=== PATIENT | female | born 1965 | race Caucasian/White ===

== ENCOUNTER 2016-07-21 22:26 | Emergency (ER) | payer OTHER ==
[2016-07-21 22:32] VITALS: BP 115/75
--- NOTE | 2016-07-21 22:44 | EDM.PDOC ---
ED HPI GENERAL MEDICAL PROBLEM - General Chief Complaint: Chest Pain Stated Complaint: CHEST PAINS/SHORT OF BREATH Time Seen by Provider: 07/21/16 22:35 Source of Information: Reports: Patient History Limitations: Reports: No Limitations - History of Present Illness INITIAL COMMENTS - FREE TEXT/NARRATIVE: c/o chest pain started after carrying groceries in. Notes similar pain in past with anxiety, Pain sharp and burning, tried tums and didn't help. Notes yepez of "life stress". No seating, No nausea or vomiting Onset: Other (yesterday) Duration: Day(s):, Constant Location: Reports: Chest Quality: Reports: Other (sharp) Severity: Mild Context: Reports: Other (stress) Associated Symptoms: Reports: Shortness of Breath, Other (anxious) Mid-Sternal Chest Pain Score (Numeric/FACES): 8 - Related Data Allergies Allergy/AdvReac Type Severity Reaction Status Date / Time cephalexin [Cephalexin] AdvReac Nausea and Verified 07/21/16 22:32 Vomiting prednisone AdvReac Vomiting Verified 07/21/16 22:32 Home Meds: Home Meds Carvedilol [Carvedilol] 6.25 mg PO BID 05/07/13 [History] Estradiol [Estradiol] 2 mg PO DAILY 05/07/13 [History] Furosemide [Lasix] 20 mg PO WEEKLY PRN 05/07/13 [History] Potassium Chloride [Klor-Con 10] 10 meq PO BID 05/07/13 [History] QUEtiapine Fumarate [Seroquel] 200 mg PO BID 05/07/13 [History] QUEtiapine [SEROquel] 300 mg PO BEDTIME 05/07/13 [History] Sertraline [Zoloft] 100 mg PO TID 05/07/13 [History] Simvastatin [Simvastatin] 40 mg PO DAILY 05/07/13 [History] busPIRone [Buspar] 15 mg PO TID 05/07/13 [History] ALPRAZolam [Alprazolam ODT] 0.5 mg PO TID 09/10/14 [History] Levothyroxine 1 tab PO DAILY 10/17/14 [History] Cyanocobalamin (Vitamin B12) [Vitamin B12] 1,000 mcg IM .MONTHLY 12/27/14 [ History] Ferrous Sulfate 324 mg PO BIDMEALS 12/27/14 [History] Fluticasone/Salmeterol [Advair 500-50] 1 puff INH ASDIRECTED PRN 12/27/14 [ History] Folic Acid 1 mg PO DAILY 12/27/14 [History] Ibuprofen 2 tab PO Q6HR PRN 12/27/14 [History] Cyclobenzaprine [Flexeril] 10 mg PO TID PRN 07/21/16 [History] Past Medical History Cardiovascular 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: Heart Failure 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 Denies: Lightheadedness GI/Abdominal: Reports: No Symptoms Musculoskeletal: Reports: No Symptoms Neurological: Reports: No Symptoms Psychiatric: Reports: Anxiety ED EXAM, GENERAL - Physical Exam Exam: See Below Exam Limited By: No Limitations General Appearance: Alert, Anxious Eye Exam: Bilateral Eye: PERRL Ears: Normal External Exam Nose: Normal Inspection Throat/Mouth: Normal Inspection Head: Atraumatic, Normocephalic Neck: Normal Inspection. No: Lymphadenopathy (L), Lymphadenopathy (R) Respiratory/Chest: No Respiratory Distress, Lungs Clear, Normal Breath Sounds, Other (bilateral upper chest tenderness with palpation) Cardiovascular: Normal Peripheral Pulses, Regular Rate, Rhythm GI/Abdominal: Normal Bowel Sounds, Soft, Non-Tender Back Exam: Normal Inspection. No: CVA Tenderness (L), CVA Tenderness (R) Extremities: Normal Inspection Neurological: Alert, Oriented, Normal Cognition Psychiatric: Anxious Skin Exam: Warm, Dry, Intact, Normal Color Course - Vital Signs Last Recorded V/S: Last Vital Signs Temp 97.9 F 07/21/16 22:28 Pulse 86 07/21/16 22:28 Resp 18 07/21/16 22:28 BP 115/75 07/21/16 22:28 Pulse Ox 99 07/21/16 22:28 - Orders/Labs/Meds Labs: Laboratory Tests 07/21/16 07/21/16 07/21/16 Range/Units 22:50 22:50 22:50 WBC 9.2 (5.0-10.0) 10^3/uL RBC 3.72 L (4.2-5.4) 10^6/uL Hgb 11.6 L (12.0-16.0) g/dL Hct 35.5 L (37.0-47.0) % MCV 95.4 (80-100) fL MCH 31.2 (27.0-34.0) pg MCHC 32.7 L (33.0-35.0) g/dL Plt Count 268 (150-450) 10^3/uL Neut % (Auto) 54.3 (42.2-75.2) % Lymph % (Auto) 36.2 (20.5-50.1) % [place] % (Auto) 5.7 (2-8) % Eos % (Auto) 3.5 H (1.0-3.0) % Baso % (Auto) 0.3 (0.0-1.0) % D-Dimer, Quantitative (0-400) ng/mL Sodium 136 (135-145) mmol/L Potassium 3.0 L (3.6-5.0) mmol/L Chloride 104 (101-111) mmol/L Carbon Dioxide 23.0 (21.0-31.0) mmol/L Anion Gap 12.0 BUN 15 (7-18) mg/dL Creatinine 1.2 (0.6-1.3) mg/dL Est Cr Clr Drug Dosing 54.54 mL/min Estimated GFR (MDRD) 48 BUN/Creatinine Ratio 12.50 Glucose 113 H (74-105) mg/dL Calcium 8.5 (8.4-10.2) mg/dl Total Bilirubin 0.3 (0.2-1.0) mg/dL AST 12 (10-42) IU/L ALT 11 (10-60) IU/L Alkaline Phosphatase 55 (42-121) IU/L CK-MB (CK-2) 2.90 (0.4-4.7) ng/mL Troponin I < 0.02 (0.00-0.02) ng/ml B-Natriuretic Peptide < 5 (0-100) pg/ml Total Protein 7.1 (6.7-8.2) g/dl Albumin 4.0 (3.2-5.5) g/dl Globulin 3.1 Albumin/Globulin Ratio 1.29 Amylase 38 (28-100) U/L Lipase 34 (22-51) U/L Urine Color (YELLOW) Urine Appearance (CLEAR) Urine pH (5.0-9.0) Ur Specific [place] (1.005-1.030) Urine Protein (NEGATIVE) Urine Glucose (UA) (NEGATIVE) Urine Ketones (NEGATIVE) Urine Occult Blood (NEGATIVE) Urine Nitrite (NEGATIVE) Urine Bilirubin (NEGATIVE) Urine Urobilinogen (0.2-1.0) mg/dL Ur Leukocyte Esterase (NEGATIVE) Urine RBC /HPF Urine WBC (0-5/HPF) /HPF Ur Epithelial Cells /HPF Urine Bacteria (0-FEW/HPF) /HPF 07/21/16 07/21/16 Range/Units 22:50 23:21 WBC (5.0-10.0) 10^3/uL RBC (4.2-5.4) 10^6/uL Hgb (12.0-16.0) g/dL Hct (37.0-47.0) % MCV (80-100) fL MCH (27.0-34.0) pg MCHC (33.0-35.0) g/dL Plt Count (150-450) 10^3/uL Neut % (Auto) (42.2-75.2) % Lymph % (Auto) (20.5-50.1) % [place] % (Auto) (2-8) % Eos % (Auto) (1.0-3.0) % Baso % (Auto) (0.0-1.0) % D-Dimer, Quantitative 187 (0-400) ng/mL Sodium (135-145) mmol/L Potassium (3.6-5.0) mmol/L Chloride (101-111) mmol/L Carbon Dioxide (21.0-31.0) mmol/L Anion Gap BUN (7-18) mg/dL Creatinine (0.6-1.3) mg/dL Est Cr Clr Drug Dosing mL/min Estimated GFR (MDRD) BUN/Creatinine Ratio Glucose (74-105) mg/dL Calcium (8.4-10.2) mg/dl Total Bilirubin (0.2-1.0) mg/dL AST (10-42) IU/L ALT (10-60) IU/L Alkaline Phosphatase (42-121) IU/L CK-MB (CK-2) (0.4-4.7) ng/mL Troponin I (0.00-0.02) ng/ml B-Natriuretic Peptide (0-100) pg/ml Total Protein (6.7-8.2) g/dl Albumin (3.2-5.5) g/dl Globulin Albumin/Globulin Ratio Amylase (28-100) U/L Lipase (22-51) U/L Urine Color Yellow (YELLOW) Urine Appearance Clear (CLEAR) Urine pH 6.5 (5.0-9.0) Ur Specific [place] <= 1.005 (1.005-1.030) Urine Protein Negative (NEGATIVE) Urine Glucose (UA) Negative (NEGATIVE) Urine Ketones Negative (NEGATIVE) Urine Occult Blood Negative (NEGATIVE) Urine Nitrite Negative (NEGATIVE) Urine Bilirubin Negative (NEGATIVE) Urine Urobilinogen 0.2 (0.2-1.0) mg/dL Ur Leukocyte Esterase Negative (NEGATIVE) Urine RBC Not seen /HPF Urine WBC Not seen (0-5/HPF) /HPF Ur Epithelial Cells Rare /HPF Urine Bacteria Rare (0-FEW/HPF) /HPF Meds: Medications Discontinued Medications Generic Name Dose Route Start Last Admin Trade Name Traci PRN Reason Stop Dose Admin Aspirin 162 mg 07/21/16 23:00 07/21/16 23:03 Aspirin PO 07/21/16 23:01 162 mg ONETIME ONE Administration Lorazepam 1 mg 07/21/16 23:39 07/21/16 23:43 Ativan PO 07/21/16 23:40 1 mg ONETIME ONE Administration Potassium Chloride 20 meq 07/21/16 23:39 07/21/16 23:43 Klor-Con 10 PO 07/21/16 23:40 20 meq ONETIME ONE Administration Departure - Departure Time of Disposition: 23:57 Disposition: Home, Self-Care 01 Condition: good Clinical Impression: Anxiety, Non-cardiac chest pain - Discharge Information Instructions: Nonspecific Chest Pain, [id number] Forms: ED Department Discharge Additional Instructions: home medications rest low acid foods, bland diet follow up if worsening symptoms follow with primary care if continued anxiety to determine if any changes need to be made with medication
[2016-07-21] MEDS ORDERED: Aspirin 81 MG Tab.Chew PO ONE (23:00)
[2016-07-21 23:19] LABS: CHLORIDE,CL 104 mmol/L (101-111); SODIUM,NA 136 mmol/L (135-145)
[2016-07-21] MEDS ORDERED: Potassium Chloride 10 MEQ Tab.ER PO ONE (23:39)
[2016-07-21] MEDS ORDERED: LORazepam 1 MG Tab PO ONE (23:39)
--- NOTE | 2016-07-22 13:14 | EKG ---
07/21/2016- ALTAGRACIA GARCIA 12-lead EKG shows normal sinus rhythm with heart rate of 81. No significant ST elevation or ST depression noted on this 12-lead EKG. Nonspecific ST-T wave changes noted on lead V2 and V3 with T-wave inversions. [facility] /[id number]
== END 2016-07-22 00:06 | disposition home or self-care (01) ==
LOC: DL.ED 22:26
DX: R07.89 Other chest pain (principal); F41.9 Anxiety disorder, unspecified; Z88.8 Allergy status to other drugs, medicaments and biological substances; Z79.899 Other long term (current) drug therapy; Z90.710 Acquired absence of both cervix and uterus; Z90.49 Acquired absence of other specified parts of digestive tract
CPT/HCPCS: 36415; 71010; 80053; 81001; 82150; 82553; 83690; 83880; 84484; 85025; 85379; 93005; 99285; A9270

== ENCOUNTER 2016-08-09 12:17 | Emergency (ER) | payer OTHER ==
--- NOTE | 2016-08-09 12:19 | EDM.PDOC ---
ED HPI GENERAL MEDICAL PROBLEM - General Chief Complaint: Lower Extremity Injury/Pain Stated Complaint: [id number] BRENT HORSE IN BOTH LEGS Time Seen by Provider: 08/09/16 12:40 Source of Information: Reports: Patient, RN, RN Notes Reviewed History Limitations: Reports: No Limitations - History of Present Illness INITIAL COMMENTS - FREE TEXT/NARRATIVE: Onset of severe brent horse's at approximately 3a.m.. Began in left calf, then right and left upper and lower legs, and right chest wall. Patient takes Lasix. Reports history of similar symptoms with electrolyte imbalance. Quality: Reports: Ache Severity: Severe Improves with: Reports: None Worsens with: Reports: None Associated Symptoms: Reports: No Other Symptoms Bilateral Lower Leg Pain Score (Numeric/FACES): 8 - Related Data Allergies Allergy/AdvReac Type Severity Reaction Status Date / Time cephalexin [Cephalexin] AdvReac Nausea and Verified 08/09/16 12:26 Vomiting prednisone AdvReac Vomiting Verified 08/09/16 12:26 Home Meds: Home Meds Carvedilol [Carvedilol] 6.25 mg PO BID 05/07/13 [History] Estradiol [Estradiol] 2 mg PO DAILY 05/07/13 [History] Furosemide [Lasix] 20 mg PO WEEKLY PRN 05/07/13 [History] Potassium Chloride [Klor-Con 10] 10 meq PO BID 05/07/13 [History] QUEtiapine Fumarate [Seroquel] 200 mg PO BID 05/07/13 [History] QUEtiapine [SEROquel] 300 mg PO BEDTIME 05/07/13 [History] Sertraline [Zoloft] 100 mg PO TID 05/07/13 [History] Simvastatin [Simvastatin] 40 mg PO DAILY 05/07/13 [History] busPIRone [Buspar] 15 mg PO TID 05/07/13 [History] ALPRAZolam [Alprazolam ODT] 0.5 mg PO TID 09/10/14 [History] Levothyroxine 1 tab PO DAILY 10/17/14 [History] Cyanocobalamin (Vitamin B12) [Vitamin B12] 1,000 mcg IM .MONTHLY 12/27/14 [ History] Ferrous Sulfate 324 mg PO BIDMEALS 12/27/14 [History] Fluticasone/Salmeterol [Advair 500-50] 1 puff INH ASDIRECTED PRN 12/27/14 [ History] Folic Acid 1 mg PO DAILY 12/27/14 [History] Ibuprofen 2 tab PO Q6HR PRN 12/27/14 [History] Cyclobenzaprine [Flexeril] 10 mg PO TID PRN 07/21/16 [History] Past Medical History Cardiovascular 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: Heart Failure 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: 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, 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: Other (See Below) Other OB/BYN History: hysterectomy Musculoskeletal 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: Back Pain, Chronic Psychiatric 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: Anxiety, Depression Endocrine/Metabolic 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: Hypothyroidism Hematologic 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: B12 Deficiency - Infectious Disease History Infectious Disease 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: Chicken Pox - Past Surgical History GI Surgical 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: Appendectomy, Cholecystectomy Social & Family History - Family History Family Medical History: Noncontributory - Tobacco Use Smoking Status *Q: Never Smoker Second Hand Smoke Exposure: Yes - Recreational Drug Use Recreational Drug Use: No Review of Systems - Review of Systems Review Of Systems: ROS reveals no pertinent complaints other than HPI. ED EXAM, GENERAL - Physical Exam Exam: See Below Exam Limited By: No Limitations General Appearance: Alert, WD/WN, No Apparent Distress Eye Exam: Bilateral Eye: Normal Inspection Ears: Normal External Exam, Normal Canal, Hearing Grossly Normal, Normal TMs Nose: Normal Inspection, Normal Mucosa, No Blood Throat/Mouth: Normal Inspection, Normal Lips, Normal Teeth, Normal Gums, Normal Oropharynx, Normal Voice, No Airway Compromise Head: Atraumatic, Normocephalic Neck: Normal Inspection, Supple, Non-Tender, Full Range of Motion Respiratory/Chest: Other (right lower lateral chest wall tenderness, otherwise normal.) GI/Abdominal: Normal Bowel Sounds, Soft, Non-Tender, No Organomegaly, No Distention, No Abnormal Bruit, No Mass Back Exam: Normal Inspection, Full Range of Motion, NT Extremities: Other (mild tenderness to bilateral calves and thighs.) Neurological: Alert, Oriented, CN II-XII Intact, Normal Cognition, Normal Gait, Normal Reflexes, No Motor/Sensory Deficits Psychiatric: Normal Affect, Normal Mood Skin Exam: Warm, Dry, Intact, Normal Color, No Rash Lymphatic: No Adenopathy Course - Vital Signs Last Recorded V/S: Last Vital Signs Temp 37.1 C 08/09/16 14:41 Pulse 74 06/11/17 14:41 Resp 20 08/09/16 14:41 BP 111/73 08/09/16 14:41 Pulse Ox 99 08/09/16 14:41 - Orders/Labs/Meds Orders: Active Orders 24 hr Category Date Time Status Peripheral IV Care [RC] . DIRECTED Care 08/09/16 14:02 Active Regular Diet [DIET] Diet 08/09/16 Dinner Active Sodium Chloride 0.9% [Saline Flush] Med 08/09/16 14:02 Active 10 ml FLUSH ASDIRECTED PRN Peripheral IV Insertion Adult [OM.PC] Stat Oth 08/09/16 14:01 Ordered Medication Orders Sodium Chloride (Saline Flush) 10 ml FLUSH ASDIRECTED PRN PRN Reason: Keep Vein Open Last Admin: 08/09/16 14:08 Dose: 10 ml Labs: Laboratory Tests 08/09/16 08/09/16 08/09/16 Range/Units 12:57 12:57 13:03 WBC 11.5 H (5.0-10.0) 10^3/uL RBC 4.01 L (4.2-5.4) 10^6/uL Hgb 12.4 (12.0-16.0) g/dL Hct 37.2 (37.0-47.0) % MCV 92.8 (80-100) fL MCH 30.9 (27.0-34.0) pg MCHC 33.3 (33.0-35.0) g/dL Plt Count 326 (150-450) 10^3/uL Neut % (Auto) 72.1 (42.2-75.2) % Lymph % (Auto) 19.1 L (20.5-50.1) % [place] % (Auto) 5.7 (2-8) % Eos % (Auto) 2.9 (1.0-3.0) % Baso % (Auto) 0.2 (0.0-1.0) % Sodium 136 (135-145) mmol/L Potassium 3.3 L (3.6-5.0) mmol/L Chloride 101 (101-111) mmol/L Carbon Dioxide 20.0 L (21.0-31.0) mmol/L Anion Gap 18.3 BUN 26 H (7-18) mg/dL Creatinine 1.7 H (0.6-1.3) mg/dL Est Cr Clr Drug Dosing 38.50 mL/min Estimated GFR (MDRD) 32 BUN/Creatinine Ratio 15.29 Glucose 141 H (74-105) mg/dL Calcium 9.2 (8.4-10.2) mg/dl Magnesium 1.4 L (1.8-2.5) mg/dL Total Bilirubin 0.2 (0.2-1.0) mg/dL AST 11 (10-42) IU/L ALT 14 (10-60) IU/L Alkaline Phosphatase 66 (42-121) IU/L Total Protein 8.3 H (6.7-8.2) g/dl Albumin 4.8 (3.2-5.5) g/dl Globulin 3.5 Albumin/Globulin Ratio 1.37 Urine Color Yellow (YELLOW) Urine Appearance Clear (CLEAR) Urine pH 5.0 (5.0-9.0) Ur Specific [place] 1.015 (1.005-1.030) Urine Protein Negative (NEGATIVE) Urine Glucose (UA) Negative (NEGATIVE) Urine Ketones Negative (NEGATIVE) Urine Occult Blood Negative (NEGATIVE) Urine Nitrite Negative (NEGATIVE) Urine Bilirubin Negative (NEGATIVE) Urine Urobilinogen 0.2 (0.2-1.0) mg/dL Ur Leukocyte Esterase Negative (NEGATIVE) Urine RBC Not seen /HPF Urine WBC 0-5 (0-5/HPF) /HPF Ur Epithelial Cells Few /HPF Urine Bacteria Few (0-FEW/HPF) /HPF Urine Mucus Few H /LPF Meds: Medications Generic Name Dose Route Start Last Admin Trade Name Freq PRN Reason Stop Dose Admin Sodium Chloride 10 ml 08/09/16 14:02 08/09/16 14:08 Saline Flush FLUSH 10 ml ASDIRECTED PRN Administration Keep Vein Open Discontinued Medications Generic Name Dose Route Start Last Admin Trade Name Freq PRN Reason Stop Dose Admin Hydrocodone Bitart/Acetaminophen 1 tab 08/09/16 14:07 08/09/16 14:11 [place] 325-10 Mg PO 08/09/16 14:08 1 tab ONETIME ONE Administration Potassium Chloride 10 meq/ 100 mls @ 100 mls/hr 08/09/16 14:02 08/09/16 14:09 Premix IV 08/09/16 15:01 100 mls/hr ONETIME ONE Administration Sodium Chloride 1,000 mls @ 999 mls/hr 08/09/16 14:03 08/09/16 14:07 Normal Saline IV 08/09/16 15:03 400 mls/hr .BOLUS ONE Administration Magnesium Sulfate 2 gm/ Premix 50 mls @ 25 mls/hr 08/09/16 14:50 08/09/16 15: 19 IV 08/09/16 16:49 25 mls/hr ONETIME ONE Administration Ketorolac Tromethamine 30 mg 08/09/16 16:53 08/09/16 17:06 Toradol IVPUSH 08/09/16 16:54 30 mg ONETIME ONE Administration Ondansetron HCl 4 mg 08/09/16 14:02 08/09/16 14:09 Zofran IV 08/09/16 14:03 4 mg ONETIME ONE Administration Departure - Departure Time of Disposition: 17:14 Disposition: Home, Self-Care 01 Condition: fair Clinical Impression: Hypomagnesemia, Hypokalemia, Dehydration - Discharge Information Instructions: Muscle Cramps and Spasms, [id number], Hypomagnesemia, Hypokalemia, Dehydration, Adult, [id number] Forms: ED Department Discharge Additional Instructions: RX: [place] 5mg/325mg. Follow up in clinic with your primary doctor if not improving. - My Orders Last 24 Hours: My Active Orders 08/09/16 14:01 Peripheral IV Insertion Adult [OM.PC] Stat 08/09/16 14:02 Peripheral IV Care [RC] . DIRECTED Sodium Chloride 0.9% [Saline Flush] 10 ml FLUSH ASDIRECTED PRN 08/09/16 Dinner Regular Diet [DIET] - Assessment/Plan Last 24 Hours: My Active Orders 08/09/16 14:01 Peripheral IV Insertion Adult [OM.PC] Stat 08/09/16 14:02 Peripheral IV Care [RC] . DIRECTED Sodium Chloride 0.9% [Saline Flush] 10 ml FLUSH ASDIRECTED PRN 08/09/16 Dinner Regular Diet [DIET]
[2016-08-09] MEDS ORDERED: Potassium Chloride 10 MEQ in Premix Bag 1 BAG IV ONE (14:02)
[2016-08-09] MEDS ORDERED: Ondansetron 4 MG/2 ML SDV IV ONE (14:02)
[2016-08-09] MEDS ORDERED: Sodium Chloride 0.9% 10 ML Syringe FLUSH PRN (14:02)
[2016-08-09] MEDS ORDERED: Sodium Chloride 0.9% 1,000 ML IV ONE (14:03)
[2016-08-09] MEDS ORDERED: Acetaminophen/HYDROcodone 325-10 MG Tab PO ONE ×2 (14:07→17:22)
[2016-08-09 14:45] VITALS: BP 111/73
[2016-08-09] MEDS ORDERED: Magnesium Sulfate/Water 2 GM in Premix Bag 1 BAG IV ONE (14:50)
[2016-08-09] MEDS ORDERED: Ketorolac 30 MG/ML SDV IVPUSH ONE (16:53)
[2016-08-09] MEDS ORDERED: Acetaminophen/HYDROcodone 325-10 MG Tab ONE (17:22)
== END 2016-08-09 18:34 | disposition home or self-care (01) ==
LOC: DL.ED 12:17
DX: E83.42 Hypomagnesemia (principal); E87.6 Hypokalemia; E86.0 Dehydration; F32.9 Major depressive disorder, single episode, unspecified; F41.9 Anxiety disorder, unspecified; J45.909 Unspecified asthma, uncomplicated; I50.9 Heart failure, unspecified; E03.9 Hypothyroidism, unspecified; Z88.5 Allergy status to narcotic agent; Z88.1 Allergy status to other antibiotic agents; Z79.899 Other long term (current) drug therapy; Z90.49 Acquired absence of other specified parts of digestive tract
CPT/HCPCS: 36415; 80053; 81001; 83735; 85025; 96365; 96366; 96367; 96368; 96375; 99283; A9270; J1885; J2405; J3480; J7030; J7050; J3475

== ENCOUNTER 2016-08-23 07:43 | Inpatient (IN) | payer OTHER ==
[2016-08-23] MEDS ORDERED: diphenhydrAMINE 50 MG/ML SDV IVPUSH ONE ×2 (08:06→12:24)
--- NOTE | 2016-08-23 08:06 | EDM.PDOC ---
ED HPI GENERAL MEDICAL PROBLEM - General Stated Complaint: [id number] PAIN IN STOMACH TO BACK NAUSEA Time Seen by Provider: 08/23/16 07:59 Source of Information: Reports: Patient History Limitations: Reports: No Limitations - History of Present Illness INITIAL COMMENTS - FREE TEXT/NARRATIVE: Patient comes emergency department today with multiple complaints. She states approximately at 2:00 this morning she suddenly developed left lower quadrant abdominal pain and lower abdominal bloating and distention that goes across her lower abdomen up to her right flank. She is quite nauseated with this. She has not had any vomiting. No diarrhea. No fever or chills. No chest pain or shortness of breath. No epigastric pain. She's noted that she has had quite a bit of decreased urinary output. Her last bowel movement was 3-4 days ago. She does have a history of constipation. She was in the emergency department about 1 week ago for dehydration and leg cramps. She was given some IV fluids at that time. Her leg cramps have resolved but now she thinks that she is more constipated than she was previously. Last time she urinated was last evening and it was not painful foul-smelling hematuria or cloudy. Denies any vaginal discharge or complaints. The patient does not drink any water what so ever on a daily basis. She drinks 12-14 cans of Pepsi regular a day and never has drank any water. Upper Abdominal Pain Score (Numeric/FACES): 8 - Related Data Allergies Allergy/AdvReac Type Severity Reaction Status Date / Time cephalexin [Cephalexin] AdvReac Nausea and Verified 08/23/16 15:01 Vomiting prednisone AdvReac Vomiting Verified 08/23/16 08:00 Home Meds: Home Meds Carvedilol [Carvedilol] 6.25 mg PO BID 05/07/13 [History] Estradiol [Estradiol] 2 mg PO DAILY 05/07/13 [History] Furosemide [Lasix] 20 mg PO WEEKLY PRN 05/07/13 [History] Potassium Chloride [Klor-Con 10] 10 meq PO BID 05/07/13 [History] QUEtiapine Fumarate [Seroquel] 50 mg PO BID 05/07/13 [History] QUEtiapine [SEROquel] 300 mg PO BEDTIME 05/07/13 [History] Sertraline [Zoloft] 100 mg PO TID 05/07/13 [History] Simvastatin [Simvastatin] 40 mg PO DAILY 05/07/13 [History] busPIRone [Buspar] 15 mg PO TID 05/07/13 [History] ALPRAZolam [Alprazolam ODT] 0.5 mg PO TID 09/10/14 [History] Levothyroxine 1 tab PO DAILY 10/17/14 [History] Cyanocobalamin (Vitamin B12) [Vitamin B12] 1,000 mcg IM .MONTHLY 12/27/14 [ History] Ferrous Sulfate 324 mg PO BIDMEALS 12/27/14 [History] Fluticasone/Salmeterol [Advair 500-50] 1 puff INH ASDIRECTED PRN 12/27/14 [ History] Folic Acid 1 mg PO DAILY 12/27/14 [History] Ibuprofen 2 tab PO Q6HR PRN 12/27/14 [History] Cyclobenzaprine [Flexeril] 10 mg PO TID PRN 07/21/16 [History] Past Medical History HEENT 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: Impaired Vision Other HEENT History: wears glasses Cardiovascular 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: Heart Failure 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: Asthma, SOB 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 (See Below) Other OB/BYN History: hysterectomy Musculoskeletal 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: Back Pain, Chronic Neurological 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: None Psychiatric 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: Anxiety, Depression Endocrine/Metabolic 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: Hypothyroidism Hematologic 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: B12 Deficiency Immunologic 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: None Oncologic (Cancer) 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: None Dermatologic 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: None - Infectious Disease History Infectious Disease 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: Chicken Pox - Past Surgical History GI Surgical 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: Appendectomy, Cholecystectomy Social & Family History - Family History Family Medical History: Noncontributory - Tobacco Use Smoking Status *Q: Never Smoker Second Hand Smoke Exposure: Yes - Caffeine Use Caffeine Use: Reports: Soda - Recreational Drug Use Recreational Drug Use: No ED ROS GENERAL - Review of Systems Review Of Systems: ROS reveals no pertinent complaints other than HPI. ED EXAM, GI/ABD - Physical Exam Exam: See Below Text/Narrative:: A smiling interactive person that appears in no acute distress. Exam Limited By: No Limitations General Appearance: Alert, WD/WN, No Apparent Distress Ears: Normal External Exam, Normal Canal, Normal TMs Nose: Normal Inspection, Normal Mucosa, No Blood Throat/Mouth: Normal Lips, Normal Teeth, Normal Gums, Normal Oropharynx, No Airway Compromise, Other (Dry oral mucosa) Head: Atraumatic, Normocephalic Neck: Normal Inspection, Supple, Non-Tender Respiratory/Chest: No Respiratory Distress, Lungs Clear, Normal Breath Sounds, No Accessory Muscle Use Cardiovascular: Normal Peripheral Pulses, Regular Rate, Rhythm, No Edema GI/Abdominal: No Organomegaly, No Distention, No Abnormal Bruit, No Mass, Pelvis Stable, Hypoactive Bowel Sounds, Tenderness (Left lower quadrant lower abdominal. Dullness throughout the abdomen on percussion.), Distention. No: Guarding, Rebound, Rigidity, McBurney's Sign, Rovsing's Sign, Corbett's Sign (Female) Exam: Deferred Rectal (Female) Exam: Deferred Back Exam: No: CVA Tenderness (L), CVA Tenderness (R) Extremities: Normal Inspection, Normal Range of Motion, Non-Tender, Normal Capillary Refill Neurological: Alert, Oriented, CN II-XII Intact, Normal Reflexes, No Motor/ Sensory Deficits Psychiatric: Normal Affect Skin Exam: Warm, Dry, Intact, Normal Color Lymphatic: No Adenopathy Course - Vital Signs Last Recorded V/S: Last Vital Signs Temp 36.7 C 08/23/16 09:34 Pulse 73 08/23/16 09:34 Resp 18 08/23/16 09:34 BP 129/80 08/23/16 09:34 Pulse Ox 100 08/23/16 09:34 - Orders/Labs/Meds Orders: Active Orders 24 hr Category Date Time Status Peripheral IV Care [RC] . DIRECTED Care 08/23/16 08:07 Hold NPO [Nothing Per Oral Diet] [DIET] Diet 08/23/16 Dinner Active Sodium Chloride 0.9% [Normal Saline] 1,000 ml Med 08/23/16 08:15 Active IV ASDIRECTED Sodium Chloride 0.9% [Normal Saline] 1,000 ml Med 08/23/16 13:30 Active IV ASDIRECTED Sodium Chloride 0.9% [Saline Flush] Med 08/23/16 08:06 Active 10 ml FLUSH ASDIRECTED PRN Peripheral IV Insertion Adult [OM.PC] Stat Oth 08/23/16 08:06 Ordered Medication Orders Acetaminophen (Tylenol) 650 mg PO Q4H PRN PRN Reason: Pain (Mild 1-3)/fever Buspirone HCl (Buspar) 15 mg PO TID [facility] Carvedilol (Coreg) 6.25 mg PO BID [facility] Enoxaparin Sodium (Lovenox) 40 mg SUBCUT DAILY [facility] Folic Acid (Folic Acid) 1 mg PO DAILY KP Sodium Chloride (Normal Saline) 1,000 mls @ 500 mls/hr IV ASDIRECTED [facility] Last Infusion: 08/23/16 11:04 Dose: 500 mls/hr Admin: 08/23/16 08:31 Dose: 500 mls/hr Sodium Chloride (Normal Saline) 1,000 mls @ 150 mls/hr IV ASDIRECTED KP Last Admin: 08/23/16 13:36 Dose: 150 mls/hr Sodium Chloride (Normal Saline) 1,000 mls @ 125 mls/hr IV ASDIRECTED KP Levofloxacin/Dextrose 500 mg/ (Premix) 100 mls @ 100 mls/hr IV Q24H KP Pantoprazole Sodium 40 mg/ (Sodium Chloride) 100 mls @ 20 mls/hr IV .CONTINUOS KP Morphine Sulfate (Morphine) 2 mg IVPUSH Q2H PRN PRN Reason: Pain (severe 7-10) Non-Formulary Medication (Alprazolam [Alprazolam Odt]) 0.5 mg PO TID [facility] Non-Formulary Medication (Fluticasone/Salmeterol [Advair 500-50]) 1 puff INH ASDIRECTED PRN PRN Reason: Shortness of Breath Non-Formulary Medication (Levothyroxine [Levothyroxine]) 1 tab PO DAILY [facility] Non-Formulary Medication (Quetiapine [Seroquel]) 300 mg PO BEDTIME [facility] Ondansetron HCl (Zofran Odt) 4 mg PO Q4H PRN PRN Reason: nausea, able to take PO Oxycodone HCl (Oxycodone) 5 mg PO Q4H PRN PRN Reason: Pain (moderate 4-6) Quetiapine Fumarate (Seroquel) 200 mg PO BID [facility] Sertraline HCl (Zoloft) 100 mg PO TID [facility] Sodium Chloride (Saline Flush) 10 ml FLUSH ASDIRECTED PRN PRN Reason: Keep Vein Open Last Admin: 08/23/16 08:31 Dose: 10 ml Labs: Laboratory Tests 08/23/16 08/23/16 08/23/16 Range/Units 08:15 08:15 08:15 WBC 15.8 H (5.0-10.0) 10^3/uL RBC 3.68 L (4.2-5.4) 10^6/uL Hgb 11.3 L (12.0-16.0) g/dL Hct 35.2 L (37.0-47.0) % MCV 95.7 (80-100) fL MCH 30.7 (27.0-34.0) pg MCHC 32.1 L (33.0-35.0) g/dL Plt Count 264 (150-450) 10^3/uL Neut % (Auto) 88.4 H (42.2-75.2) % Lymph % (Auto) 7.3 L (20.5-50.1) % Faulkner % (Auto) 3.3 (2-8) % Eos % (Auto) 0.9 L (1.0-3.0) % Baso % (Auto) 0.1 (0.0-1.0) % Sodium 133 L (135-145) mmol/L Potassium 3.8 (3.6-5.0) mmol/L Chloride 102 (101-111) mmol/L Carbon Dioxide 20.0 L (21.0-31.0) mmol/L Anion Gap 14.8 BUN 18 (7-18) mg/dL Creatinine 1.1 (0.6-1.3) mg/dL Est Cr Clr Drug Dosing 59.50 mL/min Estimated GFR (MDRD) 53 BUN/Creatinine Ratio 16.36 Glucose 139 H (74-105) mg/dL Lactic Acid (0.5-2.2) mmol/L Calcium 8.9 (8.4-10.2) mg/dl Total Bilirubin 0.4 (0.2-1.0) mg/dL AST 8 L (10-42) IU/L ALT 13 (10-60) IU/L Alkaline Phosphatase 56 (42-121) IU/L C-Reactive Protein (0.0-1.3) mg/dL Total Protein 7.1 (6.7-8.2) g/dl Albumin 4.2 (3.2-5.5) g/dl Globulin 2.9 Albumin/Globulin Ratio 1.45 Amylase (28-100) U/L Lipase > 400 H (22-51) U/L Urine Color (YELLOW) Urine Appearance (CLEAR) Urine pH (5.0-9.0) Ur Specific Jesse (1.005-1.030) Urine Protein (NEGATIVE) Urine Glucose (UA) (NEGATIVE) Urine Ketones (NEGATIVE) Urine Occult Blood (NEGATIVE) Urine Nitrite (NEGATIVE) Urine Bilirubin (NEGATIVE) Urine Urobilinogen (0.2-1.0) mg/dL Ur Leukocyte Esterase (NEGATIVE) Urine RBC /HPF Urine WBC (0-5/HPF) /HPF Ur Epithelial Cells /HPF Urine Bacteria (0-FEW/HPF) /HPF Urine Mucus /LPF Urine Opiates Screen (NEGATIVE) Ur Oxycodone Screen (NEGATIVE) Urine Methadone Screen (NEGATIVE) Ur Barbiturates Screen (NEGATIVE) U Tricyclic Antidepress (NEGATIVE) Ur Phencyclidine Scrn (NEGATIVE) Ur Amphetamine Screen (NEGATIVE) U Methamphetamines Scrn (NEGATIVE) Urine MDMA Screen (NEGATIVE) U Benzodiazepines Scrn (NEGATIVE) Urine Cocaine Screen (NEGATIVE) U Marijuana (THC) Screen (NEGATIVE) 08/23/16 08/23/16 08/23/16 Range/Units 08:22 08:22 13:28 WBC (5.0-10.0) 10^3/uL RBC (4.2-5.4) 10^6/uL Hgb (12.0-16.0) g/dL Hct (37.0-47.0) % MCV (80-100) fL MCH (27.0-34.0) pg MCHC (33.0-35.0) g/dL Plt Count (150-450) 10^3/uL Neut % (Auto) (42.2-75.2) % Lymph % (Auto) (20.5-50.1) % Faulkner % (Auto) (2-8) % Eos % (Auto) (1.0-3.0) % Baso % (Auto) (0.0-1.0) % Sodium (135-145) mmol/L Potassium (3.6-5.0) mmol/L Chloride (101-111) mmol/L Carbon Dioxide (21.0-31.0) mmol/L Anion Gap BUN (7-18) mg/dL Creatinine (0.6-1.3) mg/dL Est Cr Clr Drug Dosing mL/min Estimated GFR (MDRD) BUN/Creatinine Ratio Glucose (74-105) mg/dL Lactic Acid (0.5-2.2) mmol/L Calcium (8.4-10.2) mg/dl Total Bilirubin (0.2-1.0) mg/dL AST (10-42) IU/L ALT (10-60) IU/L Alkaline Phosphatase (42-121) IU/L C-Reactive Protein 3.5 H (0.0-1.3) mg/dL Total Protein (6.7-8.2) g/dl Albumin (3.2-5.5) g/dl Globulin Albumin/Globulin Ratio Amylase (28-100) U/L Lipase (22-51) U/L Urine Color Yellow (YELLOW) Urine Appearance Clear (CLEAR) Urine pH 5.0 (5.0-9.0) Ur Specific Jesse 1.020 (1.005-1.030) Urine Protein Negative (NEGATIVE) Urine Glucose (UA) Negative (NEGATIVE) Urine Ketones Negative (NEGATIVE) Urine Occult Blood Negative (NEGATIVE) Urine Nitrite Negative (NEGATIVE) Urine Bilirubin Negative (NEGATIVE) Urine Urobilinogen 0.2 (0.2-1.0) mg/dL Ur Leukocyte Esterase Negative (NEGATIVE) Urine RBC Not seen /HPF Urine WBC 0-5 (0-5/HPF) /HPF Ur Epithelial Cells Moderate H /HPF Urine Bacteria Not seen (0-FEW/HPF) /HPF Urine Mucus Few H /LPF Urine Opiates Screen Negative (NEGATIVE) Ur Oxycodone Screen Negative (NEGATIVE) Urine Methadone Screen Negative (NEGATIVE) Ur Barbiturates Screen Negative (NEGATIVE) U Tricyclic Antidepress Positive H (NEGATIVE) Ur Phencyclidine Scrn Negative (NEGATIVE) Ur Amphetamine Screen Negative (NEGATIVE) U Methamphetamines Scrn Negative (NEGATIVE) Urine MDMA Screen Negative (NEGATIVE) U Benzodiazepines Scrn Positive H (NEGATIVE) Urine Cocaine Screen Negative (NEGATIVE) U Marijuana (THC) Screen Negative (NEGATIVE) 08/23/16 08/23/16 Range/Units 13:28 13:28 WBC (5.0-10.0) 10^3/uL RBC (4.2-5.4) 10^6/uL Hgb (12.0-16.0) g/dL Hct (37.0-47.0) % MCV (80-100) fL MCH (27.0-34.0) pg MCHC (33.0-35.0) g/dL Plt Count (150-450) 10^3/uL Neut % (Auto) (42.2-75.2) % Lymph % (Auto) (20.5-50.1) % Faulkner % (Auto) (2-8) % Eos % (Auto) (1.0-3.0) % Baso % (Auto) (0.0-1.0) % Sodium (135-145) mmol/L Potassium (3.6-5.0) mmol/L Chloride (101-111) mmol/L Carbon Dioxide (21.0-31.0) mmol/L Anion Gap BUN (7-18) mg/dL Creatinine (0.6-1.3) mg/dL Est Cr Clr Drug Dosing mL/min Estimated GFR (MDRD) BUN/Creatinine Ratio Glucose (74-105) mg/dL Lactic Acid 0.9 (0.5-2.2) mmol/L Calcium (8.4-10.2) mg/dl Total Bilirubin (0.2-1.0) mg/dL AST (10-42) IU/L ALT (10-60) IU/L Alkaline Phosphatase (42-121) IU/L C-Reactive Protein (0.0-1.3) mg/dL Total Protein (6.7-8.2) g/dl Albumin (3.2-5.5) g/dl Globulin Albumin/Globulin Ratio Amylase 918 H (28-100) U/L Lipase (22-51) U/L Urine Color (YELLOW) Urine Appearance (CLEAR) Urine pH (5.0-9.0) Ur Specific Jesse (1.005-1.030) Urine Protein (NEGATIVE) Urine Glucose (UA) (NEGATIVE) Urine Ketones (NEGATIVE) Urine Occult Blood (NEGATIVE) Urine Nitrite (NEGATIVE) Urine Bilirubin (NEGATIVE) Urine Urobilinogen (0.2-1.0) mg/dL Ur Leukocyte Esterase (NEGATIVE) Urine RBC /HPF Urine WBC (0-5/HPF) /HPF Ur Epithelial Cells /HPF Urine Bacteria (0-FEW/HPF) /HPF Urine Mucus /LPF Urine Opiates Screen (NEGATIVE) Ur Oxycodone Screen (NEGATIVE) Urine Methadone Screen (NEGATIVE) Ur Barbiturates Screen (NEGATIVE) U Tricyclic Antidepress (NEGATIVE) Ur Phencyclidine Scrn (NEGATIVE) Ur Amphetamine Screen (NEGATIVE) U Methamphetamines Scrn (NEGATIVE) Urine MDMA Screen (NEGATIVE) U Benzodiazepines Scrn (NEGATIVE) Urine Cocaine Screen (NEGATIVE) U Marijuana (THC) Screen (NEGATIVE) Meds: Medications Generic Name Dose Route Start Last Admin Trade Name Freq PRN Reason Stop Dose Admin Acetaminophen 650 mg 08/23/16 14:23 Tylenol PO Q4H PRN Pain (Mild 1-3)/fever Buspirone HCl 15 mg 08/23/16 21:00 Buspar PO TID KP Carvedilol 6.25 mg 08/23/16 21:00 Coreg PO BID KP Enoxaparin Sodium 40 mg 08/24/16 09:00 Lovenox SUBCUT DAILY KP Folic Acid 1 mg 08/24/16 09:00 Folic Acid PO DAILY KP Sodium Chloride 1,000 mls @ 500 mls/hr 08/23/16 08:15 08/23/16 11:04 Normal Saline IV Infused ASDIRECTED KP Infusion Sodium Chloride 1,000 mls @ 150 mls/hr 08/23/16 13:30 08/23/16 13:36 Normal Saline IV 150 mls/hr ASDIRECTED KP Administration Sodium Chloride 1,000 mls @ 125 mls/hr 08/23/16 14:30 Normal Saline IV ASDIRECTED KP Levofloxacin/Dextrose 500 mg/ 100 mls @ 100 mls/hr 08/23/16 15:00 Premix IV Q24H KP Pantoprazole Sodium 40 mg/ 100 mls @ 20 mls/hr 08/23/16 14:31 Sodium Chloride IV .CONTINUOS KP Morphine Sulfate 2 mg 08/23/16 14:23 Morphine IVPUSH Q2H PRN Pain (severe 7-10) Non-Formulary Medication 0.5 mg 08/23/16 21:00 Alprazolam [Alprazolam Odt] PO TID KP Non-Formulary Medication 1 puff 08/23/16 14:28 Fluticasone/Salmeterol [Advair 500-50] INH ASDIRECTED PRN Shortness of Breath Non-Formulary Medication 1 tab 08/24/16 09:00 Levothyroxine [Levothyroxine] PO DAILY KP Non-Formulary Medication 300 mg 08/23/16 21:00 Quetiapine [Seroquel] PO BEDTIME KP Ondansetron HCl 4 mg 08/23/16 14:23 Zofran Odt PO Q4H PRN nausea, able to take PO Oxycodone HCl 5 mg 08/23/16 14:23 Oxycodone PO Q4H PRN Pain (moderate 4-6) Quetiapine Fumarate 200 mg 08/23/16 21:00 Seroquel PO BID KP Sertraline HCl 100 mg 08/23/16 21:00 Zoloft PO TID KP Sodium Chloride 10 ml 08/23/16 08:06 08/23/16 08:31 Saline Flush FLUSH 10 ml ASDIRECTED PRN Administration Keep Vein Open Discontinued Medications Generic Name Dose Route Start Last Admin Trade Name Freq PRN Reason Stop Dose Admin Diphenhydramine HCl 25 mg 08/23/16 08:06 08/23/16 08:30 Benadryl IVPUSH 08/23/16 08:07 25 mg ONETIME ONE Administration Diphenhydramine HCl 25 mg 08/23/16 12:24 08/23/16 12:29 Benadryl IVPUSH 08/23/16 12:25 25 mg ONETIME ONE Administration Hydromorphone HCl 1 mg 08/23/16 13:34 08/23/16 13:37 Dilaudid IVPUSH 08/23/16 13:35 1 mg ONETIME ONE Administration Iopamidol 100 ml 08/23/16 12:43 Isovue-300 (61%) IVPUSH 08/23/16 12:44 ONETIME ONE Ketorolac Tromethamine 30 mg 08/23/16 09:08 08/23/16 09:15 Toradol IVPUSH 08/23/16 09:09 30 mg ONETIME ONE Administration Morphine Sulfate 4 mg 08/23/16 12:29 08/23/16 12:36 Morphine IVPUSH 08/23/16 12:30 4 mg ONETIME ONE Administration Ondansetron HCl 4 mg 08/23/16 09:08 08/23/16 09:15 Zofran IV 08/23/16 09:09 4 mg ONETIME ONE Administration Ondansetron HCl 4 mg 08/23/16 12:24 08/23/16 12:32 Zofran IV 08/23/16 12:25 4 mg ONETIME ONE Administration Polyethylene Glycol 34 gm 08/23/16 10:27 08/23/16 10:37 Miralax PO 08/23/16 10:28 34 gm ONETIME ONE Administration - Radiology Interpretation Free Text/Narrative:: X-ray per radiology prior cholecystectomy. No acute abdominal or pelvic abnormality identified. When reviewed extemporaneously by myself I wonder if she is not mildly constipated with stool in the ascending transverse and descending colon when reviewed extemporaneously by myself.. She with her history of 3 days since her last bowel movement and her chronic history of constipation. - Re-Assessments/Exams Free Text/Narrative Re-Assessment/Exam: 08/23/16 08:17 IV normal saline 1 L wide open for IV hydration. Zofran 4 mg IV push. Benadryl 25 mg IV push. Ketorolac 30 mg IV push. 08/23/16 0945 Pt to the floor for enemas for constipation and abd distention and bloating. 08/23/16 12:25 Pt back from the floor. Minimal to now stool was able to be passed. Now vomiting up the miralax and her pain is worse unable to keep the MiraLAX down. Will do a CT scan and more nausea medications. Pt okay with this plan. 08/23/16 1323 Explained to the patient that she has pancreatitis. She denies recent alcohol use for many years. I am unsure what is causing her pancreatitis. I did call and speak with Dr. Geiger the hospitalist toy trains and accessories salesperson and he accepted the patient into his care here at [facility]. PT was comfortable with the plan pain and nausea better. 08/23/16 15:06 Departure - Departure Time of Disposition: 13:55 Disposition: Admitted As Inpatient 67 Clinical Impression: Pancreatitis, acute Qualifiers: Pancreatitis type: unspecified pancreatitis type Acute pancreatitis complication: unspecified Qualified Code(s): K85.90 - Acute pancreatitis without necrosis or infection, unspecified - Discharge Information ED Communication - Discussed Case With (1) Discussed Case With (1): Admitting Provider (DR. Geiger contacted for admission and he accepted the patient into his care here at [facility].) - My Orders Last 24 Hours: My Active Orders 08/23/16 08:06 Sodium Chloride 0.9% [Saline Flush] 10 ml FLUSH ASDIRECTED PRN Peripheral IV Insertion Adult [OM.PC] Stat 08/23/16 08:07 Peripheral IV Care [RC] . DIRECTED 08/23/16 08:15 Sodium Chloride 0.9% [Normal Saline] 1,000 ml IV ASDIRECTED 08/23/16 13:30 Sodium Chloride 0.9% [Normal Saline] 1,000 ml IV ASDIRECTED 08/23/16 Dinner NPO [Nothing Per Oral Diet] [DIET] - Assessment/Plan Last 24 Hours: My Active Orders 08/23/16 08:06 Sodium Chloride 0.9% [Saline Flush] 10 ml FLUSH ASDIRECTED PRN Peripheral IV Insertion Adult [OM.PC] Stat 08/23/16 08:07 Peripheral IV Care [RC] . DIRECTED 08/23/16 08:15 Sodium Chloride 0.9% [Normal Saline] 1,000 ml IV ASDIRECTED 08/23/16 13:30 Sodium Chloride 0.9% [Normal Saline] 1,000 ml IV ASDIRECTED 08/23/16 Dinner NPO [Nothing Per Oral Diet] [DIET] Assessment:: Pancreatitis unknown cause. Plan: Admit [place] here at [facility].
[2016-08-23] MEDS ORDERED: Sodium Chloride 0.9% 1,000 ML IV SCH ×2 (08:15→13:30)
[2016-08-23] MEDS: Sodium Chloride 0.9% 10 ML Syringe FLUSH PRN ×2 (08:31→15:59)
[2016-08-23] MEDS ORDERED: Ketorolac 30 MG/ML SDV IVPUSH ONE (09:08)
[2016-08-23] MEDS ORDERED: Ondansetron 4 MG/2 ML SDV IV ONE ×2 (09:08→12:24)
[2016-08-23] MEDS ORDERED: Polyethylene Glycol 3350 Powder 17 GM Packet PO ONE (10:27)
[2016-08-23] MEDS ORDERED: Morphine 4 MG/ML Syringe IVPUSH ONE (12:29)
[2016-08-23] MEDS ORDERED: Iopamidol 612 MG/ML 100 ML Bottle IVPUSH ONE (12:43)
[2016-08-23] MEDS ORDERED: HYDROmorphone 1 MG/ML Syringe IVPUSH ONE (13:34)
[2016-08-23] MEDS ORDERED: Non-Formulary Medication 1 Each (Fluticasone/Salmeterol [Advair 500-50] 1 PUFF) INH PRN (14:28)
--- NOTE | 2016-08-23 15:04 | HP ---
CHIEF COMPLAINT: Abdominal pain. HISTORY OF PRESENT ILLNESS: The patient is a 51-year-old female who was admitted through the emergency room because of abdominal pain that started last night and she presented to the emergency room because of abdominal pain and just feeling constipated. She was given enema but the patient continues to have abdominal pain and also had some emesis and because of this, a CAT scan of the abdomen and pelvis was done which showed acute pancreatitis. The patient was then admitted for further evaluation and management. PAST MEDICAL HISTORY: Remarkable for anxiety and depression, hypothyroidism, B12 deficiency. FAMILY HISTORY: Noncontributory. HOME MEDICATION: 1. BuSpar. 2. Simvastatin. 3. Zoloft. 4. Seroquel. 5. KCl. 6. Levothyroxine. 7. Ibuprofen. 8. Lasix. 9. Folic acid. 10.Advair. 11.Ferrous sulfate. 12.Estradiol. 13.Cyclobenzaprine. 14.B12 injections. 15.Coreg. 16.Alprazolam. ALLERGIES: Cephalexin and prednisone. REVIEW OF SYSTEMS: The patient denies any fever or chills, chest pain, orthopnea, PND. SOCIAL HISTORY: The patient is , nonsmoker, nonalcohol drinker. No illicit drug use. PAST SURGICAL HISTORY: Remarkable for appendectomy and cholecystectomy. PHYSICAL EXAMINATION: General: The patient is alert and oriented. She is ambulatory not in any acute distress. Vital Signs: Blood pressure is 129/80, pulse 73, respiration of 18, temperature of 98. SHEENT: Normocephalic. There are pink palpebral conjunctivae. Sclerae anicteric. No JVD. No lymphadenopathy. Heart: Regular rate and rhythm. Normal S1 and S2. No gallops. No rubs. Lungs: Equal bilaterally. No crackles. No wheezing. Abdomen: Protuberant and moderately obese. Soft. There is mild direct tenderness on the epigastric area as well as the left lower quadrant area. No rebound. Extremities: Negative for any significant pedal edema. No calf tenderness. LABORATORY DATA: CBC; WBC 15.8, hemoglobin is 11.3, hematocrit is 35.2, and platelet is 264. Comp panel sodium is 133, carbon dioxide is 20, glucose is 139, AST of 8. The rest of the panel unremarkable. Urinalysis unremarkable. Urine drug screen is positive for tricyclic antidepressants and benzodiazepines, which is consistent with her medication. ADMITTING DIAGNOSES: 1. Acute pancreatitis. 2. Abdominal pain secondary to #1. 3. History of appendicectomy. 4. History of cholecystectomy. 5. History of congestive heart failure. 6. B12 deficiency. 7. Hypothyroidism. TREATMENT PLAN: The patient is going to be admitted to General Medicine floor. She will be empirically started on IV antibiotics. She will be on IV fluids. She will be given pain medication and DVT prophylaxis and the rest of her management as necessary. The patient is a full code. [facility] /[id number]
[2016-08-23] MEDS ORDERED: Enoxaparin 40 MG/0.4 ML Syringe SUBCUT ONE (15:15)
[2016-08-23] MEDS: Levofloxacin/Dextrose 5%-Water 500 MG in Premix Bag 1 BAG IV SCH (15:21)
[2016-08-23] MEDS: Morphine 2 MG/ML Syringe IVPUSH PRN ×3 (15:58→22:56)
[2016-08-23] MEDS: ALPRAZOLAM 0.5 MG PO SCH ×2 (16:05→20:24)
[2016-08-23] MEDS: Pantoprazole 40 MG in Sodium Chloride 0.9% 100 ML IV SCH ×2 (16:32→22:56)
[2016-08-23] MEDS ORDERED: Levothyroxine 50 MCG Tab PO SCH (18:00)
[2016-08-23] MEDS: Enoxaparin 40 MG/0.4 ML Syringe SUBCUT SCH (20:20)
[2016-08-23] MEDS: oxyCODONE 5 MG Tab PO PRN (20:21)
[2016-08-23] MEDS: QUEtiapine 100 MG Tab PO SCH (20:21)
[2016-08-23] MEDS: Sertraline 50 MG Tab PO SCH (20:21)
[2016-08-23] MEDS: busPIRone 15 MG Tab PO SCH (20:23)
[2016-08-23] MEDS: Carvedilol 6.25 MG Tab PO SCH (20:23)
[2016-08-23] MEDS: Ondansetron 4 MG Tab.DIS PO PRN (20:29)
[2016-08-23] MEDS ORDERED: QUEtiapine 100 MG Tab PO SCH (21:00)
[2016-08-23] MEDS ORDERED: QUETIAPINE 300 MG PO SCH (21:00)
[2016-08-23] MEDS: Sodium Chloride 0.9% 1,000 ML IV SCH (22:52)
[2016-08-24] MEDS: oxyCODONE 5 MG Tab PO PRN ×2 (01:34→05:35)
[2016-08-24] MEDS: Ondansetron 4 MG Tab.DIS PO PRN ×2 (03:20→08:10)
[2016-08-24] MEDS: Morphine 2 MG/ML Syringe IVPUSH PRN ×4 (03:21→09:59)
[2016-08-24] MEDS: Pantoprazole 40 MG in Sodium Chloride 0.9% 100 ML IV SCH ×2 (04:33→10:28)
[2016-08-24] MEDS: Levothyroxine 50 MCG Tab PO SCH (05:36)
[2016-08-24] MEDS: Sodium Chloride 0.9% 1,000 ML IV SCH (06:43)
[2016-08-24 07:12] LABS: CHLORIDE,CL 105 mmol/L (101-111); SODIUM,NA 136 mmol/L (135-145)
[2016-08-24] MEDS: QUEtiapine 25 MG Tab PO SCH (08:02)
[2016-08-24] MEDS: Carvedilol 6.25 MG Tab PO SCH ×2 (08:10→20:46)
[2016-08-24] MEDS: ALPRAZOLAM 0.5 MG PO SCH ×3 (08:11→20:50)
[2016-08-24] MEDS: Folic Acid 1 MG Tab PO SCH (08:11)
[2016-08-24] MEDS: busPIRone 15 MG Tab PO SCH ×3 (08:11→20:45)
[2016-08-24] MEDS ORDERED: Enoxaparin 40 MG/0.4 ML Syringe SUBCUT SCH (09:00)
[2016-08-24] MEDS: Sertraline 50 MG Tab PO SCH ×3 (09:09→20:49)
[2016-08-24] MEDS ORDERED: fentaNYL 100 MCG/2 ML SDV IVPUSH ONE ×2 (10:26→12:48)
[2016-08-24] MEDS: D5 1/2 NS w/ 20 mEq/L KCl 1,000 ML IV SCH (14:47)
[2016-08-24] MEDS: fentaNYL 100 MCG/2 ML SDV IVPUSH PRN ×3 (15:44→21:06)
[2016-08-24] MEDS: Levofloxacin/Dextrose 5%-Water 500 MG in Premix Bag 1 BAG IV SCH (16:15)
[2016-08-24] MEDS: Acetaminophen 325 MG Tab PO PRN (19:47)
[2016-08-24] MEDS: Enoxaparin 40 MG/0.4 ML Syringe SUBCUT SCH (20:43)
[2016-08-24] MEDS: QUEtiapine 100 MG Tab PO SCH (20:47)
[2016-08-25] MEDS: fentaNYL 100 MCG/2 ML SDV IVPUSH PRN ×9 (00:03→23:38)
[2016-08-25] MEDS: D5 1/2 NS w/ 20 mEq/L KCl 1,000 ML IV SCH ×3 (05:14→21:02)
[2016-08-25] MEDS: Levothyroxine 50 MCG Tab PO SCH (06:18)
--- NOTE | 2016-08-25 07:10 | PN ---
DATE: 08/24/2016 Stephanie is a 51-year-old lady who was admitted over the weekend with complaints and findings consistent with acute pancreatitis. A CT scan of the abdomen was obtained with intravenous contrast on August 23 prior to admission and showed the pancreas to be mildly enlarged with peripancreatic edema present throughout the gland, mostly in the head and uncinate process. There was no pancreatic ductal dilatation. There was increased abdominal and rectosigmoid colonic fluid also seen. She had a prior cholecystectomy. Review of her clinical data since admission shows stable vital signs. She remained afebrile. On exam, however, she was complaining of significant upper abdominal pain radiating around to the back which was not relieved by the small doses of IV morphine she was being given. She also had oral oxycodone. After evaluating and examining her, changes were made in her regimen. Her morphine and oxycodone were discontinued and she was started on IV fentanyl. IV fentanyl may have a better pain relief in acute pancreatitis than morphine. She was started on 50 mcg every 2 hours and this did give her some relief, but dose needed to be increased to 100 mcg every 2 hours and this has been more helpful. OBJECTIVE: On exam, she is lying in bed. She is in no acute distress. She describes her current symptoms. She has not moved her bowels. When her abdomen was examined, it appeared to be somewhat distended. There were absent bowel sounds. When questioned, she stated she has not been passing gas in addition to not having bowel movement. This raises suspicion for possible ileus versus bowel obstruction. Additional lab work was obtained today. White count has come down to 13,000 with a slight left shift. Hemoglobin and hematocrit were 10.9 and 33.7, platelets were normal. Chemistry showed sodium 136 and potassium 3.5. Renal function was intact. Blood sugar was 118. LFTs were unremarkable. At the time of admission, her amylase was 918, on repeat today, it was 615, lipase was over 400 at admission. After seeing and examining her, we did obtain flat and upright films of the abdomen. These showed a nonspecific bowel gas pattern with scattered air-fluid levels throughout the small and large bowel and was felt to be an ileus. Some loops of small bowel were mildly distended. We were then able to obtain an MRCP, without contrast. This study confirmed the diagnosis of acute pancreatitis. There was no organized peripancreatic fluid collection identified. There was no evidence for any pancreatic ductal dilatation. There was no free air. No other new findings. No other acute findings of concern. We did review possible causes for pancreatitis. Her gallbladder has been removed. Both the CT scan and the MRI did not show any stones in the ducts. She does not drink alcohol, although she did drink in the past. We did obtain her last lipid profile and triglycerides were only 150. We also found an abdominal ultrasound from June 2012; at that time she was status post cholecystectomy and was shown to have a fatty liver, but no intrahepatic masses or ductal dilatation. PLAN: 1. We will keep her n.p.o. except for ice chips and necessary oral meds, particularly her neuropsych meds. 2. She remains on IV fluids with normal saline. 3. We will use IV fentanyl 100 mcg as needed. We were able to push this out every 3 hours and this seems to be working better. 4. We have ordered labs for tomorrow including CBC with diff, amylase, and potassium. We will carefully follow her ileus and restart diet at the appropriate time. At this time, she has no nausea or vomiting, and we have not placed an NG tube. The case was discussed with our practice management consultant who agreed with the current management. We did discuss the possibility of transfer, but Stephanie and her , Raul, feel that she is doing well here and she would like to be able to remain in [place] and not be transferred. At this time, she seems to be hemodynamically stable. The only complication is the ileus which appears to be reactive to the acute pancreatitis and we will carefully monitor this. No other changes are made. [facility] /[id number] MTDD
[2016-08-25] MEDS: ALPRAZOLAM 0.5 MG PO SCH ×3 (09:10→13:42)
[2016-08-25] MEDS: Sertraline 50 MG Tab PO SCH ×3 (09:11→21:09)
[2016-08-25] MEDS: busPIRone 15 MG Tab PO SCH ×3 (09:11→21:10)
[2016-08-25] MEDS: Folic Acid 1 MG Tab PO SCH (09:12)
[2016-08-25] MEDS: QUEtiapine 25 MG Tab PO SCH ×2 (09:12→21:10)
[2016-08-25] MEDS: Carvedilol 6.25 MG Tab PO SCH ×2 (09:13→21:11)
[2016-08-25] MEDS: Sodium Chloride 0.9% 10 ML Syringe FLUSH PRN ×5 (12:21→23:38)
[2016-08-25] MEDS ORDERED: Bisacodyl 10 MG Supp RECTAL ONE (13:17)
[2016-08-25] MEDS: QUEtiapine 100 MG Tab PO SCH (21:10)
[2016-08-25] MEDS: Enoxaparin 40 MG/0.4 ML Syringe SUBCUT SCH (21:15)
[2016-08-26] MEDS: fentaNYL 100 MCG/2 ML SDV IVPUSH PRN ×10 (02:16→23:17)
[2016-08-26] MEDS: ALPRAZolam 0.5 MG Tab PO PRN (04:33)
[2016-08-26] MEDS: Levothyroxine 50 MCG Tab PO SCH (05:06)
--- NOTE | 2016-08-26 08:08 | PN ---
DATE: 08/25/2016 INTERVAL HISTORY: Ms. Morales is a 51-year-old female who was admitted on the with the diagnosis of acute pancreatitis. Yesterday, we obtained an MRCP to evaluate an increase in abdominal pain. The MRCP confirmed the diagnosis of acute pancreatitis and showed scattered upper abdominal free fluid with no organized collections. There was no evidence of biliary ductal dilatation or stones within the duct. No pseudocyst formation. On exan it had been noted also that her abdomen was somewhat distended with silent bowel sounds. Flat and upright films were obtained and showed a nonspecific bowel gas pattern with scattered air fluid levels consistent with a probable ileus. She was kept n.p.o. except for ice chips. We discussed the possibility of placing an NG tube. She had some slight nausea, but no vomiting and preferred to hold off on NG tube. She has done well overnight. She continues to have intermittent epigastric pain radiating to the back, and she has been receiving IV fentanyl for this. She states that she is not getting as much relief from the fentanyl as she wished and said it does not last long enough. We had been giving her 100 mcg every 3 hours. We discussed this at length with nursing and pharmacy. We are somewhat reluctant to increase the dose. We finally decided to reduce the dose and the interval, and she is receiving 50 mcg IV every 2 hours, and hopefully, this will help. We also discussed the possibility of using IV Toradol; however, she is on enoxaparin for VTE prophylaxis, and we did not want to increase her risk for bleeding and also for interactions with her multiple psychiatric medications. I did speak to her mental health provider yesterday, who confirmed some of her medications as well as some of the incorrect dosing we had. The medication dosing and scheduling were corrected in the medical record. It also turns out that there is one more medication she has at home, Geodon, and we asked her to bring that in. It should be noted that the Geodon and the Seroquel are not being used for any psychosis. She has no diagnosis of psychosis. 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 As for diet, she has remained on ice chips. We did allow her sips of 7-Up. Over the course of the day, she did begin to pass gas by rectum and finally at about 5 p.m. had a significant bowel movement. If she does well overnight, our plan is to advance her diet in the morning to clear liquids. Lab work was repeated today including a CBC, potassium, and amylase. CBC showed a white count of 15.7, hemoglobin and hematocrit were stable at 10.9 and 33.6, platelets were normal. Potassium is 3.4. She does have potassium supplement in her IV. Amylase continues to decrease and is now 286. Amylase was 918 at the time of admission and 615 yesterday. Review of her clinical data shows that she continues to take in liquids. She is voiding well and is in a net negative fluid balance for the most part. She has adequate urine output. She continues on IV fluids with D5 half-normal saline with 20 mEq of potassium, and we have reduced the rate to 50 mL an hour. Vital signs have remained stable, and she has remained afebrile since the evening of the . PHYSICAL EXAMINATION: General: She certainly is looking much better. She is talkative. She has makeup on. She gets in and out of the bed easily. She does continue to complain of some epigastric pain, which radiates around to the back, but she clearly seems to be less uncomfortable. HEENT: Clear. Chest: Showed clear, but diminished bilateral breath sounds. Heart: Showed regular rate and rhythm. Abdomen: Clearly less distended and not as intense as yesterday. It is softer. There is a slight increase in bowel sounds. There is no guarding, no rebound. Neurological: She is intact. IMPRESSION: A 51-year-old lady with first episode of acute pancreatitis with an associated ileus. PLAN: 1. We will continue present management. 2. She remains n.p.o. except for ice chips, and we allowed her small sips of 7- Up. If she begins to pass gas and has bowel movement, we will advance her diet. 3. We spoke with her mental health care provider today and got an updated and correct medication list, and this has been corrected in her chart and MAR. We are missing her Geodon, and we have asked her to bring this from home. Her also informed us that she no longer takes her Advair inhaler, and this has been removed from her home medication list. 4. She has been found to have an ileus. She has begun to pass small amounts of gas, and the abdomen is less distended and firm than yesterday with slight increase in bowel sounds. We are going to try Dulcolax rectal suppository today, and we have also asked Physical Therapy to participate in her care and help her get up and ambulatory as we feel this can only benefit the ileus, but also prevent her from complications of being too inactive and bedbound. She did get up and walk with therapy and actually did well and was able to walk upright and did not appear to be in acute pain. 5. Labs continued to improve as above. 6. Lab work is ordered for the morning including white count with diff, serum potassium, and amylase. Overall, she continues to improve clinically, and we reassured her that this was the case. No other changes are made in her care today. [facility] /[id number] SEPIDEH
[2016-08-26] MEDS: Carvedilol 6.25 MG Tab PO SCH ×2 (08:31→20:45)
[2016-08-26] MEDS: busPIRone 15 MG Tab PO SCH ×3 (08:31→20:46)
[2016-08-26] MEDS: Sertraline 50 MG Tab PO SCH ×3 (08:32→20:46)
[2016-08-26] MEDS: Folic Acid 1 MG Tab PO SCH (08:32)
--- NOTE | 2016-08-26 12:35 | PN ---
DATE: 08/26/2016 SUBJECTIVE: Ms. Morales, a 51-year-old female was admitted with acute pancreatitis. Abdomen has been distended also and x-ray was nonspecific. No evidence of bowel obstruction. Today, the patient indicates that she still has a lot of abdominal pain. Points to periumbilical area. Pain intensity is about 9-10 on a scale of 0-10, dull in nature. Has been able to pass some gas and had a small bowel movement. No vomiting this morning. OBJECTIVE: Vital Signs: Blood pressure is 109/54, pulse 89 per minute, respiratory rate 20 per minute. General: The patient is alert, oriented to place, time, and person. Head, Ears, Nose, and Throat: Unremarkable. Chest: Few expiratory rhonchi on the lung bases. Abdomen: Full. No vague tenderness at the periumbilical area. No rebound tenderness. Extremities: No pedal edema. LABORATORY DATA: White count is 13.1, hemoglobin was 10.9, potassium is 3.5, amylase is 112. ASSESSMENT: 1. Acute pancreatitis. This appears to be idiopathic pancreatitis. No evidence of gallstones. She is non-alcoholic. It could also be due to medications. Do not know obvious culprit at this point. 2. Abdominal distention. Probably due to intestinal ileus associated with acute pancreatitis. 3. Anxiety disorder. 4. Chronic benzodiazepine use. PLAN: 1. The patient on intravenous fluid but increase it to . She is still having a lot of pain. 2. Repeat serum lipase level. 3. Intravenous potassium chloride. 4. Increase intravenous . 5. Obtain complete blood count. 6. Obtain basic metabolic panel. [facility] /[id number]
[2016-08-26] MEDS: D5 1/2 NS w/ 20 mEq/L KCl 1,000 ML IV SCH (15:05)
[2016-08-26] MEDS: ZIPRASIDONE 80 MG PO SCH (15:48)
[2016-08-26] MEDS: QUEtiapine 25 MG Tab PO SCH (20:44)
[2016-08-26] MEDS: QUEtiapine 100 MG Tab PO SCH (20:47)
[2016-08-26] MEDS: Enoxaparin 40 MG/0.4 ML Syringe SUBCUT SCH (20:48)
[2016-08-27] MEDS: fentaNYL 100 MCG/2 ML SDV IVPUSH PRN ×5 (01:30→14:48)
[2016-08-27] MEDS: D5 1/2 NS w/ 20 mEq/L KCl 1,000 ML IV SCH (05:02)
[2016-08-27] MEDS: Levothyroxine 50 MCG Tab PO SCH (05:38)
[2016-08-27 07:09] LABS: CHLORIDE,CL 100 mmol/L (101-111); SODIUM,NA 130 mmol/L (135-145)
[2016-08-27] MEDS: ZIPRASIDONE 80 MG PO SCH (10:35)
[2016-08-27] MEDS: Sertraline 50 MG Tab PO SCH ×3 (10:36→21:38)
[2016-08-27] MEDS: Carvedilol 6.25 MG Tab PO SCH ×2 (10:36→21:39)
[2016-08-27] MEDS: Folic Acid 1 MG Tab PO SCH (10:37)
[2016-08-27] MEDS: busPIRone 15 MG Tab PO SCH ×3 (10:37→21:40)
[2016-08-27] MEDS ORDERED: Furosemide 20 MG/2 ML VIAL IVPUSH ONE (12:17)
[2016-08-27] MEDS: oxyCODONE 5 MG Tab PO PRN ×2 (16:44→22:32)
[2016-08-27] MEDS: ALPRAZolam 0.5 MG Tab PO PRN (21:36)
[2016-08-27] MEDS: QUEtiapine 100 MG Tab PO SCH (21:38)
[2016-08-27] MEDS: QUEtiapine 25 MG Tab PO SCH (21:38)
[2016-08-27] MEDS: Enoxaparin 40 MG/0.4 ML Syringe SUBCUT SCH (21:38)
[2016-08-28] MEDS: fentaNYL 100 MCG/2 ML SDV IVPUSH PRN ×4 (00:37→19:19)
--- NOTE | 2016-08-28 01:19 | PN ---
DATE: 08/27/2016 SUBJECTIVE: Ms. Morales is a 51-year-old lady, who was admitted with severe abdominal pain and found to have acute pancreatitis. During the admission, she also developed an ileus. She has been steadily progressing. Today, we are moving forward with management changes with the plan for discharge to home tomorrow. We have reduced her IV Fentanyl dosing. She now is on 25 mcg IV every 4 hours p.r.n. We have added oxycodone 5 mg every 6 hours p.r.n. to help with the transition. Otherwise, she is on her usual medications, which include a number of psychotropic medications for her major depressive disorder and obsessive-compulsive personality disorder. Review of her clinical data shows that she is taking in adequate fluids, she is voiding, moving her bowels, she is tolerating her diet. Vital signs have been stable and she has remained afebrile. Her ileus seems to be much improved. On the evening of , she finally began to pass gas and stool and has continued to pass small amounts of stool as well as gas since that time. Because of this, her diet has been advanced and she has tolerated it and this evening she will have a full regular diet. LABORATORY DATA: Lab work today showed white count of 12.5, hemoglobin and hematocrit of 9 and 27.5. Sodium 130, potassium 3.5, BUN and creatinine of 9 and 0.8, with a GFR of more than 60. Her amylase yesterday was down to 112, from an admission amylase of 918; and lipase is now in the normal range at 23. We have also had her work with Physical Therapy, and we have encouraged her today to be up and out of bed for the entire day. She can be up in her recliner. We would like to see her walking and she and her have been doing that and she is looking much better. She does continue to complain that she has pain. We explained again that pancreatitis is a painful event, but that her pain has continued to decrease on a daily basis and we tried to encourage her that all of her parameters are improving. It will take some time for the pain to completely resolve, but clinically she is clearly stable and much improved from the beginning of the week. PHYSICAL EXAMINATION: General: She is sitting comfortably in her recliner. Vital Signs: Stable. She is afebrile. Chest: Clear. Heart: Regular. Abdomen: Visibly less distended, it was soft with soft bowel sounds, minimal tenderness continues in the mid-epigastric area without guarding or rebound. Neurological: Neurologically, she is intact. Her IV fluids were hep-locked today. She was advanced to a full diet. Her Fentanyl dosing has been decreased. She is up and ambulatory and is doing quite well. If she continues to do well overnight with no new issues, she will be discharged to home tomorrow. [facility] /[id number] MTDD
[2016-08-28] MEDS: oxyCODONE 5 MG Tab PO PRN ×3 (04:16→18:47)
[2016-08-28] MEDS: Acetaminophen 325 MG Tab PO PRN ×2 (04:17→21:27)
[2016-08-28] MEDS: Levothyroxine 50 MCG Tab PO SCH (06:17)
--- NOTE | 2016-08-28 08:22 | CR ---
Clinical history: 51-year-old female recently reported "intestinal gaseous distention (probable ileu s)". Follow-up please. Interpretation: Acute abdominal series (4 films) confirm small air-fluid levels in the terminal ileu m and proximal colon but no new abnormal distention of small or large intestine. (Surgical clips gallbladder fossa). Chronic blunting of the left costophrenic sulcus. Large abdomina l soft tissue pannus. No new signs of abdominal soft tissue mass, mechanical bowel obstruction or free intraperitoneal air . AP lumbar spine and pelvis unremarkable. Normal hips.
[2016-08-28] MEDS: Sertraline 50 MG Tab PO SCH ×3 (09:46→21:11)
[2016-08-28] MEDS: busPIRone 15 MG Tab PO SCH ×3 (09:47→21:11)
[2016-08-28] MEDS: Folic Acid 1 MG Tab PO SCH (09:47)
[2016-08-28] MEDS: ZIPRASIDONE 80 MG PO SCH (09:48)
[2016-08-28] MEDS: Carvedilol 6.25 MG Tab PO SCH ×2 (10:41→21:14)
[2016-08-28] MEDS: Sodium Chloride 0.9% 10 ML Syringe FLUSH PRN ×3 (11:28→19:19)
[2016-08-28] MEDS ORDERED: Furosemide 20 MG/2 ML VIAL IVPUSH ONE (12:42)
[2016-08-28] MEDS ORDERED: Potassium Chloride 10 MEQ Tab.ER PO ONE (12:43)
--- NOTE | 2016-08-28 14:51 | PN ---
DATE: 08/28/2016 SUBJECTIVE: Ms. Morales remains hemodynamically stable. When I went into her room today, however, she had a list of issues and problems that she felt need to be addressed. She claims that she is not voiding much. When she had the ileus several days ago we did give her Lasix at that time to help mobilize all the fluids that she had and following the administration of Lasix, she had been in a negative fluid balance. Review of her intake and output shows that her most recent output has not been recorded. I asked her if the hat was in the toilet and if she was leaving the urine there for the nursing staff to see, but is unclear if that has happened, so we do not have any objective information regarding her urine output. She continues to complain of "just not feeling well" that she still continues to have residual pain and she feels very tired and worn out. I explained to her that pancreatitis is a serious disease and that it is understandable that she has some pain and that it will take time to resolve and also that the number of days that she has spent in bed certainly are large contributing factor to loss of energy after such a serious illness. It should be noted, however, that she has been up and ambulatory. Her walks with her in the hallway. PT and OT have signed off on her because she was ambulating so well. Review of her clinical data shows that she is taking in adequate fluids. We do not have an estimation of her output, her IV fluids have been hep-locked. She is tolerating her diet. She has moved her bowels. Vital signs have remained stable and she has remained afebrile. Her last mild temperature increase was last night where temperature was 100.3. Otherwise she has been afebrile. Repeat lab work this morning shows that her white count continues to decline and is now 11,400. Hemoglobin and hematocrit have slipped somewhat to 8.6 and 26.3, BUN and creatinine are 9 and 0.8 with a GFR of more than 60. Potassium is 3.5, and we did supplement this. Lipase yesterday was 23 and amylase today is 55; both of these values have returned to normal limits. We did do a followup flat and upright film of the abdomen today and this showed small air-fluid levels in the terminal ileum and proximal colon, but no new abnormal distention of the small or large intestine. There was chronic blunting of the left costophrenic sulcus. There were no new acute findings. Her medications and MAR have been reviewed. Her use of fentanyl shows that in the 24 hours between Wednesday and , she took only 1 dose of IV fentanyl 25 mcg. Today she has taken 1-3 IV doses since midnight. She also has utilized 2 doses of oral oxycodone 5 mg yesterday and 2 doses today. We have explained to her clearly that our goal is to continue to reduce her narcotic drug use in preparation for discharge to home. She still feels that she is having pain. She otherwise has no new constitutional signs or symptoms. No nausea, vomiting, diarrhea. She is moving her bowels, but still feels that she should not be discharged today. PHYSICAL EXAMINATION: General: She is seated comfortably in her recliner in her room. I was speaking with her and her came in a few minutes later. Vital Signs: Blood pressure was 100/55, pulse 88, respiratory rate 20, oxygen saturation 97% on room air. She is afebrile. HEENT: Unremarkable. Chest: Clear. Heart: Regular. Abdomen: Soft. There is less distention. She still continues to have mild epigastric tenderness, which is consistent with acute pancreatitis. Extremities: Showed some mild anterior tibial edema. Neurological: She was intact. IMPRESSION: Acute pancreatitis. Patient continues to slowly improve. Subjectively she feels she still has issues. I will discuss this with our QA coordinator before we make a final decision regarding discharge today or tomorrow. In the meantime, we have ordered a dose of IV Lasix. We have placed a bedside commode in the bathroom and all voids will be into the bedside commode to get a better sense of output. We also gave her 20 mEq of potassium today, as well as ongoing 20 mEq potassium daily. No other changes are made in her care today. She is tolerating regular diet at this time. [facility] /[id number] MTDD
[2016-08-28] MEDS: QUEtiapine 100 MG Tab PO SCH (21:12)
[2016-08-28] MEDS: Enoxaparin 40 MG/0.4 ML Syringe SUBCUT SCH (21:13)
[2016-08-28] MEDS: QUEtiapine 25 MG Tab PO SCH (21:15)
[2016-08-28] MEDS: ALPRAZolam 0.5 MG Tab PO PRN (21:29)
[2016-08-29] MEDS: oxyCODONE 5 MG Tab PO PRN ×4 (00:45→20:41)
[2016-08-29] MEDS: fentaNYL 100 MCG/2 ML SDV IVPUSH PRN ×2 (02:13→09:29)
[2016-08-29] MEDS: Acetaminophen 325 MG Tab PO PRN ×2 (04:55→15:43)
[2016-08-29] MEDS: Levothyroxine 50 MCG Tab PO SCH (06:41)
[2016-08-29] MEDS: busPIRone 15 MG Tab PO SCH ×3 (09:03→20:44)
[2016-08-29] MEDS: Folic Acid 1 MG Tab PO SCH (09:03)
[2016-08-29] MEDS: Sertraline 50 MG Tab PO SCH ×3 (09:03→20:40)
[2016-08-29] MEDS: Potassium Chloride 10 MEQ Tab.ER PO SCH (09:04)
[2016-08-29] MEDS: Carvedilol 6.25 MG Tab PO SCH ×2 (09:07→20:40)
[2016-08-29] MEDS: ZIPRASIDONE 80 MG PO SCH (09:11)
[2016-08-29] MEDS: Sodium Chloride 0.9% 10 ML Syringe FLUSH PRN (09:28)
[2016-08-29] MEDS ORDERED: Polyethylene Glycol 3350 Powder 17 GM Packet PO ONE ×2 (09:54→11:00)
[2016-08-29] MEDS ORDERED: Magnesium Hydroxide 400 MG/5 ML Susp 30 ML Cup PO ONE ×2 (09:55→11:00)
[2016-08-29] MEDS ORDERED: fentaNYL 100 MCG/2 ML SDV IVPUSH PRN (09:57)
--- NOTE | 2016-08-29 14:44 | PCM.PN ---
- General Info Date of Service: 08/29/16 Admission Dx/Problem (Free Text): The pt was admitted with abdominal pain and work up showed acute Pancreatitis ( idiopathic) Subjective Update: Today the pt still complain of abdominal pain and main site is in a band fashion below the umbilicus. she rates pain at 8-10 at times, it si dull in nature. she also had no BM for the last 3-4 days, she has stated to pass gas and she does not want to go home today. She is eating and drinking well, no nausea or vomiting. last night she had one episode of elevated temp 101 F Functional Status: Reports: pain controlled, tolerating diet, ambulating, urinating - Review of Systems General: Reports: Appetite (acceptable). Denies: Fever, Malaise, Chills HEENT: Denies: ear pain, eye pain, headaches, sinus congestion, sore throat, visual changes Pulmonary: Denies: shortness of breath, pleuritic chest pain, cough, sputum, wheezing Cardiovascular: Denies: Chest Pain, Dyspnea on Exertion, Edema, Lightheadedness Gastrointestinal: Reports: Abdominal pain, Constipation. Denies: Nausea, Vomiting Genitourinary: Denies: dysuria, burning, urgency, flank pain Musculoskeletal: Denies: neck pain, shoulder pain, arm pain, foot pain, joint swelling Skin: Denies: cyanosis, jaundice, mottled, dryness, bruising, pruritis Neurological: Denies: Confusion, Headache, Tingling, Tremors Psychiatric: Denies: confusion, agitation, hallucinations - Patient Data Vitals - most recent: Last Vital Signs Temp 37.0 C 08/29/16 07:00 Pulse 92 08/29/16 09:07 Resp 20 08/29/16 07:00 BP 106/57 L 08/29/16 09:07 Pulse Ox 96 08/29/16 07:00 Weight - most recent: 104.383 kg I&O - last 24 hours: Intake & Output 08/28/16 08/29/16 08/29/16 22:59 06:59 14:59 Intake Total 765 275 300 Output Total 925 400 Balance -160 -125 300 Lab Results last 24 hrs: Laboratory Results - last 24 hr 08/29/16 08/29/16 Range/Units 05:40 05:50 WBC 13.7 H (5.0-10.0) 10^3/uL RBC 2.81 L (4.2-5.4) 10^6/uL Hgb 8.5 L (12.0-16.0) g/dL Hct 26.0 L (37.0-47.0) % MCV 92.5 (80-100) fL MCH 30.2 (27.0-34.0) pg MCHC 32.7 L (33.0-35.0) g/dL Plt Count 266 (150-450) 10^3/uL Neut % (Auto) 79.5 H (42.2-75.2) % Lymph % (Auto) 7.7 L (20.5-50.1) % [place] % (Auto) 10.2 H (2-8) % Eos % (Auto) 2.5 (1.0-3.0) % Baso % (Auto) 0.1 (0.0-1.0) % Add Manual Diff Yes Neutrophils % (Manual) 80 % Band Neutrophils % 7 % Lymphocytes % (Manual) 9 % Monocytes % (Manual) 3 % Eosinophils % (Manual) 1 % Urine Color Yellow (YELLOW) Urine Appearance Slightly cloudy (CLEAR) Urine pH 5.5 (5.0-9.0) Ur Specific [place] 1.015 (1.005-1.030) Urine Protein 100 H (NEGATIVE) Urine Glucose (UA) Negative (NEGATIVE) Urine Ketones Negative (NEGATIVE) Urine Occult Blood Trace-lysed H (NEGATIVE) Urine Nitrite Negative (NEGATIVE) Urine Bilirubin Negative (NEGATIVE) Urine Urobilinogen 2.0 H (0.2-1.0) mg/dL Ur Leukocyte Esterase Negative (NEGATIVE) Urine RBC 0-5 /HPF Urine WBC 0-5 (0-5/HPF) /HPF Ur Epithelial Cells Rare /HPF Amorphous Sediment Few (0/HPF) /HPF Urine Bacteria Moderate H (0-FEW/HPF) /HPF [place] Results last 24 hrs: Microbiology 08/29/16 05:45 Anaerobic Blood Culture - Final Blood - Venous - Lab Draw Med Orders - Current: Current Medications Acetaminophen (Tylenol) 650 mg PO Q4H PRN PRN Reason: Pain (Mild 1-3)/fever Last Admin: 08/29/16 04:55 Dose: 650 mg Alprazolam (Xanax) 0.5 mg PO TID PRN PRN Reason: Anxiety Last Admin: 08/28/16 21:29 Dose: 0.5 mg Buspirone HCl (Buspar) 15 mg PO TID [facility] Last Admin: 08/29/16 13:53 Dose: 15 mg Carvedilol (Coreg) 6.25 mg PO BID [facility] Last Admin: 08/29/16 09:07 Dose: 6.25 mg Enoxaparin Sodium (Lovenox) 40 mg SUBCUT BEDTIME [facility] Last Admin: 08/28/16 21:13 Dose: 40 mg Fentanyl (Sublimaze) 25 mcg IVPUSH Q12H PRN PRN Reason: Pain (moderate 4-6) Folic Acid (Folic Acid) 1 mg PO DAILY [facility] Last Admin: 08/29/16 09:03 Dose: 1 mg Levothyroxine Sodium (Synthroid) 175 mcg PO ACBRK [facility] Last Admin: 08/29/16 06:41 Dose: 175 mcg Ondansetron HCl (Zofran Odt) 4 mg PO Q4H PRN PRN Reason: nausea, able to take PO Last Admin: 08/24/16 08:10 Dose: 4 mg Oxycodone HCl (Oxycodone) 5 mg PO Q6H PRN PRN Reason: Pain (mild 1-3) Last Admin: 08/29/16 13:53 Dose: 5 mg Ziprasidone (Geodon) 80mg TabsPt's Own Med 1 each PO QAM [facility] Last Admin: 08/29/16 09:11 Dose: 1 each Potassium Chloride (Klor-Con 10) 20 meq PO WITHBREAKFAST [facility] Last Admin: 08/29/16 09:04 Dose: 20 meq Quetiapine Fumarate (Seroquel) 300 mg PO BEDTIME [facility] Last Admin: 08/28/16 21:12 Dose: 300 mg Quetiapine Fumarate (Seroquel) 50 mg PO BEDTIME [facility] Last Admin: 08/28/16 21:15 Dose: 50 mg Sertraline HCl (Zoloft) 100 mg PO TID [facility] Last Admin: 08/29/16 13:53 Dose: 100 mg Sodium Chloride (Saline Flush) 10 ml FLUSH ASDIRECTED PRN PRN Reason: Keep Vein Open Last Admin: 08/29/16 09:28 Dose: 10 ml Discontinued Medications Alprazolam (Xanax) 0.5 mg PO TID KP Last Admin: 08/25/16 13:42 Dose: 0.5 mg Bisacodyl (Dulcolax) 10 mg RECTAL ONETIME ONE Stop: 08/25/16 13:18 Last Admin: 08/25/16 13:43 Dose: 10 mg Diphenhydramine HCl (Benadryl) 25 mg IVPUSH ONETIME ONE Stop: 08/23/16 08:07 Last Admin: 08/23/16 08:30 Dose: 25 mg Diphenhydramine HCl (Benadryl) 25 mg IVPUSH ONETIME ONE Stop: 08/23/16 12:25 Last Admin: 08/23/16 12:29 Dose: 25 mg Enoxaparin Sodium (Lovenox) 40 mg SUBCUT DAILY [facility] Enoxaparin Sodium (Lovenox) 40 mg SUBCUT ONETIME ONE Stop: 08/23/16 15:16 Last Admin: 08/23/16 16:04 Dose: Not Given Fentanyl (Sublimaze) 50 mcg IVPUSH ONETIME ONE Stop: 08/24/16 10:27 Last Admin: 08/24/16 10:36 Dose: 50 mcg Fentanyl (Sublimaze) 100 mcg IVPUSH ONETIME ONE Stop: 08/24/16 12:49 Last Admin: 08/24/16 13:00 Dose: 100 mcg Fentanyl (Sublimaze) 100 mcg IVPUSH Q2H PRN PRN Reason: Pain Last Admin: 08/24/16 18:10 Dose: 100 mcg Fentanyl (Sublimaze) 100 mcg IVPUSH Q3H PRN PRN Reason: Pain Last Admin: 08/25/16 12:20 Dose: 100 mcg Fentanyl (Sublimaze) 50 mcg IVPUSH Q2H PRN PRN Reason: Abdominal Pain Last Admin: 08/27/16 09:41 Dose: 50 mcg Fentanyl (Sublimaze) 25 mcg IVPUSH Q4H PRN PRN Reason: Pain (moderate 4-6) Last Admin: 08/29/16 09:29 Dose: 25 mcg Furosemide (Lasix) 20 mg IVPUSH ONETIME ONE Stop: 08/27/16 12:18 Last Admin: 08/27/16 12:43 Dose: 20 mg Furosemide (Lasix) 20 mg IVPUSH NOW ONE Stop: 08/28/16 12:43 Last Admin: 08/28/16 14:23 Dose: 20 mg Hydromorphone HCl (Dilaudid) 1 mg IVPUSH ONETIME ONE Stop: 08/23/16 13:35 Last Admin: 08/23/16 13:37 Dose: 1 mg Sodium Chloride (Normal Saline) 1,000 mls @ 500 mls/hr IV ASDIRECTED KP Last Infusion: 08/23/16 11:04 Dose: Infused Sodium Chloride (Normal Saline) 1,000 mls @ 150 mls/hr IV ASDIRECTED KP Last Admin: 08/23/16 13:36 Dose: 150 mls/hr Sodium Chloride (Normal Saline) 1,000 mls @ 125 mls/hr IV ASDIRECTED KP Last Admin: 08/24/16 06:43 Dose: 125 mls/hr Levofloxacin/Dextrose 500 mg/ (Premix) 100 mls @ 100 mls/hr IV Q24H KP Last Admin: 08/24/16 16:15 Dose: 100 mls/hr Pantoprazole Sodium 40 mg/ (Sodium Chloride) 100 mls @ 20 mls/hr IV .CONTINUOS KP Last Admin: 08/24/16 10:28 Dose: 20 mls/hr Potassium Chloride/Dextrose/Sod Cl (D5 1/2 Ns W/ 20 Meq/L Kcl) 1,000 mls @ 50 mls/hr IV ASDIRECTED KP Last Infusion: 08/26/16 10:22 Dose: 75 mls/hr Potassium Chloride/Dextrose/Sod Cl (D5 1/2 Ns W/ 20 Meq/L Kcl) 1,000 mls @ 75 mls/hr IV ASDIRECTED KP Last Admin: 08/27/16 05:02 Dose: 75 mls/hr Iopamidol (Isovue-300 (61%)) 100 ml IVPUSH ONETIME ONE Stop: 08/23/16 12:44 Last Admin: 08/24/16 11:22 Dose: 100 ml Ketorolac Tromethamine (Toradol) 30 mg IVPUSH ONETIME ONE Stop: 08/23/16 09:09 Last Admin: 08/23/16 09:15 Dose: 30 mg Magnesium Hydroxide (Milk Of Magnesia) 30 ml PO ONETIME ONE Stop: 08/29/16 09:56 Last Admin: 08/29/16 11:06 Dose: Not Given Magnesium Hydroxide (Milk Of Magnesia) 30 ml PO ONETIME ONE Stop: 08/29/16 11:01 Last Admin: 08/29/16 11:06 Dose: 30 ml Morphine Sulfate (Morphine) 4 mg IVPUSH ONETIME ONE Stop: 08/23/16 12:30 Last Admin: 08/23/16 12:36 Dose: 4 mg Morphine Sulfate (Morphine) 2 mg IVPUSH Q2H PRN PRN Reason: Pain (severe 7-10) Last Admin: 08/24/16 09:59 Dose: 2 mg Non-Formulary Medication (Fluticasone/Salmeterol [Advair 500-50]) 1 puff INH ASDIRECTED PRN PRN Reason: Shortness of Breath Non-Formulary Medication (Quetiapine [Seroquel]) 300 mg PO BEDTIME [facility] Ondansetron HCl (Zofran) 4 mg IV ONETIME ONE Stop: 08/23/16 09:09 Last Admin: 08/23/16 09:15 Dose: 4 mg Ondansetron HCl (Zofran) 4 mg IV ONETIME ONE Stop: 08/23/16 12:25 Last Admin: 08/23/16 12:32 Dose: 4 mg Oxycodone HCl (Oxycodone) 5 mg PO Q4H PRN PRN Reason: Pain (moderate 4-6) Last Admin: 08/24/16 05:35 Dose: 5 mg Polyethylene Glycol (Miralax) 34 gm PO ONETIME ONE Stop: 08/23/16 10:28 Last Admin: 08/23/16 10:37 Dose: 34 gm Polyethylene Glycol (Miralax) 17 gm PO ONETIME ONE Stop: 08/29/16 09:55 Last Admin: 08/29/16 11:06 Dose: Not Given Polyethylene Glycol (Miralax) 17 gm PO ONETIME ONE Stop: 08/29/16 11:01 Last Admin: 08/29/16 11:06 Dose: 17 gm Potassium Chloride (Klor-Con 10) 20 meq PO ONETIME ONE Stop: 08/28/16 12:44 Last Admin: 08/28/16 14:04 Dose: 20 meq Quetiapine Fumarate (Seroquel) 200 mg PO BID [facility] Quetiapine Fumarate (Seroquel) 50 mg PO DAILY [facility] Last Admin: 08/25/16 09:12 Dose: 50 mg - Exam Quality Assessment: DVT prophylaxis. No: supplemental oxygen, central line/PICC , urine catheter General: alert, oriented, cooperative, no acute distress HEENT: Pupils equal, Mucous membr. moist/pink Neck: supple. No: no JVD, no thyromegaly, lymphadenopathy Lungs: Clear to auscultation, Normal respiratory effort Cardiovascular: Regular Rate, Regular Rhythm, No Murmurs Abdomen: bowel sounds present, soft, tenderness, distension. No: rebound, guarding (Female) Exam: Deferred Back Exam: Normal Inspection, Full Range of Motion Extremities: no edema, normal pulses, no clubbing, no calf tenderness Skin: warm, dry, intact Neurological: no new focal deficit, normal gait, normal speech Psy/Mental Status: alert, normal affect, normal mood - Problem List & Annotations (1) Abdominal pain SNOMED Code(s): 27679682 Code(s): R10.9 - UNSPECIFIED ABDOMINAL PAIN Status: Acute Current Visit: Yes Onset Date: ~08/23/16 Qualifiers: Abdominal location: generalized Qualified Code(s): R10.84 - Generalized abdominal pain (2) Pancreatitis, acute SNOMED Code(s): 839282566 Code(s): K85.90 - ACUTE PANCREATITIS WITHOUT NECROSIS OR INFECTION, UNSP Status: Acute Current Visit: Yes Onset Date: ~08/23/16 Qualifiers: Pancreatitis type: unspecified pancreatitis type Acute pancreatitis complication: unspecified Qualified Code(s): K85.90 - Acute pancreatitis without necrosis or infection, unspecified (3) Anxiety SNOMED Code(s): 00595524 Code(s): F41.9 - ANXIETY DISORDER, UNSPECIFIED Status: Acute Current Visit: No (4) Constipation SNOMED Code(s): 94778646 Code(s): K59.00 - CONSTIPATION, UNSPECIFIED Status: Acute Current Visit: No - Problem List Review Problem List Initiated/Reviewed/Updated: Yes - My Orders Last 24 Hours: My Active Orders 08/29/16 05:39 Blood Culture x2 Reflex Set [OM.PC] Stat 08/29/16 05:40 CULTURE BLOOD [BC] Stat 08/29/16 05:45 CULTURE BLOOD [BC] Stat 08/29/16 05:50 CULTURE URINE [RM] Routine 08/29/16 09:57 fentaNYL [Sublimaze] 25 mcg IVPUSH Q12H PRN - Plan Plan:: This is a 51 Y/O moderately obese [place] with past history of Anxiety with dipression, Hypothyroidism, Chronic Constipation , B12 deficiency, presented to ED with complain of abdominal pain, CT scan with contrast showed acute Pancreatitis Impression and Plan: 1. Acute Pancreatitis: The etiology is likely idiopathic ( pt is not alcoholic and CT scan showed no stone) -She is now eating and drining and tolerating oral intake -Will decrease Fentanyl to 25 mcg IV q12 hrs PRN -Continue Oxycodone 5 mg q6h prn 2. Addominal distention: Propably from ilus from pancreatitis -She is now eating and drinking -pt has history of chronic constipation 3. Constipation: she has chronic constipation and with pain medication it getting worse -Will give miralax and [place] juice and she if she gets BM, if not then will try mag citrate/enema -Will need to continue daily scheduled oral stool softner 4. Anxiety Disorder: will continue Zoloft, Bupropion and xanax 5. Hypothyroidism: Continue Levothyroxine at 175 mcg daily 6. DVT Prophylaxis: on enoxapain 7. Code status: Full code
[2016-08-29] MEDS: QUEtiapine 100 MG Tab PO SCH (20:38)
[2016-08-29] MEDS: QUEtiapine 25 MG Tab PO SCH (20:38)
[2016-08-29] MEDS: Enoxaparin 40 MG/0.4 ML Syringe SUBCUT SCH (20:39)
[2016-08-29] MEDS: ALPRAZolam 0.5 MG Tab PO PRN (23:41)
[2016-08-30 07:09] VITALS: BP 112/57
[2016-08-30] MEDS: oxyCODONE 5 MG Tab PO PRN (07:30)
[2016-08-30] MEDS: Levothyroxine 50 MCG Tab PO SCH (07:32)
[2016-08-30] MEDS: Potassium Chloride 10 MEQ Tab.ER PO SCH (08:55)
[2016-08-30] MEDS: Sertraline 50 MG Tab PO SCH (08:55)
[2016-08-30] MEDS: ZIPRASIDONE 80 MG PO SCH (08:55)
[2016-08-30] MEDS: Carvedilol 6.25 MG Tab PO SCH (08:56)
[2016-08-30] MEDS: Folic Acid 1 MG Tab PO SCH (08:56)
[2016-08-30] MEDS: busPIRone 15 MG Tab PO SCH (10:26)
--- NOTE | 2016-08-30 10:26 | PCM.DCSUM1 ---
Discharge Summary - Hospital Course Free Text/Narrative:: The pt was admitted with abdominal pain and work up showed acute Pancreatitis ( idiopathic) and was treated with IV fluids and pain control with Fentanyl and Oxycodone. She was also constipated and given Miralax and other tessy softned. She was also placed NPO and gradully advanced diet to liquid to semi-solid to solid, She is now tolerating regular diet and had BM last night. She will be going home today and will follow with PMD in 3-4 days. Urine culture came back today ( 08/30/16) and it showed Gram positive Cocci with 10,000-50,000 CFU, ID and sensitivity no available at this time, I will send her home on Doxycycline 100 mg BID X 10 days course and advise to follow with PMD for final culture report and sensitivity report. HPI Initial Comments: The pt was admitted with abdominal pain and has past history of Anxiety with depression and Hypothyroidism as will as chronic Constipation. CT scan of abdomen confirm the diagnosis of Pancreatitis and was treated conservatively. Brief History: The pt was admitted with abdominal pain and work up showed acute Pancreatitis ( idiopathic) and was treated with IV fluids and pain control with Fentanyl and Oxycodone. She was also constipated and given Miralax and other tessy softned. She was also placed NPO and gradully advanced diet to liquid to semi-solid to solid, She is now tolerating regular diet and had BM last night. She will be going home today and will follow with PMD in 3-4 day - Discharge Data Discharge Date: 08/30/16 Discharge Disposition: Home, Self-Care 01 Condition: Good - Discharge Diagnosis/Problem(s) (1) Abdominal pain SNOMED Code(s): 29637065 ICD Code: R10.9 - UNSPECIFIED ABDOMINAL PAIN Status: Acute Current Visit : Yes Onset Date: ~08/23/16 Qualifiers: Abdominal location: generalized Qualified Code(s): R10.84 - Generalized abdominal pain (2) Pancreatitis, acute SNOMED Code(s): 279052721 ICD Code: K85.90 - ACUTE PANCREATITIS WITHOUT NECROSIS OR INFECTION, UNSP Status: Acute Current Visit: Yes Onset Date: ~08/23/16 Qualifiers: Pancreatitis type: unspecified pancreatitis type Acute pancreatitis complication: unspecified Qualified Code(s): K85.90 - Acute pancreatitis without necrosis or infection, unspecified (3) Anxiety SNOMED Code(s): 79085907 ICD Code: F41.9 - ANXIETY DISORDER, UNSPECIFIED Status: Acute Current Visit: No (4) Constipation SNOMED Code(s): 68474839 ICD Code: K59.00 - CONSTIPATION, UNSPECIFIED Status: Acute Current Visit : No - Patient Summary/Data Consults: Consultations 08/25/16 13:42 Consult to Physical Therapy [PT Evaluation and Treatment] [CONS] Routine Hospital Course: The pt was admitted with abdominal pain and work up showed acute Pancreatitis ( idiopathic) and was treated with IV fluids and pain control with Fentanyl and Oxycodone. She was also constipated and given Miralax and other tessy softned. She was also placed NPO and gradully advanced diet to liquid to semi-solid to solid, She is now tolerating regular diet and had BM last night. She will be going home today and will follow with PMD in 3-4 day - Patient Instructions Diet: Usual Diet as Tolerated, Regular Diet as Tolerated Activity: As Tolerated Driving: May Drive Today Showering/Bathing: May Shower Other/Special Instructions: The pt was admitted with abdominal pain and work up showed acute Pancreatitis ( idiopathic) and was treated with IV fluids and pain control with Fentanyl and Oxycodone. She was also constipated and given Miralax and other tessy softned. She was also placed NPO and gradully advanced diet to liquid to semi-solid to solid, She is now tolerating regular diet and had BM last night. She will be going home today and will follow with PMD in 3-4 days. She will go home on oxycodone and advise to take stool softner regularly.Urine culture came back today and it showed Gram positive Cocci with 10,000-50,000 CFU , ID and sensitivity no available at this time, I will send her on Doxycycline 100 mg BID X 10 days course and advise to follow PMD for final culture report and sensitivity report - Discharge Plan Prescriptions/Med Rec: Doxycycline [Vibramycin] 100 mg PO Q12HR #20 cap oxyCODONE 5 mg PO Q6H PRN #15 tablet PRN Reason: Pain Home Medications: Home Meds Carvedilol 6.25 mg PO BID 05/07/13 [History] Estradiol 2 mg PO DAILY 05/07/13 [History] Furosemide [Lasix] 20 mg PO WEEKLY PRN 05/07/13 [History] Potassium Chloride [Klor-Con 10] 10 meq PO BID 05/07/13 [History] QUEtiapine Fumarate [Seroquel] 50 mg PO BEDTIME 05/07/13 [History] QUEtiapine [SEROquel] 350 mg PO BEDTIME 05/07/13 [History] Sertraline [Zoloft] 100 mg PO TID 05/07/13 [History] Simvastatin 40 mg PO DAILY 05/07/13 [History] busPIRone [Buspar] 15 mg PO TID 05/07/13 [History] ALPRAZolam [Alprazolam ODT] 0.5 mg PO TID PRN 09/10/14 [History] Levothyroxine 1 tab PO DAILY 10/17/14 [History] Cyanocobalamin (Vitamin B12) [Vitamin B12] 1,000 mcg IM .MONTHLY 12/27/14 [ History] Ferrous Sulfate 324 mg PO BIDMEALS 12/27/14 [History] Fluticasone/Salmeterol [Advair 500-50] 1 puff INH ASDIRECTED PRN 12/27/14 [ History] Folic Acid 1 mg PO DAILY 12/27/14 [History] Ibuprofen 2 tab PO Q6HR PRN 12/27/14 [History] Cyclobenzaprine [Flexeril] 10 mg PO TID PRN 07/21/16 [History] Ziprasidone HCl [Geodon] 80 mg PO QAM 08/25/16 [History] Docusate Sodium/Sennosides [Senna Plus] 1 tab PO BID tablet 08/30/16 [Rx] Doxycycline [Vibramycin] 100 mg PO Q12HR #20 cap 08/30/16 [Rx] Patient's Own Medication [Ptom] 1 each PO QAM each 08/30/16 [Rx] oxyCODONE 5 mg PO Q6H PRN #15 tablet 08/30/16 [Rx] Patient Handouts: Constipation, Adult, [id number], Abdominal Pain, Adult, [id number] Forms: ED Department Discharge Referrals: PCP,Unobtain [Primary Care Provider] - - Discharge Summary/Plan Comment DC Time >30 min.: Yes Discharge Summary/Plan Comment: The pt was admitted with abdominal pain and work up showed acute Pancreatitis ( idiopathic) and was treated with IV fluids and pain control with Fentanyl and Oxycodone. She was also constipated and given Miralax and other tessy softned. She was also placed NPO and gradully advanced diet to liquid to semi-solid to solid, She is now tolerating regular diet and had BM last night. She will be going home today and will follow with PMD in 3-4 day. she will be going home on oxycodone. Urine culture came back today ( 08/30/16) and it showed Gram positive Cocci with 10,000-50,000 CFU, ID and sensitivity no available at this time, I will send her home on Doxycycline 100 mg BID X 10 days course and advise to follow with PMD for final culture report and sensitivity report. - General Info Date of Service: 08/30/16 Admission Dx/Problem (Free Text: The pt was admitted with abdominal pain and work up showed acute Pancreatitis ( idiopathic) Subjective Update: Today the pt still complain of abdominal pain and main site is in a band fashion below the umbilicus. she rates pain at 8-10 at times, it si dull in nature. she also had no BM for the last 3-4 days, she has stated to pass gas and she does not want to go home today. She is eating and drinking well, no nausea or vomiting. l Functional Status: Reports: pain controlled, tolerating diet, ambulating, urinating - Review of Systems General: Reports: Appetite (good). Denies: Fever, Malaise, Chills HEENT: Denies: ear pain, headaches, sinus congestion, visual changes Pulmonary: Denies: shortness of breath, pleuritic chest pain, cough, sputum, wheezing Cardiovascular: Denies: Chest Pain, Dyspnea on Exertion, Lightheadedness Gastrointestinal: Reports: Abdominal pain, Constipation. Denies: Diarrhea, Nausea, Vomiting Genitourinary: Denies: dysuria, frequency, burning, urgency, flank pain Musculoskeletal: Denies: shoulder pain Skin: Denies: cyanosis, jaundice, bruising, pruritis Neurological: Denies: Confusion, Headache, Numbness, Difficulty Walking Psychiatric: Reports: depression, anxiety - Patient Data Vitals - Most Recent: Last Vital Signs Temp 37.8 C 08/30/16 07:00 Pulse 87 08/30/16 08:56 Resp 20 08/30/16 07:00 BP 112/57 L 08/30/16 08:56 Pulse Ox 96 08/30/16 07:00 Weight - Most Recent: 104.043 kg I&O - Last 24 hours: Intake & Output 08/29/16 08/30/16 08/30/16 22:59 06:59 14:59 Intake Total 475 225 Output Total 700 200 300 Balance -225 25 -300 KIANA Results - Last 24 hrs: Microbiology 08/29/16 05:50 Urine Culture - Preliminary Urine, Clean Catch 08/29/16 05:45 Aerobic Blood Culture - Preliminary Blood - Venous - Lab Draw NO GROWTH AFTER 1 DAY Anaerobic Blood Culture - Final 08/29/16 05:40 Aerobic Blood Culture - Preliminary Blood - Venous NO GROWTH AFTER 1 DAY Anaerobic Blood Culture - Preliminary NO GROWTH AFTER 1 DAY Med Orders - Current: Current Medications Acetaminophen (Tylenol) 650 mg PO Q4H PRN PRN Reason: Pain (Mild 1-3)/fever Last Admin: 08/29/16 15:43 Dose: 650 mg Alprazolam (Xanax) 0.5 mg PO TID PRN PRN Reason: Anxiety Last Admin: 08/29/16 23:41 Dose: 0.5 mg Buspirone HCl (Buspar) 15 mg PO TID [facility] Last Admin: 08/29/16 20:44 Dose: Not Given Carvedilol (Coreg) 6.25 mg PO BID [facility] Last Admin: 08/30/16 08:56 Dose: 6.25 mg Enoxaparin Sodium (Lovenox) 40 mg SUBCUT BEDTIME [facility] Last Admin: 08/29/16 20:39 Dose: 40 mg Fentanyl (Sublimaze) 25 mcg IVPUSH Q12H PRN PRN Reason: Pain (moderate 4-6) Last Admin: 08/29/16 23:42 Dose: 25 mcg Folic Acid (Folic Acid) 1 mg PO DAILY [facility] Last Admin: 08/30/16 08:56 Dose: 1 mg Levothyroxine Sodium (Synthroid) 175 mcg PO ACBRK [facility] Last Admin: 08/30/16 07:32 Dose: 175 mcg Ondansetron HCl (Zofran Odt) 4 mg PO Q4H PRN PRN Reason: nausea, able to take PO Last Admin: 08/24/16 08:10 Dose: 4 mg Oxycodone HCl (Oxycodone) 5 mg PO Q6H PRN PRN Reason: Pain (mild 1-3) Last Admin: 08/30/16 07:30 Dose: 5 mg Ziprasidone (Geodon) 80mg TabsPt's Own Med 1 each PO QAM [facility] Last Admin: 08/30/16 08:55 Dose: 1 each Potassium Chloride (Klor-Con 10) 20 meq PO WITHBREAKFAST [facility] Last Admin: 08/30/16 08:55 Dose: 20 meq Quetiapine Fumarate (Seroquel) 300 mg PO BEDTIME [facility] Last Admin: 08/29/16 20:38 Dose: 300 mg Quetiapine Fumarate (Seroquel) 50 mg PO BEDTIME [facility] Last Admin: 08/29/16 20:38 Dose: 50 mg Senna/Docusate Sodium (Senna Plus) 1 tab PO BID [facility] Last Admin: 08/30/16 08:56 Dose: 1 tab Sertraline HCl (Zoloft) 100 mg PO TID [facility] Last Admin: 08/30/16 08:55 Dose: 100 mg Sodium Chloride (Saline Flush) 10 ml FLUSH ASDIRECTED PRN PRN Reason: Keep Vein Open Last Admin: 08/29/16 09:28 Dose: 10 ml Discontinued Medications Alprazolam (Xanax) 0.5 mg PO TID [facility] Last Admin: 08/25/16 13:42 Dose: 0.5 mg Bisacodyl (Dulcolax) 10 mg RECTAL ONETIME ONE Stop: 08/25/16 13:18 Last Admin: 08/25/16 13:43 Dose: 10 mg Diphenhydramine HCl (Benadryl) 25 mg IVPUSH ONETIME ONE Stop: 08/23/16 08:07 Last Admin: 08/23/16 08:30 Dose: 25 mg Diphenhydramine HCl (Benadryl) 25 mg IVPUSH ONETIME ONE Stop: 08/23/16 12:25 Last Admin: 08/23/16 12:29 Dose: 25 mg Enoxaparin Sodium (Lovenox) 40 mg SUBCUT DAILY [facility] Enoxaparin Sodium (Lovenox) 40 mg SUBCUT ONETIME ONE Stop: 08/23/16 15:16 Last Admin: 08/23/16 16:04 Dose: Not Given Fentanyl (Sublimaze) 50 mcg IVPUSH ONETIME ONE Stop: 08/24/16 10:27 Last Admin: 08/24/16 10:36 Dose: 50 mcg Fentanyl (Sublimaze) 100 mcg IVPUSH ONETIME ONE Stop: 08/24/16 12:49 Last Admin: 08/24/16 13:00 Dose: 100 mcg Fentanyl (Sublimaze) 100 mcg IVPUSH Q2H PRN PRN Reason: Pain Last Admin: 08/24/16 18:10 Dose: 100 mcg Fentanyl (Sublimaze) 100 mcg IVPUSH Q3H PRN PRN Reason: Pain Last Admin: 08/25/16 12:20 Dose: 100 mcg Fentanyl (Sublimaze) 50 mcg IVPUSH Q2H PRN PRN Reason: Abdominal Pain Last Admin: 08/27/16 09:41 Dose: 50 mcg Fentanyl (Sublimaze) 25 mcg IVPUSH Q4H PRN PRN Reason: Pain (moderate 4-6) Last Admin: 08/29/16 09:29 Dose: 25 mcg Furosemide (Lasix) 20 mg IVPUSH ONETIME ONE Stop: 08/27/16 12:18 Last Admin: 08/27/16 12:43 Dose: 20 mg Furosemide (Lasix) 20 mg IVPUSH NOW ONE Stop: 08/28/16 12:43 Last Admin: 08/28/16 14:23 Dose: 20 mg Hydromorphone HCl (Dilaudid) 1 mg IVPUSH ONETIME ONE Stop: 08/23/16 13:35 Last Admin: 08/23/16 13:37 Dose: 1 mg Sodium Chloride (Normal Saline) 1,000 mls @ 500 mls/hr IV ASDIRECTED [facility] Last Infusion: 08/23/16 11:04 Dose: Infused Sodium Chloride (Normal Saline) 1,000 mls @ 150 mls/hr IV ASDIRECTED [facility] Last Admin: 08/23/16 13:36 Dose: 150 mls/hr Sodium Chloride (Normal Saline) 1,000 mls @ 125 mls/hr IV ASDIRECTED [facility] Last Admin: 08/24/16 06:43 Dose: 125 mls/hr Levofloxacin/Dextrose 500 mg/ (Premix) 100 mls @ 100 mls/hr IV Q24H [facility] Last Admin: 08/24/16 16:15 Dose: 100 mls/hr Pantoprazole Sodium 40 mg/ (Sodium Chloride) 100 mls @ 20 mls/hr IV .CONTINUOS KP Last Admin: 08/24/16 10:28 Dose: 20 mls/hr Potassium Chloride/Dextrose/Sod Cl (D5 1/2 Ns W/ 20 Meq/L Kcl) 1,000 mls @ 50 mls/hr IV ASDIRECTED [facility] Last Infusion: 08/26/16 10:22 Dose: 75 mls/hr Potassium Chloride/Dextrose/Sod Cl (D5 1/2 Ns W/ 20 Meq/L Kcl) 1,000 mls @ 75 mls/hr IV ASDIRECTED KP Last Admin: 08/27/16 05:02 Dose: 75 mls/hr Iopamidol (Isovue-300 (61%)) 100 ml IVPUSH ONETIME ONE Stop: 08/23/16 12:44 Last Admin: 08/24/16 11:22 Dose: 100 ml Ketorolac Tromethamine (Toradol) 30 mg IVPUSH ONETIME ONE Stop: 08/23/16 09:09 Last Admin: 08/23/16 09:15 Dose: 30 mg Magnesium Hydroxide (Milk Of Magnesia) 30 ml PO ONETIME ONE Stop: 08/29/16 09:56 Last Admin: 08/29/16 11:06 Dose: Not Given Magnesium Hydroxide (Milk Of Magnesia) 30 ml PO ONETIME ONE Stop: 08/29/16 11:01 Last Admin: 08/29/16 11:06 Dose: 30 ml Morphine Sulfate (Morphine) 4 mg IVPUSH ONETIME ONE Stop: 08/23/16 12:30 Last Admin: 08/23/16 12:36 Dose: 4 mg Morphine Sulfate (Morphine) 2 mg IVPUSH Q2H PRN PRN Reason: Pain (severe 7-10) Last Admin: 08/24/16 09:59 Dose: 2 mg Non-Formulary Medication (Fluticasone/Salmeterol [Advair 500-50]) 1 puff INH ASDIRECTED PRN PRN Reason: Shortness of Breath Non-Formulary Medication (Quetiapine [Seroquel]) 300 mg PO BEDTIME [facility] Ondansetron HCl (Zofran) 4 mg IV ONETIME ONE Stop: 08/23/16 09:09 Last Admin: 08/23/16 09:15 Dose: 4 mg Ondansetron HCl (Zofran) 4 mg IV ONETIME ONE Stop: 08/23/16 12:25 Last Admin: 08/23/16 12:32 Dose: 4 mg Oxycodone HCl (Oxycodone) 5 mg PO Q4H PRN PRN Reason: Pain (moderate 4-6) Last Admin: 08/24/16 05:35 Dose: 5 mg Polyethylene Glycol (Miralax) 34 gm PO ONETIME ONE Stop: 08/23/16 10:28 Last Admin: 08/23/16 10:37 Dose: 34 gm Polyethylene Glycol (Miralax) 17 gm PO ONETIME ONE Stop: 08/29/16 09:55 Last Admin: 08/29/16 11:06 Dose: Not Given Polyethylene Glycol (Miralax) 17 gm PO ONETIME ONE Stop: 08/29/16 11:01 Last Admin: 08/29/16 11:06 Dose: 17 gm Potassium Chloride (Klor-Con 10) 20 meq PO ONETIME ONE Stop: 08/28/16 12:44 Last Admin: 08/28/16 14:04 Dose: 20 meq Quetiapine Fumarate (Seroquel) 200 mg PO BID [facility] Quetiapine Fumarate (Seroquel) 50 mg PO DAILY [facility] Last Admin: 08/25/16 09:12 Dose: 50 mg - Exam Quality Assessment: Reports: DVT prophylaxis. Denies: supplemental oxygen, urine catheter General: Reports: alert, oriented, cooperative, no acute distress HEENT: Reports: Pupils equal, Mucous membr. moist/pink Neck: Reports: supple, no JVD, no thyromegaly Lungs: Reports: Clear to auscultation, Normal respiratory effort. Denies: Crackles, Wheezing Cardiovascular: Reports: Regular Rate, Regular Rhythm, No Murmurs Abdomen: Reports: bowel sounds present, soft, no tenderness, no distension, tenderness. Denies: rebound, guarding (Female) Exam: Deferred Rectal (Female) Exam: Deferred Back Exam: Reports: Normal Inspection, Full Range of Motion Extremities: Reports: no edema, no clubbing, no calf tenderness Skin: Reports: warm, dry, intact Neurological: Reports: no new focal deficit, normal gait, normal speech Psy/Mental Status: Reports: alert, normal affect, normal mood *Q Meaningful Use (DIS) - VTE *Q VTE Criteria *Q: - Stroke *Q Stroke Criteria *Q: - AMI *Q AMI Criteria *Q:
== END 2016-08-30 11:50 | disposition home or self-care (01) | DRG 440 ==
LOC: DL.ED 07:43 → UNDOADMIN 13:50 → DL.MS 13:50
PROVIDERS: ADMIT Internal Medicine; ATTEND Internal Medicine
DX: K85.90 Acute pancreatitis without necrosis or infection, unspecified (principal); K59.00 Constipation, unspecified; F41.8 Other specified anxiety disorders; E03.9 Hypothyroidism, unspecified; K59.09 Other constipation; I50.9 Heart failure, unspecified; E53.8 Deficiency of other specified B group vitamins; E66.9 Obesity, unspecified; Z79.899 Other long term (current) drug therapy
CPT/HCPCS: 36415; 74020; 74177; 74181; 80048; 80053; 80305; 81001; 82150; 83605; 83690; 83880; 84132; 85004; 85025; 85027; 86140; 87040; 87086; 96361; 96374; 96375; 96376; 97116-GP; 97161-GP; 99285; A9270-GY; C9113; J1170; J1200; J1650; J1885; J1940; J1956; J2270; J2405; J3010; J3480; J7030; J7050; Q9967

== ENCOUNTER 2017-03-28 10:46 | Inpatient (IN) | payer OTHER ==
[2017-03-28] MEDS ORDERED: Morphine 2 MG/ML Syringe IVPUSH ONE ×2 (11:36→13:38)
[2017-03-28] MEDS ORDERED: Ondansetron 4 MG/2 ML SDV IV ONE (11:36)
[2017-03-28] MEDS: Sodium Chloride 0.9% 10 ML Syringe FLUSH PRN ×3 (12:04→18:48)
[2017-03-28 12:09] LABS: CHLORIDE,CL 107 mmol/L (101-111); SODIUM,NA 134 mmol/L (135-145)
[2017-03-28] MEDS ORDERED: Iopamidol 612 MG/ML 100 ML Bottle IVPUSH ONE (13:11)
--- NOTE | 2017-03-28 13:58 | EDM.PDOC ---
ED HPI GENERAL MEDICAL PROBLEM - General Chief Complaint: Abdominal Pain Stated Complaint: STOMACH PAIN Time Seen by Provider: 03/28/17 11:28 Source of Information: Reports: Patient, RN, RN Notes Reviewed History Limitations: Reports: No Limitations - History of Present Illness INITIAL COMMENTS - FREE TEXT/NARRATIVE: Patient presents to ER with complaint of Wednesday night that pain began. She thought she needed to have a bowel movement. Last bowel movement was3 days ago. At 0450 the pain was10/10. The pain is steady sharp/dull and constant. She had a fever last night. She is distended and tender. 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 Abdomen Pain Score (Numeric/FACES): 10 - Related Data Allergies Allergy/AdvReac Type Severity Reaction Status Date / Time cephalexin [Cephalexin] AdvReac Nausea and Verified 03/28/17 14:55 Vomiting prednisone AdvReac Vomiting Verified 03/28/17 14:55 cats Allergy Sneezing Uncoded 03/28/17 14:55 evergreen tree Allergy Rash Uncoded 03/28/17 14:55 Home Meds: Home Meds Carvedilol 6.25 mg PO BID 05/07/13 [History] Estradiol 2 mg PO DAILY 05/07/13 [History] Furosemide [Lasix] 20 mg PO DAILY PRN 05/07/13 [History] Potassium Chloride [Klor-Con 10] 10 meq PO BID 05/07/13 [History] QUEtiapine Fumarate [Seroquel] 100 mg PO DAILY 05/07/13 [History] QUEtiapine [SEROquel] 300 mg PO BEDTIME 05/07/13 [History] Sertraline [Zoloft] 100 mg PO QAM 05/07/13 [History] Simvastatin 40 mg PO DAILY 05/07/13 [History] busPIRone [Buspar] 15 mg PO TID 05/07/13 [History] ALPRAZolam [Alprazolam ODT] 0.5 mg PO TID PRN 09/10/14 [History] Levothyroxine 175 mcg PO DAILY 10/17/14 [History] Cyanocobalamin (Vitamin B12) [Vitamin B12] 1,000 mcg IM .MONTHLY 12/27/14 [ History] Ferrous Sulfate 324 mg PO DAILY 12/27/14 [History] Fluticasone/Salmeterol [Advair 500-50] 1 puff INH ASDIRECTED PRN 12/27/14 [ History] Folic Acid 1 mg PO DAILY 12/27/14 [History] Cyclobenzaprine [Flexeril] 10 mg PO TID PRN 07/21/16 [History] Ziprasidone HCl [Geodon] 80 mg PO QAM 08/25/16 [History] oxyCODONE 5 mg PO Q6H PRN #15 tablet 08/30/16 [Rx] Docusate Sodium/Sennosides [Senna Plus] 1 tab PO DAILY 03/28/17 [History] Patient's Own Medication [Ptom] 1 each PO QAM PRN 03/28/17 [History] Sertraline [Zoloft] 100 mg PO QPM 03/28/17 [History] Past Medical History HEENT 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: Impaired Vision Other HEENT History: wears glasses Cardiovascular 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: Heart Failure 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: Asthma, SOB Gastrointestinal 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: Chronic Constipation, Pancreatitis Genitourinary 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: None 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 (See Below) Other OB/BYN History: hysterectomy Musculoskeletal 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: Back Pain, Chronic Neurological 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: None Psychiatric 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: Anxiety, Depression Endocrine/Metabolic 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: Hypothyroidism Hematologic 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: Anemia, B12 Deficiency Immunologic 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: None Oncologic (Cancer) 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: None Dermatologic 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: None - Infectious Disease History Infectious Disease 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: Chicken Pox - Past Surgical History Head Surgeries/Procedures: Reports: None GI Surgical 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: Appendectomy, Cholecystectomy Female Surgical 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: Hysterectomy, Tubal Ligation Social & Family History - Family History Family Medical History: Noncontributory - Tobacco Use Smoking Status *Q: Never Smoker Second Hand Smoke Exposure: No - Caffeine Use Caffeine Use: Reports: Soda - Recreational Drug Use Recreational Drug Use: No ED ROS GENERAL - Review of Systems Review Of Systems: ROS reveals no pertinent complaints other than HPI. ED EXAM, GI/ABD - Physical Exam Exam: See Below Exam Limited By: No Limitations General Appearance: Alert, WD/WN, No Apparent Distress Eyes: Bilateral: Normal Appearance Ears: Normal External Exam, Normal Canal, Hearing Grossly Normal, Normal TMs Nose: Normal Inspection, Normal Mucosa, No Blood Throat/Mouth: Normal Inspection, Normal Lips, Normal Teeth, Normal Gums, Normal Oropharynx, Normal Voice, No Airway Compromise Head: Atraumatic, Normocephalic Neck: Normal Inspection, Supple, Non-Tender, Full Range of Motion Respiratory/Chest: No Respiratory Distress, Lungs Clear, Normal Breath Sounds, No Accessory Muscle Use, Chest Non-Tender Cardiovascular: Normal Peripheral Pulses, Regular Rate, Rhythm, No Edema, No Gallop, No JVD, No Murmur, No Rub GI/Abdominal Exam: Other (distended) (Female) Exam: Deferred Rectal (Female) Exam: Deferred Back Exam: Normal Inspection, Full Range of Motion, NT Extremities: Normal Inspection, Normal Range of Motion, Non-Tender, Normal Capillary Refill, No Pedal Edema Neurological: Alert, Oriented, CN II-XII Intact, Normal Cognition, Normal Gait, Normal Reflexes, No Motor/Sensory Deficits Psychiatric: Normal Affect, Normal Mood Skin Exam: Warm, Dry, Intact, Normal Color, No Rash Lymphatic: No Adenopathy Course - Vital Signs Last Recorded V/S: Last Vital Signs Temp 98.7 F 03/31/17 07:56 Pulse 87 03/31/17 07:56 Resp 17 03/31/17 07:56 BP 108/72 03/31/17 07:56 Pulse Ox 98 03/31/17 07:56 - Orders/Labs/Meds Orders: Medication Orders Acetaminophen (Tylenol) 650 mg PO Q6H PRN PRN Reason: Fever Last Admin: 03/31/17 03:16 Dose: 650 mg Admin: 03/30/17 06:01 Dose: 650 mg Admin: 03/29/17 18:03 Dose: 650 mg Admin: 03/29/17 03:41 Dose: 650 mg Admin: 03/28/17 21:34 Dose: 650 mg Al Hydroxide/Mg Hydroxide (Mag-Al Plus) 30 ml PO Q4H PRN PRN Reason: Dyspepsia Bisacodyl (Dulcolax) 10 mg RECTAL DAILY PRN PRN Reason: Constipation Buspirone HCl (Buspar) 15 mg PO TID [facility] Last Admin: 03/30/17 22:08 Dose: 15 mg Admin: 03/30/17 13:14 Dose: 15 mg Admin: 03/30/17 09:09 Dose: 15 mg Admin: 03/29/17 21:14 Dose: 15 mg Admin: 03/29/17 14:07 Dose: 15 mg Admin: 03/29/17 09:45 Dose: 15 mg Admin: 03/28/17 20:57 Dose: 15 mg Carvedilol (Coreg) 6.25 mg PO BID [facility] Last Admin: 03/30/17 22:06 Dose: 6.25 mg Admin: 03/30/17 09:09 Dose: 6.25 mg Admin: 03/29/17 21:14 Dose: 6.25 mg Admin: 03/29/17 09:45 Dose: 6.25 mg Admin: 03/28/17 20:57 Dose: 6.25 mg Cefepime HCl (Maxipime) 2 gm IV Q12H [facility] Last Admin: 03/30/17 22:04 Dose: 2 gm Admin: 03/30/17 09:08 Dose: 2 gm Admin: 03/29/17 22:31 Dose: 2 gm Admin: 03/29/17 10:24 Dose: 2 gm Cyclobenzaprine HCl (Flexeril) 10 mg PO TID PRN PRN Reason: Spasms Last Admin: 03/29/17 03:37 Dose: 10 mg Docusate Sodium (Colace) 100 mg PO DAILY PRN PRN Reason: Constipation Enoxaparin Sodium (Lovenox) 40 mg SUBCUT DAILY [facility] Last Admin: 03/30/17 09:09 Dose: 40 mg Admin: 03/29/17 09:45 Dose: 40 mg Furosemide (Lasix) 20 mg PO DAILY PRN PRN Reason: Shortness of Breath Metronidazole 500 mg/ Premix 100 mls @ 100 mls/hr IV Q8H [facility] Last Admin: 03/31/17 02:18 Dose: 100 mls/hr Infusion: 03/30/17 18:49 Dose: 100 mls/hr Admin: 03/30/17 17:49 Dose: 100 mls/hr Infusion: 03/30/17 11:58 Dose: 100 mls/hr Admin: 03/30/17 10:58 Dose: 100 mls/hr Infusion: 03/30/17 03:15 Dose: 100 mls/hr Admin: 03/30/17 02:05 Dose: 100 mls/hr Infusion: 03/29/17 19:30 Dose: 125 mls/hr Admin: 03/29/17 18:05 Dose: 100 mls/hr Infusion: 03/29/17 11:24 Dose: 100 mls/hr Admin: 03/29/17 10:24 Dose: 100 mls/hr Infusion: 03/29/17 05:04 Dose: 100 mls/hr Admin: 03/29/17 01:35 Dose: 100 mls/hr Infusion: 03/28/17 19:07 Dose: 100 mls/hr Admin: 03/28/17 17:40 Dose: 100 mls/hr Levothyroxine Sodium (Synthroid) 100 mcg PO [facility] Last Admin: 03/31/17 06:20 Dose: 100 mcg Admin: 03/30/17 06:00 Dose: 100 mcg Admin: 03/29/17 05:18 Dose: 100 mcg Levothyroxine Sodium (Levothyroxine) 75 mcg PO [facility] Last Admin: 03/31/17 06:20 Dose: 75 mcg Admin: 03/30/17 06:00 Dose: 75 mcg Admin: 03/29/17 05:18 Dose: 75 mcg Magnesium Hydroxide (Milk Of Magnesia) 30 ml PO BID PRN PRN Reason: Constipation Last Admin: 03/29/17 18:04 Dose: 30 ml Morphine Sulfate (Morphine) 2 mg IVPUSH Q6H PRN PRN Reason: Pain Last Admin: 03/30/17 22:18 Dose: 2 mg Ondansetron HCl (Zofran) 4 mg IV Q6H PRN PRN Reason: Nausea/Vomiting Last Admin: 03/29/17 03:53 Dose: 4 mg Admin: 03/28/17 21:34 Dose: 4 mg Oxycodone HCl (Oxycodone) 5 mg PO Q6H PRN PRN Reason: Pain Last Admin: 03/31/17 03:19 Dose: 5 mg Admin: 03/30/17 17:48 Dose: 5 mg Admin: 03/30/17 11:03 Dose: 5 mg Admin: 03/29/17 21:21 Dose: 5 mg Admin: 03/29/17 14:07 Dose: 5 mg Admin: 03/29/17 07:23 Dose: 5 mg Admin: 03/29/17 01:34 Dose: 5 mg Admin: 03/28/17 19:24 Dose: 5 mg Quetiapine Fumarate (Seroquel) 100 mg PO DAILY [facility] Last Admin: 03/30/17 09:09 Dose: 100 mg Quetiapine Fumarate (Seroquel) 300 mg PO BEDTIME [facility] Last Admin: 03/30/17 22:06 Dose: 300 mg Admin: 03/29/17 21:15 Dose: 300 mg Sodium Chloride (Saline Flush) 10 ml FLUSH ASDIRECTED PRN PRN Reason: Keep Vein Open Last Admin: 03/28/17 18:48 Dose: 10 ml Admin: 03/28/17 17:38 Dose: 10 ml Admin: 03/28/17 12:04 Dose: 10 ml Labs: Laboratory Tests 03/28/17 03/28/17 03/28/17 Range/Units 11:44 11:44 11:45 WBC 11.4 H (5.0-10.0) 10^3/uL RBC 3.29 L (4.2-5.4) 10^6/uL Hgb 10.3 L D (12.0-16.0) g/dL Hct 31.7 L (37.0-47.0) % MCV 96.4 D (80-100) fL MCH 31.3 (27.0-34.0) pg MCHC 32.5 L (33.0-35.0) g/dL Plt Count 227 (150-450) 10^3/uL Neut % (Auto) 88.9 H (42.2-75.2) % Lymph % (Auto) 5.8 L (20.5-50.1) % [place] % (Auto) 4.2 (2-8) % Eos % (Auto) 0.9 L (1.0-3.0) % Baso % (Auto) 0.2 (0.0-1.0) % Sodium 134 L (135-145) mmol/L Potassium 3.6 (3.6-5.0) mmol/L Chloride 107 (101-111) mmol/L Carbon Dioxide 20.0 L (21.0-31.0) mmol/L Anion Gap 10.6 BUN 12 (7-18) mg/dL Creatinine 0.9 (0.6-1.3) mg/dL Est Cr Clr Drug Dosing 72.72 mL/min Estimated GFR (MDRD) > 60 BUN/Creatinine Ratio 13.33 Glucose 154 H (74-105) mg/dL Calcium 8.5 D (8.4-10.2) mg/dl Total Bilirubin 0.5 (0.2-1.0) mg/dL AST 13 (10-42) IU/L ALT 10 (10-60) IU/L Alkaline Phosphatase 49 (42-121) IU/L Total Protein 6.3 L (6.7-8.2) g/dl Albumin 3.6 (3.2-5.5) g/dl Globulin 2.7 Albumin/Globulin Ratio 1.33 Amylase 179 H (28-100) U/L Lipase 259 H (22-51) U/L Urine Color Light yellow (YELLOW) Urine Appearance Clear (CLEAR) Urine pH 5.5 (5.0-9.0) Ur Specific [place] 1.020 (1.005-1.030) Urine Protein Negative (NEGATIVE) Urine Glucose (UA) Negative (NEGATIVE) Urine Ketones Negative (NEGATIVE) Urine Occult Blood Negative (NEGATIVE) Urine Nitrite Negative (NEGATIVE) Urine Bilirubin Negative (NEGATIVE) Urine Urobilinogen 0.2 (0.2-1.0) mg/dL Ur Leukocyte Esterase Negative (NEGATIVE) Urine RBC 0-5 /HPF Urine WBC 0-5 (0-5/HPF) /HPF Ur Epithelial Cells Rare /HPF Urine Bacteria Rare (0-FEW/HPF) /HPF Urine Opiates Screen (NEGATIVE) Ur Oxycodone Screen (NEGATIVE) Urine Methadone Screen (NEGATIVE) Ur Barbiturates Screen (NEGATIVE) U Tricyclic Antidepress (NEGATIVE) Ur Phencyclidine Scrn (NEGATIVE) Ur Amphetamine Screen (NEGATIVE) U Methamphetamines Scrn (NEGATIVE) Urine MDMA Screen (NEGATIVE) U Benzodiazepines Scrn (NEGATIVE) Urine Cocaine Screen (NEGATIVE) U Marijuana (THC) Screen (NEGATIVE) 03/28/17 Range/Units 11:45 WBC (5.0-10.0) 10^3/uL RBC (4.2-5.4) 10^6/uL Hgb (12.0-16.0) g/dL Hct (37.0-47.0) % MCV (80-100) fL MCH (27.0-34.0) pg MCHC (33.0-35.0) g/dL Plt Count (150-450) 10^3/uL Neut % (Auto) (42.2-75.2) % Lymph % (Auto) (20.5-50.1) % [place] % (Auto) (2-8) % Eos % (Auto) (1.0-3.0) % Baso % (Auto) (0.0-1.0) % Sodium (135-145) mmol/L Potassium (3.6-5.0) mmol/L Chloride (101-111) mmol/L Carbon Dioxide (21.0-31.0) mmol/L Anion Gap BUN (7-18) mg/dL Creatinine (0.6-1.3) mg/dL Est Cr Clr Drug Dosing mL/min Estimated GFR (MDRD) BUN/Creatinine Ratio Glucose (74-105) mg/dL Calcium (8.4-10.2) mg/dl Total Bilirubin (0.2-1.0) mg/dL AST (10-42) IU/L ALT (10-60) IU/L Alkaline Phosphatase (42-121) IU/L Total Protein (6.7-8.2) g/dl Albumin (3.2-5.5) g/dl Globulin Albumin/Globulin Ratio Amylase (28-100) U/L Lipase (22-51) U/L Urine Color (YELLOW) Urine Appearance (CLEAR) Urine pH (5.0-9.0) Ur Specific [place] (1.005-1.030) Urine Protein (NEGATIVE) Urine Glucose (UA) (NEGATIVE) Urine Ketones (NEGATIVE) Urine Occult Blood (NEGATIVE) Urine Nitrite (NEGATIVE) Urine Bilirubin (NEGATIVE) Urine Urobilinogen (0.2-1.0) mg/dL Ur Leukocyte Esterase (NEGATIVE) Urine RBC /HPF Urine WBC (0-5/HPF) /HPF Ur Epithelial Cells /HPF Urine Bacteria (0-FEW/HPF) /HPF Urine Opiates Screen Negative (NEGATIVE) Ur Oxycodone Screen Positive H (NEGATIVE) Urine Methadone Screen Negative (NEGATIVE) Ur Barbiturates Screen Negative (NEGATIVE) U Tricyclic Antidepress Positive H (NEGATIVE) Ur Phencyclidine Scrn Negative (NEGATIVE) Ur Amphetamine Screen Negative (NEGATIVE) U Methamphetamines Scrn Negative (NEGATIVE) Urine MDMA Screen Negative (NEGATIVE) U Benzodiazepines Scrn Positive H (NEGATIVE) Urine Cocaine Screen Negative (NEGATIVE) U Marijuana (THC) Screen Negative (NEGATIVE) Meds: Medications Generic Name Dose Route Start Last Admin Trade Name Freq PRN Reason Stop Dose Admin Acetaminophen 650 mg 03/28/17 21:11 03/31/17 03:16 Tylenol PO 650 mg Q6H PRN Administration Fever Al Hydroxide/Mg Hydroxide 30 ml 03/28/17 16:38 Mag-Al Plus PO Q4H PRN Dyspepsia Bisacodyl 10 mg 03/28/17 16:38 Dulcolax RECTAL DAILY PRN Constipation Buspirone HCl 15 mg 03/28/17 21:00 03/30/17 22:08 Buspar PO 15 mg TID [facility] Administration Carvedilol 6.25 mg 03/28/17 21:00 03/30/17 22:06 Coreg PO 6.25 mg BID [facility] Administration Cefepime HCl 2 gm 03/29/17 09:00 03/30/17 22:04 Maxipime IV 2 gm Q12H [facility] Administration Cyclobenzaprine HCl 10 mg 03/28/17 16:45 03/29/17 03:37 Flexeril PO 10 mg TID PRN Administration Spasms Docusate Sodium 100 mg 03/28/17 16:38 Colace PO DAILY PRN Constipation Enoxaparin Sodium 40 mg 03/29/17 09:00 03/30/17 09:09 Lovenox SUBCUT 40 mg DAILY [facility] Administration Furosemide 20 mg 03/28/17 16:45 Lasix PO DAILY PRN Shortness of Breath Metronidazole 500 mg/ Premix 100 mls @ 100 mls/hr 03/28/17 18:00 03/31/17 02: 18 IV 100 mls/hr Q8H [facility] Administration Levothyroxine Sodium 100 mcg 03/29/17 06:00 03/31/17 06:20 [facility] Administration Levothyroxine Sodium 75 mcg 03/29/17 06:00 03/31/17 06:20 Levothyroxine PO 75 mcg ACBRK [facility] Administration Magnesium Hydroxide 30 ml 03/29/17 17:47 03/29/17 18:04 Milk Of Magnesia PO 30 ml BID PRN Administration Constipation Morphine Sulfate 2 mg 03/30/17 11:06 03/30/17 22:18 Morphine IVPUSH 2 mg Q6H PRN Administration Pain Ondansetron HCl 4 mg 03/28/17 21:12 03/29/17 03:53 Zofran IV 4 mg Q6H PRN Administration Nausea/Vomiting Oxycodone HCl 5 mg 03/28/17 16:45 03/31/17 03:19 Oxycodone PO 5 mg Q6H PRN Administration Pain Quetiapine Fumarate 100 mg 03/30/17 09:00 03/30/17 09:09 Seroquel PO 100 mg DAILY [facility] Administration Quetiapine Fumarate 300 mg 03/29/17 21:00 03/30/17 22:06 Seroquel PO 300 mg BEDTIME [facility] Administration Sodium Chloride 10 ml 03/28/17 11:36 03/28/17 18:48 Saline Flush FLUSH 10 ml ASDIRECTED PRN Administration Keep Vein Open Discontinued Medications Generic Name Dose Route Start Last Admin Trade Name Freq PRN Reason Stop Dose Admin Fentanyl 25 mcg 03/28/17 17:00 03/29/17 11:25 Sublimaze IVPUSH Not Given Q6H [facility] Sodium Chloride 250 mls @ 100 mls/hr 03/28/17 17:00 Normal Saline IV ASDIRECTED [facility] Cefepime HCl 2 gm/ Sodium 50 mls @ 100 mls/hr 03/28/17 21:00 03/29/17 10:23 Chloride IV Not Given Q12HR [facility] Sodium Chloride 1,000 mls @ 125 mls/hr 03/28/17 18:00 03/30/17 05:50 Normal Saline IV 125 mls/hr ASDIRECTED [facility] Administration Potassium Chloride 20 meq/ 100 mls @ 50 mls/hr 03/29/17 10:58 03/29/17 11:37 Premix IV 03/29/17 12:57 50 mls/hr ONETIME ONE Administration Magnesium Sulfate/Dextrose 1 100 mls @ 100 mls/hr 03/29/17 19:56 03/29/17 22: 29 gm/ Premix IV 03/29/17 20:55 Infused ONETIME ONE Infusion Potassium Chloride 100 mls @ 100 mls/hr 03/30/17 04:45 03/30/17 07:31 Kcl 10 Meq In Water 100 Ml IV 03/30/17 06:44 Infused Q1H [facility] Infusion Iopamidol 100 ml 03/28/17 13:11 03/28/17 13:12 Isovue-300 (61%) IVPUSH 03/28/17 13:12 100 ml ONETIME ONE Administration Morphine Sulfate 2 mg 03/28/17 11:36 03/28/17 12:06 Morphine IVPUSH 03/28/17 11:37 2 mg ONETIME ONE Administration Morphine Sulfate 2 mg 03/28/17 13:38 03/28/17 13:42 Morphine IVPUSH 03/28/17 13:39 2 mg ONETIME ONE Administration Morphine Sulfate 4 mg 03/29/17 11:23 03/30/17 06:03 Morphine IVPUSH 4 mg Q6H PRN Administration Pain Ondansetron HCl 4 mg 03/28/17 11:36 03/28/17 12:04 Zofran IV 03/28/17 11:37 4 mg ONETIME ONE Administration Pantoprazole Sodium 40 mg 03/29/17 11:01 03/29/17 11:37 Protonix Iv IVPUSH 03/29/17 11:02 40 mg ONETIME ONE Administration Potassium Chloride 20 meq 03/31/17 06:48 Klor-Con 10 PO 03/31/17 06:49 ONETIME ONE - Radiology Interpretation Free Text/Narrative:: CT Abdomen/Pelvis with contrast: Changes consistent with severe acute pancreatitis, secondary inflammation of the duodenum, small amount of free fluid in the pelvis, See Rad report Departure - Departure Time of Disposition: 13:58 Disposition: Admitted As Inpatient 67 Condition: Fair Clinical Impression: Pancreatitis Qualifiers: Chronicity: acute Pancreatitis type: other Acute pancreatitis complication: unspecified Qualified Code(s): K85.80 - Other acute pancreatitis without necrosis or infection - Discharge Information
--- NOTE | 2017-03-28 15:57 | PCM.HP ---
H&P History of Present Illness - General Date of Service: 03/28/17 Admit Problem/Dx: Pt is admitted with: abdominal Pain and CT and labs showed Acute on Chronic Pancreatitis Source of Information: Patient, Old Records History Limitations: Reports: No Limitations - History of Present Illness Initial Comments - Free Text/Narative: This is a 51 Y/O Moderately Obese F with past Medical history of Anxiety with depression, h?o Substance abuse, Hypothyroidism, Chronic Constipation, B12 dificiency, Chronic Pancreatitis ( Gets [facility]hill[facility] , had Endoscopic ultrsound without Fine Needle aspiration on 01/18/17 for the same abdominal pain with Chronic Pancreatitis and recommended to avoid smoking , alcohol and NSAID. Today she presented with abdominal pain and had CT scan and it showed: changes consistent with Severe acute Pancreatitis, and Secondary Inflamation of the Duodenum. The pain started on 03/26/17 and progressively getting worse, today it is at 10/10 with radition to the back. Onset of Symptoms: Reports: Gradual Duration of Symptoms: Reports: Day(s): (3), Getting Worse Quality: Reports: Sharp Severity: Moderate Improves with: Reports: None Abdomen Pain Score (Numeric/FACES): 10 - Related Data Allergies/Adverse Reactions: Allergies Allergy/AdvReac Type Severity Reaction Status Date / Time cephalexin [Cephalexin] AdvReac Nausea and Verified 03/28/17 14:55 Vomiting prednisone AdvReac Vomiting Verified 03/28/17 14:55 cats Allergy Sneezing Uncoded 03/28/17 14:55 evergreen tree Allergy Rash Uncoded 03/28/17 14:55 Home Medications: Home Meds Carvedilol 6.25 mg PO BID 05/07/13 [History] Estradiol 2 mg PO DAILY 05/07/13 [History] Furosemide [Lasix] 20 mg PO DAILY PRN 05/07/13 [History] Potassium Chloride [Klor-Con 10] 10 meq PO BID 05/07/13 [History] QUEtiapine Fumarate [Seroquel] 100 mg PO DAILY 05/07/13 [History] QUEtiapine [SEROquel] 300 mg PO BEDTIME 05/07/13 [History] Sertraline [Zoloft] 100 mg PO QAM 05/07/13 [History] Simvastatin 40 mg PO DAILY 05/07/13 [History] busPIRone [Buspar] 15 mg PO TID 05/07/13 [History] ALPRAZolam [Alprazolam ODT] 0.5 mg PO TID PRN 09/10/14 [History] Levothyroxine 175 mcg PO DAILY 10/17/14 [History] Cyanocobalamin (Vitamin B12) [Vitamin B12] 1,000 mcg IM .MONTHLY 12/27/14 [ History] Ferrous Sulfate 324 mg PO DAILY 12/27/14 [History] Fluticasone/Salmeterol [Advair 500-50] 1 puff INH ASDIRECTED PRN 12/27/14 [ History] Folic Acid 1 mg PO DAILY 12/27/14 [History] Cyclobenzaprine [Flexeril] 10 mg PO TID PRN 07/21/16 [History] Ziprasidone HCl [Geodon] 80 mg PO QAM 08/25/16 [History] oxyCODONE 5 mg PO Q6H PRN #15 tablet 08/30/16 [Rx] Docusate Sodium/Sennosides [Senna Plus] 1 tab PO DAILY 03/28/17 [History] Patient's Own Medication [Ptom] 1 each PO QAM PRN 03/28/17 [History] Sertraline [Zoloft] 100 mg PO QPM 03/28/17 [History] Past Medical History HEENT 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: Impaired Vision Other HEENT History: wears glasses Cardiovascular 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: Heart Failure, Hypertension 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: Asthma, SOB Gastrointestinal 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: Pancreatitis Genitourinary 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: None [employer]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: Other (See Below) Other OB/BYN History: hysterectomy Musculoskeletal 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: Back Pain, Chronic Neurological 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: None Psychiatric 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: Anxiety, Depression Endocrine/Metabolic 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: Hypothyroidism Hematologic 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: B12 Deficiency Immunologic 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: None Oncologic (Cancer) 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: None Dermatologic 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: None - Infectious Disease History Infectious Disease 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: Chicken Pox, Measles - Past Surgical History Head Surgeries/Procedures: Reports: None GI Surgical 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: Appendectomy, Cholecystectomy Female Surgical 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: Hysterectomy, Tubal Ligation Social & Family History - Family History Family Medical History: Noncontributory - Tobacco Use Smoking Status *Q: Never Smoker Second Hand Smoke Exposure: No - Caffeine Use Caffeine Use: Reports: None - Recreational Drug Use Recreational Drug Use: No H&P Review of Systems - Review of Systems: Review Of Systems: See Below General: Denies: Fever, Chills, Weakness, Fatigue, Night Sweats, Weight Loss, Weight Gain HEENT: Denies: Dysphasia, Sinus Congestion, Sore Throat, Visual Changes Pulmonary: Denies: Shortness of Breath, Wheezing, Cough, Sputum Cardiovascular: Denies: Chest Pain, Dyspnea on Exertion, Lightheadedness Gastrointestinal: Reports: Abdominal Pain. Denies: Diarrhea, Difficulty Swallowing, Nausea, Vomiting Genitourinary: Denies: Dysuria, Frequency, Burning, Urgency Musculoskeletal: Reports: Leg Pain. Denies: Neck Pain, Shoulder Pain Skin: Denies: Cyanosis, Jaundice, Bruising, Rash Psychiatric: Denies: Confusion, Depression, Anxiety Neurological: Denies: Confusion, Tingling, Tremors, Difficulty Walking Hematologic/Lymphatic: Denies: Easy Bleeding, Easy Bruising Exam - Exam Exam: See Below - Vital Signs Vital Signs: Last Vital Signs Temp 36.4 C 03/28/17 14:51 Pulse 96 03/28/17 14:51 Resp 20 03/28/17 14:51 BP 134/59 L 03/28/17 14:51 Pulse Ox 94 L 03/28/17 14:51 Weight: 96.343 kg - Exam Quality Assessment: DVT Prophylaxis General: Alert, Oriented, Cooperative, Other (not in acute distress) HEENT: EOMI, Hearing Intact, Mucosa Moist & [place], Pupils Equal, Pupils Reactive Neck: Supple. No: Lymphadenopathy, JVD, Thyromegaly Lungs: Clear to Auscultation, Normal Respiratory Effort. No: Crackles, Wheezing Cardiovascular: Regular Rate, Regular Rhythm GI/Abdominal Exam: Normal Bowel Sounds, Soft, Tender, Abnormal Bowel Sounds (Female) Exam: Deferred Rectal (Female) Exam: Deferred Back Exam: Normal Inspection, Full Range of Motion, CVA Tenderness (L) Extremities: Normal Inspection, No Pedal Edema Skin: Warm, Dry, Intact Neurological: Cranial Nerves Intact, Reflexes Equal Bilateral Neuro Extensive - Mental Status: Alert, Oriented x3, Normal Mood/Affect, Normal Cognition, Memory Intact Neuro Extensive - Motor, Sensory, Reflexes: CN II-XII Intact, Normal Gait, Normal Reflexes Psychiatric: Alert, Normal Affect, Normal Mood - Patient Data Result Diagrams: 03/28/17 11:44 03/28/17 11:44 *Q Meaningful Use (ADM) - VTE *Q VTE Criteria *Q: - Stroke *Q Stroke Criteria *Q: - AMI *Q AMI Criteria *Q: - Problem List (1) Pancreatitis SNOMED Code(s): 92787645 ICD Code: K85.90 - ACUTE PANCREATITIS WITHOUT NECROSIS OR INFECTION, UNSP Status: Acute Current Visit: Yes Qualifiers: Chronicity: acute Pancreatitis type: other Acute pancreatitis complication: unspecified Qualified Code(s): K85.80 - Other acute pancreatitis without necrosis or infection (2) Abdominal pain SNOMED Code(s): 57211965 ICD Code: R10.9 - UNSPECIFIED ABDOMINAL PAIN Status: Acute Current Visit : No Onset Date: ~08/23/16 Qualifiers: Abdominal location: generalized Qualified Code(s): R10.84 - Generalized abdominal pain Problem List Initiated/Reviewed/Updated: Yes Orders Last 24hrs: Medication Orders Sodium Chloride (Saline Flush) 10 ml FLUSH ASDIRECTED PRN PRN Reason: Keep Vein Open Last Admin: 03/28/17 12:04 Dose: 10 ml Assessment/Plan Comment:: This is a 51 Y/O Moderately Obese Female admitted with acute on Chronic Pancreatitis Impression and Plan: 1.Acute Pancreatitis: The Etiology is likely Idiopathic ( Pt is not alcoholic and CT scan showed cholecystectomy in the past) - Will start IVF LR at 100 ml/hr -Will continue IV Fentanyl 25 mcg q4 hrs PRN pain _ Continue Oxycodone 5 mg q6hrs Prn -NPO except Ice chips -Will advance diet gradually once the pain is better -Since there is extensive peripancreatic Inflamatory changes and also there is suspicion for development of 2 pancreatic pseudocyst ( all these noted in CT abdomen), will start her oh emperic abx with IV Cefepime 2 gm IV q12 hrs and Metronidazole 500 mg IV q8 hrs 2. Chronic Constipation: It may get worse and will place her on Senakot-s and Miralx 3. Anxiety Disorder: Continue Zolft, Bupropian and Xanax 4. Hypothyroidism: Continue Levothyroxine 5. DVT Prophylaxis: start on Enxapain 40 mg daily 6. GI Prophylaxis: IV Protonix Code status: Full Code
[2017-03-28] MEDS ORDERED: Aluminum Hydroxide/Magnesium Hydroxide/Simethicone Susp 30 ML Cup PO PRN (16:38)
[2017-03-28] MEDS ORDERED: Bisacodyl 10 MG Supp RECTAL PRN (16:38)
[2017-03-28] MEDS ORDERED: Docusate Sodium 100 MG Cap PO PRN (16:38)
[2017-03-28] MEDS ORDERED: Furosemide 40 MG Tab PO PRN (16:45)
[2017-03-28] MEDS ORDERED: Sodium Chloride 0.9% 250 ML IV SCH (17:00)
[2017-03-28] MEDS: fentaNYL 100 MCG/2 ML SDV IVPUSH SCH ×2 (17:36→22:33)
[2017-03-28] MEDS: metroNIDAZOLE/Normal Saline 500 MG in Premix Bag 100 BAG IV SCH (17:40)
[2017-03-28] MEDS: Sodium Chloride 0.9% 1,000 ML IV SCH (19:05)
[2017-03-28] MEDS: oxyCODONE 5 MG Tab PO PRN (19:24)
[2017-03-28] MEDS: busPIRone 15 MG Tab PO SCH (20:57)
[2017-03-28] MEDS: Carvedilol 6.25 MG Tab PO SCH (20:57)
[2017-03-28] MEDS: Cefepime 2 GM in Sodium Chloride 0.9% 50 ML IV SCH (20:58)
[2017-03-28] MEDS: Acetaminophen 325 MG Tab PO PRN (21:34)
[2017-03-28] MEDS: Ondansetron 4 MG/2 ML SDV IV PRN (21:34)
[2017-03-29] MEDS: oxyCODONE 5 MG Tab PO PRN ×4 (01:34→21:21)
[2017-03-29] MEDS: metroNIDAZOLE/Normal Saline 500 MG in Premix Bag 100 BAG IV SCH ×3 (01:35→18:05)
[2017-03-29] MEDS: Cyclobenzaprine 10 MG Tab PO PRN (03:37)
[2017-03-29] MEDS: Acetaminophen 325 MG Tab PO PRN ×2 (03:41→18:03)
[2017-03-29] MEDS: Ondansetron 4 MG/2 ML SDV IV PRN (03:53)
[2017-03-29] MEDS: fentaNYL 100 MCG/2 ML SDV IVPUSH SCH ×2 (05:16→11:25)
[2017-03-29] MEDS: Levothyroxine 75 MCG Tab PO SCH (05:18)
[2017-03-29] MEDS: Levothyroxine 100 MCG Tab PO SCH (05:18)
[2017-03-29 06:49] LABS: CHLORIDE,CL 104 mmol/L (101-111); SODIUM,NA 134 mmol/L (135-145)
[2017-03-29] MEDS: Sodium Chloride 0.9% 1,000 ML IV SCH ×2 (07:10→19:33)
[2017-03-29] MEDS: Carvedilol 6.25 MG Tab PO SCH ×2 (09:45→21:14)
[2017-03-29] MEDS: busPIRone 15 MG Tab PO SCH ×3 (09:45→21:14)
[2017-03-29] MEDS: Enoxaparin 40 MG/0.4 ML Syringe SUBCUT SCH (09:45)
[2017-03-29] MEDS: Cefepime 2 GM in Sodium Chloride 0.9% 50 ML IV SCH (10:23)
[2017-03-29] MEDS: Cefepime 2 GM Vial IV SCH ×2 (10:24→22:31)
[2017-03-29] MEDS ORDERED: Potassium Chloride 20 MEQ in Premix Bag 1 BAG IV ONE (10:58)
[2017-03-29] MEDS ORDERED: Pantoprazole 40 MG Vial IVPUSH ONE (11:01)
[2017-03-29] MEDS: Morphine 4 MG/ML Syringe IVPUSH PRN ×2 (11:38→17:57)
[2017-03-29] MEDS ORDERED: Magnesium Hydroxide 400 MG/5 ML Susp 30 ML Cup PO PRN (17:47)
[2017-03-29] MEDS: QUEtiapine 100 MG Tab PO SCH (21:15)
[2017-03-30] MEDS: metroNIDAZOLE/Normal Saline 500 MG in Premix Bag 100 BAG IV SCH ×3 (02:05→17:49)
[2017-03-30] MEDS ORDERED: Potassium Chloride 20 MEQ in Premix Bag 1 BAG IV ONE (04:28)
[2017-03-30] MEDS: Potassium Chloride 100 ML IV SCH ×2 (04:48→05:53)
[2017-03-30] MEDS: Sodium Chloride 0.9% 1,000 ML IV SCH (05:50)
[2017-03-30] MEDS: Levothyroxine 75 MCG Tab PO SCH (06:00)
[2017-03-30] MEDS: Levothyroxine 100 MCG Tab PO SCH (06:00)
[2017-03-30] MEDS: Acetaminophen 325 MG Tab PO PRN (06:01)
[2017-03-30] MEDS: Morphine 4 MG/ML Syringe IVPUSH PRN ×2 (06:03)
[2017-03-30 07:30] LABS: CHLORIDE,CL 102 mmol/L (101-111); SODIUM,NA 133 mmol/L (135-145)
--- NOTE | 2017-03-30 09:04 | PN ---
DATE: 03/29/2017 SUBJECTIVE: Ms. Morales is a 51-year-old female is admitted because of flare-up of her pancreatitis. She was diagnosed with chronic pancreatitis actually and was evaluated by Gastroenterology in the past. Symptoms started 2 days prior to this visit. On admission, it was noted to have elevated lipase and amylase. Reports that the fentanyl is not helping with the pain. She is getting 25 mcg IV. She was also continued on her oxycodone. She denies any nausea or vomiting. She has not had any bowel movement today and yesterday. No fever or chills. PHYSICAL EXAMINATION: Vital Signs: Blood pressure 110/63, heart rate of 81 beats per minute, respirations 20 breaths per minute, oxygen saturation 99%, temperature 99 Fahrenheit. General Appearance: Awake, not in distress. Does not appear in pain. HEENT: Head is normocephalic. Eyes are anicteric. Cardiovascular System: Regular rate and rhythm. Chest: Symmetric chest expansion. Lungs with bilateral air entry. Gastrointestinal: Soft. Hypoactive bowel sounds. Tenderness noted on the periumbilical area. Neurologic: Awake. Gait normal. LABORATORY DATA: WBC 13.3, hemoglobin 9.5. Sodium 134, potassium 3.1. GFR more than 60. Amylase 115 from 179, lipase 110 from 259. ASSESSMENT AND PLAN: Discontinue fentanyl. We will do IV morphine 4 mg IV every 6 hours. We will start Protonix 40 mg IV. We will continue for now the antibiotics started cefepime and metronidazole. For the constipation, we will start her on milk of magnesia. Continue with IV fluids. Given her history of congestive heart failure, we will do strict I and O monitoring and daily weights. Her WBC is slowly increasing. We will repeat CBC. For the hypokalemia, we will check magnesium; we replace this with 20 mEq. Continue the rest of her medications. She is on Lovenox for deep venous thrombosis prophylaxis. Continue n.p.o. [facility] /[id number]
[2017-03-30] MEDS: Cefepime 2 GM Vial IV SCH ×2 (09:08→22:04)
[2017-03-30] MEDS: Enoxaparin 40 MG/0.4 ML Syringe SUBCUT SCH (09:09)
[2017-03-30] MEDS: QUEtiapine 100 MG Tab PO SCH ×2 (09:09→22:06)
[2017-03-30] MEDS: Carvedilol 6.25 MG Tab PO SCH ×2 (09:09→22:06)
[2017-03-30] MEDS: busPIRone 15 MG Tab PO SCH ×3 (09:09→22:08)
[2017-03-30] MEDS: oxyCODONE 5 MG Tab PO PRN ×2 (11:03→17:48)
[2017-03-30] MEDS ORDERED: Morphine 2 MG/ML Syringe IVPUSH PRN (11:06)
--- NOTE | 2017-03-30 21:03 | PCM.PN ---
- General Info Date of Service: 03/30/17 Subjective Update: Patient continues to have abdominal pain but reports that its better than what it was. SHe feels hungry and is requesting to advance diet. no new issues reported. Functional Status: Reports: Tolerating Diet - Patient Data Vitals - Most Recent: Last Vital Signs Temp 97.7 F 03/30/17 14:56 Pulse 89 03/30/17 14:56 Resp 20 03/30/17 14:56 BP 101/62 03/30/17 14:56 Pulse Ox 95 03/30/17 14:56 Weight - Most Recent: 213 lb 3.2 oz I&O - Last 24 Hours: Intake & Output 03/30/17 03/30/17 03/30/17 06:59 14:59 22:59 Intake Total 1238 865 50 Output Total 900 Balance 338 865 50 Lab Results Last 24 Hours: Laboratory Results - last 24 hr 03/29/17 03/30/17 03/30/17 Range/Units 23:50 06:30 06:30 WBC 10.9 H (5.0-10.0) 10^3/uL RBC 2.80 L (4.2-5.4) 10^6/uL Hgb 8.7 L (12.0-16.0) g/dL Hct 27.3 L (37.0-47.0) % MCV 97.5 (80-100) fL MCH 31.1 (27.0-34.0) pg MCHC 31.9 L (33.0-35.0) g/dL Plt Count 209 (150-450) 10^3/uL Neut % (Auto) 73.5 (42.2-75.2) % Lymph % (Auto) 12.0 L (20.5-50.1) % Spink % (Auto) 10.1 H (2-8) % Eos % (Auto) 4.2 H (1.0-3.0) % Baso % (Auto) 0.2 (0.0-1.0) % Sodium 133 L (135-145) mmol/L Potassium 3.0 L 3.5 L (3.6-5.0) mmol/L Chloride 102 (101-111) mmol/L Carbon Dioxide 24.0 (21.0-31.0) mmol/L Anion Gap 10.5 BUN 6 L (7-18) mg/dL Creatinine 0.6 (0.6-1.3) mg/dL Est Cr Clr Drug Dosing 109.08 mL/min Estimated GFR (MDRD) > 60 Glucose 134 H (74-105) mg/dL Calcium 7.9 L (8.4-10.2) mg/dl Magnesium 2.1 (1.8-2.5) mg/dL Med Orders - Current: Current Medications Acetaminophen (Tylenol) 650 mg PO Q6H PRN PRN Reason: Fever Last Admin: 03/30/17 06:01 Dose: 650 mg Al Hydroxide/Mg Hydroxide (Mag-Al Plus) 30 ml PO Q4H PRN PRN Reason: Dyspepsia Bisacodyl (Dulcolax) 10 mg RECTAL DAILY PRN PRN Reason: Constipation Buspirone HCl (Buspar) 15 mg PO TID [facility] Last Admin: 03/30/17 13:14 Dose: 15 mg Carvedilol (Coreg) 6.25 mg PO BID [facility] Last Admin: 03/30/17 09:09 Dose: 6.25 mg Cefepime HCl (Maxipime) 2 gm IV Q12H [facility] Last Admin: 03/30/17 09:08 Dose: 2 gm Cyclobenzaprine HCl (Flexeril) 10 mg PO TID PRN PRN Reason: Spasms Last Admin: 03/29/17 03:37 Dose: 10 mg Docusate Sodium (Colace) 100 mg PO DAILY PRN PRN Reason: Constipation Enoxaparin Sodium (Lovenox) 40 mg SUBCUT DAILY [facility] Last Admin: 03/30/17 09:09 Dose: 40 mg Furosemide (Lasix) 20 mg PO DAILY PRN PRN Reason: Shortness of Breath Metronidazole 500 mg/ Premix 100 mls @ 100 mls/hr IV Q8H [facility] Last Admin: 03/30/17 17:49 Dose: 100 mls/hr Levothyroxine Sodium (Synthroid) 100 mcg PO BRK [facility] Last Admin: 03/30/17 06:00 Dose: 100 mcg Levothyroxine Sodium (Levothyroxine) 75 mcg PO BRK [facility] Last Admin: 03/30/17 06:00 Dose: 75 mcg Magnesium Hydroxide (Milk Of Magnesia) 30 ml PO BID PRN PRN Reason: Constipation Last Admin: 03/29/17 18:04 Dose: 30 ml Morphine Sulfate (Morphine) 2 mg IVPUSH Q6H PRN PRN Reason: Pain Ondansetron HCl (Zofran) 4 mg IV Q6H PRN PRN Reason: Nausea/Vomiting Last Admin: 03/29/17 03:53 Dose: 4 mg Oxycodone HCl (Oxycodone) 5 mg PO Q6H PRN PRN Reason: Pain Last Admin: 03/30/17 17:48 Dose: 5 mg Quetiapine Fumarate (Seroquel) 100 mg PO DAILY [facility] Last Admin: 03/30/17 09:09 Dose: 100 mg Quetiapine Fumarate (Seroquel) 300 mg PO BEDTIME [facility] Last Admin: 03/29/17 21:15 Dose: 300 mg Sodium Chloride (Saline Flush) 10 ml FLUSH ASDIRECTED PRN PRN Reason: Keep Vein Open Last Admin: 03/28/17 18:48 Dose: 10 ml Discontinued Medications Fentanyl (Sublimaze) 25 mcg IVPUSH Q6H [facility] Last Admin: 03/29/17 11:25 Dose: Not Given Sodium Chloride (Normal Saline) 250 mls @ 100 mls/hr IV ASDIRECTED [facility] Cefepime HCl 2 gm/ Sodium (Chloride) 50 mls @ 100 mls/hr IV Q12HR [facility] Last Admin: 03/29/17 10:23 Dose: Not Given Sodium Chloride (Normal Saline) 1,000 mls @ 125 mls/hr IV ASDIRECTED [facility] Last Admin: 03/30/17 05:50 Dose: 125 mls/hr Potassium Chloride 20 meq/ (Premix) 100 mls @ 50 mls/hr IV ONETIME ONE Stop: 03/29/17 12:57 Last Admin: 03/29/17 11:37 Dose: 50 mls/hr Magnesium Sulfate/Dextrose 1 (gm/ Premix) 100 mls @ 100 mls/hr IV ONETIME ONE Stop: 03/29/17 20:55 Last Infusion: 03/29/17 22:29 Dose: Infused Potassium Chloride (Kcl 10 Meq In Water 100 Ml) 100 mls @ 100 mls/hr IV Q1H [facility] Stop: 03/30/17 06:44 Last Infusion: 03/30/17 07:31 Dose: Infused Iopamidol (Isovue-300 (61%)) 100 ml IVPUSH ONETIME ONE Stop: 03/28/17 13:12 Last Admin: 03/28/17 13:12 Dose: 100 ml Morphine Sulfate (Morphine) 2 mg IVPUSH ONETIME ONE Stop: 03/28/17 11:37 Last Admin: 03/28/17 12:06 Dose: 2 mg Morphine Sulfate (Morphine) 2 mg IVPUSH ONETIME ONE Stop: 03/28/17 13:39 Last Admin: 03/28/17 13:42 Dose: 2 mg Morphine Sulfate (Morphine) 4 mg IVPUSH Q6H PRN PRN Reason: Pain Last Admin: 03/30/17 06:03 Dose: 4 mg Ondansetron HCl (Zofran) 4 mg IV ONETIME ONE Stop: 03/28/17 11:37 Last Admin: 03/28/17 12:04 Dose: 4 mg Pantoprazole Sodium (Protonix Iv) 40 mg IVPUSH ONETIME ONE Stop: 03/29/17 11:02 Last Admin: 03/29/17 11:37 Dose: 40 mg - Exam General: Alert, Oriented Lungs: Clear to Auscultation, Normal Respiratory Effort Cardiovascular: Regular Rate, Regular Rhythm GI/Abdominal Exam: Normal Bowel Sounds, Soft - Problem List Review Problem List Initiated/Reviewed/Updated: Yes - My Orders Last 24 Hours: My Active Orders 03/29/17 21:00 QUEtiapine [SEROquel] 300 mg PO BEDTIME 03/30/17 09:00 QUEtiapine [SEROquel] 100 mg PO DAILY 03/30/17 11:06 Morphine 2 mg IVPUSH Q6H PRN 03/30/17 16:37 Convert IV to Saline Lock [OM.PC] Routine 03/30/17 Dinner Soft Diet [DIET] - Plan Plan:: This is a 51 Y/O Moderately Obese Female admitted with acute on Chronic Pancreatitis Acute on chronic pancreatitis - reports abdominal pain is starting to get better - slowly advance diet, has tolerated clear liquid, we will advance to soft diet - decrease dose of pain medication hypokalemia, improving - monitor potassium Anemia, there is a drop of hemolgobin. patient has chronic anemia - can still be dilutional, has been hydrated - patient is hemodynamically stable - discontinue IVF now that patient is starting tolerate liquids - repeat CBC Depression - continue psychotropics DVT Prophylaxis
[2017-03-31] MEDS: metroNIDAZOLE/Normal Saline 500 MG in Premix Bag 100 BAG IV SCH ×3 (02:18→18:12)
[2017-03-31] MEDS: Acetaminophen 325 MG Tab PO PRN ×3 (03:16→18:14)
[2017-03-31] MEDS: oxyCODONE 5 MG Tab PO PRN ×3 (03:19→18:13)
[2017-03-31] MEDS: Levothyroxine 75 MCG Tab PO SCH (06:20)
[2017-03-31] MEDS: Levothyroxine 100 MCG Tab PO SCH (06:20)
[2017-03-31 06:35] LABS: CHLORIDE,CL 105 mmol/L (101-111); SODIUM,NA 136 mmol/L (135-145)
[2017-03-31] MEDS ORDERED: Potassium Chloride 10 MEQ Tab.ER PO ONE (06:48)
[2017-03-31] MEDS: Enoxaparin 40 MG/0.4 ML Syringe SUBCUT SCH (10:03)
[2017-03-31] MEDS: busPIRone 15 MG Tab PO SCH ×3 (10:07→21:43)
[2017-03-31] MEDS: Carvedilol 6.25 MG Tab PO SCH ×2 (10:08→21:43)
[2017-03-31] MEDS: QUEtiapine 100 MG Tab PO SCH ×2 (10:09→20:16)
[2017-03-31] MEDS: Ferrous Sulfate 325 MG Tab PO SCH (11:15)
[2017-03-31] MEDS: Cefepime 2 GM Vial IV SCH ×2 (11:16→21:45)
[2017-03-31] MEDS: Folic Acid 1 MG Tab PO SCH (11:16)
[2017-03-31] MEDS: Morphine 2 MG/ML Syringe IVPUSH PRN ×2 (11:25→19:42)
--- NOTE | 2017-03-31 11:44 | PN ---
DATE: 03/31/2017 SUBJECTIVE: Ms. Morales is a 51-year-old female, who was admitted as a case of acute and chronic pancreatitis. Her diet was slowly advanced to soft diet. This morning when after eating she felt full. She noticed abdominal pain again, rated as 7/10 in intensity, but she denies any nausea, no vomiting. She is starting to pass gas but has not had bowel movement yet. She has not been eating since 2-3 days ago. She denies any chest pain, or shortness of breath. PHYSICAL EXAMINATION: Vital Signs: Blood pressure 108/72, heart rate of 87 beats per minute, respirations 70 breaths per minute, oxygen saturation 98%, temperature 98.7. General appearance: Awake, in distress. Chest: Symmetric chest expansion. Lungs: Bilateral air entry. Clear breath sounds. CVS: Regular rate and rhythm. Abdomen: Soft. Normoactive bowel sounds. Tenderness noted on deep palpation on the periumbilical area. No rebound tenderness. No muscle guarding. Back: No CVA tenderness. Neurologic: Gait is normal. LABORATORIES: Hemoglobin 8, yesterday it was 8.7. Potassium 3.5. ASSESSMENT AND PLAN: The patient has a history of chronic anemia; however, her hemoglobin during this visit has been trending down. We will repeat the H and H. her folic acid and ferrous sulfate will be initiated. Currently we do not have any signs of bleeding. For her hypokalemia, this will be replaced. Now that she is tolerating p.o., we will re-initiate her p.o. potassium. We will advance diet to regular but low-fat diet. We will cut down the dose of the morphine from every 6 hours to every 8 hours in the whole, but this can be discontinued and resume her outpatient pain medication. The patient was informed and reassured her lipase is normal now. If hemoglobin continues to drop, may need to have blood transfusion. [facility] /[id number]
[2017-03-31] MEDS: Potassium Chloride 10 MEQ Tab.ER PO SCH (18:13)
[2017-03-31] MEDS: Sodium Chloride 0.9% 10 ML Syringe FLUSH PRN ×2 (19:42→21:44)
[2017-04-01] MEDS: Acetaminophen 325 MG Tab PO PRN ×3 (00:11→19:19)
[2017-04-01] MEDS: oxyCODONE 5 MG Tab PO PRN ×4 (00:13→19:14)
[2017-04-01] MEDS: Sodium Chloride 0.9% 10 ML Syringe FLUSH PRN ×9 (01:56→23:23)
[2017-04-01] MEDS: metroNIDAZOLE/Normal Saline 500 MG in Premix Bag 100 BAG IV SCH ×3 (01:57→18:13)
[2017-04-01] MEDS: Morphine 2 MG/ML Syringe IVPUSH PRN ×3 (04:01→23:24)
[2017-04-01] MEDS: Levothyroxine 100 MCG Tab PO SCH (06:04)
[2017-04-01] MEDS: Levothyroxine 75 MCG Tab PO SCH (06:05)
[2017-04-01] MEDS: Carvedilol 6.25 MG Tab PO SCH (09:50)
[2017-04-01] MEDS: Ferrous Sulfate 325 MG Tab PO SCH (09:50)
[2017-04-01] MEDS: QUEtiapine 100 MG Tab PO SCH ×2 (09:51→20:32)
[2017-04-01] MEDS: Folic Acid 1 MG Tab PO SCH (09:51)
[2017-04-01] MEDS: Enoxaparin 40 MG/0.4 ML Syringe SUBCUT SCH (09:51)
[2017-04-01] MEDS: busPIRone 15 MG Tab PO SCH ×3 (09:51→20:32)
[2017-04-01] MEDS: Potassium Chloride 10 MEQ Tab.ER PO SCH ×2 (09:51→18:16)
[2017-04-01] MEDS: Cefepime 2 GM Vial IV SCH ×2 (09:53→20:34)
[2017-04-01 10:46] LABS: CHLORIDE,CL 103 mmol/L (101-111); SODIUM,NA 138 mmol/L (135-145)
--- NOTE | 2017-04-01 11:58 | PN ---
DATE: 04/01/2017 SUBJECTIVE: Ms. Stephanie Sepulveda is a 51-year-old female with a medical history significant for chronic pancreatitis and anemia, admitted to the hospital, complains of increasing abdominal pain, and was noted to have acute-on- chronic pancreatitis. For the last 24 hours, the patient continues to have this abdominal pain mostly in the epigastric region radiating towards the back; grades it as 7/10 in intensity, aggravated on eating and drinking, relieved with pain medication, not associated with vomiting but complains of having nausea, is able to pass some flatus, and denies any chest pain. No shortness of breath. REVIEW OF SYSTEMS: Cardiovascular, respiratory, gastrointestinal, neurology, constitutional were all evaluated. PHYSICAL EXAMINATION: Vital Signs: Temperature of 97.6, pulse of 78, blood pressure 105/58, saturating at 97%, and respiratory rate of 20. General Appearance: The patient is well oriented to time, place, and person. Follows commands spontaneously. Cardiovascular System: S1 and S2 heard with normal intensity. No gallops. Respiratory System: Clear to auscultation bilaterally. No wheeze. No crepitations. Abdomen: Soft. Bowel sounds positive. Mild tenderness in the epigastric region. No rigidity. No guarding. Extremities: No edema in bilateral lower extremities with mild edema around the ankles. MEDICATIONS: Reviewed. Continue with: 1. Tylenol 650 every 6 hours for pain and fever. 2. BuSpar 15 mg three times a day. 3. Coreg changed to 3.125 mg twice a day. 4. Cefepime 2 g IV q.12 hourly. 5. Docusate sodium 100 mg daily. 6. Lovenox 40 mg daily subcu. 7. Folic acid 1 mg daily. 8. Lasix 20 mg daily as needed. 9. Levothyroxine 75 mcg daily. 10.Metronidazole 500 mg IV q.8 hourly. 11.Morphine 2 mg IV every 8 hours as needed for pain. 12.Oxycodone 5 mg every 6 hours as needed for pain. 13.Seroquel 300 mg at bedtime and 100 mg daily. LABORATORY DATA: Labs reviewed. Hemoglobin from yesterday is 8.6. We will recheck a CBC and a BMP at this time. ASSESSMENT: 1. [id number]-slmpuug pancreatitis. 2. Hypokalemia. 3. Hyponatremia. 4. Anemia. 5. B12 deficiency. 6. Chronic pain syndrome. 7. Chronic constipation. 8. Hypothyroidism. PLAN: 1. Yzkjx-cd-vrthrgl pancreatitis. The patient continues to have pain. She is started on clear liquid diet and slowly advanced her diet to soft diet. Her lipase is normalized from yesterday to 31. We will closely follow the patient. Continue with pain medication. She is requesting for more opiate pain medications. The patient was explained about current doses of pain medication. We will continue with current doses and gradually try to wean her down the opiate pain medications. Continue with clear liquid diet and soft diet for now. 2. Anemia. The patient's hemoglobin is down to 8.6. We will recheck a hemoglobin today. If it is standing around 7, then the patient may need blood transfusion. She denied any hematemesis, hematochezia, or melenic stools. 3. Hypokalemia. We will replace with oral potassium chloride, and we will closely follow the laboratory. 4. DVT prophylaxis. Continue with Lovenox for DVT prophylaxis. 5. Mild edema. The patient noted a mild edema. This could be resulting from IV fluids. She is noted to be on Lasix as needed. [facility] /[id number]
[2017-04-02] MEDS: metroNIDAZOLE/Normal Saline 500 MG in Premix Bag 100 BAG IV SCH ×3 (01:39→18:48)
[2017-04-02] MEDS: Sodium Chloride 0.9% 10 ML Syringe FLUSH PRN ×4 (01:39→18:49)
[2017-04-02] MEDS: oxyCODONE 5 MG Tab PO PRN (01:40)
[2017-04-02] MEDS: Acetaminophen 325 MG Tab PO PRN ×2 (01:41→18:55)
[2017-04-02] MEDS: Levothyroxine 100 MCG Tab PO SCH (05:34)
[2017-04-02] MEDS: Levothyroxine 75 MCG Tab PO SCH (05:34)
[2017-04-02] MEDS: Morphine 2 MG/ML Syringe IVPUSH PRN (07:58)
[2017-04-02] MEDS ORDERED: oxyCODONE 5 MG Tab PO PRN (10:23)
--- NOTE | 2017-04-02 10:29 | PCM.PN ---
- General Info Date of Service: 04/02/17 Admission Dx/Problem (Free Text): Pt is admitted with: abdominal Pain and CT and labs showed Acute on Chronic Pancreatitis Subjective Update: Continues to have mid abdominal pain radiating to the back. Worse after eating. Better after pain medication. Still using IV morphine when necessary. She was complaining that she is not getting enough food. But she also says that after eating the pain is worse. No associated fever or chills. - Patient Data Vitals - Most Recent: Last Vital Signs Temp 36.6 C 04/02/17 07:00 Pulse 73 04/02/17 07:00 Resp 20 04/02/17 07:00 BP 101/59 L 04/02/17 07:00 Pulse Ox 96 04/02/17 07:00 Weight - Most Recent: 100.607 kg I&O - Last 24 Hours: Intake & Output 04/01/17 04/02/17 04/02/17 22:59 06:59 14:59 Intake Total 350 200 Output Total 300 700 Balance 50 -500 Lab Results Last 24 Hours: Laboratory Results - last 24 hr 04/01/17 04/01/17 Range/Units 10:10 10:10 WBC 7.8 (5.0-10.0) 10^3/uL RBC 2.71 L (4.2-5.4) 10^6/uL Hgb 8.3 L (12.0-16.0) g/dL Hct 27.1 L (37.0-47.0) % MCV 100.0 (80-100) fL MCH 30.6 (27.0-34.0) pg MCHC 30.6 L (33.0-35.0) g/dL Plt Count 233 (150-450) 10^3/uL Sodium 138 (135-145) mmol/L Potassium 3.4 L (3.6-5.0) mmol/L Chloride 103 (101-111) mmol/L Carbon Dioxide 28.0 (21.0-31.0) mmol/L Anion Gap 10.4 BUN 11 (7-18) mg/dL Creatinine 0.6 (0.6-1.3) mg/dL Est Cr Clr Drug Dosing 109.08 mL/min Estimated GFR (MDRD) > 60 Glucose 97 (74-105) mg/dL Calcium 8.5 (8.4-10.2) mg/dl Med Orders - Current: Current Medications Acetaminophen (Tylenol) 650 mg PO Q6H PRN PRN Reason: Fever Last Admin: 04/02/17 01:41 Dose: 650 mg Al Hydroxide/Mg Hydroxide (Mag-Al Plus) 30 ml PO Q4H PRN PRN Reason: Dyspepsia Bisacodyl (Dulcolax) 10 mg RECTAL DAILY PRN PRN Reason: Constipation Buspirone HCl (Buspar) 15 mg PO TID [facility] Last Admin: 04/01/17 20:32 Dose: 15 mg [facility] Cefepime HCl (Maxipime) 2 gm IV Q12H [facility] Last Admin: 04/01/17 20:34 Dose: 2 gm Cyclobenzaprine HCl (Flexeril) 10 mg PO TID PRN PRN Reason: Spasms Last Admin: 03/29/17 03:37 Dose: 10 mg Docusate Sodium (Colace) 100 mg PO DAILY PRN PRN Reason: Constipation Enoxaparin Sodium (Lovenox) 40 mg SUBCUT DAILY [facility] Last Admin: 04/01/17 09:51 Dose: 40 mg Ferrous Sulfate (Ferrous Sulfate) 324 mg PO DAILY@0800 [facility] Last Admin: 04/01/17 09:50 Dose: 325 mg Folic Acid (Folic Acid) 1 mg PO DAILY [facility] Last Admin: 04/01/17 09:51 Dose: 1 mg Furosemide (Lasix) 20 mg PO DAILY PRN PRN Reason: Shortness of Breath Metronidazole 500 mg/ Premix 100 mls @ 100 mls/hr IV Q8H [facility] Last Infusion: 04/02/17 03:20 Dose: Infused Levothyroxine Sodium (Synthroid) 100 mcg PO BRK [facility] Last Admin: 04/02/17 05:34 Dose: 100 mcg Levothyroxine Sodium (Levothyroxine) 75 mcg PO ACBRK [facility] Last Admin: 04/02/17 05:34 Dose: 75 mcg Magnesium Hydroxide (Milk Of Magnesia) 30 ml PO BID PRN PRN Reason: Constipation Last Admin: 03/29/17 18:04 Dose: 30 ml Morphine Sulfate (Morphine) 2 mg IVPUSH Q8H PRN PRN Reason: Pain Last Admin: 04/02/17 07:58 Dose: 2 mg Morphine Sulfate (Ms Contin) 15 mg PO Q12HR [facility] Ondansetron HCl (Zofran) 4 mg IV Q6H PRN PRN Reason: Nausea/Vomiting Last Admin: 03/29/17 03:53 Dose: 4 mg Oxycodone HCl (Oxycodone) 5 mg PO Q4H PRN PRN Reason: Pain Potassium Chloride (Klor-Con 10) 20 meq PO BIDMEALS [facility] Last Admin: 04/01/17 18:16 Dose: 20 meq Quetiapine Fumarate (Seroquel) 100 mg PO DAILY [facility] Last Admin: 04/01/17 09:51 Dose: 100 mg Quetiapine Fumarate (Seroquel) 300 mg PO BEDTIME [facility] Last Admin: 04/01/17 20:32 Dose: 300 mg Sodium Chloride (Saline Flush) 10 ml FLUSH ASDIRECTED PRN PRN Reason: Keep Vein Open Last Admin: 04/02/17 07:58 Dose: 10 ml Discontinued Medications Carvedilol (Coreg) 6.25 mg PO BID [facility] Last Admin: 04/01/17 09:50 Dose: 6.25 mg Fentanyl (Sublimaze) 25 mcg IVPUSH Q6H [facility] Last Admin: 03/29/17 11:25 Dose: Not Given Sodium Chloride (Normal Saline) 250 mls @ 100 mls/hr IV ASDIRECTED [facility] Cefepime HCl 2 gm/ Sodium (Chloride) 50 mls @ 100 mls/hr IV Q12HR [facility] Last Admin: 03/29/17 10:23 Dose: Not Given Sodium Chloride (Normal Saline) 1,000 mls @ 125 mls/hr IV ASDIRECTED [facility] Last Admin: 03/30/17 05:50 Dose: 125 mls/hr Potassium Chloride 20 meq/ (Premix) 100 mls @ 50 mls/hr IV ONETIME ONE Stop: 03/29/17 12:57 Last Admin: 03/29/17 11:37 Dose: 50 mls/hr Magnesium Sulfate/Dextrose 1 (gm/ Premix) 100 mls @ 100 mls/hr IV ONETIME ONE Stop: 03/29/17 20:55 Last Infusion: 03/29/17 22:29 Dose: Infused Potassium Chloride (Kcl 10 Meq In Water 100 Ml) 100 mls @ 100 mls/hr IV Q1H [facility] Stop: 03/30/17 06:44 Last Infusion: 03/30/17 07:31 Dose: Infused Iopamidol (Isovue-300 (61%)) 100 ml IVPUSH ONETIME ONE Stop: 03/28/17 13:12 Last Admin: 03/28/17 13:12 Dose: 100 ml Morphine Sulfate (Morphine) 2 mg IVPUSH ONETIME ONE Stop: 03/28/17 11:37 Last Admin: 03/28/17 12:06 Dose: 2 mg Morphine Sulfate (Morphine) 2 mg IVPUSH ONETIME ONE Stop: 03/28/17 13:39 Last Admin: 03/28/17 13:42 Dose: 2 mg Morphine Sulfate (Morphine) 4 mg IVPUSH Q6H PRN PRN Reason: Pain Last Admin: 03/30/17 06:03 Dose: 4 mg Morphine Sulfate (Morphine) 2 mg IVPUSH Q6H PRN PRN Reason: Pain Last Admin: 03/30/17 22:18 Dose: 2 mg Ondansetron HCl (Zofran) 4 mg IV ONETIME ONE Stop: 03/28/17 11:37 Last Admin: 03/28/17 12:04 Dose: 4 mg Oxycodone HCl (Oxycodone) 5 mg PO Q6H PRN PRN Reason: Pain Last Admin: 04/02/17 01:40 Dose: 5 mg Pantoprazole Sodium (Protonix Iv) 40 mg IVPUSH ONETIME ONE Stop: 03/29/17 11:02 Last Admin: 03/29/17 11:37 Dose: 40 mg Potassium Chloride (Klor-Con 10) 20 meq PO ONETIME ONE Stop: 03/31/17 06:49 Last Admin: 03/31/17 11:16 Dose: 20 meq Potassium Chloride (Klor-Con 10) 10 meq PO BIDMEALS [facility] Last Admin: 04/01/17 09:51 Dose: 10 meq - Exam General: Alert, Oriented, No Acute Distress Neck: Supple Lungs: Clear to Auscultation, Normal Respiratory Effort Cardiovascular: Regular Rate, Regular Rhythm GI/Abdominal Exam: Normal Bowel Sounds, Soft, Tender (Nonspecific diffuse tenderness), Other (Obese) Extremities: No Pedal Edema Skin: Warm, Dry Psy/Mental Status: Alert, Normal Affect - Problem List & Annotations (1) Pancreatitis SNOMED Code(s): 97491888 Code(s): K85.90 - ACUTE PANCREATITIS WITHOUT NECROSIS OR INFECTION, UNSP Status: Acute Current Visit: Yes Qualifiers: Chronicity: acute Pancreatitis type: other Acute pancreatitis complication: unspecified Qualified Code(s): K85.80 - Other acute pancreatitis without necrosis or infection (2) Abdominal pain SNOMED Code(s): 00951420 Code(s): R10.9 - UNSPECIFIED ABDOMINAL PAIN Status: Acute Current Visit: No Onset Date: ~08/23/16 Qualifiers: Abdominal location: generalized Qualified Code(s): R10.84 - Generalized abdominal pain (3) Anxiety SNOMED Code(s): 63607318 Code(s): F41.9 - ANXIETY DISORDER, UNSPECIFIED Status: Acute Current Visit: No (4) Hypokalemia SNOMED Code(s): 64970966 Code(s): E87.6 - HYPOKALEMIA Status: Acute Current Visit: No - Problem List Review Problem List Initiated/Reviewed/Updated: Yes - My Orders Last 24 Hours: My Active Orders 04/02/17 10:23 oxyCODONE 5 mg PO Q4H PRN 04/02/17 21:00 Morphine [MS Contin] 15 mg PO Q12HR 04/02/17 Lunch Clear Liquid Diet [DIET] - Plan Plan:: This is a 51 Y/O Moderately Obese Female admitted with acute on Chronic Pancreatitis Acute on chronic pancreatitis - reports abdominal pain is still present and requiring IV morphine - will degrade diet to clear liquid - We'll try to avoid IV morphine, start long-acting MS Contin, continue oxycodone when necessary hypokalemia, improving - Was replaced Anemia, patient has chronic anemia - Hemoglobin is stable - No sign of bleeding, this is likely dilutional, has been hydrated - patient is hemodynamically stable - Follow-up as outpatient Depression - continue psychotropics DVT Prophylaxis
[2017-04-02] MEDS: busPIRone 15 MG Tab PO SCH ×3 (10:36→20:40)
[2017-04-02] MEDS: Folic Acid 1 MG Tab PO SCH (10:36)
[2017-04-02] MEDS: QUEtiapine 100 MG Tab PO SCH ×2 (10:36→20:50)
[2017-04-02] MEDS: Ferrous Sulfate 325 MG Tab PO SCH (10:43)
[2017-04-02] MEDS: Cefepime 2 GM Vial IV SCH ×2 (10:50→20:40)
[2017-04-02] MEDS: Morphine 15 MG Tab.ER PO SCH ×2 (10:53→20:41)
[2017-04-02] MEDS: Enoxaparin 40 MG/0.4 ML Syringe SUBCUT SCH (10:54)
[2017-04-02] MEDS: Carvedilol 6.25 MG Tab PO SCH ×2 (11:05→18:52)
[2017-04-02] MEDS: Potassium Chloride 10 MEQ Tab.ER PO SCH ×2 (11:07→18:51)
[2017-04-02] MEDS: Cyclobenzaprine 10 MG Tab PO PRN (20:52)
[2017-04-03] MEDS: metroNIDAZOLE/Normal Saline 500 MG in Premix Bag 100 BAG IV SCH ×3 (02:05→10:24)
[2017-04-03] MEDS: Acetaminophen 325 MG Tab PO PRN (04:38)
[2017-04-03] MEDS: Levothyroxine 100 MCG Tab PO SCH (05:31)
[2017-04-03] MEDS: Levothyroxine 75 MCG Tab PO SCH (05:31)
[2017-04-03 07:01] LABS: CHLORIDE,CL 103 mmol/L (101-111); SODIUM,NA 133 mmol/L (135-145)
[2017-04-03] MEDS ORDERED: Ferrous Sulfate 325 MG Tab PO SCH (08:00)
[2017-04-03] MEDS: busPIRone 15 MG Tab PO SCH (08:29)
[2017-04-03] MEDS: Morphine 15 MG Tab.ER PO SCH (08:29)
[2017-04-03] MEDS: Folic Acid 1 MG Tab PO SCH (08:29)
[2017-04-03] MEDS: QUEtiapine 100 MG Tab PO SCH (08:30)
[2017-04-03] MEDS: Carvedilol 6.25 MG Tab PO SCH (08:30)
[2017-04-03] MEDS: Potassium Chloride 10 MEQ Tab.ER PO SCH (08:31)
[2017-04-03] MEDS: Cefepime 2 GM Vial IV SCH (08:31)
[2017-04-03] MEDS: Enoxaparin 40 MG/0.4 ML Syringe SUBCUT SCH (08:31)
[2017-04-03] MEDS: Sodium Chloride 0.9% 10 ML Syringe FLUSH PRN (10:21)
--- NOTE | 2017-04-03 11:22 | PCM.DCSUM1 ---
Discharge Summary - Hospital Course Free Text/Narrative:: This is a 51 Y/O Moderately Obese Female admitted with acute on Chronic Pancreatitis Acute on chronic pancreatitis - tolerating diet - start long-acting MS Contin, continue oxycodone when necessary hypokalemia, - Was replaced Anemia, patient has chronic anemia - Hemoglobin is stable - No sign of bleeding, this is likely dilutional, has been hydrated - patient is hemodynamically stable - Follow-up as outpatient Depression - continue psychotropics - Discharge Data Discharge Date: 04/03/17 Discharge Disposition: Home, Self-Care 01 Condition: Fair - Discharge Diagnosis/Problem(s) (1) Pancreatitis SNOMED Code(s): 41224376 ICD Code: K85.90 - ACUTE PANCREATITIS WITHOUT NECROSIS OR INFECTION, UNSP Status: Acute Current Visit: Yes Qualifiers: Chronicity: acute Pancreatitis type: other Acute pancreatitis complication: unspecified Qualified Code(s): K85.80 - Other acute pancreatitis without necrosis or infection (2) Abdominal pain SNOMED Code(s): 67334968 ICD Code: R10.9 - UNSPECIFIED ABDOMINAL PAIN Status: Acute Current Visit : No Onset Date: ~08/23/16 Qualifiers: Abdominal location: generalized Qualified Code(s): R10.84 - Generalized abdominal pain (3) Anxiety SNOMED Code(s): 16406833 ICD Code: F41.9 - ANXIETY DISORDER, UNSPECIFIED Status: Acute Current Visit: No (4) Hypokalemia SNOMED Code(s): 46256748 ICD Code: E87.6 - HYPOKALEMIA Status: Acute Current Visit: No - Discharge Plan Prescriptions/Med Rec: Morphine [MS Contin] 15 mg PO Q12HR #22 tab.er Amoxicillin/Clavulanate K [Augmentin 500-125 MG] 1 tab PO Q8H #18 tab Home Medications: Home Meds Carvedilol 6.25 mg PO BID 05/07/13 [History] Estradiol 2 mg PO DAILY 05/07/13 [History] Furosemide [Lasix] 20 mg PO DAILY PRN 05/07/13 [History] Potassium Chloride [Klor-Con 10] 10 meq PO BID 05/07/13 [History] QUEtiapine Fumarate [Seroquel] 100 mg PO DAILY 05/07/13 [History] QUEtiapine [SEROquel] 300 mg PO BEDTIME 05/07/13 [History] Sertraline [Zoloft] 100 mg PO QAM 05/07/13 [History] Simvastatin 40 mg PO DAILY 05/07/13 [History] busPIRone [Buspar] 15 mg PO TID 05/07/13 [History] ALPRAZolam [Alprazolam ODT] 0.5 mg PO TID PRN 09/10/14 [History] Levothyroxine 175 mcg PO DAILY 10/17/14 [History] Cyanocobalamin (Vitamin B12) [Vitamin B12] 1,000 mcg IM .MONTHLY 12/27/14 [ History] Ferrous Sulfate 324 mg PO DAILY 12/27/14 [History] Fluticasone/Salmeterol [Advair 500-50] 1 puff INH ASDIRECTED PRN 12/27/14 [ History] Folic Acid 1 mg PO DAILY 12/27/14 [History] Cyclobenzaprine [Flexeril] 10 mg PO TID PRN 07/21/16 [History] Ziprasidone HCl [Geodon] 80 mg PO QAM 08/25/16 [History] oxyCODONE 5 mg PO Q6H PRN #15 tablet 08/30/16 [Rx] Docusate Sodium/Sennosides [Senna Plus] 1 tab PO DAILY 03/28/17 [History] Patient's Own Medication [Ptom] 1 each PO QAM PRN 03/28/17 [History] Sertraline [Zoloft] 100 mg PO QPM 03/28/17 [History] Amoxicillin/Clavulanate K [Augmentin 500-125 MG] 1 tab PO Q8H #18 tab 04/03/17 [ Rx] Morphine [MS Contin] 15 mg PO Q12HR #22 tab.er 04/03/17 [Rx] Patient Handouts: Acute Pancreatitis Referrals: PCP,Unobtain [Primary Care Provider] - - General Info Date of Service: 04/03/17 Functional Status: Reports: Pain Controlled - Review of Systems General: Denies: Fever Pulmonary: Denies: Shortness of Breath Cardiovascular: Denies: Chest Pain Gastrointestinal: Reports: Abdominal Pain Genitourinary: Denies: Dysuria Neurological: Denies: Confusion - Patient Data Vitals - Most Recent: Last Vital Signs Temp 36.9 C 04/03/17 08:37 Pulse 80 04/03/17 08:37 Resp 20 04/03/17 08:37 BP 107/62 04/03/17 08:37 Pulse Ox 97 04/03/17 08:37 Weight - Most Recent: 100.516 kg I&O - Last 24 hours: Intake & Output 04/02/17 04/03/17 04/03/17 22:59 06:59 14:59 Intake Total 740 100 360 Output Total 800 Balance -60 100 360 Lab Results - Last 24 hrs: Laboratory Results - last 24 hr 04/03/17 04/03/17 Range/Units 06:20 06:20 WBC 5.9 (5.0-10.0) 10^3/uL RBC 2.64 L (4.2-5.4) 10^6/uL Hgb 8.1 L (12.0-16.0) g/dL Hct 26.5 L (37.0-47.0) % MCV 100.4 H (80-100) fL MCH 30.7 (27.0-34.0) pg MCHC 30.6 L (33.0-35.0) g/dL Plt Count 242 (150-450) 10^3/uL Neut % (Auto) 57.2 (42.2-75.2) % Lymph % (Auto) 24.9 (20.5-50.1) % [place] % (Auto) 9.5 H (2-8) % Eos % (Auto) 8.1 H (1.0-3.0) % Baso % (Auto) 0.3 (0.0-1.0) % Sodium 133 L (135-145) mmol/L Potassium 3.5 L (3.6-5.0) mmol/L Chloride 103 (101-111) mmol/L Carbon Dioxide 27.0 (21.0-31.0) mmol/L Anion Gap 6.5 BUN 7 (7-18) mg/dL Creatinine 0.5 L (0.6-1.3) mg/dL Est Cr Clr Drug Dosing 130.90 mL/min Estimated GFR (MDRD) > 60 Glucose 107 H (74-105) mg/dL Calcium 8.3 L (8.4-10.2) mg/dl Lipase 45 (22-51) U/L Med Orders - Current: Current Medications Acetaminophen (Tylenol) 650 mg PO Q6H PRN PRN Reason: Fever Last Admin: 04/03/17 04:38 Dose: 650 mg Al Hydroxide/Mg Hydroxide (Mag-Al Plus) 30 ml PO Q4H PRN PRN Reason: Dyspepsia Bisacodyl (Dulcolax) 10 mg RECTAL DAILY PRN PRN Reason: Constipation Buspirone HCl (Buspar) 15 mg PO TID [facility] Last Admin: 04/03/17 08:29 Dose: 15 mg Carvedilol (Coreg) 3.125 mg PO BIDMEALS [facility] Last Admin: 04/03/17 08:30 Dose: 3.125 mg Cefepime HCl (Maxipime) 2 gm IV Q12H [facility] Last Admin: 04/03/17 08:31 Dose: 2 gm Cyclobenzaprine HCl (Flexeril) 10 mg PO TID PRN PRN Reason: Spasms Last Admin: 04/02/17 20:52 Dose: 10 mg Docusate Sodium (Colace) 100 mg PO DAILY PRN PRN Reason: Constipation Enoxaparin Sodium (Lovenox) 40 mg SUBCUT DAILY [facility] Last Admin: 04/03/17 08:31 Dose: 40 mg Ferrous Sulfate (Ferrous Sulfate) 325 mg PO DAILY@0800 [facility] Last Admin: 04/03/17 08:30 Dose: 325 mg Folic Acid (Folic Acid) 1 mg PO DAILY [facility] Last Admin: 04/03/17 08:29 Dose: 1 mg Furosemide (Lasix) 20 mg PO DAILY PRN PRN Reason: Shortness of Breath Metronidazole 500 mg/ Premix 100 mls @ 100 mls/hr IV Q8H [facility] Last Admin: 04/03/17 10:24 Dose: 100 mls/hr Levothyroxine Sodium (Synthroid) 100 mcg PO [facility] Last Admin: 04/03/17 05:31 Dose: 100 mcg Levothyroxine Sodium (Levothyroxine) 75 mcg PO BRK [facility] Last Admin: 04/03/17 05:31 Dose: 75 mcg Magnesium Hydroxide (Milk Of Magnesia) 30 ml PO BID PRN PRN Reason: Constipation Last Admin: 03/29/17 18:04 Dose: 30 ml Morphine Sulfate (Morphine) 2 mg IVPUSH Q8H PRN PRN Reason: Pain Last Admin: 04/02/17 07:58 Dose: 2 mg Morphine Sulfate (Ms Contin) 15 mg PO Q12HR [facility] Last Admin: 04/03/17 08:29 Dose: 15 mg Ondansetron HCl (Zofran) 4 mg IV Q6H PRN PRN Reason: Nausea/Vomiting Last Admin: 03/29/17 03:53 Dose: 4 mg Oxycodone HCl (Oxycodone) 5 mg PO Q4H PRN PRN Reason: Pain Last Admin: 04/02/17 14:40 Dose: 5 mg Potassium Chloride (Klor-Con 10) 20 meq PO BIDMEALS [facility] Last Admin: 04/03/17 08:31 Dose: 20 meq Quetiapine Fumarate (Seroquel) 100 mg PO DAILY [facility] Last Admin: 04/03/17 08:30 Dose: 100 mg Quetiapine Fumarate (Seroquel) 300 mg PO BEDTIME [facility] Last Admin: 04/02/17 20:50 Dose: 300 mg Sodium Chloride (Saline Flush) 10 ml FLUSH ASDIRECTED PRN PRN Reason: Keep Vein Open Last Admin: 04/03/17 10:21 Dose: 10 ml Discontinued Medications Carvedilol (Coreg) 6.25 mg PO BID [facility] Last Admin: 04/01/17 09:50 Dose: 6.25 mg Fentanyl (Sublimaze) 25 mcg IVPUSH Q6H [facility] Last Admin: 03/29/17 11:25 Dose: Not Given Ferrous Sulfate (Ferrous Sulfate) 324 mg PO DAILY@0800 [facility] Last Admin: 04/02/17 10:43 Dose: 325 mg Sodium Chloride (Normal Saline) 250 mls @ 100 mls/hr IV ASDIRECTED [facility] Cefepime HCl 2 gm/ Sodium (Chloride) 50 mls @ 100 mls/hr IV Q12HR [facility] Last Admin: 03/29/17 10:23 Dose: Not Given Sodium Chloride (Normal Saline) 1,000 mls @ 125 mls/hr IV ASDIRECTED [facility] Last Admin: 03/30/17 05:50 Dose: 125 mls/hr Potassium Chloride 20 meq/ (Premix) 100 mls @ 50 mls/hr IV ONETIME ONE Stop: 03/29/17 12:57 Last Admin: 03/29/17 11:37 Dose: 50 mls/hr Magnesium Sulfate/Dextrose 1 (gm/ Premix) 100 mls @ 100 mls/hr IV ONETIME ONE Stop: 03/29/17 20:55 Last Infusion: 03/29/17 22:29 Dose: Infused Potassium Chloride (Kcl 10 Meq In Water 100 Ml) 100 mls @ 100 mls/hr IV Q1H [facility] Stop: 03/30/17 06:44 Last Infusion: 03/30/17 07:31 Dose: Infused Iopamidol (Isovue-300 (61%)) 100 ml IVPUSH ONETIME ONE Stop: 03/28/17 13:12 Last Admin: 03/28/17 13:12 Dose: 100 ml Morphine Sulfate (Morphine) 2 mg IVPUSH ONETIME ONE Stop: 03/28/17 11:37 Last Admin: 03/28/17 12:06 Dose: 2 mg Morphine Sulfate (Morphine) 2 mg IVPUSH ONETIME ONE Stop: 03/28/17 13:39 Last Admin: 03/28/17 13:42 Dose: 2 mg Morphine Sulfate (Morphine) 4 mg IVPUSH Q6H PRN PRN Reason: Pain Last Admin: 03/30/17 06:03 Dose: 4 mg Morphine Sulfate (Morphine) 2 mg IVPUSH Q6H PRN PRN Reason: Pain Last Admin: 03/30/17 22:18 Dose: 2 mg Ondansetron HCl (Zofran) 4 mg IV ONETIME ONE Stop: 03/28/17 11:37 Last Admin: 03/28/17 12:04 Dose: 4 mg Oxycodone HCl (Oxycodone) 5 mg PO Q6H PRN PRN Reason: Pain Last Admin: 04/02/17 01:40 Dose: 5 mg Pantoprazole Sodium (Protonix Iv) 40 mg IVPUSH ONETIME ONE Stop: 03/29/17 11:02 Last Admin: 03/29/17 11:37 Dose: 40 mg Potassium Chloride (Klor-Con 10) 20 meq PO ONETIME ONE Stop: 03/31/17 06:49 Last Admin: 03/31/17 11:16 Dose: 20 meq Potassium Chloride (Klor-Con 10) 10 meq PO BIDMEALS [facility] Last Admin: 04/01/17 09:51 Dose: 10 meq - Exam General: Reports: Alert, Oriented Neck: Reports: Supple Lungs: Reports: Clear to Auscultation, Normal Respiratory Effort Cardiovascular: Reports: Regular Rate, Regular Rhythm GI/Abdominal Exam: Soft, Tender (diffuse, non specific tenderness), Other (obese ) Extremities: Normal Inspection *Q Meaningful Use (DIS) - VTE *Q VTE Criteria *Q: - Stroke *Q Stroke Criteria *Q: - AMI *Q AMI Criteria *Q:
[2017-04-03 11:48] VITALS: BP 110/64
== END 2017-04-03 12:20 | disposition home or self-care (01) | DRG 440 ==
LOC: DL.ED 10:46 → UNDOADMIN 14:45 → DL.MS 14:45
PROVIDERS: ADMIT Internal Medicine Nephrology; ATTEND Internal Medicine Nephrology
DX: K85.90 Acute pancreatitis without necrosis or infection, unspecified (principal); K59.09 Other constipation; F41.9 Anxiety disorder, unspecified; E03.9 Hypothyroidism, unspecified; D64.9 Anemia, unspecified; E87.6 Hypokalemia; F32.9 Major depressive disorder, single episode, unspecified; Z88.1 Allergy status to other antibiotic agents; Z88.8 Allergy status to other drugs, medicaments and biological substances; Z91.048 Other nonmedicinal substance allergy status; Z79.899 Other long term (current) drug therapy; I11.0 Hypertensive heart disease with heart failure; I50.9 Heart failure, unspecified; H54.7 Unspecified visual loss; G89.29 Other chronic pain; M54.9 Dorsalgia, unspecified; E53.8 Deficiency of other specified B group vitamins
CPT/HCPCS: 36415; 74177; 80048; 80053; 80305; 81001; 82150; 83690; 83735; 84132; 85014; 85018; 85025; 85027; 96374; 96375; 96376; 99285; A9270-GY; C9113; J0692; J1650; J2270; J2405; J3010; J3475; J3480; J7030; J7050; Q9967

== ENCOUNTER 2017-09-20 18:27 | Inpatient (IN) | payer OTHER ==
[2017-09-20] MEDS ORDERED: Sodium Chloride 0.9% 1,000 ML IV ONE (19:15)
[2017-09-20] MEDS ORDERED: Ondansetron 4 MG/2 ML SDV IV ONE (19:15)
--- NOTE | 2017-09-20 19:34 | EDM.PDOC ---
ED HPI GENERAL MEDICAL PROBLEM - General Chief Complaint: Abdominal Pain Stated Complaint: NAUSEA,VOMITING,STOMACH PAIN AROUND BACK [id number] Time Seen by Provider: 09/20/17 19:20 Source of Information: Reports: Patient History Limitations: Reports: No Limitations - History of Present Illness INITIAL COMMENTS - FREE TEXT/NARRATIVE: This 52 yo female patient reports to the ED with generalized weakness, nausea, vomiting and abdominal pain for the past 4 days. The patient has not been seen by her primary care facility for these symptoms, but believes her symptoms have been getting a little worse over the past 4 days. The patient reports she has been having difficulties taking her medications, due to the medications getting stuck in her throat. The patient reports she has a history of pancreatitis and swallowing difficulties and has been seen by Dr. Agarwal in the past for these symptoms. Onset Date: 09/16/17 Duration: Constant, Getting Worse Location: Reports: Abdomen, Generalized Quality: Reports: Ache, Dull Severity: Moderate Improves with: Reports: None Worsens with: Reports: None Context: Reports: Other Associated Symptoms: Reports: No Other Symptoms Treatments CREATIVE CONSULTANT: Reports: Acetaminophen Abdomen Pain Score (Numeric/FACES): 9 - Related Data Allergies Allergy/AdvReac Type Severity Reaction Status Date / Time cephalexin [Cephalexin] AdvReac Nausea and Verified 09/20/17 19:17 Vomiting prednisone AdvReac Vomiting Verified 09/20/17 19:17 cats Allergy Sneezing Uncoded 09/20/17 19:17 evergreen tree Allergy Rash Uncoded 09/20/17 19:17 Home Meds: Home Meds Carvedilol 6.25 mg PO BID 05/07/13 [History] Estradiol 2 mg PO DAILY 05/07/13 [History] Furosemide [Lasix] 20 mg PO DAILY PRN 05/07/13 [History] Potassium Chloride [Klor-Con 10] 10 meq PO BID 05/07/13 [History] QUEtiapine Fumarate [Seroquel] 100 mg PO DAILY 05/07/13 [History] QUEtiapine [SEROquel] 300 mg PO BEDTIME 05/07/13 [History] Sertraline [Zoloft] 100 mg PO QAM 05/07/13 [History] Simvastatin 40 mg PO DAILY 05/07/13 [History] busPIRone [Buspar] 15 mg PO TID 05/07/13 [History] ALPRAZolam [Alprazolam ODT] 0.5 mg PO TID PRN 09/10/14 [History] Levothyroxine 175 mcg PO DAILY 10/17/14 [History] Cyanocobalamin (Vitamin B12) [Vitamin B12] 1,000 mcg IM .MONTHLY 12/27/14 [ History] Ferrous Sulfate 324 mg PO DAILY 12/27/14 [History] Fluticasone/Salmeterol [Advair 500-50] 1 puff INH ASDIRECTED PRN 12/27/14 [ History] Folic Acid 1 mg PO DAILY 12/27/14 [History] Cyclobenzaprine [Flexeril] 10 mg PO TID PRN 07/21/16 [History] Ziprasidone HCl [Geodon] 80 mg PO QAM 08/25/16 [History] oxyCODONE 5 mg PO Q6H PRN #15 tablet 08/30/16 [Rx] Docusate Sodium/Sennosides [Senna Plus] 1 tab PO DAILY 03/28/17 [History] Patient's Own Medication [Ptom] 1 each PO QAM PRN 03/28/17 [History] Sertraline [Zoloft] 100 mg PO QPM 03/28/17 [History] Amoxicillin/Clavulanate K [Augmentin 500-125 MG] 1 tab PO Q8H #18 tab 04/03/17 [ Rx] Morphine [MS Contin] 15 mg PO Q12HR #22 tab.er 04/03/17 [Rx] Past Medical History HEENT 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: Impaired Vision Other HEENT History: wears glasses Cardiovascular 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: Heart Failure 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: Asthma, SOB Gastrointestinal 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: Chronic Constipation, Pancreatitis Genitourinary 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: None 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 TABLE ASSEMBLER 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: 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 (See Below) Other BILLIARD TABLE ASSEMBLER History: hysterectomy Musculoskeletal 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: Back Pain, Chronic Neurological 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: None Psychiatric 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: Anxiety, Depression Endocrine/Metabolic 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: Hypothyroidism Hematologic 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: Anemia, B12 Deficiency Immunologic 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: None Oncologic (Cancer) 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: None Dermatologic 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: None - Infectious Disease History Infectious Disease 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: Chicken Pox - Past Surgical History Head Surgeries/Procedures: Reports: None GI Surgical 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: Appendectomy, Cholecystectomy Female Surgical 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: Hysterectomy, Tubal Ligation Social & Family History - Family History Family Medical History: Noncontributory - Tobacco Use Smoking Status *Q: Never Smoker Second Hand Smoke Exposure: No - Caffeine Use Caffeine Use: Reports: Soda - Recreational Drug Use Recreational Drug Use: No ED ROS GENERAL - Review of Systems Review Of Systems: ROS reveals no pertinent complaints other than HPI. ED EXAM, GI/ABD - Physical Exam Exam: See Below Exam Limited By: No Limitations General Appearance: Alert, WD/WN, Moderate Distress Eyes: Bilateral: Normal Appearance, EOMI Ears: Normal External Exam, Normal Canal, Hearing Grossly Normal, Normal TMs Nose: Normal Inspection, Normal Mucosa, No Blood Throat/Mouth: Normal Inspection, Normal Lips, Normal Teeth, Normal Gums, Normal Oropharynx, Normal Voice, No Airway Compromise Head: Atraumatic, Normocephalic Neck: Normal Inspection, Supple, Non-Tender, Full Range of Motion Respiratory/Chest: No Respiratory Distress, Lungs Clear, Normal Breath Sounds, No Accessory Muscle Use, Chest Non-Tender Cardiovascular: Normal Peripheral Pulses, Regular Rate, Rhythm, No Edema, No Gallop, No JVD, No Murmur, No Rub GI/Abdominal Exam: Normal Bowel Sounds, No Distention, No Abnormal Bruit, No Mass, Pelvis Stable, Guarding, Tender (generalized tenderness to palpation) (Female) Exam: Deferred Rectal (Female) Exam: Deferred Back Exam: Normal Inspection, Full Range of Motion, NT Extremities: Normal Inspection, Normal Range of Motion, Non-Tender, Normal Capillary Refill, No Pedal Edema Neurological: Alert, Oriented, CN II-XII Intact, Normal Cognition, Normal Gait, Normal Reflexes, No Motor/Sensory Deficits Psychiatric: Normal Affect, Normal Mood Skin Exam: Warm, Dry, Intact, Normal Color, No Rash Lymphatic: No Adenopathy Course - Vital Signs Last Recorded V/S: Last Vital Signs Temp 37.3 C 09/20/17 20:48 Pulse 91 09/20/17 20:48 Resp 16 09/20/17 20:48 BP 99/62 09/20/17 20:48 Pulse Ox 96 09/20/17 20:48 Orthostatic Blood Pressure [ 94/73 Standing] Orthostatic Blood Pressure [ 121/71 Sitting] Orthostatic Blood Pressure [ 114/74 Supine] - Orders/Labs/Meds Orders: Active Orders 24 hr Category Date Time Status DRUG SCREEN URINE BIORAD [URCHEM] Stat Lab 09/20/17 18:29 Ordered UA W/MICROSCOPIC [URIN] Stat Lab 09/20/17 18:29 Ordered Potassium Chloride [KCl 10 MEQ in Water 100 ML] 10 meq Med 09/20/17 20:26 Ordered Premix Bag 1 bag IV ONETIME Medication Orders Potassium Chloride 10 meq/ (Premix) 100 mls @ 100 mls/hr IV ONETIME ONE Stop: 09/20/17 21:25 Last Admin: 09/20/17 20:32 Dose: 100 mls/hr Labs: Laboratory Tests 09/20/17 09/20/17 09/20/17 Range/Units 18:29 18:29 19:37 WBC (5.0-10.0) 10^3/uL RBC (4.2-5.4) 10^6/uL Hgb (12.0-16.0) g/dL Hct (37.0-47.0) % MCV (80-100) fL MCH (27.0-34.0) pg MCHC (33.0-35.0) g/dL Plt Count (150-450) 10^3/uL Neut % (Auto) (42.2-75.2) % Lymph % (Auto) (20.5-50.1) % [place] % (Auto) (2-8) % Eos % (Auto) (1.0-3.0) % Baso % (Auto) (0.0-1.0) % Sodium (135-145) mmol/L Potassium (3.6-5.0) mmol/L Chloride (101-111) mmol/L Carbon Dioxide (21.0-31.0) mmol/L Anion Gap BUN (7-18) mg/dL Creatinine (0.6-1.3) mg/dL Est Cr Clr Drug Dosing mL/min Estimated GFR (MDRD) BUN/Creatinine Ratio Glucose (74-105) mg/dL Calcium (8.4-10.2) mg/dl Magnesium 1.7 L (1.8-2.5) mg/dL Total Bilirubin (0.2-1.0) mg/dL AST (10-42) IU/L ALT (10-60) IU/L Alkaline Phosphatase (42-121) IU/L Total Protein (6.7-8.2) g/dl Albumin (3.2-5.5) g/dl Globulin Albumin/Globulin Ratio Amylase 93 (28-100) U/L Lipase 118 H (22-51) U/L Urine Color Light yellow (YELLOW) Urine Appearance Clear (CLEAR) Urine pH 5.5 (5.0-9.0) Ur Specific Muse 1.010 (1.005-1.030) Urine Protein Negative (NEGATIVE) Urine Glucose (UA) Negative (NEGATIVE) Urine Ketones Negative (NEGATIVE) Urine Occult Blood Negative (NEGATIVE) Urine Nitrite Negative (NEGATIVE) Urine Bilirubin Negative (NEGATIVE) Urine Urobilinogen 0.2 (0.2-1.0) mg/dL Ur Leukocyte Esterase Negative (NEGATIVE) Urine RBC 0-5 /HPF Urine WBC 0-5 (0-5/HPF) /HPF Ur Epithelial Cells Few /HPF Urine Bacteria Few (0-FEW/HPF) /HPF Urinalysis Comment Urine Opiates Screen Negative (NEGATIVE) Ur Oxycodone Screen Positive H (NEGATIVE) Urine Methadone Screen Negative (NEGATIVE) Ur Barbiturates Screen Negative (NEGATIVE) U Tricyclic Antidepress Positive H (NEGATIVE) Ur Phencyclidine Scrn Negative (NEGATIVE) Ur Amphetamine Screen Negative (NEGATIVE) U Methamphetamines Scrn Negative (NEGATIVE) Urine MDMA Screen Negative (NEGATIVE) U Benzodiazepines Scrn Positive H (NEGATIVE) Urine Cocaine Screen Negative (NEGATIVE) U Marijuana (THC) Screen Negative (NEGATIVE) 09/20/17 09/20/17 Range/Units 19:37 19:37 WBC 10.4 H (5.0-10.0) 10^3/uL RBC 3.89 L (4.2-5.4) 10^6/uL Hgb 12.4 D (12.0-16.0) g/dL Hct 38.0 (37.0-47.0) % MCV 97.7 (80-100) fL MCH 31.9 (27.0-34.0) pg MCHC 32.6 L (33.0-35.0) g/dL Plt Count 269 (150-450) 10^3/uL Neut % (Auto) 74.8 (42.2-75.2) % Lymph % (Auto) 16.7 L (20.5-50.1) % [place] % (Auto) 6.9 (2-8) % Eos % (Auto) 1.4 (1.0-3.0) % Baso % (Auto) 0.2 (0.0-1.0) % Sodium 135 (135-145) mmol/L Potassium 2.7 L (3.6-5.0) mmol/L Chloride 100 L (101-111) mmol/L Carbon Dioxide 24.0 (21.0-31.0) mmol/L Anion Gap 13.7 BUN 25 H (7-18) mg/dL Creatinine 1.8 H D (0.6-1.3) mg/dL Est Cr Clr Drug Dosing 35.96 mL/min Estimated GFR (MDRD) 30 BUN/Creatinine Ratio 13.88 Glucose 107 H (74-105) mg/dL Calcium 8.9 (8.4-10.2) mg/dl Magnesium (1.8-2.5) mg/dL Total Bilirubin 0.6 (0.2-1.0) mg/dL AST 16 (10-42) IU/L ALT 14 (10-60) IU/L Alkaline Phosphatase 71 (42-121) IU/L Total Protein 7.9 (6.7-8.2) g/dl Albumin 4.3 (3.2-5.5) g/dl Globulin 3.6 Albumin/Globulin Ratio 1.19 Amylase (28-100) U/L Lipase (22-51) U/L Urine Color (YELLOW) Urine Appearance (CLEAR) Urine pH (5.0-9.0) Ur Specific Muse (1.005-1.030) Urine Protein (NEGATIVE) Urine Glucose (UA) (NEGATIVE) Urine Ketones (NEGATIVE) Urine Occult Blood (NEGATIVE) Urine Nitrite (NEGATIVE) Urine Bilirubin (NEGATIVE) Urine Urobilinogen (0.2-1.0) mg/dL Ur Leukocyte Esterase (NEGATIVE) Urine RBC /HPF Urine WBC (0-5/HPF) /HPF Ur Epithelial Cells /HPF Urine Bacteria (0-FEW/HPF) /HPF Urinalysis Comment Urine Opiates Screen (NEGATIVE) Ur Oxycodone Screen (NEGATIVE) Urine Methadone Screen (NEGATIVE) Ur Barbiturates Screen (NEGATIVE) U Tricyclic Antidepress (NEGATIVE) Ur Phencyclidine Scrn (NEGATIVE) Ur Amphetamine Screen (NEGATIVE) U Methamphetamines Scrn (NEGATIVE) Urine MDMA Screen (NEGATIVE) U Benzodiazepines Scrn (NEGATIVE) Urine Cocaine Screen (NEGATIVE) U Marijuana (THC) Screen (NEGATIVE) Meds: Medications Generic Name Dose Route Start Last Admin Trade Name Traci PRN Reason Stop Dose Admin Potassium Chloride 10 meq/ 100 mls @ 100 mls/hr 09/20/17 20:26 09/20/17 20:32 Premix IV 09/20/17 21:25 100 mls/hr ONETIME ONE Administration Discontinued Medications Generic Name Dose Route Start Last Admin Trade Name Traci PRN Reason Stop Dose Admin Sodium Chloride 1,000 mls @ 999 mls/hr 09/20/17 19:15 09/20/17 19:41 Normal Saline IV 09/20/17 20:15 999 mls/hr .BOLUS ONE Administration Morphine Sulfate 2 mg 09/20/17 20:12 09/20/17 20:16 Morphine IVPUSH 09/20/17 20:13 2 mg ONETIME ONE Administration Ondansetron HCl 4 mg 09/20/17 19:15 09/20/17 19:41 Zofran IV 09/20/17 19:16 4 mg ONETIME ONE Administration Departure - Departure Time of Disposition: 20:57 Disposition: Admitted As Inpatient 67 Condition: Fair Clinical Impression: Hypokalemia Pancreatitis Qualifiers: Chronicity: acute Pancreatitis type: other Acute pancreatitis complication: unspecified Qualified Code(s): K85.80 - Other acute pancreatitis without necrosis or infection - Discharge Information *PRESCRIPTION DRUG MONITORING PROGRAM REVIEWED*: Not Applicable *COPY OF PRESCRIPTION DRUG MONITORING REPORT IN PATIENT ANNABEL: Not Applicable Forms: ED Department Discharge Care Plan Goals: Discussed the examination, history, lab and treatments with Dr. Pinon. Dr. Pinon accepted the patient for continued evaluation and further management as an inpatient at [facility]. - My Orders Last 24 Hours: My Active Orders 09/20/17 18:29 DRUG SCREEN URINE BIORAD [URCHEM] Stat UA W/MICROSCOPIC [URIN] Stat 09/20/17 20:26 Potassium Chloride [KCl 10 MEQ in Water 100 ML] 10 meq Premix Bag 1 bag IV ONETIME - Assessment/Plan Last 24 Hours: My Active Orders 09/20/17 18:29 DRUG SCREEN URINE BIORAD [URCHEM] Stat UA W/MICROSCOPIC [URIN] Stat 09/20/17 20:26 Potassium Chloride [KCl 10 MEQ in Water 100 ML] 10 meq Premix Bag 1 bag IV ONETIME
[2017-09-20 20:08] LABS: ANION GAP 13.7
[2017-09-20] MEDS ORDERED: Morphine 2 MG/ML Syringe IVPUSH ONE (20:12)
[2017-09-20] MEDS ORDERED: Potassium Chloride 10 MEQ in Premix Bag 1 BAG IV ONE (20:26)
[2017-09-20] MEDS ORDERED: QUEtiapine 100 MG Tab PO SCH (21:00)
[2017-09-20] MEDS ORDERED: Cyclobenzaprine 10 MG Tab PO PRN (21:52)
[2017-09-20] MEDS ORDERED: Sodium Chloride 0.9% 10 ML Syringe FLUSH PRN (22:00)
[2017-09-20] MEDS ORDERED: Loperamide 2 MG Cap PO PRN (22:03)
[2017-09-20] MEDS: NS + KCl 20mEq/L 1,000 ML IV SCH (22:08)
[2017-09-20] MEDS: Potassium Chloride 10 MEQ in Premix Bag 1 BAG IV SCH (22:15)
--- NOTE | 2017-09-20 22:18 | PCM.HP ---
H&P History of Present Illness - General Date of Service: 09/20/17 Admit Problem/Dx: Admission Diagnosis/Problem Admission Diagnosis/Problem Hypokalemia Source of Information: Patient - History of Present Illness Initial Comments - Free Text/Narative: Revised September 2013 The patient is a 52-year-old lady with a history of depression, hypothyroidism, chronic abdominal pain presumably due to chronic and recurrent pancreatitis. The patient recently had problems with her abdomen, admission for pancreatitis. The patient underwent GI consult and gastric erosions noted on EGD in December 2016. In July 2017 the patient also underwent barium esophagogram including pill study that was reported as negative. Dr. Adams was suggesting acid suppression. The patient presented with about 3-4 days of nausea, unable to eat, loose bowel movements. She was taking Zofran but then ran out of it. She feels that when taking pills they stuck in her mid chest area. The patient reports chronic abdominal pain which is normally around 6 out of 10 but in the past few days it was 9 out of 10. It is radiating to the back. This is a bandlike pain in mid abdomen. Abdomen Pain Score (Numeric/FACES): 9 - Related Data Allergies/Adverse Reactions: Allergies Allergy/AdvReac Type Severity Reaction Status Date / Time cephalexin [Cephalexin] AdvReac Nausea and Verified 09/20/17 21:13 Vomiting prednisone AdvReac Vomiting Verified 09/20/17 21:13 cats Allergy Sneezing Uncoded 09/20/17 19:17 evergreen tree Allergy Rash Uncoded 09/20/17 19:17 Home Medications: Home Meds Carvedilol 6.25 mg PO BID 05/07/13 [History] Estradiol 2 mg PO DAILY 05/07/13 [History] Furosemide [Lasix] 20 mg PO BID PRN 05/07/13 [History] Potassium Chloride [Klor-Con 10] 10 meq PO BID 05/07/13 [History] QUEtiapine Fumarate [Seroquel] 100 mg PO DAILY 05/07/13 [History] QUEtiapine [SEROquel] 300 mg PO BEDTIME 05/07/13 [History] Sertraline [Zoloft] 100 mg PO QAM 05/07/13 [History] Simvastatin 40 mg PO DAILY 05/07/13 [History] busPIRone [Buspar] 15 mg PO TID 05/07/13 [History] ALPRAZolam [Alprazolam ODT] 0.5 mg PO TID PRN 09/10/14 [History] Levothyroxine 175 mcg PO DAILY 10/17/14 [History] Cyanocobalamin (Vitamin B12) [Vitamin B12] 1,000 mcg IM .MONTHLY 12/27/14 [ History] Ferrous Sulfate 324 mg PO DAILY 12/27/14 [History] Fluticasone/Salmeterol [Advair 500-50] 1 puff INH ASDIRECTED PRN 12/27/14 [ History] Folic Acid 1 mg PO DAILY 12/27/14 [History] Cyclobenzaprine [Flexeril] 10 mg PO TID PRN 07/21/16 [History] Ziprasidone HCl [Geodon] 80 mg PO QAM 08/25/16 [History] oxyCODONE 5 mg PO Q6H PRN #15 tablet 08/30/16 [Rx] Docusate Sodium/Sennosides [Senna Plus] 1 tab PO DAILY 03/28/17 [History] Patient's Own Medication [Ptom] 2 tab PO QAM PRN 03/28/17 [History] Sertraline [Zoloft] 100 mg PO QPM 03/28/17 [History] Past Medical History HEENT 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: Impaired Vision Other HEENT History: wears glasses Cardiovascular 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: Heart Failure 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: Asthma, SOB Gastrointestinal 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: Chronic Constipation, Pancreatitis Genitourinary 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: None 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 (See Below) Other OB/BYN History: hysterectomy Musculoskeletal 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: Back Pain, Chronic Neurological 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: None Psychiatric 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: Anxiety, Depression Endocrine/Metabolic 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: Hypothyroidism Hematologic 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: Anemia, B12 Deficiency Immunologic 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: None Oncologic (Cancer) 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: None Dermatologic 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: None - Infectious Disease History Infectious Disease 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: Chicken Pox - Past Surgical History Head Surgeries/Procedures: Reports: None GI Surgical 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: Appendectomy, Cholecystectomy Female Surgical 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: Hysterectomy, Tubal Ligation Social & Family History - Family History Family Medical History: Noncontributory - Tobacco Use Smoking Status *Q: Never Smoker Second Hand Smoke Exposure: No - Caffeine Use Caffeine Use: Reports: None - Recreational Drug Use Recreational Drug Use: No H&P Review of Systems - Review of Systems: Review Of Systems: See Below General: Denies: Fever Pulmonary: Denies: Shortness of Breath, Wheezing Cardiovascular: Denies: Chest Pain, Edema Gastrointestinal: Reports: Abdominal Pain, Anorexia, Diarrhea. Denies: Distension Genitourinary: Denies: Dysuria Psychiatric: Reports: Anxiety. Denies: Confusion Exam - Exam Exam: See Below - Vital Signs Vital Signs: Last Vital Signs Temp 37.3 C 09/20/17 20:48 Pulse 91 09/20/17 20:48 Resp 16 09/20/17 20:48 BP 99/62 09/20/17 20:48 Pulse Ox 96 09/20/17 20:48 Orthostatic Blood Pressure [ 94/73 Standing] Orthostatic Blood Pressure [ 121/71 Sitting] Orthostatic Blood Pressure [ 114/74 Supine] Weight: 95.617 kg - Exam General: Alert, Oriented Neck: Supple Lungs: Clear to Auscultation, Normal Respiratory Effort Cardiovascular: Regular Rate, Regular Rhythm GI/Abdominal Exam: Normal Bowel Sounds, Soft, No Distention, Tender (diffusely) Extremities: No Pedal Edema Skin: Warm, Dry Neuro Extensive - Mental Status: Alert, Oriented x3, Normal Mood/Affect - Patient Data Lab Results Last 24 hrs: Laboratory Results - last 24 hr 09/20/17 09/20/17 09/20/17 Range/Units 18:29 18:29 19:37 WBC (5.0-10.0) 10^3/uL RBC (4.2-5.4) 10^6/uL Hgb (12.0-16.0) g/dL Hct (37.0-47.0) % MCV (80-100) fL MCH (27.0-34.0) pg MCHC (33.0-35.0) g/dL Plt Count (150-450) 10^3/uL Neut % (Auto) (42.2-75.2) % Lymph % (Auto) (20.5-50.1) % [place] % (Auto) (2-8) % Eos % (Auto) (1.0-3.0) % Baso % (Auto) (0.0-1.0) % Sodium (135-145) mmol/L Potassium (3.6-5.0) mmol/L Chloride (101-111) mmol/L Carbon Dioxide (21.0-31.0) mmol/L Anion Gap BUN (7-18) mg/dL Creatinine (0.6-1.3) mg/dL Est Cr Clr Drug Dosing mL/min Estimated GFR (MDRD) BUN/Creatinine Ratio Glucose (74-105) mg/dL Calcium (8.4-10.2) mg/dl Magnesium 1.7 L (1.8-2.5) mg/dL Total Bilirubin (0.2-1.0) mg/dL AST (10-42) IU/L ALT (10-60) IU/L Alkaline Phosphatase (42-121) IU/L Total Protein (6.7-8.2) g/dl Albumin (3.2-5.5) g/dl Globulin Albumin/Globulin Ratio Amylase 93 (28-100) U/L Lipase 118 H (22-51) U/L Urine Color Light yellow (YELLOW) Urine Appearance Clear (CLEAR) Urine pH 5.5 (5.0-9.0) Ur Specific [place] 1.010 (1.005-1.030) Urine Protein Negative (NEGATIVE) Urine Glucose (UA) Negative (NEGATIVE) Urine Ketones Negative (NEGATIVE) Urine Occult Blood Negative (NEGATIVE) Urine Nitrite Negative (NEGATIVE) Urine Bilirubin Negative (NEGATIVE) Urine Urobilinogen 0.2 (0.2-1.0) mg/dL Ur Leukocyte Esterase Negative (NEGATIVE) Urine RBC 0-5 /HPF Urine WBC 0-5 (0-5/HPF) /HPF Ur Epithelial Cells Few /HPF Urine Bacteria Few (0-FEW/HPF) /HPF Urinalysis Comment Urine Opiates Screen Negative (NEGATIVE) Ur Oxycodone Screen Positive H (NEGATIVE) Urine Methadone Screen Negative (NEGATIVE) Ur Barbiturates Screen Negative (NEGATIVE) U Tricyclic Antidepress Positive H (NEGATIVE) Ur Phencyclidine Scrn Negative (NEGATIVE) Ur Amphetamine Screen Negative (NEGATIVE) U Methamphetamines Scrn Negative (NEGATIVE) Urine MDMA Screen Negative (NEGATIVE) U Benzodiazepines Scrn Positive H (NEGATIVE) Urine Cocaine Screen Negative (NEGATIVE) U Marijuana (THC) Screen Negative (NEGATIVE) 09/20/17 09/20/17 Range/Units 19:37 19:37 WBC 10.4 H (5.0-10.0) 10^3/uL RBC 3.89 L (4.2-5.4) 10^6/uL Hgb 12.4 D (12.0-16.0) g/dL Hct 38.0 (37.0-47.0) % MCV 97.7 (80-100) fL MCH 31.9 (27.0-34.0) pg MCHC 32.6 L (33.0-35.0) g/dL Plt Count 269 (150-450) 10^3/uL Neut % (Auto) 74.8 (42.2-75.2) % Lymph % (Auto) 16.7 L (20.5-50.1) % [place] % (Auto) 6.9 (2-8) % Eos % (Auto) 1.4 (1.0-3.0) % Baso % (Auto) 0.2 (0.0-1.0) % Sodium 135 (135-145) mmol/L Potassium 2.7 L (3.6-5.0) mmol/L Chloride 100 L (101-111) mmol/L Carbon Dioxide 24.0 (21.0-31.0) mmol/L Anion Gap 13.7 BUN 25 H (7-18) mg/dL Creatinine 1.8 H D (0.6-1.3) mg/dL Est Cr Clr Drug Dosing 35.96 mL/min Estimated GFR (MDRD) 30 BUN/Creatinine Ratio 13.88 Glucose 107 H (74-105) mg/dL Calcium 8.9 (8.4-10.2) mg/dl Magnesium (1.8-2.5) mg/dL Total Bilirubin 0.6 (0.2-1.0) mg/dL AST 16 (10-42) IU/L ALT 14 (10-60) IU/L Alkaline Phosphatase 71 (42-121) IU/L Total Protein 7.9 (6.7-8.2) g/dl Albumin 4.3 (3.2-5.5) g/dl Globulin 3.6 Albumin/Globulin Ratio 1.19 Amylase (28-100) U/L Lipase (22-51) U/L Urine Color (YELLOW) Urine Appearance (CLEAR) Urine pH (5.0-9.0) Ur Specific [place] (1.005-1.030) Urine Protein (NEGATIVE) Urine Glucose (UA) (NEGATIVE) Urine Ketones (NEGATIVE) Urine Occult Blood (NEGATIVE) Urine Nitrite (NEGATIVE) Urine Bilirubin (NEGATIVE) Urine Urobilinogen (0.2-1.0) mg/dL Ur Leukocyte Esterase (NEGATIVE) Urine RBC /HPF Urine WBC (0-5/HPF) /HPF Ur Epithelial Cells /HPF Urine Bacteria (0-FEW/HPF) /HPF Urinalysis Comment Urine Opiates Screen (NEGATIVE) Ur Oxycodone Screen (NEGATIVE) Urine Methadone Screen (NEGATIVE) Ur Barbiturates Screen (NEGATIVE) U Tricyclic Antidepress (NEGATIVE) Ur Phencyclidine Scrn (NEGATIVE) Ur Amphetamine Screen (NEGATIVE) U Methamphetamines Scrn (NEGATIVE) Urine MDMA Screen (NEGATIVE) U Benzodiazepines Scrn (NEGATIVE) Urine Cocaine Screen (NEGATIVE) U Marijuana (THC) Screen (NEGATIVE) Result Diagrams: 09/20/17 19:37 09/20/17 19:37 Problem List Initiated/Reviewed/Updated: Yes Orders Last 24hrs: Active Orders 24 hr Category Date Time Status Patient Status [ADT] Routine ADT 09/20/17 22:00 Active Oxygen Therapy [RC] PRN Care 09/20/17 22:00 Active Peripheral IV Care [RC] . DIRECTED Care 09/20/17 22:02 Active Up With Assistance [RC] ASDIRECTED Care 09/20/17 22:00 Active VTE/DVT Education [RC] PER UNIT ROUTINE Care 09/20/17 22:00 Active Vital Signs [RC] Q4H Care 09/20/17 22:00 Active Clear Liquid Diet [DIET] Diet 09/20/17 Breakfast Active BASIC METABOLIC PANEL,BMP [CHEM] AM Lab 09/21/17 05:15 Ordered CBC WITH AUTO DIFF [HEME] AM Lab 09/21/17 05:15 Ordered DRUG SCREEN URINE BIORAD [URCHEM] Stat Lab 09/20/17 18:29 Ordered LIPASE [CHEM] AM Lab 09/21/17 05:11 Ordered MAGNESIUM [CHEM] AM Lab 09/21/17 05:11 Ordered PHOSPHORUS [CHEM] AM Lab 09/21/17 05:11 Ordered UA W/MICROSCOPIC [URIN] Stat Lab 09/20/17 18:29 Ordered ALPRAZolam [Alprazolam ODT] Med 09/20/17 21:52 Ordered 0.5 mg PO TID PRN Acetaminophen [Tylenol] Med 09/20/17 22:00 Ordered 650 mg PO Q4H PRN Carvedilol [Coreg] Med 09/20/17 22:00 Ordered 6.25 mg PO BID Cyclobenzaprine [Flexeril] Med 09/20/17 21:52 Ordered 10 mg PO TID PRN Estradiol [Estradiol] Med 09/21/17 09:00 Ordered 2 mg PO DAILY Ferrous Sulfate [Ferrous Sulfate] Med 09/21/17 09:00 Ordered 324 mg PO DAILY Folic Acid Med 09/21/17 09:00 Ordered 1 mg PO DAILY Furosemide [Lasix] Med 09/22/17 09:00 Ordered 40 mg PO DAILY Heparin Sodium Med 09/20/17 22:00 Ordered 5,000 units SUBCUT Q8HR Levothyroxine [Levothyroxine] Med 09/21/17 09:00 Ordered 175 mcg PO DAILY Loperamide [Imodium] Med 09/20/17 22:03 Ordered 2 mg PO Q6H PRN Mometasone/Formoterol [Dulera 200-5 MCG] Med 09/21/17 07:00 Ordered 2 puff IH BIDRT NS + KCl 20mEq/L [Normal Saline with 20 mEq KCl] 1,000 Med 09/20/17 22:00 Active ml IV ASDIRECTED Ondansetron [Zofran ODT] Med 09/20/17 22:00 Ordered 4 mg PO Q6H PRN Ondansetron [Zofran] Med 09/20/17 22:00 Ordered 4 mg IVPUSH Q6H PRN Potassium Chloride [KCl 10 MEQ in Water 100 ML] 10 meq Med 09/20/17 22:00 Active Premix Bag 1 bag IV Q2H Potassium Chloride [Klor-Con 10] Med 09/21/17 09:00 Ordered 10 meq PO BID QUEtiapine [SEROquel] Med 09/20/17 21:00 Ordered 300 mg PO BEDTIME Sertraline [Zoloft] Med 09/21/17 09:00 Ordered 100 mg PO QAM Sertraline [Zoloft] Med 09/20/17 22:00 Ordered 100 mg PO QPM Simvastatin [Zocor] Med 09/21/17 09:00 Ordered 40 mg PO DAILY Sodium Chloride 0.9% [Saline Flush] Med 09/20/17 22:00 Ordered 10 ml FLUSH ASDIRECTED PRN Ziprasidone HCl [Geodon] Med 09/21/17 09:00 Ordered 80 mg PO QAM busPIRone [Buspar] Med 09/21/17 09:00 Ordered 15 mg PO TID oxyCODONE Med 09/20/17 21:52 Ordered 5 mg PO Q6H PRN Antiembolic Hose [OM.PC] Per Unit Routine Oth 09/20/17 22:01 Ordered Peripheral IV Insertion Adult [OM.PC] Routine Oth 09/20/17 22:00 Ordered Resuscitation Status Routine Resus Stat 09/20/17 22:00 Ordered Medication Orders Acetaminophen (Tylenol) 650 mg PO Q4H PRN PRN Reason: Pain (Mild 1-3)/fever Buspirone HCl (Buspar) 15 mg PO TID KP Carvedilol (Coreg) 6.25 mg PO BID KP Cyclobenzaprine HCl (Flexeril) 10 mg PO TID PRN PRN Reason: Spasms Folic Acid (Folic Acid) 1 mg PO DAILY KP Furosemide (Lasix) 40 mg PO DAILY KP Heparin Sodium (Porcine) (Heparin Sodium) 5,000 units SUBCUT Q8HR KP Potassium Chloride 10 meq/ (Premix) 100 mls @ 50 mls/hr IV Q2H KP Stop: 09/21/17 07:59 Potassium Chloride/Sodium Chloride (Normal Saline With 20 Meq Kcl) 1,000 mls @ 125 mls/hr IV ASDIRECTED KP Loperamide HCl (Imodium) 2 mg PO Q6H PRN PRN Reason: Diarrhea Mometasone Furoate/Formoterol Fumar (Dulera 200-5 Mcg) 2 puff IH BIDRT KP Non-Formulary Medication (Alprazolam [Alprazolam Odt]) 0.5 mg PO TID PRN PRN Reason: Anxiety Non-Formulary Medication (Estradiol [Estradiol]) 2 mg PO DAILY KP Non-Formulary Medication (Ferrous Sulfate [Ferrous Sulfate]) 324 mg PO DAILY KP Non-Formulary Medication (Levothyroxine [Levothyroxine]) 175 mcg PO DAILY KP Non-Formulary Medication (Quetiapine [Seroquel]) 300 mg PO BEDTIME KP Non-Formulary Medication (Sertraline [Zoloft]) 100 mg PO QAM KP Non-Formulary Medication (Sertraline [Zoloft]) 100 mg PO QPM KP Non-Formulary Medication (Ziprasidone Hcl [Geodon]) 80 mg PO QAM KP Ondansetron HCl (Zofran Odt) 4 mg PO Q6H PRN PRN Reason: nausea, able to take PO Ondansetron HCl (Zofran) 4 mg IVPUSH Q6H PRN PRN Reason: Nausea/Vomiting Oxycodone HCl (Oxycodone) 5 mg PO Q6H PRN PRN Reason: Pain Potassium Chloride (Klor-Con 10) 10 meq PO BID PK Simvastatin (Zocor) 40 mg PO DAILY KP Sodium Chloride (Saline Flush) 10 ml FLUSH ASDIRECTED PRN PRN Reason: Keep Vein Open Assessment/Plan Comment:: Revised September 2013 The patient is a 52-year-old lady with a history of depression, hypothyroidism, chronic abdominal pain presumably due to chronic and recurrent pancreatitis. The patient recently had problems with her abdomen, admission for pancreatitis. The patient underwent GI consult and gastric erosions noted on EGD in December 2016. In July 2017 the patient also underwent barium esophagogram including pill study that was reported as negative. Dr. Adams was suggesting acid suppression. The patient presented with about 3-4 days of nausea, unable to eat, loose bowel movements. She was taking Zofran but then ran out of it. She feels that when taking pills they stuck in her mid chest area. The patient reports chronic abdominal pain which is normally around 6 out of 10 but in the past few days it was 9 out of 10. It is radiating to the back. This is a bandlike pain in mid abdomen. Acute renal failure This is likely due to low oral intake, diuretics combination Will give IV fluids, follow and replace electrolytes as needed Severe hypokalemia Well give IV supplement Check magnesium, phosphorus, basic metabolic panel in the morning Abdominal pain Minimally elevated lipase Doubt acute pancreatitis Well continue pain medications Complains of dysphagia This was recently worked up by GI with the pill study and barium esophagogram This was reported as negative DVT prophylaxis will be with subcutaneous heparin
[2017-09-20] MEDS: Carvedilol 6.25 MG Tab PO SCH (22:30)
[2017-09-20] MEDS: ALPRAZolam 0.5 MG Tab PO PRN (22:31)
[2017-09-20] MEDS: Heparin Sodium 5,000 Units/ML Vial SUBCUT SCH (22:41)
[2017-09-20] MEDS: Sertraline 50 MG Tab PO SCH (22:44)
[2017-09-20] MEDS: oxyCODONE 5 MG Tab PO PRN (22:45)
[2017-09-21] MEDS: Potassium Chloride 10 MEQ in Premix Bag 1 BAG IV SCH ×4 (00:19→05:56)
[2017-09-21] MEDS: Heparin Sodium 5,000 Units/ML Vial SUBCUT SCH ×3 (05:22→21:10)
[2017-09-21] MEDS: NS + KCl 20mEq/L 1,000 ML IV SCH ×3 (05:58→23:14)
[2017-09-21 06:57] LABS: ANION GAP 10.2
[2017-09-21] MEDS: Sertraline 50 MG Tab PO SCH ×2 (08:42→21:09)
[2017-09-21] MEDS: Carvedilol 6.25 MG Tab PO SCH ×2 (08:42→17:10)
[2017-09-21] MEDS: Ferrous Sulfate 325 MG Tab PO SCH (08:42)
[2017-09-21] MEDS: Potassium Chloride 10 MEQ Tab.ER PO SCH ×2 (08:42→21:09)
[2017-09-21] MEDS: Simvastatin 40 MG Tab PO SCH (08:43)
[2017-09-21] MEDS: Formoterol/Mometasone 200-5 MCG 8.8 GM Inhaler IH SCH ×2 (08:43→17:22)
[2017-09-21] MEDS: Levothyroxine 100 MCG Tab PO SCH (08:44)
[2017-09-21] MEDS: Levothyroxine 75 MCG Tab PO SCH (08:44)
[2017-09-21] MEDS: busPIRone 15 MG Tab PO SCH ×3 (08:44→21:09)
[2017-09-21] MEDS: Folic Acid 1 MG Tab PO SCH (08:44)
[2017-09-21] MEDS: oxyCODONE 5 MG Tab PO PRN ×3 (08:47→21:24)
[2017-09-21] MEDS ORDERED: ZIPRASIDONE HCL 80 MG PO SCH (09:00)
[2017-09-21] MEDS ORDERED: Non-Formulary Medication 1 Each (Estradiol [Estradiol] 2 MG) PO SCH (09:00)
[2017-09-21] MEDS: Ondansetron 4 MG/2 ML SDV IVPUSH PRN ×2 (09:03→17:10)
--- NOTE | 2017-09-21 10:53 | PCM.PN ---
- General Info Date of Service: 09/21/17 Admission Dx/Problem (Free Text): Admission Diagnosis/Problem Admission Diagnosis/Problem Hypokalemia Subjective Update: She continues to have abdominal pain. There is associated nausea but no vomiting. No diarrhea. No associated fever No chest pain, no shortness of breath. The abdominal pain is sharp across the abdomen, radiating to the back. Functional Status: Reports: Ambulating. Denies: Pain Controlled, Tolerating Diet - Review of Systems General: Denies: Fever Pulmonary: Denies: Shortness of Breath Cardiovascular: Denies: Chest Pain Gastrointestinal: Reports: Abdominal Pain, Nausea. Denies: Diarrhea, Vomiting Neurological: Denies: Confusion - Patient Data Vitals - Most Recent: Last Vital Signs Temp 36.6 C 09/21/17 10:45 Pulse 69 09/21/17 10:45 Resp 18 09/21/17 10:45 BP 95/58 L 09/21/17 10:45 Pulse Ox 97 09/21/17 10:45 Orthostatic Blood Pressure [ 94/73 Standing] Orthostatic Blood Pressure [ 121/71 Sitting] Orthostatic Blood Pressure [ 114/74 Supine] Weight - Most Recent: 95.617 kg I&O - Last 24 Hours: Intake & Output 09/20/17 09/21/17 09/21/17 22:59 06:59 14:59 Intake Total 2430 Output Total 1900 Balance 530 Lab Results Last 24 Hours: Laboratory Results - last 24 hr 09/20/17 09/20/17 09/20/17 Range/Units 18:29 18:29 19:37 WBC (5.0-10.0) 10^3/uL RBC (4.2-5.4) 10^6/uL Hgb (12.0-16.0) g/dL Hct (37.0-47.0) % MCV (80-100) fL MCH (27.0-34.0) pg MCHC (33.0-35.0) g/dL Plt Count (150-450) 10^3/uL Neut % (Auto) (42.2-75.2) % Lymph % (Auto) (20.5-50.1) % [place] % (Auto) (2-8) % Eos % (Auto) (1.0-3.0) % Baso % (Auto) (0.0-1.0) % Sodium (135-145) mmol/L Potassium (3.6-5.0) mmol/L Chloride (101-111) mmol/L Carbon Dioxide (21.0-31.0) mmol/L Anion Gap BUN (7-18) mg/dL Creatinine (0.6-1.3) mg/dL Est Cr Clr Drug Dosing mL/min Estimated GFR (MDRD) BUN/Creatinine Ratio Glucose (74-105) mg/dL Calcium (8.4-10.2) mg/dl Phosphorus (2.5-4.6) mg/dL Magnesium 1.7 L (1.8-2.5) mg/dL Total Bilirubin (0.2-1.0) mg/dL AST (10-42) IU/L ALT (10-60) IU/L Alkaline Phosphatase (42-121) IU/L Total Protein (6.7-8.2) g/dl Albumin (3.2-5.5) g/dl Globulin Albumin/Globulin Ratio Amylase 93 (28-100) U/L Lipase 118 H (22-51) U/L Urine Color Light yellow (YELLOW) Urine Appearance Clear (CLEAR) Urine pH 5.5 (5.0-9.0) Ur Specific [place] 1.010 (1.005-1.030) Urine Protein Negative (NEGATIVE) Urine Glucose (UA) Negative (NEGATIVE) Urine Ketones Negative (NEGATIVE) Urine Occult Blood Negative (NEGATIVE) Urine Nitrite Negative (NEGATIVE) Urine Bilirubin Negative (NEGATIVE) Urine Urobilinogen 0.2 (0.2-1.0) mg/dL Ur Leukocyte Esterase Negative (NEGATIVE) Urine RBC 0-5 /HPF Urine WBC 0-5 (0-5/HPF) /HPF Ur Epithelial Cells Few /HPF Urine Bacteria Few (0-FEW/HPF) /HPF Urinalysis Comment Urine Opiates Screen Negative (NEGATIVE) Ur Oxycodone Screen Positive H (NEGATIVE) Urine Methadone Screen Negative (NEGATIVE) Ur Barbiturates Screen Negative (NEGATIVE) U Tricyclic Antidepress Positive H (NEGATIVE) Ur Phencyclidine Scrn Negative (NEGATIVE) Ur Amphetamine Screen Negative (NEGATIVE) U Methamphetamines Scrn Negative (NEGATIVE) Urine MDMA Screen Negative (NEGATIVE) U Benzodiazepines Scrn Positive H (NEGATIVE) Urine Cocaine Screen Negative (NEGATIVE) U Marijuana (THC) Screen Negative (NEGATIVE) 09/20/17 09/20/17 09/21/17 Range/Units 19:37 19:37 06:01 WBC 10.4 H (5.0-10.0) 10^3/uL RBC 3.89 L (4.2-5.4) 10^6/uL Hgb 12.4 D (12.0-16.0) g/dL Hct 38.0 (37.0-47.0) % MCV 97.7 (80-100) fL MCH 31.9 (27.0-34.0) pg MCHC 32.6 L (33.0-35.0) g/dL Plt Count 269 (150-450) 10^3/uL Neut % (Auto) 74.8 (42.2-75.2) % Lymph % (Auto) 16.7 L (20.5-50.1) % [place] % (Auto) 6.9 (2-8) % Eos % (Auto) 1.4 (1.0-3.0) % Baso % (Auto) 0.2 (0.0-1.0) % Sodium 135 134 L (135-145) mmol/L Potassium 2.7 L 3.2 L (3.6-5.0) mmol/L Chloride 100 L 102 (101-111) mmol/L Carbon Dioxide 24.0 25.0 (21.0-31.0) mmol/L Anion Gap 13.7 10.2 BUN 25 H 19 H (7-18) mg/dL Creatinine 1.8 H D 1.2 (0.6-1.3) mg/dL Est Cr Clr Drug Dosing 35.96 53.94 mL/min Estimated GFR (MDRD) 30 47 BUN/Creatinine Ratio 13.88 Glucose 107 H 106 H (74-105) mg/dL Calcium 8.9 8.0 L (8.4-10.2) mg/dl Phosphorus 2.6 (2.5-4.6) mg/dL Magnesium 1.7 L (1.8-2.5) mg/dL Total Bilirubin 0.6 (0.2-1.0) mg/dL AST 16 (10-42) IU/L ALT 14 (10-60) IU/L Alkaline Phosphatase 71 (42-121) IU/L Total Protein 7.9 (6.7-8.2) g/dl Albumin 4.3 (3.2-5.5) g/dl Globulin 3.6 Albumin/Globulin Ratio 1.19 Amylase (28-100) U/L Lipase 68 H (22-51) U/L Urine Color (YELLOW) Urine Appearance (CLEAR) Urine pH (5.0-9.0) Ur Specific [place] (1.005-1.030) Urine Protein (NEGATIVE) Urine Glucose (UA) (NEGATIVE) Urine Ketones (NEGATIVE) Urine Occult Blood (NEGATIVE) Urine Nitrite (NEGATIVE) Urine Bilirubin (NEGATIVE) Urine Urobilinogen (0.2-1.0) mg/dL Ur Leukocyte Esterase (NEGATIVE) Urine RBC /HPF Urine WBC (0-5/HPF) /HPF Ur Epithelial Cells /HPF Urine Bacteria (0-FEW/HPF) /HPF Urinalysis Comment Urine Opiates Screen (NEGATIVE) Ur Oxycodone Screen (NEGATIVE) Urine Methadone Screen (NEGATIVE) Ur Barbiturates Screen (NEGATIVE) U Tricyclic Antidepress (NEGATIVE) Ur Phencyclidine Scrn (NEGATIVE) Ur Amphetamine Screen (NEGATIVE) U Methamphetamines Scrn (NEGATIVE) Urine MDMA Screen (NEGATIVE) U Benzodiazepines Scrn (NEGATIVE) Urine Cocaine Screen (NEGATIVE) U Marijuana (THC) Screen (NEGATIVE) 09/21/17 Range/Units 06:01 WBC 5.8 (5.0-10.0) 10^3/uL RBC 3.27 L (4.2-5.4) 10^6/uL Hgb 10.5 L D (12.0-16.0) g/dL Hct 32.5 L (37.0-47.0) % MCV 99.4 (80-100) fL MCH 32.1 (27.0-34.0) pg MCHC 32.3 L (33.0-35.0) g/dL Plt Count 212 (150-450) 10^3/uL Neut % (Auto) 55.5 (42.2-75.2) % Lymph % (Auto) 34.4 (20.5-50.1) % [place] % (Auto) 7.3 (2-8) % Eos % (Auto) 2.6 (1.0-3.0) % Baso % (Auto) 0.2 (0.0-1.0) % Sodium (135-145) mmol/L Potassium (3.6-5.0) mmol/L Chloride (101-111) mmol/L Carbon Dioxide (21.0-31.0) mmol/L Anion Gap BUN (7-18) mg/dL Creatinine (0.6-1.3) mg/dL Est Cr Clr Drug Dosing mL/min Estimated GFR (MDRD) BUN/Creatinine Ratio Glucose (74-105) mg/dL Calcium (8.4-10.2) mg/dl Phosphorus (2.5-4.6) mg/dL Magnesium (1.8-2.5) mg/dL Total Bilirubin (0.2-1.0) mg/dL AST (10-42) IU/L ALT (10-60) IU/L Alkaline Phosphatase (42-121) IU/L Total Protein (6.7-8.2) g/dl Albumin (3.2-5.5) g/dl Globulin Albumin/Globulin Ratio Amylase (28-100) U/L Lipase (22-51) U/L Urine Color (YELLOW) Urine Appearance (CLEAR) Urine pH (5.0-9.0) Ur Specific [place] (1.005-1.030) Urine Protein (NEGATIVE) Urine Glucose (UA) (NEGATIVE) Urine Ketones (NEGATIVE) Urine Occult Blood (NEGATIVE) Urine Nitrite (NEGATIVE) Urine Bilirubin (NEGATIVE) Urine Urobilinogen (0.2-1.0) mg/dL Ur Leukocyte Esterase (NEGATIVE) Urine RBC /HPF Urine WBC (0-5/HPF) /HPF Ur Epithelial Cells /HPF Urine Bacteria (0-FEW/HPF) /HPF Urinalysis Comment Urine Opiates Screen (NEGATIVE) Ur Oxycodone Screen (NEGATIVE) Urine Methadone Screen (NEGATIVE) Ur Barbiturates Screen (NEGATIVE) U Tricyclic Antidepress (NEGATIVE) Ur Phencyclidine Scrn (NEGATIVE) Ur Amphetamine Screen (NEGATIVE) U Methamphetamines Scrn (NEGATIVE) Urine MDMA Screen (NEGATIVE) U Benzodiazepines Scrn (NEGATIVE) Urine Cocaine Screen (NEGATIVE) U Marijuana (THC) Screen (NEGATIVE) Med Orders - Current: Current Medications Acetaminophen (Tylenol) 650 mg PO Q4H PRN PRN Reason: Pain (Mild 1-3)/fever Alprazolam (Xanax) 0.5 mg PO TID PRN PRN Reason: Anxiety Last Admin: 09/20/17 22:31 Dose: 0.5 mg Buspirone HCl (Buspar) 15 mg PO TID [facility] Last Admin: 09/21/17 08:44 Dose: 15 mg Carvedilol (Coreg) 6.25 mg PO BIDMEALS [facility] Last Admin: 09/21/17 08:42 Dose: 6.25 mg Cyclobenzaprine HCl (Flexeril) 10 mg PO TID PRN PRN Reason: Spasms Ferrous Sulfate (Ferrous Sulfate) 325 mg PO DAILY [facility] Last Admin: 09/21/17 08:42 Dose: 325 mg Folic Acid (Folic Acid) 1 mg PO DAILY [facility] Last Admin: 09/21/17 08:44 Dose: 1 mg Furosemide (Lasix) 40 mg PO DAILY [facility] Heparin Sodium (Porcine) (Heparin Sodium) 5,000 units SUBCUT Q8HR [facility] Last Admin: 09/21/17 05:22 Dose: Not Given Potassium Chloride/Sodium Chloride (Normal Saline With 20 Meq Kcl) 1,000 mls @ 125 mls/hr IV ASDIRECTED [facility] Last Admin: 09/21/17 05:58 Dose: 125 mls/hr Levothyroxine Sodium (Synthroid) 100 mcg PO DAILY [facility] Last Admin: 09/21/17 08:44 Dose: 100 mcg Levothyroxine Sodium (Levothyroxine) 75 mcg PO DAILY [facility] Last Admin: 09/21/17 08:44 Dose: 75 mcg Loperamide HCl (Imodium) 2 mg PO Q6H PRN PRN Reason: Diarrhea Magnesium Oxide (Magnesium Oxide) 250 mg PO BIDM [facility] Mometasone Furoate/Formoterol Fumar (Dulera 200-5 Mcg) 2 puff IH BIDRT [facility] Last Admin: 09/21/17 08:43 Dose: 2 puff Morphine Sulfate (Morphine) 2 mg IVPUSH Q4H PRN PRN Reason: sever pain 7-10 Ondansetron HCl (Zofran Odt) 4 mg PO Q6H PRN PRN Reason: nausea, able to take PO Ondansetron HCl (Zofran) 4 mg IVPUSH Q6H PRN PRN Reason: Nausea/Vomiting Last Admin: 09/21/17 09:03 Dose: 4 mg Oxycodone HCl (Oxycodone) 5 mg PO Q6H PRN PRN Reason: Pain Last Admin: 09/21/17 08:47 Dose: 5 mg Potassium Chloride (Klor-Con 10) 10 meq PO BID [facility] Last Admin: 09/21/17 08:42 Dose: 10 meq Potassium Chloride (Klor-Con 10) 40 meq PO ONETIME ONE Stop: 09/21/17 13:01 Quetiapine Fumarate (Seroquel) 100 mg PO DAILY [facility] Sertraline HCl (Zoloft) 100 mg PO QAM [facility] Last Admin: 09/21/17 08:42 Dose: 100 mg Sertraline HCl (Zoloft) 100 mg PO BEDTIME [facility] Last Admin: 09/20/17 22:44 Dose: 100 mg Simvastatin (Zocor) 40 mg PO DAILY [facility] Last Admin: 09/21/17 08:43 Dose: 40 mg Sodium Chloride (Saline Flush) 10 ml FLUSH ASDIRECTED PRN PRN Reason: Keep Vein Open Discontinued Medications Sodium Chloride (Normal Saline) 1,000 mls @ 999 mls/hr IV .BOLUS ONE Stop: 09/20/17 20:15 Last Admin: 09/20/17 19:41 Dose: 999 mls/hr Potassium Chloride 10 meq/ (Premix) 100 mls @ 100 mls/hr IV ONETIME ONE Stop: 09/20/17 21:25 Last Admin: 09/20/17 20:32 Dose: 100 mls/hr Potassium Chloride 10 meq/ (Premix) 100 mls @ 50 mls/hr IV Q2H KP Stop: 09/21/17 07:59 Last Admin: 09/21/17 05:56 Dose: 50 mls/hr Morphine Sulfate (Morphine) 2 mg IVPUSH ONETIME ONE Stop: 09/20/17 20:13 Last Admin: 09/20/17 20:16 Dose: 2 mg Non-Formulary Medication (Estradiol [Estradiol]) 2 mg PO DAILY [facility] Non-Formulary Medication (Ziprasidone Hcl [Geodon]) 80 mg PO QAM [facility] Ondansetron HCl (Zofran) 4 mg IV ONETIME ONE Stop: 09/20/17 19:16 Last Admin: 09/20/17 19:41 Dose: 4 mg Quetiapine Fumarate (Seroquel) 300 mg PO BEDTIME [facility] Last Admin: 09/20/17 22:29 Dose: 300 mg - Exam General: Alert, Oriented, No Acute Distress Neck: Supple Lungs: Clear to Auscultation, Normal Respiratory Effort Cardiovascular: Regular Rate, Regular Rhythm GI/Abdominal Exam: Normal Bowel Sounds, Soft, Tender Extremities: No Pedal Edema Skin: Warm, Dry Neurological: No New Focal Deficit - Problem List Review Problem List Initiated/Reviewed/Updated: Yes - My Orders Last 24 Hours: My Active Orders 09/20/17 21:52 ALPRAZolam [Xanax] 0.5 mg PO TID PRN Cyclobenzaprine [Flexeril] 10 mg PO TID PRN oxyCODONE 5 mg PO Q6H PRN 09/20/17 22:00 Patient Status [ADT] Routine Oxygen Therapy [RC] PRN Up With Assistance [RC] ASDIRECTED VTE/DVT Education [RC] PER UNIT ROUTINE Vital Signs [RC] Q4H Acetaminophen [Tylenol] 650 mg PO Q4H PRN Carvedilol [Coreg] 6.25 mg PO BIDMEALS Heparin Sodium 5,000 units SUBCUT Q8HR NS + KCl 20mEq/L [Normal Saline with 20 mEq KCl] 1,000 ml IV ASDIRECTED Ondansetron [Zofran ODT] 4 mg PO Q6H PRN Ondansetron [Zofran] 4 mg IVPUSH Q6H PRN Sertraline [Zoloft] 100 mg PO BEDTIME Sodium Chloride 0.9% [Saline Flush] 10 ml FLUSH ASDIRECTED PRN Peripheral IV Insertion Adult [OM.PC] Routine Resuscitation Status Routine 09/20/17 22:01 Antiembolic Hose [OM.PC] Per Unit Routine 09/20/17 22:02 Peripheral IV Care [RC] . DIRECTED 09/20/17 22:03 Loperamide [Imodium] 2 mg PO Q6H PRN 09/21/17 07:00 Mometasone/Formoterol [Dulera 200-5 MCG] 2 puff IH BIDRT 09/21/17 09:00 Ferrous Sulfate 325 mg PO DAILY Folic Acid 1 mg PO DAILY Levothyroxine 75 mcg PO DAILY Levothyroxine [Synthroid] 100 mcg PO DAILY Potassium Chloride [Klor-Con 10] 10 meq PO BID Sertraline [Zoloft] 100 mg PO QAM Simvastatin [Zocor] 40 mg PO DAILY busPIRone [Buspar] 15 mg PO TID 09/21/17 10:45 QUEtiapine [SEROquel] 100 mg PO DAILY 09/21/17 10:47 Morphine 2 mg IVPUSH Q4H PRN 09/21/17 13:00 Potassium Chloride [Klor-Con 10] 40 meq PO ONETIME ONE 09/21/17 18:00 Magnesium Oxide 250 mg PO BIDM 09/22/17 09:00 Furosemide [Lasix] 40 mg PO DAILY - Plan Plan:: The patient is a 52-year-old lady with a history of depression, hypothyroidism, chronic abdominal pain presumably due to chronic and recurrent pancreatitis. The patient recently had problems with her abdomen, admission for pancreatitis. The patient underwent GI consult and gastric erosions noted on EGD in December 2016. In July 2017 the patient also underwent barium esophagogram including pill study that was reported as negative. Dr. Adams was suggesting acid suppression. The patient presented with about 3-4 days of nausea, unable to eat, loose bowel movements. She was taking Zofran but then ran out of it. She feels that when taking pills they stuck in her mid chest area. The patient reports chronic abdominal pain which is normally around 6 out of 10 but in the past few days it was 9 out of 10. It is radiating to the back. This is a bandlike pain in mid abdomen. The patient's abdomen examination is benign. I do not think that there is a surgical emergency. For now I will hold off on further imaging. Lipase was minimally elevated and it is improving Continue symptomatic management with antiemetics and pain medication. Try not to escalate narcotics too much. Her dress the patient reports uncontrolled pain. I will start IV morphine. For now keep the patient on clear liquid diet Acute renal failure This is likely due to low oral intake, diuretics combination Much improved with IV fluids, For now while the patient is on liquid diet continue hydration and follow and replace electrolytes as needed Severe hypokalemia Improved Will continue supplement Supplement magnesium, Rechecking the morning Complains of dysphagia This was recently worked up by GI with pill study and barium esophagogram This was reported as negative DVT prophylaxis will be with subcutaneous heparin
[2017-09-21] MEDS: Morphine 2 MG/ML Syringe IVPUSH PRN ×3 (11:49→23:05)
[2017-09-21] MEDS: QUEtiapine 100 MG Tab PO SCH ×2 (11:50→21:09)
[2017-09-21] MEDS ORDERED: Potassium Chloride 10 MEQ Tab.ER PO ONE (13:00)
[2017-09-21] MEDS: ALPRAZolam 0.5 MG Tab PO PRN (21:28)
[2017-09-21] MEDS: Ondansetron 4 MG Tab.DIS PO PRN (21:28)
[2017-09-22] MEDS: oxyCODONE 5 MG Tab PO PRN ×3 (06:11→21:14)
[2017-09-22] MEDS: Heparin Sodium 5,000 Units/ML Vial SUBCUT SCH ×3 (06:11→21:03)
[2017-09-22 06:58] LABS: ANION GAP 7.6; CHLORIDE,CL 108 mmol/L (101-111); SODIUM,NA 138 mmol/L (135-145)
[2017-09-22] MEDS: NS + KCl 20mEq/L 1,000 ML IV SCH ×2 (07:34→17:16)
[2017-09-22] MEDS: Formoterol/Mometasone 200-5 MCG 8.8 GM Inhaler IH SCH ×2 (07:38→17:16)
[2017-09-22] MEDS: Sertraline 50 MG Tab PO SCH ×2 (08:23→20:58)
[2017-09-22] MEDS: Ferrous Sulfate 325 MG Tab PO SCH (08:24)
[2017-09-22] MEDS: Levothyroxine 75 MCG Tab PO SCH (08:24)
[2017-09-22] MEDS: Folic Acid 1 MG Tab PO SCH (08:25)
[2017-09-22] MEDS: Simvastatin 40 MG Tab PO SCH (08:25)
[2017-09-22] MEDS: Potassium Chloride 10 MEQ Tab.ER PO SCH ×2 (08:25→20:59)
[2017-09-22] MEDS: Levothyroxine 100 MCG Tab PO SCH (08:26)
[2017-09-22] MEDS: Carvedilol 6.25 MG Tab PO SCH ×2 (08:26→17:14)
[2017-09-22] MEDS: Furosemide 40 MG Tab PO SCH (08:27)
[2017-09-22] MEDS: busPIRone 15 MG Tab PO SCH ×3 (08:27→20:59)
[2017-09-22] MEDS: QUEtiapine 100 MG Tab PO SCH ×2 (08:28→20:59)
[2017-09-22] MEDS: Morphine 2 MG/ML Syringe IVPUSH PRN (08:28)
--- NOTE | 2017-09-22 10:04 | PCM.PN ---
- General Info Date of Service: 09/22/17 Subjective Update: She continues to have abdominal pain. There is associated nausea but no vomiting. No diarrhea. No associated fever. Still has been using IV morphine. She has no problem drinking and taking clear liquid diet. No chest pain, no shortness of breath. The abdominal pain is sharp across the abdomen, radiating to the back. Practically unchanged. Nevertheless she does not appear in any pain, Functional Status: Reports: Tolerating Diet (Clear liquid). Denies: Pain Controlled - Review of Systems General: Denies: Fever Pulmonary: Denies: Shortness of Breath Cardiovascular: Denies: Chest Pain Gastrointestinal: Reports: Abdominal Pain Neurological: Denies: Confusion - Patient Data Vitals - Most Recent: Last Vital Signs Temp 35.9 C 09/22/17 08:23 Pulse 75 09/22/17 08:26 Resp 20 09/22/17 08:23 BP 100/68 09/22/17 08:26 Pulse Ox 100 09/22/17 08:23 Orthostatic Blood Pressure [ 94/73 Standing] Orthostatic Blood Pressure [ 121/71 Sitting] Orthostatic Blood Pressure [ 114/74 Supine] Weight - Most Recent: 95.617 kg I&O - Last 24 Hours: Intake & Output 09/21/17 09/22/17 09/22/17 22:59 06:59 14:59 Intake Total 1055 1600 Output Total 1500 Balance 1055 100 Lab Results Last 24 Hours: Laboratory Results - last 24 hr 09/22/17 09/22/17 Range/Units 06:06 06:06 WBC 4.5 L (5.0-10.0) 10^3/uL RBC 3.15 L (4.2-5.4) 10^6/uL Hgb 10.1 L (12.0-16.0) g/dL Hct 32.6 L (37.0-47.0) % MCV 103.5 H D (80-100) fL MCH 32.1 (27.0-34.0) pg MCHC 31.0 L (33.0-35.0) g/dL Plt Count 204 (150-450) 10^3/uL Neut % (Auto) 46.4 (42.2-75.2) % Lymph % (Auto) 43.7 (20.5-50.1) % Charles % (Auto) 6.0 (2-8) % Eos % (Auto) 3.5 H (1.0-3.0) % Baso % (Auto) 0.4 (0.0-1.0) % Sodium 138 (135-145) mmol/L Potassium 3.6 (3.6-5.0) mmol/L Chloride 108 (101-111) mmol/L Carbon Dioxide 26.0 (21.0-31.0) mmol/L Anion Gap 7.6 BUN 9 (7-18) mg/dL Creatinine 0.8 (0.6-1.3) mg/dL Est Cr Clr Drug Dosing 80.90 mL/min Estimated GFR (MDRD) > 60 Glucose 99 (74-105) mg/dL Calcium 8.0 L (8.4-10.2) mg/dl Phosphorus 2.0 L (2.5-4.6) mg/dL Magnesium 1.6 L (1.8-2.5) mg/dL Med Orders - Current: Current Medications Acetaminophen (Tylenol) 650 mg PO Q4H PRN PRN Reason: Pain (Mild 1-3)/fever Alprazolam (Xanax) 0.5 mg PO TID PRN PRN Reason: Anxiety Last Admin: 09/21/17 21:28 Dose: 0.5 mg Buspirone HCl (Buspar) 15 mg PO TID [facility] Last Admin: 09/22/17 08:27 Dose: 15 mg Carvedilol (Coreg) 6.25 mg PO BIDMEALS [facility] Last Admin: 09/22/17 08:26 Dose: 6.25 mg Cyclobenzaprine HCl (Flexeril) 10 mg PO TID PRN PRN Reason: Spasms Ferrous Sulfate (Ferrous Sulfate) 325 mg PO DAILY [facility] Last Admin: 09/22/17 08:24 Dose: 325 mg Folic Acid (Folic Acid) 1 mg PO DAILY [facility] Last Admin: 09/22/17 08:25 Dose: 1 mg Furosemide (Lasix) 40 mg PO DAILY [facility] Last Admin: 09/22/17 08:27 Dose: 40 mg Heparin Sodium (Porcine) (Heparin Sodium) 5,000 units SUBCUT Q8HR [facility] Last Admin: 09/22/17 06:11 Dose: 5,000 units Potassium Chloride/Sodium Chloride (Normal Saline With 20 Meq Kcl) 1,000 mls @ 75 mls/hr IV ASDIRECTED [facility] Last Admin: 09/22/17 07:34 Dose: 125 mls/hr Levothyroxine Sodium (Synthroid) 100 mcg PO DAILY [facility] Last Admin: 09/22/17 08:26 Dose: 100 mcg Levothyroxine Sodium (Levothyroxine) 75 mcg PO DAILY [facility] Last Admin: 09/22/17 08:24 Dose: 75 mcg Loperamide HCl (Imodium) 2 mg PO Q6H PRN PRN Reason: Diarrhea Magnesium Oxide (Magnesium Oxide) 250 mg PO BIDM [facility] Last Admin: 09/22/17 08:24 Dose: 250 mg Mometasone Furoate/Formoterol Fumar (Dulera 200-5 Mcg) 2 puff IH BIDRT [facility] Last Admin: 09/22/17 07:38 Dose: Not Given Morphine Sulfate (Morphine) 2 mg IVPUSH Q4H PRN PRN Reason: sever pain 7-10 Last Admin: 09/22/17 08:28 Dose: 2 mg Ondansetron HCl (Zofran Odt) 4 mg PO Q6H PRN PRN Reason: nausea, able to take PO Last Admin: 09/21/17 21:28 Dose: 4 mg Ondansetron HCl (Zofran) 4 mg IVPUSH Q6H PRN PRN Reason: Nausea/Vomiting Last Admin: 09/21/17 17:10 Dose: 4 mg Oxycodone HCl (Oxycodone) 5 mg PO Q6H PRN PRN Reason: Pain Last Admin: 09/22/17 06:11 Dose: 5 mg Potassium Chloride (Klor-Con 10) 10 meq PO BID [facility] Last Admin: 09/22/17 08:25 Dose: 10 meq Quetiapine Fumarate (Seroquel) 100 mg PO DAILY [facility] Last Admin: 09/22/17 08:28 Dose: 100 mg Quetiapine Fumarate (Seroquel) 300 mg PO BEDTIME [facility] Last Admin: 09/21/17 21:09 Dose: 300 mg Sertraline HCl (Zoloft) 100 mg PO QAM [facility] Last Admin: 09/22/17 08:23 Dose: 100 mg Sertraline HCl (Zoloft) 100 mg PO BEDTIME [facility] Last Admin: 09/21/17 21:09 Dose: 100 mg Simvastatin (Zocor) 40 mg PO DAILY [facility] Last Admin: 09/22/17 08:25 Dose: 40 mg Sodium Chloride (Saline Flush) 10 ml FLUSH ASDIRECTED PRN PRN Reason: Keep Vein Open Sodium Phosphate (Neutra-Phos) 250 mg PO QID [facility] Stop: 09/22/17 21:01 Discontinued Medications Sodium Chloride (Normal Saline) 1,000 mls @ 999 mls/hr IV .BOLUS ONE Stop: 09/20/17 20:15 Last Admin: 09/20/17 19:41 Dose: 999 mls/hr Potassium Chloride 10 meq/ (Premix) 100 mls @ 100 mls/hr IV ONETIME ONE Stop: 09/20/17 21:25 Last Admin: 09/20/17 20:32 Dose: 100 mls/hr Potassium Chloride 10 meq/ (Premix) 100 mls @ 50 mls/hr IV Q2H KP Stop: 09/21/17 07:59 Last Admin: 09/21/17 05:56 Dose: 50 mls/hr Morphine Sulfate (Morphine) 2 mg IVPUSH ONETIME ONE Stop: 09/20/17 20:13 Last Admin: 09/20/17 20:16 Dose: 2 mg Non-Formulary Medication (Estradiol [Estradiol]) 2 mg PO DAILY [facility] Last Admin: 09/21/17 12:00 Dose: Not Given Non-Formulary Medication (Ziprasidone Hcl [Geodon]) 80 mg PO QAM [facility] Last Admin: 09/21/17 12:00 Dose: Not Given Ondansetron HCl (Zofran) 4 mg IV ONETIME ONE Stop: 09/20/17 19:16 Last Admin: 09/20/17 19:41 Dose: 4 mg Potassium Chloride (Klor-Con 10) 40 meq PO ONETIME ONE Stop: 09/21/17 13:01 Last Admin: 09/21/17 12:00 Dose: 40 meq Quetiapine Fumarate (Seroquel) 300 mg PO BEDTIME [facility] Last Admin: 09/20/17 22:29 Dose: 300 mg - Exam General: Alert, Oriented, No Acute Distress Neck: Supple Lungs: Clear to Auscultation, Normal Respiratory Effort Cardiovascular: Regular Rate, Regular Rhythm GI/Abdominal Exam: Normal Bowel Sounds, Soft, No Distention, Tender. No: Distended, Rigid, Rebound Extremities: No Pedal Edema Skin: Warm Neurological: No New Focal Deficit Psy/Mental Status: Alert, Normal Affect, Normal Mood - Problem List Review Problem List Initiated/Reviewed/Updated: Yes - My Orders Last 24 Hours: My Active Orders 09/21/17 10:45 QUEtiapine [SEROquel] 100 mg PO DAILY 09/21/17 10:47 Morphine 2 mg IVPUSH Q4H PRN 09/21/17 18:00 Magnesium Oxide 250 mg PO BIDM 09/21/17 21:00 QUEtiapine [SEROquel] 300 mg PO BEDTIME 09/22/17 09:00 Furosemide [Lasix] 40 mg PO DAILY 09/22/17 09:57 Abdomen Pelvis w Cont [CT] Routine 09/22/17 13:00 Phosphorus #1 [Neutra-Phos] 250 mg PO QID 09/23/17 05:11 HEPATIC FUNCTION PANEL,HFP [CHEM] AM LIPASE [CHEM] AM MAGNESIUM [CHEM] AM PHOSPHORUS [CHEM] AM 09/23/17 05:15 BASIC METABOLIC PANEL,BMP [CHEM] AM CBC WITH AUTO DIFF [HEME] AM - Plan Plan:: The patient is a 52-year-old lady with a history of depression, hypothyroidism, chronic abdominal pain presumably due to chronic and recurrent pancreatitis. The patient recently had problems with her abdomen, admission for pancreatitis. The patient underwent GI consult and gastric erosions noted on EGD in December 2016. In July 2017 the patient also underwent barium esophagogram including pill study that was reported as negative. Dr. Adams was suggesting acid suppression. The patient presented with about 3-4 days of nausea, unable to eat, loose bowel movements. She was taking Zofran but then ran out of it. She feels that when taking pills they stuck in her mid chest area. The patient reports chronic abdominal pain which is normally around 6 out of 10 but in the past few days it was 9 out of 10. It is radiating to the back. T his is a bandlike pain in mid abdomen. did not change since admission The patient's abdomen examination is benign. I will do a CT abd/pelvis. If that is normal will advance diet, decrease narcs. Lipase was minimally elevated and it is improving Continue symptomatic management with antiemetics and pain medication. Try not to escalate narcotics too much. Acute renal failure This is likely due to low oral intake, diuretics combination Much improved with IV fluids, For now while the patient is on liquid diet continue hydration and follow and replace electrolytes as needed Severe hypokalemia Improved Will continue supplement supplement phosphorous Supplement magnesium, Recheck the morning Complains of dysphagia This was recently worked up by GI with pill study and barium esophagogram This was reported as negative We will evaluate when back on diet DVT prophylaxis will be with subcutaneous heparin
[2017-09-22] MEDS ORDERED: Iopamidol 612 MG/ML 100 ML Bottle IVPUSH ONE ×2 (10:32→13:00)
[2017-09-22] MEDS ORDERED: Barium Sulfate w/v 2.1% Oral Susp 450 ML Bottle PO ONE ×2 (10:33→13:00)
[2017-09-22] MEDS: Phosphorus #1 250 MG Tab PO SCH ×3 (13:11→20:58)
--- NOTE | 2017-09-22 15:01 | CT ---
CLINICAL HISTORY: 52-year-old hypertensive 210 pound hospitalized female patient complaining of upper abdominal pain. Pancreatitis? Normal WBC this patient who has had previous cholecystectomy, appendec humberto and hysterectomy. SCAN TECHNIQUE: Volume acquisition of data from the abdomen and pelvis obtained without oral contrast but during the intravenous administration 100 cc nonionic Isovue contrast (3 cc/s via injector) loyd rodriguez the patient was lying supine on the Siemens multislice scanner [facility]. All data archived in the PAC system for storage, reformatting axial/sagittal/coronal ata don and study. INTERPRETATION: 1. Atrophic pancreas without sign of cystic/solid mass lesion, pancreatic calcifications, major pancr eatic duct dilatation, or peripancreatic inflammatory "dirty" peritoneal fat. 2. Cholecystectomy. Appendectomy. Liver, stomach, spleen unremarkable. Normal adrenal glands, kidneys and bladder. 3. No abdominal mass lesion or mesenteric/retroperitoneal lymphadenopathy. No pelvic or adnexal mass lesion. Hysterectomy. 4. Fluid-filled loops of large intestine unremarkable. No sign of mechanical bowel obstruction, ascit es or free intraperitoneal air. 5. Normal caliber aortoiliac vessels. Lumbar spine unremarkable. Normal heart and lung bases clear. 6. No ventral wall or inguinal hernias. CONCLUSION: No acute intraperitoneal abnormality.
[2017-09-22] MEDS: Acetaminophen 325 MG Tab PO PRN (17:16)
[2017-09-22] MEDS: ALPRAZolam 0.5 MG Tab PO PRN (21:14)
[2017-09-23] MEDS: Ondansetron 4 MG Tab.DIS PO PRN (01:57)
[2017-09-23] MEDS: NS + KCl 20mEq/L 1,000 ML IV SCH (05:23)
[2017-09-23] MEDS: Heparin Sodium 5,000 Units/ML Vial SUBCUT SCH ×2 (05:55→13:37)
[2017-09-23] MEDS: ALPRAZolam 0.5 MG Tab PO PRN (06:02)
[2017-09-23] MEDS: Acetaminophen 325 MG Tab PO PRN (06:02)
[2017-09-23 07:39] LABS: ANION GAP 6.7; CHLORIDE,CL 107 mmol/L (101-111); SODIUM,NA 138 mmol/L (135-145)
[2017-09-23] MEDS: Formoterol/Mometasone 200-5 MCG 8.8 GM Inhaler IH SCH (07:49)
[2017-09-23] MEDS: QUEtiapine 100 MG Tab PO SCH (08:22)
[2017-09-23] MEDS: busPIRone 15 MG Tab PO SCH ×2 (08:22→13:37)
[2017-09-23] MEDS: Simvastatin 40 MG Tab PO SCH (08:23)
[2017-09-23] MEDS: Potassium Chloride 10 MEQ Tab.ER PO SCH (08:23)
[2017-09-23] MEDS: Ferrous Sulfate 325 MG Tab PO SCH (08:23)
[2017-09-23] MEDS: oxyCODONE 5 MG Tab PO PRN (08:23)
[2017-09-23] MEDS: Levothyroxine 100 MCG Tab PO SCH (08:23)
[2017-09-23] MEDS: Folic Acid 1 MG Tab PO SCH (08:24)
[2017-09-23] MEDS: Carvedilol 6.25 MG Tab PO SCH (08:24)
[2017-09-23] MEDS: Furosemide 40 MG Tab PO SCH (08:24)
[2017-09-23] MEDS: Levothyroxine 75 MCG Tab PO SCH (08:24)
[2017-09-23] MEDS: Sertraline 50 MG Tab PO SCH (08:25)
[2017-09-23] MEDS ORDERED: Magnesium Sulfate/Water 2 GM in Premix Bag 1 BAG IV ONE (10:56)
[2017-09-23 14:39] VITALS: BP 96/60
--- NOTE | 2017-09-23 16:55 | DISCH ---
ADMITTING DIAGNOSES: 1. Severe hypokalemia. 2. Abdominal pain. 3. Acute recurrent pancreatitis. 4. Acute renal failure. DISCHARGE DIAGNOSES: 1. Acute recurrent pancreatitis, improved. 2. Acute hypokalemia, improved. 3. Acute hypomagnesemia, improved. 4. Acute renal failure, resolved. HISTORY OF PRESENTING ILLNESS: Mrs. Stephanie Morales is a 52-year-old female with medical history significant for hypertension, hyperlipidemia, hypothyroidism, chronic abdominal pain, chronic recurrent pancreatitis, was admitted to the hospital with complaints of increasing abdominal pain and was noted to have acute renal failure and acute hypokalemia, requiring admission to the hospital. She was treated with IV and oral potassium chloride and IV fluids, after which, her acute renal failure got resolved. The patient was noted to have a creatinine of 1.8 at the time of admission, which has improved to 0.9 at the time of discharge. She was also noted to have a potassium of 2.7 at the time of admission and improved to 3.7 at the time of discharge. She responded well to the treatment. The patient also had a CT scan of the abdomen and pelvis done on this admission, which showed evidence of atrophic pancreas without any signs of cyst or solid mass lesion, pancreatic calcification. No acute intraperitoneal abnormality noted on the CAT scan. Her symptoms got improved. She is discharged to home in stable condition. She is advised to follow with her primary care physician in the next 1 week of time. PHYSICAL EXAMINATION: Vital Signs: On the day of discharge, temperature of 98.3, pulse of 58, blood pressure of 96/60, respiratory rate of 20, and saturating at 98%. General Appearance: The patient is well oriented to time, place, and person. Follows commands spontaneously. Cardiovascular System: S1 and S2 heard with normal intensity. No gallops. Respiratory System: Clear to auscultation bilaterally. No wheeze. No crepitations. Abdomen: Soft. Bowel sounds positive. Nontender. No rigidity. No guarding. No rebound tenderness. Extremities: No edema in bilateral lower extremities. Neurologic: No gross focal neurological deficit. MEDICATIONS: Discharge medications include: 1. Alprazolam 0.5 mg, 3 times a day as needed for anxiety. 2. Coreg 6.25 mg oral twice daily. 3. Vitamin B12, 1000 mcg daily. 4. Flexeril 10 mg, 3 times a day as needed. 5. Docusate sodium 1 tablet daily. 6. Estradiol 2 mg daily. 7. Ferrous sulfate 324 mg daily. 8. Advair 1 puff inhalation as needed for shortness of breath. 9. Folic acid 1 mg daily. 10.Lasix 20 mg twice a day as needed. 11.Levothyroxine 175 mcg daily. 12.Magnesium oxide 500 mg twice daily for 3 days. 13.Potassium chloride 10 mEq twice a day. 14.Seroquel 300 mg at bedtime and 100 mg in a.m. 15.Zoloft 100 mg twice a day. 16.Simvastatin 40 mg daily. 17.Geodon 80 mg every morning. 18.BuSpar 15 mg, 3 times a day. 19.Oxycodone 5 mg every 6 hours as needed for pain. CONDITION ON ADMISSION: Poor. CONDITION ON DISCHARGE: Stable. DISPOSITION: Discharged to home. ACTIVITY: As tolerated. DIET: Cardiac healthy diet. FOLLOWUP CARE: Follow with primary care physician in the next 1 week of time. TIME SPENT: Spent over 35 minutes of time in evaluating and treating this patient and making discharge plans. [facility] /[id number]
== END 2017-09-23 16:37 | disposition home or self-care (01) | DRG 682 ==
LOC: DL.ED 18:27 → UNDOADMIN 21:08 → DL.MS 21:08
PROVIDERS: ADMIT Internal Medicine; ATTEND Internal Medicine
DX: N17.9 Acute kidney failure, unspecified (principal); K85.90 Acute pancreatitis without necrosis or infection, unspecified; K86.1 Other chronic pancreatitis; E87.6 Hypokalemia; E83.42 Hypomagnesemia; E03.9 Hypothyroidism, unspecified; I10 Essential (primary) hypertension; E78.5 Hyperlipidemia, unspecified; F32.9 Major depressive disorder, single episode, unspecified; R13.10 Dysphagia, unspecified; H54.7 Unspecified visual loss; K59.09 Other constipation; G89.29 Other chronic pain; M54.9 Dorsalgia, unspecified; E53.8 Deficiency of other specified B group vitamins; Z88.8 Allergy status to other drugs, medicaments and biological substances; Z79.899 Other long term (current) drug therapy
CPT/HCPCS: 36415; 74177; 80048; 80053; 80076; 80305-QW; 81001; 82150; 83690; 83735; 84100; 85025; 96361; 96365; 96366; 96375; 99285; A9270-GY; J1644; J2270; J2405; J3475; J3480; J7030; Q9967

== ENCOUNTER 2017-10-08 17:10 | Emergency (ER) | payer OTHER ==
[2017-10-08] MEDS ORDERED: Sodium Chloride 0.9% 1,000 ML IV ONE ×2 (19:10→21:05)
[2017-10-08] MEDS ORDERED: Norepinephrine 4 MG in Dextrose 5% in Water 246 ML IV SCH ×2 (19:15)
[2017-10-08 19:33] LABS: ANION GAP 13.5; CHLORIDE,CL 99 mmol/L (101-111); SODIUM,NA 128 mmol/L (135-145)
--- NOTE | 2017-10-08 19:43 | EDM.PDOC ---
ED HPI GENERAL MEDICAL PROBLEM - General Chief Complaint: General Stated Complaint: FEEL SICK [id number] Time Seen by Provider: 10/08/17 19:00 Source of Information: Reports: Patient History Limitations: Reports: No Limitations - History of Present Illness INITIAL COMMENTS - FREE TEXT/NARRATIVE: c/o not feeling well weak, epigastric upper abdominal pain radiating to chest. Small void this am, none since, increased fluid in legs. hx cardiomyopathy from viral infection. productive cough, yellowish phlegm, no fever. stools dark, on iron, no hx gi bleed. Hospitalized 2 weeks ago for dehydration. Primary MD. Dr. Gore, scheduled to see cardiology at [facility]. [facility], has not seen for years. Epigastric Pain Score (Numeric/FACES): 8 - Related Data Allergies Allergy/AdvReac Type Severity Reaction Status Date / Time cephalexin [Cephalexin] AdvReac Nausea and Verified 10/08/17 18:55 Vomiting prednisone AdvReac Vomiting Verified 10/08/17 18:55 cats Allergy Sneezing Uncoded 10/08/17 18:55 evergreen tree Allergy Rash Uncoded 10/08/17 18:55 Home Meds: Home Meds Carvedilol 6.25 mg PO BID 05/07/13 [History] Estradiol 2 mg PO DAILY 05/07/13 [History] Furosemide [Lasix] 20 mg PO BID PRN 05/07/13 [History] Potassium Chloride [Klor-Con 10] 10 meq PO BID 05/07/13 [History] QUEtiapine Fumarate [Seroquel] 100 mg PO DAILY 05/07/13 [History] QUEtiapine [SEROquel] 300 mg PO BEDTIME 05/07/13 [History] Sertraline [Zoloft] 100 mg PO QAM 05/07/13 [History] Simvastatin 40 mg PO DAILY 05/07/13 [History] busPIRone [Buspar] 15 mg PO TID 05/07/13 [History] ALPRAZolam [Alprazolam ODT] 0.5 mg PO TID PRN 09/10/14 [History] Levothyroxine 175 mcg PO DAILY 10/17/14 [History] Cyanocobalamin (Vitamin B12) [Vitamin B12] 1,000 mcg IM .MONTHLY 12/27/14 [ History] Ferrous Sulfate 324 mg PO DAILY 12/27/14 [History] Fluticasone/Salmeterol [Advair 500-50] 1 puff INH ASDIRECTED PRN 12/27/14 [ History] Folic Acid 1 mg PO DAILY 12/27/14 [History] Cyclobenzaprine [Flexeril] 10 mg PO TID PRN 07/21/16 [History] Ziprasidone HCl [Geodon] 80 mg PO QAM 08/25/16 [History] oxyCODONE 5 mg PO Q6H PRN #15 tablet 08/30/16 [Rx] Docusate Sodium/Sennosides [Senna Plus] 1 tab PO DAILY 03/28/17 [History] Patient's Own Medication [Ptom] 2 tab PO QAM PRN 03/28/17 [History] Sertraline [Zoloft] 100 mg PO QPM 03/28/17 [History] Magnesium Oxide 500 mg PO BIDM #7 tablet 09/23/17 [Rx] Past Medical History HEENT 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: Impaired Vision Other HEENT History: wears glasses Cardiovascular 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: Heart Failure Other Cardiovascular History: Impaired EF 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: Asthma, SOB Gastrointestinal 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: Chronic Constipation, Pancreatitis Genitourinary 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: None BRAND DIRECTOR 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: Other (See Below) Other BRAND DIRECTOR History: hysterectomy Musculoskeletal 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: Back Pain, Chronic Neurological 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: None Psychiatric 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: Anxiety, Depression Endocrine/Metabolic 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: Hypothyroidism Hematologic 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: Anemia, B12 Deficiency Immunologic 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: None Oncologic (Cancer) 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: None Dermatologic 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: None - Infectious Disease History Infectious Disease 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: Chicken Pox - Past Surgical History Head Surgeries/Procedures: Reports: None GI Surgical 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: Appendectomy, Cholecystectomy Female Surgical 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: Hysterectomy, Tubal Ligation Social & Family History - Family History Family Medical History: Noncontributory - Tobacco Use Smoking Status *Q: Never Smoker - Caffeine Use Caffeine Use: Reports: Soda - Recreational Drug Use Recreational Drug Use: No ED ROS GENERAL - Review of Systems Review Of Systems: See Below Constitutional: Reports: Malaise, Weakness, Fatigue HEENT: Reports: No Symptoms, Glasses Respiratory: Reports: Cough, Sputum (yellow) Cardiovascular: Reports: Edema, Lightheadedness GI/Abdominal: Reports: No Symptoms : Reports: Other (states only voided twice since yesterday morning, last this am only small amount) Musculoskeletal: Reports: No Symptoms Skin: Reports: No Symptoms Neurological: Reports: Weakness (generalized) ED EXAM, GENERAL - Physical Exam Exam: See Below Exam Limited By: No Limitations General Appearance: Alert, No Apparent Distress, Other (slowed response time. ) Eye Exam: Bilateral Eye: EOMI Ears: Normal External Exam Nose: Normal Inspection Throat/Mouth: Normal Inspection Head: Atraumatic, Normocephalic Neck: Normal Inspection, Full Range of Motion Respiratory/Chest: No Respiratory Distress, Decreased Breath Sounds (bilateral) Cardiovascular: Normal Peripheral Pulses, Regular Rate, Rhythm GI/Abdominal: Normal Bowel Sounds, Soft, Tender (mid epigastric) Rectal (Female) Exam: Normal Rectal Tone, Heme - Stool Extremities: Pedal Edema (2+) Neurological: Alert, Oriented, Normal Cognition, Normal Reflexes, Slow to Respond Psychiatric: Flat Affect Skin Exam: Warm, Intact, Pallor Course - Vital Signs Last Recorded V/S: Last Vital Signs Temp 98.0 F 10/08/17 21:07 Pulse 90 10/08/17 21:34 Resp 22 H 10/08/17 21:31 BP 79/48 L 10/08/17 21:34 Pulse Ox 95 10/08/17 21:31 - Orders/Labs/Meds Orders: Active Orders 24 hr Category Date Time Status EKG Documentation Completion [RC] URGENT Care 10/08/17 19:10 Active Sheppard Catheter Insertion [Insert Urinary Catheter] [OM. Care 10/08/17 19:45 Ordered PC] Q24H Urinary Catheter Assessment [RC] ASDIRECTED Care 10/08/17 19:39 Active Hemoccult, Stool [OCCULT BLOOD DIAGNOSTIC] [OP] Stat Lab 10/08/17 19:29 Ordered Labs: Laboratory Tests 10/08/17 10/08/17 10/08/17 Range/Units 19:05 19:05 19:05 WBC 12.6 H (5.0-10.0) 10^3/uL RBC 2.85 L (4.2-5.4) 10^6/uL Hgb 9.0 L (12.0-16.0) g/dL Hct 28.0 L (37.0-47.0) % MCV 98.2 D (80-100) fL MCH 31.6 (27.0-34.0) pg MCHC 32.1 L (33.0-35.0) g/dL Plt Count 208 (150-450) 10^3/uL Neut % (Auto) 78.7 H (42.2-75.2) % Lymph % (Auto) 6.7 L (20.5-50.1) % [place] % (Auto) 11.3 H (2-8) % Eos % (Auto) 3.2 H (1.0-3.0) % Baso % (Auto) 0.1 (0.0-1.0) % Add Manual Diff Yes Neutrophils % (Manual) 61 (42-75) % Band Neutrophils % 19 % Lymphocytes % (Manual) 9 L (20-50) % Atypical Lymphs % 0 % Monocytes % (Manual) 8 (2-8) % Eosinophils % (Manual) 3 (1-3) % Basophils % (Manual) 0 Toxic Granulation 2+ moderate Anisocytosis 1+ slight D-Dimer, Quantitative 546 H (0-400) ng/mL Sodium 128 L D (135-145) mmol/L Potassium 2.5 L (3.6-5.0) mmol/L Chloride 99 L (101-111) mmol/L Carbon Dioxide 18.0 L D (21.0-31.0) mmol/L Anion Gap 13.5 BUN 35 H (7-18) mg/dL Creatinine 2.0 H (0.6-1.3) mg/dL Est Cr Clr Drug Dosing 32.36 mL/min Estimated GFR (MDRD) 26 BUN/Creatinine Ratio 17.50 Glucose 102 (74-105) mg/dL Lactic Acid (0.5-2.2) mmol/L Calcium 8.0 L (8.4-10.2) mg/dl Magnesium 1.4 L (1.8-2.5) mg/dL Total Bilirubin 0.6 (0.2-1.0) mg/dL AST 10 (10-42) IU/L ALT 12 (10-60) IU/L Alkaline Phosphatase 59 (42-121) IU/L CK-MB (CK-2) (0.4-4.7) ng/mL Troponin I < 0.02 (0.00-0.02) ng/ml Total Protein 5.6 L (6.7-8.2) g/dl Albumin 2.7 L (3.2-5.5) g/dl Globulin 2.9 Albumin/Globulin Ratio 0.93 Amylase 17 L (28-100) U/L Lipase 25 (22-51) U/L Ethyl Alcohol < 5 mg/dL 10/08/17 10/08/17 Range/Units 19:05 19:05 WBC (5.0-10.0) 10^3/uL RBC (4.2-5.4) 10^6/uL Hgb (12.0-16.0) g/dL Hct (37.0-47.0) % MCV (80-100) fL MCH (27.0-34.0) pg MCHC (33.0-35.0) g/dL Plt Count (150-450) 10^3/uL Neut % (Auto) (42.2-75.2) % Lymph % (Auto) (20.5-50.1) % [place] % (Auto) (2-8) % Eos % (Auto) (1.0-3.0) % Baso % (Auto) (0.0-1.0) % Add Manual Diff Neutrophils % (Manual) (42-75) % Band Neutrophils % % Lymphocytes % (Manual) (20-50) % Atypical Lymphs % % Monocytes % (Manual) (2-8) % Eosinophils % (Manual) (1-3) % Basophils % (Manual) Toxic Granulation Anisocytosis D-Dimer, Quantitative (0-400) ng/mL Sodium (135-145) mmol/L Potassium (3.6-5.0) mmol/L Chloride (101-111) mmol/L Carbon Dioxide (21.0-31.0) mmol/L Anion Gap BUN (7-18) mg/dL Creatinine (0.6-1.3) mg/dL Est Cr Clr Drug Dosing mL/min Estimated GFR (MDRD) BUN/Creatinine Ratio Glucose (74-105) mg/dL Lactic Acid 1.3 (0.5-2.2) mmol/L Calcium (8.4-10.2) mg/dl Magnesium (1.8-2.5) mg/dL Total Bilirubin (0.2-1.0) mg/dL AST (10-42) IU/L ALT (10-60) IU/L Alkaline Phosphatase (42-121) IU/L CK-MB (CK-2) 1.30 (0.4-4.7) ng/mL Troponin I (0.00-0.02) ng/ml Total Protein (6.7-8.2) g/dl Albumin (3.2-5.5) g/dl Globulin Albumin/Globulin Ratio Amylase (28-100) U/L Lipase (22-51) U/L Ethyl Alcohol mg/dL Meds: Medications Discontinued Medications Generic Name Dose Route Start Last Admin Trade Name Freq PRN Reason Stop Dose Admin Sodium Chloride 1,000 mls @ 999 mls/hr 10/08/17 19:10 10/08/17 19:13 Normal Saline IV 10/08/17 20:10 999 mls/hr .BOLUS ONE Administration Norepinephrine Bitartrate 4 mg 250 mls @ 7.5 mls/hr 10/08/17 19:15 10/08/17 21:05 / Dextrose/Water IV 6 mcg/min TITRATE PK 22.5 mls/hr Titration Protocol 2 MCG/MIN Potassium Chloride 10 meq/ 0 mls @ 100 mls/hr 10/08/17 19:47 10/08/17 19:52 Premix IV 10/08/17 19:48 100 mls/hr ONETIME ONE Administration Sodium Chloride 1,000 mls @ 999 mls/hr 10/08/17 21:05 10/08/17 21:05 Normal Saline IV 10/08/17 22:05 999 mls/hr .BOLUS ONE Administration Norepinephrine Bitartrate Confirm 10/08/17 20:11 10/08/17 21:03 Levophed Administered 10/08/17 20:12 Not Given Dose 4 mg .ROUTE .[employer]-MED ONE - Radiology Interpretation Free Text/Narrative:: CXR fibrotic, and or atelectatic changes noted within bases - Re-Assessments/Exams Free Text/Narrative Re-Assessment/Exam: Patient remained alert, responses appropriate, slow at times. BP improved slightly with fluids, Levophed required to improve BP. Dr Joiner accepting of patient. Tx via [employer] Departure - Departure Time of Disposition: 21:20 Disposition: DC/Tfer to Acute Hospital 02 Condition: Undetermined Clinical Impression: Hyponatremia, Hypokalemia, Dehydration, Hypomagnesemia - Discharge Information Referrals: PCP,None [Primary Care Provider] - Forms: ED Department Discharge - My Orders Last 24 Hours: My Active Orders 10/08/17 19:10 EKG Documentation Completion [RC] URGENT 10/08/17 19:29 Hemoccult, Stool [OCCULT BLOOD DIAGNOSTIC] [OP] Stat 10/08/17 19:39 Urinary Catheter Assessment [RC] ASDIRECTED 10/08/17 19:45 Sheppard Catheter Insertion [Insert Urinary Catheter] [OM.PC] Q24H - Assessment/Plan Last 24 Hours: My Active Orders 10/08/17 19:10 EKG Documentation Completion [RC] URGENT 10/08/17 19:29 Hemoccult, Stool [OCCULT BLOOD DIAGNOSTIC] [OP] Stat 10/08/17 19:39 Urinary Catheter Assessment [RC] ASDIRECTED 10/08/17 19:45 Sheppard Catheter Insertion [Insert Urinary Catheter] [OM.PC] Q24H
[2017-10-08] MEDS ORDERED: Potassium Chloride 10 MEQ in Premix Bag 2 BAG IV ONE (19:47)
[2017-10-08] MEDS ORDERED: Norepinephrine 4 MG/4 ML SDV ONE (20:11)
[2017-10-08 21:35] VITALS: BP 79/48
--- NOTE | 2017-10-13 12:43 | EKG ---
10/08/2017- ALTAGRACIA GARCIA - FINDINGS: A 12-lead EKG shows normal sinus rhythm with heart rate of 81. No significant ST elevation or ST depression. Prolonged QT interval. Nonspecific T-wave changes noted on leads V2 and V3. QTc measuring up to 511. [facility] /[id number]
== END 2017-10-08 22:04 ==
LOC: DL.ED 17:10
DX: E87.1 Hypo-osmolality and hyponatremia (principal); E86.0 Dehydration; E83.42 Hypomagnesemia; E87.5 Hyperkalemia; Z88.8 Allergy status to other drugs, medicaments and biological substances; Z88.1 Allergy status to other antibiotic agents; Z91.048 Other nonmedicinal substance allergy status; Z79.899 Other long term (current) drug therapy
CPT/HCPCS: 36415; 51703; 71045; 80053; 82150; 82272; 82553; 83605; 83690; 83735; 84484; 85025; 85379; 93005; 96361; 96365; 96367; 99285; G0480; J3480; J7030; J7060

== ENCOUNTER 2017-11-12 22:23 | Observation (INO) | payer OTHER ==
--- NOTE | 2017-11-13 00:08 | EDM.PDOC ---
ED HPI GENERAL MEDICAL PROBLEM - General Chief Complaint: Cardiovascular Problem Stated Complaint: CANT MOVE OR LIFT LEGS [id number] Time Seen by Provider: 11/13/17 00:03 Source of Information: Reports: Patient History Limitations: Reports: No Limitations - History of Present Illness INITIAL COMMENTS - FREE TEXT/NARRATIVE: been having leg swelling past month been taking lasix and sleeps with head up & legs up. they never go down in the morning and not getting any better. gets SOB regularly no chest pain but does feel uncomfortable due to her SOB. now legs hurt all the time and it's hard to walk about due to pain. 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: Other Medication(s) Upper Abdomen Pain Score (Numeric/FACES): 7 Bilateral Leg Pain Score (Numeric/FACES): 8 - Related Data Allergies Allergy/AdvReac Type Severity Reaction Status Date / Time cephalexin [Cephalexin] AdvReac Nausea and Verified 11/12/17 23:35 Vomiting prednisone AdvReac Vomiting Verified 11/12/17 23:35 cats Allergy Sneezing Uncoded 11/12/17 23:35 evergreen tree Allergy Rash Uncoded 11/12/17 23:35 Home Meds: Home Meds Carvedilol 6.25 mg PO BID 05/07/13 [History] Furosemide [Lasix] 20 mg PO BID PRN 05/07/13 [History] Potassium Chloride [Klor-Con 10] 10 meq PO BID 05/07/13 [History] QUEtiapine Fumarate [Seroquel] 100 mg PO BID 05/07/13 [History] QUEtiapine [SEROquel] 300 mg PO BEDTIME 05/07/13 [History] Sertraline [Zoloft] 100 mg PO QAM 05/07/13 [History] Simvastatin 40 mg PO DAILY 05/07/13 [History] busPIRone [Buspar] 15 mg PO TID 05/07/13 [History] ALPRAZolam [Alprazolam ODT] 0.5 mg PO TID PRN 09/10/14 [History] Levothyroxine 175 mcg PO DAILY 10/17/14 [History] Cyanocobalamin (Vitamin B12) [Vitamin B12] 1,000 mcg IM .MONTHLY 12/27/14 [ History] Ferrous Sulfate 324 mg PO DAILY 12/27/14 [History] Fluticasone/Salmeterol [Advair 500-50] 1 puff INH ASDIRECTED PRN 12/27/14 [ History] Folic Acid 1 mg PO DAILY 12/27/14 [History] Cyclobenzaprine [Flexeril] 10 mg PO TID PRN 07/21/16 [History] Ziprasidone HCl [Geodon] 80 mg PO QAM 08/25/16 [History] oxyCODONE 5 mg PO Q6H PRN #15 tablet 08/30/16 [Rx] Docusate Sodium/Sennosides [Senna Plus] 1 tab PO DAILY 03/28/17 [History] Patient's Own Medication [Ptom] 2 tab PO QAM PRN 03/28/17 [History] Sertraline [Zoloft] 100 mg PO QPM 03/28/17 [History] Magnesium Oxide 500 mg PO BIDM #7 tablet 09/23/17 [Rx] Past Medical History HEENT 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: Impaired Vision Other HEENT History: wears glasses Cardiovascular 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: Heart Failure Other Cardiovascular History: Impaired EF 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: Asthma, SOB Gastrointestinal 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: Chronic Constipation, Pancreatitis Genitourinary 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: None 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: Other (See Below) Other LABELING STRATEGIST History: hysterectomy Musculoskeletal 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: Back Pain, Chronic Neurological 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: None Psychiatric 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: Anxiety, Depression Endocrine/Metabolic 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: Hypothyroidism Hematologic 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: Anemia, B12 Deficiency Immunologic 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: None Oncologic (Cancer) 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: None Dermatologic 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: None - Infectious Disease History Infectious Disease 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: Chicken Pox - Past Surgical History Head Surgeries/Procedures: Reports: None GI Surgical 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: Appendectomy, Cholecystectomy Female Surgical 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: Hysterectomy, Tubal Ligation Social & Family History - Family History Family Medical History: Noncontributory - Tobacco Use Smoking Status *Q: Never Smoker Second Hand Smoke Exposure: No - Caffeine Use Caffeine Use: Reports: None - Recreational Drug Use Recreational Drug Use: No ED ROS GENERAL - Review of Systems Review Of Systems: ROS reveals no pertinent complaints other than HPI. ED EXAM, GENERAL - Physical Exam Exam: See Below Exam Limited By: No Limitations General Appearance: Alert, WD/WN, Mild Distress, Other (distraught) Ears: Hearing Grossly Normal Throat/Mouth: Normal Voice, No Airway Compromise Head: Atraumatic Neck: Non-Tender, Full Range of Motion Respiratory/Chest: No Respiratory Distress, Rhonchi Cardiovascular: Regular Rate, Rhythm GI/Abdominal: Soft, Non-Tender Extremities: Pedal Edema, Other (3+ bilateral) Neurological: Alert, Oriented, Normal Cognition, No Motor/Sensory Deficits, Other (gait limited to discomfort) Psychiatric: Normal Affect, Normal Mood Skin Exam: Warm, Dry, Intact, Normal Color, No Rash Lymphatic: No Adenopathy Course - Vital Signs Last Recorded V/S: Last Vital Signs Temp 36.5 C 11/12/17 23:31 Pulse 86 11/12/17 23:31 Resp 16 11/12/17 23:31 BP 105/65 11/12/17 23:31 Pulse Ox 97 11/12/17 23:31 - Orders/Labs/Meds Labs: Laboratory Tests 11/12/17 11/13/17 11/13/17 Range/Units 23:50 00:08 00:08 WBC 7.5 (5.0-10.0) 10^3/uL RBC 3.15 L (4.2-5.4) 10^6/uL Hgb 10.0 L (12.0-16.0) g/dL Hct 30.3 L (37.0-47.0) % MCV 96.2 (80-100) fL MCH 31.7 (27.0-34.0) pg MCHC 33.0 (33.0-35.0) g/dL Plt Count 263 (150-450) 10^3/uL Neut % (Auto) 68.4 (42.2-75.2) % Lymph % (Auto) 19.9 L (20.5-50.1) % [place] % (Auto) 7.1 (2-8) % Eos % (Auto) 4.2 H (1.0-3.0) % Baso % (Auto) 0.4 (0.0-1.0) % Sodium 132 L (135-145) mmol/L Potassium 2.8 L (3.6-5.0) mmol/L Chloride 94 L (101-111) mmol/L Carbon Dioxide 26.0 (21.0-31.0) mmol/L Anion Gap 14.8 BUN 29 H (7-18) mg/dL Creatinine 1.5 H (0.6-1.3) mg/dL Est Cr Clr Drug Dosing 43.15 mL/min Estimated GFR (MDRD) 37 BUN/Creatinine Ratio 19.33 Glucose 119 H (74-105) mg/dL Calcium 8.8 (8.4-10.2) mg/dl Magnesium (1.8-2.5) mg/dL Total Bilirubin 0.3 (0.2-1.0) mg/dL AST 16 (10-42) IU/L ALT 17 (10-60) IU/L Alkaline Phosphatase 103 (42-121) IU/L Troponin I < 0.02 (0.00-0.02) ng/ml B-Natriuretic Peptide 16 (0-100) pg/ml Total Protein 6.8 (6.7-8.2) g/dl Albumin 3.6 (3.2-5.5) g/dl Globulin 3.2 Albumin/Globulin Ratio 1.13 Urine Color Straw (YELLOW) Urine Appearance Clear (CLEAR) Urine pH 5.0 (5.0-9.0) Ur Specific [place] 1.010 (1.005-1.030) Urine Protein Negative (NEGATIVE) Urine Glucose (UA) Negative (NEGATIVE) Urine Ketones Negative (NEGATIVE) Urine Occult Blood Negative (NEGATIVE) Urine Nitrite Negative (NEGATIVE) Urine Bilirubin Negative (NEGATIVE) Urine Urobilinogen 0.2 (0.2-1.0) mg/dL Ur Leukocyte Esterase Negative (NEGATIVE) Urine RBC 0-5 /HPF Urine WBC 0-5 (0-5/HPF) /HPF Ur Epithelial Cells Few /HPF Urine Bacteria Occasional (0-FEW/HPF) /HPF 11/13/17 Range/Units 00:08 WBC (5.0-10.0) 10^3/uL RBC (4.2-5.4) 10^6/uL Hgb (12.0-16.0) g/dL Hct (37.0-47.0) % MCV (80-100) fL MCH (27.0-34.0) pg MCHC (33.0-35.0) g/dL Plt Count (150-450) 10^3/uL Neut % (Auto) (42.2-75.2) % Lymph % (Auto) (20.5-50.1) % [place] % (Auto) (2-8) % Eos % (Auto) (1.0-3.0) % Baso % (Auto) (0.0-1.0) % Sodium (135-145) mmol/L Potassium (3.6-5.0) mmol/L Chloride (101-111) mmol/L Carbon Dioxide (21.0-31.0) mmol/L Anion Gap BUN (7-18) mg/dL Creatinine (0.6-1.3) mg/dL Est Cr Clr Drug Dosing mL/min Estimated GFR (MDRD) BUN/Creatinine Ratio Glucose (74-105) mg/dL Calcium (8.4-10.2) mg/dl Magnesium 1.8 (1.8-2.5) mg/dL Total Bilirubin (0.2-1.0) mg/dL AST (10-42) IU/L ALT (10-60) IU/L Alkaline Phosphatase (42-121) IU/L Troponin I (0.00-0.02) ng/ml B-Natriuretic Peptide (0-100) pg/ml Total Protein (6.7-8.2) g/dl Albumin (3.2-5.5) g/dl Globulin Albumin/Globulin Ratio Urine Color (YELLOW) Urine Appearance (CLEAR) Urine pH (5.0-9.0) Ur Specific [place] (1.005-1.030) Urine Protein (NEGATIVE) Urine Glucose (UA) (NEGATIVE) Urine Ketones (NEGATIVE) Urine Occult Blood (NEGATIVE) Urine Nitrite (NEGATIVE) Urine Bilirubin (NEGATIVE) Urine Urobilinogen (0.2-1.0) mg/dL Ur Leukocyte Esterase (NEGATIVE) Urine RBC /HPF Urine WBC (0-5/HPF) /HPF Ur Epithelial Cells /HPF Urine Bacteria (0-FEW/HPF) /HPF - Re-Assessments/Exams Free Text/Narrative Re-Assessment/Exam: 11/13/17 02:[address] Velasquez who kindly admitted tp to observation Departure - Departure Time of Disposition: 02:16 Disposition: Refer to Observation Condition: Fair Clinical Impression: Dehydration syndrome, Hypokalemia, Hyponatremia Cardiomyopathy Qualifiers: Cardiomyopathy type: unspecified Qualified Code(s): I42.9 - Cardiomyopathy, unspecified Forms: ED Department Discharge
[2017-11-13 00:34] LABS: ANION GAP 14.8; CHLORIDE,CL 94 mmol/L (101-111); SODIUM,NA 132 mmol/L (135-145)
[2017-11-13] MEDS ORDERED: Ondansetron 4 MG/2 ML SDV IVPUSH PRN (03:34)
[2017-11-13] MEDS ORDERED: Nitroglycerin 0.4 MG Tab.SL SL PRN (03:44)
[2017-11-13] MEDS ORDERED: Non-Formulary Medication 1 Each (Acetaminophen [Tylenol Arthritis] 1,300 MG) PO PRN (03:44)
[2017-11-13] MEDS ORDERED: Cyanocobalamin (Vitamin B12) 1,000 MCG/ML SDV IM SCH (03:45)
[2017-11-13] MEDS ORDERED: Non-Formulary Medication 1 Each (Cholecalciferol (Vitamin D3) [Vitamin D3] 50,000 UNIT) PO SCH (03:45)
--- NOTE | 2017-11-13 03:52 | PCM.HP ---
H&P History of Present Illness - General Date of Service: 11/13/17 Admit Problem/Dx: Admission Diagnosis/Problem Admission Diagnosis/Problem Edema Source of Information: Patient History Limitations: Reports: No Limitations - History of Present Illness Initial Comments - Free Text/Narative: Kailyn dias 52 y.o.woman with PMH of Hypertension, Hyperlipidemia, Hypothyroidism, Viral Myocarditis, chronic b/l LE edema. She presented to the ER c/o increasing leg swelling. Patient is on lasix but say she has noted increasing leg swelling for the past few week. Swelling is unresolved in the morning despites keeping legs on pillow. The do not get worse at the end of day. She reports increasing pain to both legs. No redness or color change. She denies fever, chills. She dehies, SOP, orthopnea, PND. No chest pain. Inthe ER labs showed Na 132, K 2.8, wbc wnl, hb 10, creatinine 1.5, phos 5.1 Duration of Symptoms: Reports: Week(s): Location: Reports: Lower Extremity, Left, Lower Extremity, Right Quality: Reports: Dull Improves with: Reports: None Worsens with: Reports: None Context: Reports: Activity/Exercise Associated Symptoms: Reports: No Other Symptoms Upper Abdomen Pain Score (Numeric/FACES): 7 Bilateral Leg Pain Score (Numeric/FACES): 8 - Related Data Allergies/Adverse Reactions: Allergies Allergy/AdvReac Type Severity Reaction Status Date / Time cephalexin [Cephalexin] AdvReac Nausea and Verified 11/12/17 23:35 Vomiting prednisone AdvReac Vomiting Verified 11/12/17 23:35 cats Allergy Sneezing Uncoded 11/12/17 23:35 evergreen tree Allergy Rash Uncoded 11/12/17 23:35 Home Medications: Home Meds Carvedilol 6.25 mg PO BID 05/07/13 [History] Furosemide [Lasix] 20 mg PO .EVERYOTHERDAY PRN 05/07/13 [History] Potassium Chloride [Klor-Con 10] 10 meq PO BID 05/07/13 [History] QUEtiapine Fumarate [Seroquel] 100 mg PO DAILY 05/07/13 [History] Sertraline [Zoloft] 100 mg PO BID 05/07/13 [History] Simvastatin 40 mg PO BEDTIME 05/07/13 [History] busPIRone [Buspar] 15 mg PO TID 05/07/13 [History] ALPRAZolam [Alprazolam ODT] 0.5 mg PO TID PRN 09/10/14 [History] Levothyroxine 150 mcg PO DAILY 10/17/14 [History] Cyanocobalamin (Vitamin B12) [Vitamin B12] 1,000 mcg IM .MONTHLY 12/27/14 [ History] Folic Acid 1 mg PO DAILY 12/27/14 [History] Cyclobenzaprine [Flexeril] 10 mg PO TID PRN 07/21/16 [History] Ziprasidone HCl [Geodon] 80 mg PO QAM 08/25/16 [History] Sertraline [Zoloft] 100 mg PO QPM 03/28/17 [History] Acetaminophen [Tylenol Arthritis] 1,300 mg PO Q4HR PRN 11/13/17 [History] Albuterol Sulfate [Proair Respiclick] 90 mcg IH Q6HR PRN 11/13/17 [History] Amoxicillin/Clavulanate K [Augmentin 875-125 MG] 1 tab PO BIDMEALS 11/13/17 [ History] Ascorbate Calcium [Vitamin C] 500 mg PO DAILY 11/13/17 [History] Cholecalciferol (Vitamin D3) [Vitamin D3] 50,000 unit PO WEEKLY 11/13/17 [ History] Esomeprazole Magnesium [Nexium] 40 mg PO BID 11/13/17 [History] Ferrous Fumarate 324 mg PO BID 11/13/17 [History] Folic Acid 1 mg PO DAILY 11/13/17 [History] Levothyroxine 150 mcg PO ACBREAKFAST 11/13/17 [History] Loperamide [Imodium] 2 mg PO Q4H PRN 11/13/17 [History] Loratadine 10 mg PO DAILY 11/13/17 [History] Magnesium Oxide [Magnesium] 400 mg PO BID 11/13/17 [History] Multivitamin [Multivitamins] 1 each PO DAILY 11/13/17 [History] Nitroglycerin 0.4 mg SL .[id number] PRN 11/13/17 [History] Ondansetron [Zofran ODT] 4 mg PO Q8HR PRN 11/13/17 [History] Potassium Chloride 10 meq PO TID 11/13/17 [History] Triamcinolone Acetonide [Triamcinolone Acetonide 0.1% Oint] 1 applic TOP BID [History] oxyCODONE HCl/Acetaminophen [Oxycodone-Acetaminophen 5-325] 1 each PO Q8HR PRN 11/13/17 [History] Past Medical History HEENT 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: Impaired Vision Other HEENT History: wears glasses Cardiovascular 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: Heart Failure Other Cardiovascular History: Impaired EF 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: Asthma, SOB Gastrointestinal 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: Chronic Constipation, Pancreatitis Genitourinary 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: None [employer] 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: Other (See Below) Other OB/BYN History: hysterectomy Musculoskeletal 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: Back Pain, Chronic Neurological 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: None Psychiatric 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: Anxiety, Depression Endocrine/Metabolic 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: Hypothyroidism Hematologic 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: Anemia, B12 Deficiency Immunologic 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: None Oncologic (Cancer) 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: None Dermatologic 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: None - Infectious Disease History Infectious Disease 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: Chicken Pox - Past Surgical History Head Surgeries/Procedures: Reports: None GI Surgical 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: Appendectomy, Cholecystectomy Female Surgical 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: Hysterectomy, Tubal Ligation Social & Family History - Family History Family Medical History: Noncontributory - Tobacco Use Smoking Status *Q: Never Smoker Second Hand Smoke Exposure: No - Caffeine Use Caffeine Use: Reports: None - Recreational Drug Use Recreational Drug Use: No H&P Review of Systems - Review of Systems: Review Of Systems: See Below General: Reports: No Symptoms HEENT: Reports: No Symptoms Pulmonary: Reports: No Symptoms Cardiovascular: Reports: No Symptoms Gastrointestinal: Reports: No Symptoms Genitourinary: Reports: No Symptoms Musculoskeletal: Reports: No Symptoms Skin: Reports: No Symptoms Psychiatric: Reports: No Symptoms Neurological: Reports: No Symptoms Hematologic/Lymphatic: Reports: No Symptoms Immunologic: Reports: No Symptoms Exam - Exam Exam: See Below - Vital Signs Vital Signs: Last Vital Signs Temp 97.7 F 11/12/17 23:31 Pulse 86 11/12/17 23:31 Resp 16 11/12/17 23:31 BP 105/65 11/12/17 23:31 Pulse Ox 97 11/12/17 23:31 Weight: 229 lb - Exam General: Alert, Oriented, 4 HEENT: PERRLA, Hearing Intact, Mucosa Moist & [place], Nares Patent, Normal Nasal Septum, Posterior Pharynx Clear, Conjunctiva Clear, EOMI, EACs Clear, TMs Clear Neck: Supple, Trachea Midline, 2 Lungs: Clear to Auscultation, Normal Respiratory Effort Cardiovascular: Regular Rate, Regular Rhythm GI/Abdominal Exam: Normal Bowel Sounds, Soft, Non-Tender, No Organomegaly, No Distention, No Abnormal Bruit, No Mass, Pelvis Stable (Female) Exam: Normal External Exam, Deferred Rectal (Female) Exam: Deferred, Fecal Impaction Back Exam: Normal Inspection, Full Range of Motion, NT Extremities: Normal Inspection, Normal Range of Motion, Non-Tender, Normal Capillary Refill, Pedal Edema, Other (b/l lower leg extremity edema) Skin: Warm, Dry, Intact Neurological: Cranial Nerves Intact, Reflexes Equal Bilateral Neuro Extensive - Mental Status: Alert, Oriented x3, Normal Mood/Affect, Normal Cognition Neuro Extensive - Motor, Sensory, Reflexes: CN II-XII Intact, Normal Gait, Normal Reflexes Psychiatric: Alert, Normal Affect, Normal Mood - Patient Data Lab Results Last 24 hrs: Laboratory Results - last 24 hr 11/12/17 11/13/17 11/13/17 Range/Units 23:50 00:08 00:08 WBC 7.5 (5.0-10.0) 10^3/uL RBC 3.15 L (4.2-5.4) 10^6/uL Hgb 10.0 L (12.0-16.0) g/dL Hct 30.3 L (37.0-47.0) % MCV 96.2 (80-100) fL MCH 31.7 (27.0-34.0) pg MCHC 33.0 (33.0-35.0) g/dL Plt Count 263 (150-450) 10^3/uL Neut % (Auto) 68.4 (42.2-75.2) % Lymph % (Auto) 19.9 L (20.5-50.1) % [place] % (Auto) 7.1 (2-8) % Eos % (Auto) 4.2 H (1.0-3.0) % Baso % (Auto) 0.4 (0.0-1.0) % Sodium 132 L (135-145) mmol/L Potassium 2.8 L (3.6-5.0) mmol/L Chloride 94 L (101-111) mmol/L Carbon Dioxide 26.0 (21.0-31.0) mmol/L Anion Gap 14.8 BUN 29 H (7-18) mg/dL Creatinine 1.5 H (0.6-1.3) mg/dL Est Cr Clr Drug Dosing 43.15 mL/min Estimated GFR (MDRD) 37 BUN/Creatinine Ratio 19.33 Glucose 119 H (74-105) mg/dL Calcium 8.8 (8.4-10.2) mg/dl Magnesium (1.8-2.5) mg/dL Total Bilirubin 0.3 (0.2-1.0) mg/dL AST 16 (10-42) IU/L ALT 17 (10-60) IU/L Alkaline Phosphatase 103 (42-121) IU/L Troponin I < 0.02 (0.00-0.02) ng/ml B-Natriuretic Peptide 16 (0-100) pg/ml Total Protein 6.8 (6.7-8.2) g/dl Albumin 3.6 (3.2-5.5) g/dl Globulin 3.2 Albumin/Globulin Ratio 1.13 Urine Color Straw (YELLOW) Urine Appearance Clear (CLEAR) Urine pH 5.0 (5.0-9.0) Ur Specific [place] 1.010 (1.005-1.030) Urine Protein Negative (NEGATIVE) Urine Glucose (UA) Negative (NEGATIVE) Urine Ketones Negative (NEGATIVE) Urine Occult Blood Negative (NEGATIVE) Urine Nitrite Negative (NEGATIVE) Urine Bilirubin Negative (NEGATIVE) Urine Urobilinogen 0.2 (0.2-1.0) mg/dL Ur Leukocyte Esterase Negative (NEGATIVE) Urine RBC 0-5 /HPF Urine WBC 0-5 (0-5/HPF) /HPF Ur Epithelial Cells Few /HPF Urine Bacteria Occasional (0-FEW/HPF) /HPF 11/13/17 Range/Units 00:08 WBC (5.0-10.0) 10^3/uL RBC (4.2-5.4) 10^6/uL Hgb (12.0-16.0) g/dL Hct (37.0-47.0) % MCV (80-100) fL MCH (27.0-34.0) pg MCHC (33.0-35.0) g/dL Plt Count (150-450) 10^3/uL Neut % (Auto) (42.2-75.2) % Lymph % (Auto) (20.5-50.1) % [place] % (Auto) (2-8) % Eos % (Auto) (1.0-3.0) % Baso % (Auto) (0.0-1.0) % Sodium (135-145) mmol/L Potassium (3.6-5.0) mmol/L Chloride (101-111) mmol/L Carbon Dioxide (21.0-31.0) mmol/L Anion Gap BUN (7-18) mg/dL Creatinine (0.6-1.3) mg/dL Est Cr Clr Drug Dosing mL/min Estimated GFR (MDRD) BUN/Creatinine Ratio Glucose (74-105) mg/dL Calcium (8.4-10.2) mg/dl Magnesium 1.8 (1.8-2.5) mg/dL Total Bilirubin (0.2-1.0) mg/dL AST (10-42) IU/L ALT (10-60) IU/L Alkaline Phosphatase (42-121) IU/L Troponin I (0.00-0.02) ng/ml B-Natriuretic Peptide (0-100) pg/ml Total Protein (6.7-8.2) g/dl Albumin (3.2-5.5) g/dl Globulin Albumin/Globulin Ratio Urine Color (YELLOW) Urine Appearance (CLEAR) Urine pH (5.0-9.0) Ur Specific [place] (1.005-1.030) Urine Protein (NEGATIVE) Urine Glucose (UA) (NEGATIVE) Urine Ketones (NEGATIVE) Urine Occult Blood (NEGATIVE) Urine Nitrite (NEGATIVE) Urine Bilirubin (NEGATIVE) Urine Urobilinogen (0.2-1.0) mg/dL Ur Leukocyte Esterase (NEGATIVE) Urine RBC /HPF Urine WBC (0-5/HPF) /HPF Ur Epithelial Cells /HPF Urine Bacteria (0-FEW/HPF) /HPF Result Diagrams: 11/13/17 00:08 11/13/17 13:51 - Problem List (1) Hyponatremia SNOMED Code(s): 12767040 ICD Code: E87.1 - HYPO-OSMOLALITY AND HYPONATREMIA Status: Acute Current Visit: Yes (2) Edema SNOMED Code(s): 355796253, 277969852 ICD Code: R60.9 - EDEMA, UNSPECIFIED Status: Acute Current Visit: Yes (3) Obesity SNOMED Code(s): 092118162, 837831557 ICD Code: E66.9 - OBESITY, UNSPECIFIED Status: Acute Current Visit: Yes (4) Anxiety SNOMED Code(s): 75001351 ICD Code: F41.9 - ANXIETY DISORDER, UNSPECIFIED Status: Acute Current Visit: No (5) Cardiomyopathy SNOMED Code(s): 41570609 ICD Code: I42.9 - CARDIOMYOPATHY, UNSPECIFIED Status: Acute Current Visit : No Qualifiers: Cardiomyopathy type: unspecified Qualified Code(s): I42.9 - Cardiomyopathy , unspecified (6) Constipation SNOMED Code(s): 94638872 ICD Code: K59.00 - CONSTIPATION, UNSPECIFIED Status: Acute Current Visit : No (7) Hypokalemia SNOMED Code(s): 63428074 ICD Code: E87.6 - HYPOKALEMIA Status: Acute Current Visit: No (8) Hypokalemia SNOMED Code(s): 82199278 ICD Code: E87.6 - HYPOKALEMIA Status: Acute Current Visit: No (9) NICHOLAS (acute kidney injury) SNOMED Code(s): 37146162 ICD Code: N17.9 - ACUTE KIDNEY FAILURE, UNSPECIFIED Status: Acute Current Visit: Yes (10) NCIHOLAS (acute kidney injury) SNOMED Code(s): 42643466 ICD Code: N17.9 - ACUTE KIDNEY FAILURE, UNSPECIFIED Status: Acute Current Visit: Yes Problem List Initiated/Reviewed/Updated: Yes Orders Last 24hrs: Active Orders 24 hr Category Date Time Status Patient Status [ADT] Routine ADT 11/13/17 03:34 Ordered Ambulate [RC] ASDIRECTED Care 11/13/17 03:34 Ordered Elevate Extremity [RC] BID Care 11/13/17 03:50 Ordered Height and Weight [RC] DAILY Care 11/13/17 03:34 Ordered Intake and Output [RC] QSHIFT Care 11/13/17 03:36 Ordered Notify Provider Vital Signs [RC] ASDIRECTED Care 11/13/17 03:37 Ordered Oxygen Therapy [RC] PRN Care 11/13/17 03:34 Ordered Peripheral IV Care [RC] . DIRECTED Care 11/13/17 03:43 Ordered VTE/DVT Education [RC] PER UNIT ROUTINE Care 11/13/17 03:34 Ordered Vital Signs [RC] Q4H Care 11/13/17 03:34 Ordered OT Evaluation and Treatment [CONS] Routine Cons 11/13/17 03:34 Ordered PT Evaluation and Treatment [CONS] Routine Cons 11/13/17 03:34 Ordered 2 Gram Sodium Diet [DIET] Diet 11/13/17 Breakfast Ordered BASIC METABOLIC PANEL,BMP [CHEM] DAILY Lab 11/14/17 05:00 Ordered BASIC METABOLIC PANEL,BMP [CHEM] DAILY Lab 11/15/17 05:00 Ordered BASIC METABOLIC PANEL,BMP [CHEM] DAILY Lab 11/16/17 05:00 Ordered BASIC METABOLIC PANEL,BMP [CHEM] DAILY Lab 11/17/17 05:00 Ordered BASIC METABOLIC PANEL,BMP [CHEM] DAILY Lab 11/18/17 05:00 Ordered MAGNESIUM [CHEM] Stat Lab 11/13/17 03:34 Ordered PHOSPHORUS [CHEM] Routine Lab 11/13/17 03:34 Ordered POTASSIUM,K [CHEM] Routine Lab 11/13/17 09:30 Ordered ALPRAZolam [Alprazolam ODT] Med 11/13/17 03:44 Ordered 0.5 mg PO TID PRN Acetaminophen [Tylenol Arthritis] Med 11/13/17 03:44 Ordered 1,300 mg PO Q4HR PRN Acetaminophen [Tylenol] Med 11/13/17 03:34 Ordered 650 mg PO Q4H PRN Albuterol Sulfate [Proair Respiclick] Med 11/13/17 03:44 Ordered 90 mcg IH Q6HR PRN Ascorbate Calcium [Vitamin C] Med 11/13/17 09:00 Ordered 500 mg PO DAILY Carvedilol [Coreg] Med 11/13/17 09:00 Ordered 6.25 mg PO BID Cholecalciferol (Vitamin D3) [Vitamin D3] Med 11/13/17 03:45 Ordered 50,000 unit PO WEEKLY Cyanocobalamin (Vitamin B12) [Vitamin B12] Med 11/13/17 03:45 Ordered 1,000 mcg IM .MONTHLY Cyclobenzaprine [Flexeril] Med 11/13/17 03:44 Ordered 10 mg PO TID PRN Esomeprazole Magnesium [Nexium] Med 11/13/17 09:00 Ordered 40 mg PO BID Ferrous Fumarate [Ferrous Fumarate] Med 11/13/17 09:00 Ordered 324 mg PO BID Folic Acid Med 11/13/17 09:00 Ordered 1 mg PO DAILY Heparin Sodium Med 11/13/17 03:45 Ordered 5,000 units SUBCUT Q12H Levothyroxine Med 11/13/17 06:00 Ordered 150 mcg PO ACBREAKFAST Loratadine [Loratadine] Med 11/13/17 09:00 Ordered 10 mg PO DAILY Magnesium Oxide [Magnesium] Med 11/13/17 09:00 Ordered 400 mg PO BID Multivitamin [Multivitamins] Med 11/13/17 09:00 Ordered 1 each PO DAILY Nitroglycerin [Nitrostat] Med 11/13/17 03:44 Ordered 0.4 mg SL .[id number] PRN Ondansetron [Zofran] Med 11/13/17 03:34 Ordered 4 mg IVPUSH Q8H PRN Potassium Chloride [KCL 20 MEQ in Water 100 ML] 20 meq Med 11/13/17 04:00 Ordered Premix Bag 1 bag IV Q2H QUEtiapine Fumarate [Seroquel] Med 11/13/17 09:00 Ordered 100 mg PO DAILY Sertraline [Zoloft] Med 11/13/17 03:45 Ordered 100 mg PO QPM Simvastatin [Zocor] Med 11/13/17 21:00 Ordered 40 mg PO BEDTIME Sodium Chloride 0.9% [Saline Flush] Med 11/13/17 03:34 Ordered 10 ml FLUSH ASDIRECTED PRN Triamcinolone Acetonide [Triamcinolone Acetonide 0.1% Med 11/13/17 09:00 Ordered Oint] 1 applic TOP BID Ziprasidone HCl [Geodon] Med 11/13/17 09:00 Ordered 80 mg PO QAM busPIRone [Buspar] Med 11/13/17 09:00 Ordered 15 mg PO TID Peripheral IV Insertion Adult [OM.PC] Routine Oth 11/13/17 03:34 Ordered Resuscitation Status Routine Resus Stat 11/13/17 03:34 Ordered Assessment/Plan Comment:: Worsening b/l leg edema No evidence of cellulites Admit to observation status IV lasix 40 mg bid Celestin weight elevate LE Apply madai hose O/T evaluation Hypokalemia due to diuretic use will replete IV Hyponatremia mild this is due to diuretic use monitor closely recheck level Hyperphosphatemia will repeat phos level NICHOLAS Creatinine elevated from baseline 0.8 to 1.5 Likely pre-azotemia encourage oral fluid hold IVF given worsening edema BMP q12h will hold lasix if creatinine trend up Hypertension Continue home medication monitor BP closely Hyperlipidemia -Continue Zocor 40 mg daily Hypothyroidism -Continue Synthroid on 50 mcg daily H/o Viral Myocarditis Stable Depression/other pscyiatry conditions Continue home medication Obesity advised on weight reduction Low salt diet Full code
[2017-11-13] MEDS ORDERED: Furosemide 40 MG/4 ML VIAL IVPUSH ONE (03:58)
[2017-11-13] MEDS ORDERED: Albuterol 6.7 GM Inhaler INH PRN (04:00)
[2017-11-13] MEDS ORDERED: Heparin Sodium 5,000 Units/ML Vial SUBCUT SCH (04:00)
[2017-11-13] MEDS: Potassium Chloride 20 MEQ in Premix Bag 1 BAG IV SCH ×4 (04:17→18:43)
[2017-11-13] MEDS: Acetaminophen 325 MG Tab PO PRN (04:44)
[2017-11-13] MEDS: ALPRAZolam 0.5 MG Tab PO PRN ×2 (04:46→20:36)
[2017-11-13] MEDS: Cyclobenzaprine 10 MG Tab PO PRN (04:46)
[2017-11-13] MEDS: Pantoprazole 40 MG Tab.CR PO SCH ×2 (06:14→17:22)
[2017-11-13] MEDS: Levothyroxine 150 MCG Tab PO SCH (06:14)
[2017-11-13] MEDS: Furosemide 40 MG/4 ML VIAL IVPUSH SCH ×2 (08:21→14:13)
[2017-11-13] MEDS: Loratadine 10 MG Tab PO SCH (08:26)
[2017-11-13] MEDS: Carvedilol 6.25 MG Tab PO SCH ×2 (08:26→20:21)
[2017-11-13] MEDS: busPIRone 15 MG Tab PO SCH ×3 (08:26→20:21)
[2017-11-13] MEDS: Heparin Sodium 5,000 Units/ML Vial SUBCUT SCH ×2 (08:27→20:22)
[2017-11-13] MEDS: Folic Acid 1 MG Tab PO SCH (08:27)
[2017-11-13] MEDS: Ferrous Sulfate 325 MG Tab PO SCH ×2 (08:27→20:21)
[2017-11-13] MEDS: QUEtiapine 100 MG Tab PO SCH (08:30)
[2017-11-13] MEDS: Ascorbic Acid 500 MG Tab PO SCH (08:30)
[2017-11-13] MEDS ORDERED: ZIPRASIDONE HCL 80 MG PO SCH (09:00)
[2017-11-13] MEDS: Multivitamins,Therapeutic Tab PO SCH (14:05)
[2017-11-13] MEDS: Triamcinolone Acetonide 0.1% Oint 15 GM Tube TOP SCH ×2 (14:05→20:22)
[2017-11-13] MEDS: Potassium Chloride 10 MEQ Tab.ER PO SCH (17:22)
[2017-11-13] MEDS: Acetaminophen/oxyCODONE 325-5 MG Tab PO PRN (18:44)
[2017-11-13] MEDS: Simvastatin 40 MG Tab PO SCH (20:21)
[2017-11-13] MEDS: Sertraline 50 MG Tab PO SCH (20:21)
[2017-11-14] MEDS: Pantoprazole 40 MG Tab.CR PO SCH ×2 (06:05→16:44)
[2017-11-14] MEDS: Levothyroxine 150 MCG Tab PO SCH (06:05)
[2017-11-14 06:51] LABS: ANION GAP 10.5
[2017-11-14] MEDS: Potassium Chloride 10 MEQ Tab.ER PO SCH ×2 (09:10→17:36)
[2017-11-14] MEDS: Multivitamins,Therapeutic Tab PO SCH (09:11)
[2017-11-14] MEDS: Ferrous Sulfate 325 MG Tab PO SCH ×2 (09:11→20:48)
[2017-11-14] MEDS: Loratadine 10 MG Tab PO SCH (09:11)
[2017-11-14] MEDS: Ascorbic Acid 500 MG Tab PO SCH (09:11)
[2017-11-14] MEDS: QUEtiapine 100 MG Tab PO SCH (09:12)
[2017-11-14] MEDS: Folic Acid 1 MG Tab PO SCH (09:12)
[2017-11-14] MEDS: busPIRone 15 MG Tab PO SCH ×3 (09:12→20:48)
[2017-11-14] MEDS: Acetaminophen/oxyCODONE 325-5 MG Tab PO PRN ×2 (09:13→18:15)
[2017-11-14] MEDS: Heparin Sodium 5,000 Units/ML Vial SUBCUT SCH ×2 (09:14→20:47)
[2017-11-14] MEDS: Furosemide 40 MG/4 ML VIAL IVPUSH SCH ×2 (09:15→13:39)
[2017-11-14] MEDS: Sodium Chloride 0.9% 10 ML Syringe FLUSH PRN ×2 (09:16→10:24)
[2017-11-14] MEDS: Triamcinolone Acetonide 0.1% Oint 15 GM Tube TOP SCH ×2 (09:21→20:53)
[2017-11-14] MEDS: Potassium Chloride 20 MEQ in Premix Bag 1 BAG IV SCH ×3 (10:22→18:53)
[2017-11-14] MEDS: Carvedilol 6.25 MG Tab PO SCH ×2 (10:29→20:48)
--- NOTE | 2017-11-14 11:20 | PCM.PN ---
- General Info Date of Service: 11/14/17 Admission Dx/Problem (Free Text): Admission Diagnosis/Problem Admission Diagnosis/Problem Edema Subjective Update: Kailyn a 52 y.o.woman with PMH of Hypertension, Hyperlipidemia, Hypothyroidism, Viral Myocarditis, chronic b/l LE edema. She presented to the ER c/o increasing leg swelling. She was subsequently admitted and started on IV lasix. Patient seenand examined today. No acute overnight event. Hypokalemia still unresolved. K 2.5 today. Functional Status: Reports: Pain Controlled - Review of Systems General: Reports: No Symptoms HEENT: Reports: No Symptoms Pulmonary: Reports: No Symptoms Cardiovascular: Reports: No Symptoms Gastrointestinal: Reports: No Symptoms Genitourinary: Reports: No Symptoms Musculoskeletal: Reports: No Symptoms Skin: Reports: No Symptoms Neurological: Reports: No Symptoms Psychiatric: Reports: No Symptoms - Patient Data Vitals - Most Recent: Last Vital Signs Temp 98.8 F 11/14/17 07:56 Pulse 87 11/14/17 10:29 Resp 20 11/14/17 07:56 BP 95/60 11/14/17 10:29 Pulse Ox 97 11/14/17 07:56 Weight - Most Recent: 223 lb I&O - Last 24 Hours: Intake & Output 11/13/17 11/14/17 11/14/17 22:59 06:59 14:59 Intake Total 1669 355 Balance 1669 355 Lab Results Last 24 Hours: Laboratory Results - last 24 hr 11/13/17 11/13/17 11/14/17 Range/Units 13:51 13:51 06:00 Sodium 133 L (135-145) mmol/L Potassium 2.5 L 2.5 L (3.6-5.0) mmol/L Chloride 90 L (101-111) mmol/L Carbon Dioxide 35.0 H (21.0-31.0) mmol/L Anion Gap 10.5 BUN 23 H (7-18) mg/dL Creatinine 1.4 H 1.1 (0.6-1.3) mg/dL Est Cr Clr Drug Dosing 46.23 58.84 mL/min Estimated GFR (MDRD) 40 52 Glucose 136 H (74-105) mg/dL Calcium 8.8 (8.4-10.2) mg/dl Med Orders - Current: Current Medications Acetaminophen (Tylenol) 650 mg PO Q4H PRN PRN Reason: Pain (Mild 1-3)/fever Last Admin: 11/13/17 04:44 Dose: 650 mg Albuterol (Proventil Hfa) 1 - 2 gm INH Q6H PRN PRN Reason: Shortness of Breath Alprazolam (Xanax) 0.5 mg PO TID PRN PRN Reason: ANXIETY Last Admin: 11/13/17 20:36 Dose: 0.5 mg Ascorbic Acid (Vitamin C) 500 mg PO DAILY [facility] Last Admin: 11/14/17 09:11 Dose: 500 mg Buspirone HCl (Buspar) 15 mg PO TID [facility] Last Admin: 11/14/17 09:12 Dose: 15 mg Carvedilol (Coreg) 6.25 mg PO BID [facility] Last Admin: 11/14/17 10:29 Dose: Not Given Cyclobenzaprine HCl (Flexeril) 10 mg PO TID PRN PRN Reason: Spasms Last Admin: 11/13/17 04:46 Dose: 10 mg Ferrous Sulfate (Ferrous Sulfate) 325 mg PO BID [facility] Last Admin: 11/14/17 09:11 Dose: 325 mg Folic Acid (Folic Acid) 1 mg PO DAILY [facility] Last Admin: 11/14/17 09:12 Dose: 1 mg Furosemide (Lasix) 40 mg IVPUSH BIDDIURETIC [facility] Last Admin: 11/14/17 09:15 Dose: 40 mg Heparin Sodium (Porcine) (Heparin Sodium) 5,000 units SUBCUT BID [facility] Last Admin: 11/14/17 09:14 Dose: 5,000 units Potassium Chloride 20 meq/ (Premix) 100 mls @ 50 mls/hr IV Q2H KP Stop: 11/14/17 15:59 Last Admin: 11/14/17 10:22 Dose: 50 mls/hr Levothyroxine Sodium (Levothyroxine) 150 mcg PO ACBREAKFAST [facility] Last Admin: 11/14/17 06:05 Dose: 150 mcg Loratadine (Claritin) 10 mg PO DAILY [facility] Last Admin: 11/14/17 09:11 Dose: 10 mg Magnesium Oxide (Magnesium Oxide) 500 mg PO BID [facility] Last Admin: 11/14/17 09:11 Dose: 500 mg Multivitamins (Thera) 1 each PO DAILY [facility] Last Admin: 11/14/17 09:11 Dose: 1 each Nitroglycerin (Nitrostat) 0.4 mg SL .[id number] PRN PRN Reason: Chest Pain Non-Formulary Medication (Cholecalciferol (Vitamin D3) [Vitamin D3]) 50,000 unit PO WEEKLY [facility] Non-Formulary Medication (Ziprasidone Hcl [Geodon]) 80 mg PO QAM [facility] Ondansetron HCl (Zofran) 4 mg IVPUSH Q8H PRN PRN Reason: Nausea/Vomiting Oxycodone/Acetaminophen (Percocet 325-5 Mg) 1 tab PO Q8H PRN PRN Reason: Pain (moderate 4-6) Last Admin: 11/14/17 09:13 Dose: 1 tab Pantoprazole Sodium (Protonix) 40 mg PO BIDAC [facility] Last Admin: 11/14/17 06:05 Dose: 40 mg Potassium Chloride (Klor-Con 10) 40 meq PO BIDMEALS [facility] Last Admin: 11/14/17 09:10 Dose: 40 meq Quetiapine Fumarate (Seroquel) 100 mg PO DAILY [facility] Last Admin: 11/14/17 09:12 Dose: 100 mg Senna/Docusate Sodium (Senna Plus) 1 tab PO BID [facility] Last Admin: 11/14/17 09:12 Dose: 1 tab Sertraline HCl (Zoloft) 100 mg PO BEDTIME [facility] Last Admin: 11/13/17 20:21 Dose: 100 mg Simvastatin (Zocor) 40 mg PO BEDTIME [facility] Last Admin: 11/13/17 20:21 Dose: 40 mg Sodium Chloride (Saline Flush) 10 ml FLUSH ASDIRECTED PRN PRN Reason: Keep Vein Open Last Admin: 11/14/17 10:24 Dose: 10 ml Triamcinolone Acetonide (Triamcinolone Acetonide 0.1% Oint) 1 gm TOP BID [facility] Last Admin: 11/14/17 09:21 Dose: Not Given Discontinued Medications Cyanocobalamin (Vitamin B12) 1,000 mcg IM .MONTHLY [facility] Furosemide (Lasix) 40 mg IVPUSH NOW ONE Stop: 11/13/17 03:59 Last Admin: 11/13/17 04:19 Dose: 40 mg Heparin Sodium (Porcine) (Heparin Sodium) 5,000 units SUBCUT Q12H [facility] Last Admin: 11/13/17 04:40 Dose: Not Given Potassium Chloride 20 meq/ (Premix) 100 mls @ 50 mls/hr IV Q2H [facility] Stop: 11/13/17 07:59 Last Admin: 11/13/17 08:16 Dose: 50 mls/hr Potassium Chloride 20 meq/ (Premix) 100 mls @ 50 mls/hr IV Q2H [facility] Stop: 11/13/17 19:44 Last Admin: 11/13/17 18:43 Dose: 50 mls/hr Non-Formulary Medication (Acetaminophen [Tylenol Arthritis]) 1,300 mg PO Q4HR PRN PRN Reason: Pain - Exam Quality Assessment: DVT Prophylaxis General: Alert, Oriented HEENT: Pupils Equal, Pupils Reactive, EOMI, Mucous Membr. Moist/[place]: Supple Lungs: Clear to Auscultation, Normal Respiratory Effort Cardiovascular: Regular Rate, Regular Rhythm GI/Abdominal Exam: Normal Bowel Sounds, Soft, Non-Tender, No Organomegaly, No Distention, No Abnormal Bruit, No Mass, Pelvis Stable (Female) Exam: Normal External Exam, Normal Speculum Exam, Normal Bimanual Exam Back Exam: Normal Inspection, Full Range of Motion Extremities: Normal Inspection, Normal Range of Motion, Non-Tender, Normal Capillary Refill, Pedal Edema, Other (improving b/l leg edema) Skin: Warm, Dry, Intact Wound/Incisions: Healing Well Neurological: No New Focal Deficit Psy/Mental Status: Alert, Normal Affect, Normal Mood - Problem List & Annotations (1) Hyponatremia SNOMED Code(s): 56644689 Code(s): E87.1 - HYPO-OSMOLALITY AND HYPONATREMIA Status: Acute Current Visit: Yes (2) Edema SNOMED Code(s): 282304383, 495582146 Code(s): R60.9 - EDEMA, UNSPECIFIED Status: Acute Current Visit: Yes (3) Obesity SNOMED Code(s): 544064636, 781855439 Code(s): E66.9 - OBESITY, UNSPECIFIED Status: Acute Current Visit: Yes (4) Anxiety SNOMED Code(s): 97582884 Code(s): F41.9 - ANXIETY DISORDER, UNSPECIFIED Status: Acute Current Visit: No (5) Cardiomyopathy SNOMED Code(s): 05510042 Code(s): I42.9 - CARDIOMYOPATHY, UNSPECIFIED Status: Acute Current Visit : No Qualifiers: Cardiomyopathy type: unspecified Qualified Code(s): I42.9 - Cardiomyopathy , unspecified (6) Constipation SNOMED Code(s): 88851298 Code(s): K59.00 - CONSTIPATION, UNSPECIFIED Status: Acute Current Visit: No (7) Hypokalemia SNOMED Code(s): 47225634 Code(s): E87.6 - HYPOKALEMIA Status: Acute Current Visit: No (8) Hypokalemia SNOMED Code(s): 41776059 Code(s): E87.6 - HYPOKALEMIA Status: Acute Current Visit: No (9) NICHOLAS (acute kidney injury) SNOMED Code(s): 77511765 Code(s): N17.9 - ACUTE KIDNEY FAILURE, UNSPECIFIED Status: Acute Current Visit: Yes (10) NICHOLAS (acute kidney injury) SNOMED Code(s): 45252537 Code(s): N17.9 - ACUTE KIDNEY FAILURE, UNSPECIFIED Status: Acute Current Visit: Yes - Problem List Review Problem List Initiated/Reviewed/Updated: Yes - My Orders Last 24 Hours: My Active Orders 11/13/17 13:30 Docusate Sodium/Sennosides [Senna Plus] 1 tab PO BID 11/13/17 16:23 KELLEY Hose [Antiembolic Hose] [OM.PC] Routine 11/13/17 18:00 Potassium Chloride [Klor-Con 10] 40 meq PO BIDMEALS 11/13/17 18:21 Acetaminophen/oxyCODONE [Percocet 325-5 MG] 1 tab PO Q8H PRN 11/13/17 21:00 Sertraline [Zoloft] 100 mg PO BEDTIME Simvastatin [Zocor] 40 mg PO BEDTIME 11/14/17 10:00 Potassium Chloride [KCL 20 MEQ in Water 100 ML] 20 meq Premix Bag 1 bag IV Q2H 11/15/17 05:00 BASIC METABOLIC PANEL,BMP [CHEM] DAILY 11/16/17 05:00 BASIC METABOLIC PANEL,BMP [CHEM] DAILY 11/17/17 05:00 BASIC METABOLIC PANEL,BMP [CHEM] DAILY 11/18/17 05:00 BASIC METABOLIC PANEL,BMP [CHEM] DAILY - Plan Plan:: B/l leg edema No evidence of cellulites Improving Continue IV lasix 40 mg bid Celestin weight elevate LE Apply tubigrib O/T evaluation Hypokalemia due to diuretic use unresolved Continue IV replacement Hypervolemic hyponatremia mild this is due to diuretic use fluid restriction monitor closely recheck level Hyperphosphatemia will monitor NICHOLAS Likely pre-azotemia Improving. Creatinine 1.3 encourage oral fluid hold IVF given worsening edema BMP q12h will hold lasix if creatinine trend up Hypertension BP currently low normal hold BP medication monitor BP closely will resume prn Hyperlipidemia -Continue Zocor 40 mg daily Hypothyroidism -Continue Synthroid on 50 mcg daily H/o Viral Myocarditis Stable Depression/other pscyiatry conditions Continue home medication Obesity advised on weight reduction Low salt diet Full code
[2017-11-14] MEDS: Acetaminophen 325 MG Tab PO PRN (14:42)
[2017-11-14] MEDS: Cyclobenzaprine 10 MG Tab PO PRN (20:47)
[2017-11-14] MEDS: ALPRAZolam 0.5 MG Tab PO PRN (20:48)
[2017-11-14] MEDS: Sertraline 50 MG Tab PO SCH (20:48)
[2017-11-14] MEDS: Simvastatin 40 MG Tab PO SCH (20:48)
[2017-11-15] MEDS: Acetaminophen 325 MG Tab PO PRN (01:30)
[2017-11-15] MEDS: Acetaminophen/oxyCODONE 325-5 MG Tab PO PRN ×2 (03:16→12:45)
[2017-11-15] MEDS: Pantoprazole 40 MG Tab.CR PO SCH (05:27)
[2017-11-15] MEDS: Levothyroxine 150 MCG Tab PO SCH (05:27)
[2017-11-15 06:50] LABS: ANION GAP 10.7
[2017-11-15] MEDS: busPIRone 15 MG Tab PO SCH ×2 (08:26→15:05)
[2017-11-15] MEDS: Ferrous Sulfate 325 MG Tab PO SCH (08:26)
[2017-11-15] MEDS: Loratadine 10 MG Tab PO SCH (08:26)
[2017-11-15] MEDS: QUEtiapine 100 MG Tab PO SCH (08:27)
[2017-11-15] MEDS: Multivitamins,Therapeutic Tab PO SCH (08:27)
[2017-11-15] MEDS: Ascorbic Acid 500 MG Tab PO SCH (08:27)
[2017-11-15] MEDS: Folic Acid 1 MG Tab PO SCH (08:27)
[2017-11-15] MEDS: Potassium Chloride 10 MEQ Tab.ER PO SCH (08:28)
[2017-11-15] MEDS: Heparin Sodium 5,000 Units/ML Vial SUBCUT SCH (08:29)
[2017-11-15] MEDS: Furosemide 40 MG/4 ML VIAL IVPUSH SCH ×2 (08:30→15:05)
[2017-11-15] MEDS: Sodium Chloride 0.9% 10 ML Syringe FLUSH PRN ×4 (08:32→15:43)
[2017-11-15] MEDS: Triamcinolone Acetonide 0.1% Oint 15 GM Tube TOP SCH (09:45)
[2017-11-15] MEDS: Carvedilol 6.25 MG Tab PO SCH (09:45)
[2017-11-15] MEDS ORDERED: Potassium Chloride 20 MEQ in Premix Bag 1 BAG IV SCH (10:00)
[2017-11-15] MEDS ORDERED: Lidocaine 1% 10 ML MDV INJECT ONE (10:56)
[2017-11-15] MEDS: Potassium Chloride 20 MEQ, Lidocaine 1% 1 ML in Premix Bag 1 BAG IV SCH ×2 (11:29→13:38)
[2017-11-15] MEDS ORDERED: Potassium Chloride 10 MEQ Tab.ER PO SCH (12:00)
--- NOTE | 2017-11-15 12:05 | PCM.DCSUM1 ---
Discharge Summary - Hospital Course HPI Initial Comments: Kailyn dias 52 y.o.woman with PMH of Hypertension, Hyperlipidemia, Hypothyroidism, Viral Myocarditis, chronic b/l LE edema. She presented to the ER c/o increasing leg swelling. She was subsequently admitted and started on IV Lasix. Tubigrib were applied. Leg edema improved significantly. She also did received IV potassium replacement. She is being discharge home to follow up with PCP in 3 days. She will need her potassium to be recheched. Patient was advised on the need for fluid restriction and she expressed understanding. Diagnosis: Stroke: No - Discharge Data Discharge Date: 11/15/17 Discharge Disposition: Home, Self-Care 01 Condition: Fair - Discharge Diagnosis/Problem(s) (1) Hyponatremia SNOMED Code(s): 98079000 ICD Code: E87.1 - HYPO-OSMOLALITY AND HYPONATREMIA Status: Acute Current Visit: Yes (2) Edema SNOMED Code(s): 262388841, 746599664 ICD Code: R60.9 - EDEMA, UNSPECIFIED Status: Acute Current Visit: Yes (3) Obesity SNOMED Code(s): 923183631, 041428286 ICD Code: E66.9 - OBESITY, UNSPECIFIED Status: Acute Current Visit: Yes (4) Anxiety SNOMED Code(s): 19846895 ICD Code: F41.9 - ANXIETY DISORDER, UNSPECIFIED Status: Acute Current Visit: No (5) Cardiomyopathy SNOMED Code(s): 44013548 ICD Code: I42.9 - CARDIOMYOPATHY, UNSPECIFIED Status: Acute Current Visit : No Qualifiers: Cardiomyopathy type: unspecified Qualified Code(s): I42.9 - Cardiomyopathy , unspecified (6) Constipation SNOMED Code(s): 65148993 ICD Code: K59.00 - CONSTIPATION, UNSPECIFIED Status: Acute Current Visit : No (7) Hypokalemia SNOMED Code(s): 92799700 ICD Code: E87.6 - HYPOKALEMIA Status: Acute Current Visit: No (8) Hypokalemia SNOMED Code(s): 27933496 ICD Code: E87.6 - HYPOKALEMIA Status: Acute Current Visit: No (9) NICHOLAS (acute kidney injury) SNOMED Code(s): 67683454 ICD Code: N17.9 - ACUTE KIDNEY FAILURE, UNSPECIFIED Status: Acute Current Visit: Yes (10) NICHOLAS (acute kidney injury) SNOMED Code(s): 30912058 ICD Code: N17.9 - ACUTE KIDNEY FAILURE, UNSPECIFIED Status: Acute Current Visit: Yes - Patient Summary/Data Consults: Consultations 11/13/17 03:34 OT Evaluation and Treatment [CONS] Routine PT Evaluation and Treatment [CONS] Routine Recommended Follow-up Testing/Procedures: Follow up with PCP in 3 days for potassium recheck. - Patient Instructions Diet: Heart Healthy Diet Fluid Restriction: 1500 mL Activity: As Tolerated Notify Provider of: Fever, Swelling and Redness, Nausea and/or Vomiting - Discharge Plan Prescriptions/Med Rec: Potassium Chloride 60 meq PO DAILY 30 Days #180 tab.er.prt Home Medications: Home Meds Carvedilol 6.25 mg PO BID 05/07/13 [History] Furosemide [Lasix] 20 mg PO .EVERYOTHERDAY PRN 05/07/13 [History] QUEtiapine Fumarate [Seroquel] 100 mg PO DAILY 05/07/13 [History] Sertraline [Zoloft] 100 mg PO BID 05/07/13 [History] Simvastatin 40 mg PO BEDTIME 05/07/13 [History] busPIRone [Buspar] 15 mg PO TID 05/07/13 [History] ALPRAZolam [Alprazolam ODT] 0.5 mg PO TID PRN 09/10/14 [History] Levothyroxine 150 mcg PO DAILY 10/17/14 [History] Cyanocobalamin (Vitamin B12) [Vitamin B12] 1,000 mcg IM .MONTHLY 12/27/14 [ History] Cyclobenzaprine [Flexeril] 10 mg PO TID PRN 07/21/16 [History] Ziprasidone HCl [Geodon] 80 mg PO QAM 08/25/16 [History] Acetaminophen [Tylenol Arthritis] 1,300 mg PO Q4HR PRN 11/13/17 [History] Albuterol Sulfate [Proair Respiclick] 90 mcg IH Q6HR PRN 11/13/17 [History] Amoxicillin/Clavulanate K [Augmentin 875-125 MG] 1 tab PO BIDMEALS 11/13/17 [ History] Ascorbate Calcium [Vitamin C] 500 mg PO DAILY 11/13/17 [History] Cholecalciferol (Vitamin D3) [Vitamin D3] 50,000 unit PO WEEKLY 11/13/17 [ History] Esomeprazole Magnesium [Nexium] 40 mg PO BID 11/13/17 [History] Ferrous Fumarate 324 mg PO BID 11/13/17 [History] Folic Acid 1 mg PO DAILY 11/13/17 [History] Loperamide [Imodium] 2 mg PO Q4H PRN 11/13/17 [History] Loratadine 10 mg PO DAILY 11/13/17 [History] Magnesium Oxide [Magnesium] 400 mg PO BID 11/13/17 [History] Multivitamin [Multivitamins] 1 each PO DAILY 11/13/17 [History] Nitroglycerin 0.4 mg SL .[id number] PRN 11/13/17 [History] Ondansetron [Zofran ODT] 4 mg PO Q8HR PRN 11/13/17 [History] Triamcinolone Acetonide [Triamcinolone Acetonide 0.1% Oint] 1 applic TOP BID [History] oxyCODONE HCl/Acetaminophen [Oxycodone-Acetaminophen 5-325] 1 each PO Q8HR PRN 11/13/17 [History] Potassium Chloride 60 meq PO DAILY 30 Days #180 tab.er.prt 11/15/17 [Rx] Patient Handouts: Hyponatremia, [id number] Referrals: PCP,Unobtain [Ordering Only Provider] - - Discharge Summary/Plan Comment DC Time >30 min.: Yes - General Info Date of Service: 11/15/17 Admission Dx/Problem (Free Text: Admission Diagnosis/Problem Admission Diagnosis/Problem Edema Subjective Update: Kailyn a 52 y.o.woman with PMH of Hypertension, Hyperlipidemia, Hypothyroidism, Viral Myocarditis, chronic b/l LE edema. She presented to the ER c/o increasing leg swelling. She was subsequently admitted and started on IV Lasix. Tubigrib were applied. Leg edema improved significantly. She also did received IV potassium replacement. She is being discharge home to follow up with PCP in 3 days. She will need her potassium to be recheched. Patient was advised on the need for fluid restriction and she expressed understanding. Functional Status: Reports: Pain Controlled - Review of Systems General: Reports: No Symptoms HEENT: Reports: No Symptoms Pulmonary: Reports: No Symptoms Cardiovascular: Reports: No Symptoms Gastrointestinal: Reports: No Symptoms Genitourinary: Reports: No Symptoms Musculoskeletal: Reports: No Symptoms Skin: Reports: No Symptoms Neurological: Reports: No Symptoms Psychiatric: Reports: No Symptoms - Patient Data Vitals - Most Recent: Last Vital Signs Temp 97.4 F 11/15/17 11:10 Pulse 86 11/15/17 11:10 Resp 20 11/15/17 11:10 BP 103/58 L 11/15/17 11:10 Pulse Ox 94 L 11/15/17 11:10 Weight - Most Recent: 220 lb 4 oz I&O - Last 24 hours: Intake & Output 11/14/17 11/15/17 11/15/17 22:59 06:59 14:59 Intake Total 550 400 32 Balance 550 400 32 Lab Results - Last 24 hrs: Laboratory Results - last 24 hr 11/15/17 11/15/17 Range/Units 06:00 06:00 Sodium 133 L (135-145) mmol/L Potassium 2.7 L (3.6-5.0) mmol/L Chloride 86 L (101-111) mmol/L Carbon Dioxide 39.0 H (21.0-31.0) mmol/L Anion Gap 10.7 BUN 23 H (7-18) mg/dL Creatinine 1.1 (0.6-1.3) mg/dL Est Cr Clr Drug Dosing 58.84 mL/min Estimated GFR (MDRD) 52 Glucose 138 H (74-105) mg/dL Calcium 9.3 (8.4-10.2) mg/dl Phosphorus 2.9 (2.5-4.6) mg/dL Med Orders - Current: Current Medications Acetaminophen (Tylenol) 650 mg PO Q4H PRN PRN Reason: Pain (Mild 1-3)/fever Last Admin: 11/15/17 01:30 Dose: 650 mg Albuterol (Proventil Hfa) 1 - 2 gm INH Q6H PRN PRN Reason: Shortness of Breath Alprazolam (Xanax) 0.5 mg PO TID PRN PRN Reason: ANXIETY Last Admin: 11/14/17 20:48 Dose: 0.5 mg Ascorbic Acid (Vitamin C) 500 mg PO DAILY [facility] Last Admin: 11/15/17 08:27 Dose: 500 mg Buspirone HCl (Buspar) 15 mg PO TID [facility] Last Admin: 11/15/17 08:26 Dose: 15 mg Carvedilol (Coreg) 6.25 mg PO BID [facility] Last Admin: 11/15/17 09:45 Dose: Not Given Cyclobenzaprine HCl (Flexeril) 10 mg PO TID PRN PRN Reason: Spasms Last Admin: 11/14/17 20:47 Dose: 10 mg Ferrous Sulfate (Ferrous Sulfate) 325 mg PO BID [facility] Last Admin: 11/15/17 08:26 Dose: 325 mg Folic Acid (Folic Acid) 1 mg PO DAILY [facility] Last Admin: 11/15/17 08:27 Dose: 1 mg Furosemide (Lasix) 40 mg IVPUSH BIDDIURETIC [facility] Last Admin: 11/15/17 08:30 Dose: 40 mg Heparin Sodium (Porcine) (Heparin Sodium) 5,000 units SUBCUT BID [facility] Last Admin: 11/15/17 08:29 Dose: 5,000 units Potassium Chloride 20 meq/ (Lidocaine HCl 1 ml/ Premix) 101 mls @ 50.5 mls/hr IV Q2H [facility] Stop: 11/15/17 14:59 Last Admin: 11/15/17 11:29 Dose: 50.5 mls/hr Levothyroxine Sodium (Levothyroxine) 150 mcg PO ACBREAKFAST [facility] Last Admin: 11/15/17 05:27 Dose: 150 mcg Loratadine (Claritin) 10 mg PO DAILY [facility] Last Admin: 11/15/17 08:26 Dose: 10 mg Magnesium Oxide (Magnesium Oxide) 500 mg PO BID [facility] Last Admin: 11/15/17 08:28 Dose: 500 mg Multivitamins (Thera) 1 each PO DAILY [facility] Last Admin: 11/15/17 08:27 Dose: 1 each Nitroglycerin (Nitrostat) 0.4 mg SL .[id number] PRN PRN Reason: Chest Pain Non-Formulary Medication (Cholecalciferol (Vitamin D3) [Vitamin D3]) 50,000 unit PO WEEKLY [facility] Non-Formulary Medication (Ziprasidone Hcl [Geodon]) 80 mg PO QAM [facility] Ondansetron HCl (Zofran) 4 mg IVPUSH Q8H PRN PRN Reason: Nausea/Vomiting Oxycodone/Acetaminophen (Percocet 325-5 Mg) 1 tab PO Q8H PRN PRN Reason: Pain (moderate 4-6) Last Admin: 11/15/17 03:16 Dose: 1 tab Pantoprazole Sodium (Protonix) 40 mg PO BIDAC [facility] Last Admin: 11/15/17 05:27 Dose: 40 mg Potassium Chloride (Klor-Con 10) 40 meq PO TIDMEALS [facility] Quetiapine Fumarate (Seroquel) 100 mg PO DAILY [facility] Last Admin: 11/15/17 08:27 Dose: 100 mg Senna/Docusate Sodium (Senna Plus) 1 tab PO BID [facility] Last Admin: 11/15/17 08:27 Dose: 1 tab Sertraline HCl (Zoloft) 100 mg PO BEDTIME [facility] Last Admin: 11/14/17 20:48 Dose: 100 mg Simvastatin (Zocor) 40 mg PO BEDTIME [facility] Last Admin: 11/14/17 20:48 Dose: 40 mg Sodium Chloride (Saline Flush) 10 ml FLUSH ASDIRECTED PRN PRN Reason: Keep Vein Open Last Admin: 11/15/17 11:29 Dose: 10 ml Triamcinolone Acetonide (Triamcinolone Acetonide 0.1% Oint) 1 gm TOP BID [facility] Last Admin: 11/15/17 09:45 Dose: Not Given Discontinued Medications Cyanocobalamin (Vitamin B12) 1,000 mcg IM .MONTHLY [facility] Furosemide (Lasix) 40 mg IVPUSH NOW ONE Stop: 11/13/17 03:59 Last Admin: 11/13/17 04:19 Dose: 40 mg Heparin Sodium (Porcine) (Heparin Sodium) 5,000 units SUBCUT Q12H [facility] Last Admin: 11/13/17 04:40 Dose: Not Given Potassium Chloride 20 meq/ (Premix) 100 mls @ 50 mls/hr IV Q2H [facility] Stop: 11/13/17 07:59 Last Admin: 11/13/17 08:16 Dose: 50 mls/hr Potassium Chloride 20 meq/ (Premix) 100 mls @ 50 mls/hr IV Q2H [facility] Stop: 11/13/17 19:44 Last Admin: 11/13/17 18:43 Dose: 50 mls/hr Potassium Chloride 20 meq/ (Premix) 100 mls @ 50 mls/hr IV Q2H [facility] Stop: 11/14/17 15:59 Last Admin: 11/14/17 18:53 Dose: 20 mls/hr Potassium Chloride 20 meq/ (Premix) 100 mls @ 50 mls/hr IV Q2H [facility] Stop: 11/15/17 13:59 Last Admin: 11/15/17 09:55 Dose: 25 mls/hr Non-Formulary Medication (Acetaminophen [Tylenol Arthritis]) 1,300 mg PO Q4HR PRN PRN Reason: Pain Potassium Chloride (Klor-Con 10) 40 meq PO BIDMEALS [facility] Last Admin: 11/15/17 08:28 Dose: 40 meq - Exam Quality Assessment: Reports: DVT Prophylaxis General: Reports: Alert, Oriented HEENT: Reports: Pupils Equal, Pupils Reactive, EOMI, Mucous Membr. Moist/[place] Neck: Reports: Supple Lungs: Reports: Clear to Auscultation, Normal Respiratory Effort Cardiovascular: Reports: Regular Rate, Regular Rhythm GI/Abdominal Exam: Normal Bowel Sounds, Soft, Non-Tender, No Organomegaly, No Distention, No Abnormal Bruit, No Mass, Pelvis Stable (Female) Exam: Normal External Exam, Normal Speculum Exam, Normal Bimanual Exam Rectal (Female) Exam: Normal Exam, Normal Rectal Tone Back Exam: Reports: Normal Inspection, Full Range of Motion Extremities: Normal Inspection, Normal Range of Motion, Non-Tender, No Pedal Edema, Normal Capillary Refill Skin: Reports: Warm, Dry, Intact Wound/Incisions: Reports: Healing Well Neurological: Reports: No New Focal Deficit Psy/Mental Status: Reports: Alert, Normal Affect, Normal Mood
[2017-11-15 14:36] VITALS: BP 105/56
== END 2017-11-15 16:30 | disposition home or self-care (01) ==
LOC: DL.ED 22:23 → DL.MS 11-13 02:15 → UNDOADMOB 11-13 02:16 → DL.MS 11-13 03:34
PROVIDERS: ADMIT Student in an Organized Health Care Education/Training Program; ATTEND Student in an Organized Health Care Education/Training Program
DX: R60.0 Localized edema (principal); E87.1 Hypo-osmolality and hyponatremia; E87.6 Hypokalemia; I11.9 Hypertensive heart disease without heart failure; I43 Cardiomyopathy in diseases classified elsewhere; E66.9 Obesity, unspecified; N17.9 Acute kidney failure, unspecified; D64.9 Anemia, unspecified; E53.8 Deficiency of other specified B group vitamins; F41.9 Anxiety disorder, unspecified; F32.9 Major depressive disorder, single episode, unspecified; Z79.899 Other long term (current) drug therapy; Z88.1 Allergy status to other antibiotic agents; Z88.8 Allergy status to other drugs, medicaments and biological substances; Z91.048 Other nonmedicinal substance allergy status
CPT/HCPCS: 36415; 71045; 80048; 80053; 81001; 82565; 83735; 83880; 84100; 84132; 84484; 85025; 99285; A9270; J1644; J1940; J3480; J7050; 96365; 96366; 96372; 96375; 96376; G0378

== ENCOUNTER 2017-11-23 19:44 | Inpatient (IN) | payer OTHER ==
[2017-11-23] MEDS ORDERED: fentaNYL 100 MCG/2 ML SDV IVPUSH ONE ×2 (21:05→22:45)
[2017-11-23] MEDS ORDERED: Ondansetron 4 MG/2 ML SDV IV ONE (21:05)
[2017-11-23 21:21] LABS: ANION GAP 14.6; CHLORIDE,CL 94 mmol/L (101-111); SODIUM,NA 132 mmol/L (135-145)
[2017-11-23] MEDS ORDERED: Iopamidol 612 MG/ML 100 ML Bottle IVPUSH ONE (22:33)
--- NOTE | 2017-11-23 23:01 | EDM.PDOC ---
ED HPI GENERAL MEDICAL PROBLEM - General Chief Complaint: Abdominal Pain Stated Complaint: PANCREATITUS [id number] Time Seen by Provider: 11/23/17 20:00 Source of Information: Reports: Patient History Limitations: Reports: No Limitations - History of Present Illness INITIAL COMMENTS - FREE TEXT/NARRATIVE: c/o severe abdominal pain " pancreatitis" starting around 430 this am. Previous episodes with last approximately 3 months ago. Notes episodes seem to be increasing in frequency. Vomiting today x 5. No BM x 5 days. No fever or chills. No cough, or SOB. Edema better than previous ED visit. BP has been improved and stable since last hospitalization. Has been checking daily at home. Patient reports CT of abdomen done approximately 1 week ago. Treatments [employer]: Reports: Acetaminophen, Other Medication(s) Other Treatments [employer]: Oxycodone Bilateral Upper Abdomen Pain Score (Numeric/FACES): 10 - Related Data Allergies Allergy/AdvReac Type Severity Reaction Status Date / Time cephalexin [Cephalexin] AdvReac Nausea and Verified 11/24/17 00:50 Vomiting prednisone AdvReac Vomiting Verified 11/24/17 00:50 cats Allergy Sneezing Uncoded 11/24/17 00:50 evergreen tree Allergy Rash Uncoded 11/24/17 00:50 Home Meds: Home Meds Carvedilol 6.25 mg PO BID 05/07/13 [History] Furosemide [Lasix] 20 mg PO .EVERYOTHERDAY PRN 05/07/13 [History] QUEtiapine Fumarate [Seroquel] 100 mg PO BID 05/07/13 [History] Sertraline [Zoloft] 100 mg PO BID 05/07/13 [History] Simvastatin 40 mg PO BEDTIME 05/07/13 [History] busPIRone [Buspar] 15 mg PO TID 05/07/13 [History] ALPRAZolam [Alprazolam ODT] 0.5 mg PO TID PRN 09/10/14 [History] Levothyroxine 150 mcg PO DAILY 10/17/14 [History] Cyanocobalamin (Vitamin B12) [Vitamin B12] 1,000 mcg IM .MONTHLY 12/27/14 [ History] Cyclobenzaprine [Flexeril] 10 mg PO TID PRN 07/21/16 [History] Ziprasidone HCl [Geodon] 80 mg PO QAM 08/25/16 [History] Acetaminophen [Tylenol Arthritis] 1,300 mg PO Q4HR PRN 11/13/17 [History] Albuterol Sulfate [Proair Respiclick] 90 mcg IH Q6HR PRN 11/13/17 [History] Ascorbate Calcium [Vitamin C] 1,000 mg PO DAILY 11/13/17 [History] Cholecalciferol (Vitamin D3) [Vitamin D3] 50,000 unit PO WEEKLY 11/13/17 [ History] Esomeprazole Magnesium [Nexium] 40 mg PO BID 11/13/17 [History] Ferrous Fumarate 324 mg PO BID 11/13/17 [History] Folic Acid 1 mg PO DAILY 11/13/17 [History] Loperamide [Imodium] 2 mg PO Q4H PRN 11/13/17 [History] Loratadine 10 mg PO DAILY 11/13/17 [History] Magnesium Oxide [Magnesium] 400 mg PO BID 11/13/17 [History] Multivitamin [Multivitamins] 1 each PO DAILY 11/13/17 [History] Nitroglycerin 0.4 mg SL .[id number] PRN 11/13/17 [History] Ondansetron [Zofran ODT] 4 mg PO Q8HR PRN 11/13/17 [History] Triamcinolone Acetonide [Triamcinolone Acetonide 0.1% Oint] 1 applic TOP BID [History] oxyCODONE HCl/Acetaminophen [Oxycodone-Acetaminophen 5-325] 1 each PO Q8HR PRN 11/13/17 [History] Potassium Chloride 60 meq PO DAILY 30 Days #180 tab.er.prt 11/15/17 [Rx] QUEtiapine Fumarate [Seroquel] 300 mg PO BEDTIME 11/24/17 [History] Past Medical History HEENT 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: Impaired Vision Other HEENT History: wears glasses Cardiovascular 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: Heart Failure Other Cardiovascular History: Impaired EF 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: Asthma, SOB Gastrointestinal 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: Chronic Constipation, Pancreatitis Genitourinary 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: None [employer] 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: Other (See Below) Other [employer] History: hysterectomy Musculoskeletal 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: Back Pain, Chronic Neurological 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: None Psychiatric 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: Anxiety, Depression Endocrine/Metabolic 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: Hypothyroidism Hematologic 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: Anemia, B12 Deficiency Immunologic 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: None Oncologic (Cancer) 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: None Dermatologic 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: None - Infectious Disease History Infectious Disease 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: Chicken Pox - Past Surgical History Head Surgeries/Procedures: Reports: None GI Surgical 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: Appendectomy, Cholecystectomy Female Surgical 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: Hysterectomy, Tubal Ligation Social & Family History - Family History Family Medical History: Noncontributory - Tobacco Use Smoking Status *Q: Never Smoker Second Hand Smoke Exposure: No - Caffeine Use Caffeine Use: Reports: Soda - Recreational Drug Use Recreational Drug Use: No ED ROS GENERAL - Review of Systems Review Of Systems: ROS reveals no pertinent complaints other than HPI. ED EXAM, GI/ABD - Physical Exam Exam: See Below Exam Limited By: No Limitations General Appearance: Alert, Anxious, Mild Distress Eyes: Bilateral: EOMI Ears: Normal External Exam Nose: Normal Inspection Throat/Mouth: Normal Inspection, Inflammation Head: Normocephalic Neck: Normal Inspection Respiratory/Chest: No Respiratory Distress, Lungs Clear, Normal Breath Sounds Cardiovascular: Normal Peripheral Pulses, Regular Rate, Rhythm. No: No Edema ( trace pedal, ankle) GI/Abdominal Exam: Tender (LUQ), Abnormal Bowel Sounds (hyperactive upper decreased lower abodomen) Back Exam: Normal Inspection Extremities: Normal Inspection, Normal Range of Motion Neurological: Alert, Oriented, Normal Cognition Psychiatric: Normal Affect Skin Exam: Warm, Dry, Intact, Pallor Course - Vital Signs Last Recorded V/S: Last Vital Signs Temp 99.7 F 11/25/17 00:30 Pulse 101 H 11/24/17 23:18 Resp 20 11/24/17 23:18 BP 119/70 11/24/17 23:18 Pulse Ox 92 L 11/24/17 23:18 - Orders/Labs/Meds Orders: Medication Orders Albuterol (Proventil Hfa) 0 - 1 gm INH Q6H PRN PRN Reason: Shortness of Breath Alprazolam (Xanax) 0.5 mg PO TID PRN PRN Reason: Anxiety Last Admin: 11/25/17 01:43 Dose: 0.5 mg Admin: 11/24/17 01:18 Dose: 0.5 mg Buspirone HCl (Buspar) 15 mg PO TID [facility] Last Admin: 11/24/17 21:48 Dose: 15 mg Admin: 11/24/17 14:02 Dose: 15 mg Admin: 11/24/17 11:05 Dose: 15 mg Carvedilol (Coreg) 6.25 mg PO BID [facility] Last Admin: 11/24/17 21:50 Dose: 6.25 mg Admin: 11/24/17 11:04 Dose: 6.25 mg Cyanocobalamin (Vitamin B12) 1,000 mcg IM Q30D@0900 [facility] Cyclobenzaprine HCl (Flexeril) 10 mg PO TID PRN PRN Reason: Spasms Folic Acid (Folic Acid) 1 mg PO DAILY [facility] Sodium Chloride (Normal Saline) 1,000 mls @ 125 mls/hr IV ASDIRECTED [facility] Last Admin: 11/24/17 22:17 Dose: 125 mls/hr Infusion: 11/24/17 22:15 Dose: 125 mls/hr Admin: 11/24/17 14:09 Dose: 125 mls/hr Infusion: 11/24/17 14:09 Dose: 125 mls/hr Infusion: 11/24/17 13:39 Dose: 125 mls/hr Admin: 11/24/17 08:04 Dose: 150 mls/hr Infusion: 11/24/17 07:57 Dose: 150 mls/hr Admin: 11/24/17 01:16 Dose: 150 mls/hr Ketorolac Tromethamine (Toradol) 30 mg IVPUSH Q6H PRN PRN Reason: Pain Stop: 11/29/17 02:01 Last Admin: 11/24/17 23:30 Dose: 30 mg Admin: 11/24/17 10:03 Dose: 30 mg Admin: 11/24/17 02:19 Dose: 30 mg Levothyroxine Sodium (Levothyroxine) 150 mcg PO DAILY@0600 [facility] Morphine Sulfate (Morphine) 5 mg IVPUSH Q2H PRN PRN Reason: Abdominal Pain Last Admin: 11/25/17 01:18 Dose: 5 mg Admin: 11/24/17 21:47 Dose: 5 mg Admin: 11/24/17 19:35 Dose: 5 mg Admin: 11/24/17 16:54 Dose: 5 mg Admin: 11/24/17 14:02 Dose: 5 mg Non-Formulary Medication (Ziprasidone Hcl [Geodon]) 80 mg PO QAM [facility] Last Admin: 11/24/17 11:06 Dose: Ondansetron HCl (Zofran) 4 mg IVPUSH Q6H PRN PRN Reason: Nausea/Vomiting Last Admin: 11/24/17 01:17 Dose: 4 mg Pantoprazole Sodium (Protonix Iv) 40 mg IVPUSH Q12HR [facility] Last Admin: 11/24/17 22:06 Dose: 40 mg Admin: 11/24/17 08:43 Dose: 40 mg Quetiapine Fumarate (Seroquel) 100 mg PO BID@0900,1400 [facility] Last Admin: 11/24/17 14:02 Dose: 100 mg Quetiapine Fumarate (Seroquel) 300 mg PO BEDTIME [facility] Last Admin: 11/24/17 21:49 Dose: 300 mg Senna/Docusate Sodium (Senna Plus) 1 tab PO BID [facility] Last Admin: 11/24/17 21:48 Dose: 1 tab Sertraline HCl (Zoloft) 100 mg PO BID [facility] Last Admin: 11/24/17 21:49 Dose: 100 mg Admin: 11/24/17 11:04 Dose: 100 mg Labs: Laboratory Tests 11/23/17 11/23/17 11/23/17 Range/Units 20:14 20:14 20:14 WBC 12.1 H (5.0-10.0) 10^3/uL RBC 3.30 L (4.2-5.4) 10^6/uL Hgb 10.5 L (12.0-16.0) g/dL Hct 32.6 L (37.0-47.0) % MCV 98.8 (80-100) fL MCH 31.8 (27.0-34.0) pg MCHC 32.2 L (33.0-35.0) g/dL Plt Count 289 (150-450) 10^3/uL Neut % (Auto) 81.4 H (42.2-75.2) % Lymph % (Auto) 9.9 L (20.5-50.1) % [place] % (Auto) 5.1 (2-8) % Eos % (Auto) 3.4 H (1.0-3.0) % Baso % (Auto) 0.2 (0.0-1.0) % Sodium 132 L (135-145) mmol/L Potassium 3.6 (3.6-5.0) mmol/L Chloride 94 L (101-111) mmol/L Carbon Dioxide 27.0 D (21.0-31.0) mmol/L Anion Gap 14.6 BUN 19 H (7-18) mg/dL Creatinine 1.2 (0.6-1.3) mg/dL Est Cr Clr Drug Dosing 53.94 mL/min Estimated GFR (MDRD) 47 BUN/Creatinine Ratio 15.83 Glucose 137 H (74-105) mg/dL Lactic Acid 2.2 (0.5-2.2) mmol/L Calcium 8.7 (8.4-10.2) mg/dl Total Bilirubin 0.4 (0.2-1.0) mg/dL AST 43 H (10-42) IU/L ALT 28 (10-60) IU/L Alkaline Phosphatase 81 (42-121) IU/L Troponin I < 0.02 (0.00-0.02) ng/ml B-Natriuretic Peptide 49 (0-100) pg/ml Total Protein 6.8 (6.7-8.2) g/dl Albumin 3.6 (3.2-5.5) g/dl Globulin 3.2 Albumin/Globulin Ratio 1.13 Amylase 169 H (28-100) U/L Lipase 250 H (22-51) U/L Meds: Medications Generic Name Dose Route Start Last Admin Trade Name Freq PRN Reason Stop Dose Admin Albuterol 0 - 1 gm 11/23/17 23:24 Proventil Hfa INH Q6H PRN Shortness of Breath Alprazolam 0.5 mg 11/23/17 23:23 11/25/17 01:43 Xanax PO 0.5 mg TID PRN Administration Anxiety Buspirone HCl 15 mg 11/24/17 09:00 11/24/17 21:48 Buspar PO 15 mg TID KP Administration Carvedilol 6.25 mg 11/24/17 09:00 11/24/17 21:50 Coreg PO 6.25 mg BID KP Administration Cyanocobalamin 1,000 mcg 12/13/17 09:00 Vitamin B12 IM Q30D@0900 [facility] Cyclobenzaprine HCl 10 mg 11/24/17 11:36 Flexeril PO TID PRN Spasms Folic Acid 1 mg 11/25/17 09:00 Folic Acid PO DAILY [facility] Sodium Chloride 1,000 mls @ 125 mls/hr 11/23/17 23:15 11/24/17 22:17 Normal Saline IV 125 mls/hr ASDIRECTED [facility] Administration Ketorolac Tromethamine 30 mg 11/24/17 02:01 11/24/17 23:30 Toradol IVPUSH 11/29/17 02:01 30 mg Q6H PRN Administration Pain Levothyroxine Sodium 150 mcg 11/25/17 06:00 Levothyroxine PO DAILY@0600 [facility] Morphine Sulfate 5 mg 11/24/17 11:07 11/25/17 01:18 Morphine IVPUSH 5 mg Q2H PRN Administration Abdominal Pain Non-Formulary Medication 80 mg 11/24/17 09:00 11/24/17 11:06 Ziprasidone Hcl [Geodon] PO Not Given QAM [facility] Ondansetron HCl 4 mg 11/23/17 23:04 11/24/17 01:17 Zofran IVPUSH 4 mg Q6H PRN Administration Nausea/Vomiting Pantoprazole Sodium 40 mg 11/24/17 09:00 11/24/17 22:06 Protonix Iv IVPUSH 40 mg Q12HR [facility] Administration Quetiapine Fumarate 100 mg 11/24/17 14:00 11/24/17 14:02 Seroquel PO 100 mg BID@0900,1400 [facility] Administration Quetiapine Fumarate 300 mg 11/24/17 21:00 11/24/17 21:49 Seroquel PO 300 mg BEDTIME [facility] Administration Senna/Docusate Sodium 1 tab 11/24/17 21:00 11/24/17 21:48 Senna Plus PO 1 tab BID [facility] Administration Sertraline HCl 100 mg 11/24/17 09:00 11/24/17 21:49 Zoloft PO 100 mg BID KP Administration Discontinued Medications Generic Name Dose Route Start Last Admin Trade Name Freq PRN Reason Stop Dose Admin Fentanyl 25 mcg 11/23/17 21:05 11/23/17 21:21 Sublimaze IVPUSH 11/23/17 21:06 25 mcg ONETIME ONE Administration Fentanyl 50 mcg 11/23/17 22:45 11/23/17 22:54 Sublimaze IVPUSH 11/23/17 22:46 50 mcg ONETIME ONE Administration Hydromorphone HCl 0.5 mg 11/23/17 23:04 11/24/17 01:24 Dilaudid IVPUSH 0.5 mg Q2H PRN Administration Pain (severe 7-10) Hydromorphone HCl 1 mg 11/24/17 02:56 11/24/17 08:04 Dilaudid IVPUSH 1 mg Q2H PRN Administration Pain Iopamidol 100 ml 11/23/17 22:33 11/23/17 23:26 Isovue-300 (61%) IVPUSH 11/23/17 22:34 100 ml ONETIME ONE Administration Morphine Sulfate 5 mg 11/24/17 10:32 11/24/17 11:21 Morphine IVPUSH 5 mg Q2H PRN Administration Abdominal Pain Ondansetron HCl 4 mg 11/23/17 21:05 11/23/17 21:22 Zofran IV 11/23/17 21:06 4 mg ONETIME ONE Administration Quetiapine Fumarate 100 mg 11/24/17 09:00 11/24/17 11:25 Seroquel PO Not Given DAILY [facility] - Re-Assessments/Exams Free Text/Narrative Re-Assessment/Exam: 11/25/17 03:44 Dr Montanez accepting of patient for further eval and management acute pancreatitis Departure - Departure Time of Disposition: 00:05 Disposition: Admitted As Inpatient 67 Condition: Good Clinical Impression: Pancreatitis Qualifiers: Chronicity: acute Pancreatitis type: other Acute pancreatitis complication: unspecified Qualified Code(s): K85.80 - Other acute pancreatitis without necrosis or infection - Discharge Information
[2017-11-23] MEDS ORDERED: HYDROmorphone 1 MG/ML Syringe IVPUSH PRN (23:04)
[2017-11-23] MEDS ORDERED: Ondansetron 4 MG/2 ML SDV IVPUSH PRN (23:04)
[2017-11-23] MEDS ORDERED: Albuterol 6.7 GM Inhaler INH PRN (23:24)
[2017-11-24] MEDS: Sodium Chloride 0.9% 1,000 ML IV SCH ×4 (01:16→22:17)
[2017-11-24] MEDS: ALPRAZolam 0.5 MG Tab PO PRN (01:18)
[2017-11-24] MEDS: Ketorolac 30 MG/ML SDV IVPUSH PRN ×3 (02:19→23:30)
[2017-11-24] MEDS: HYDROmorphone 1 MG/ML Syringe IVPUSH PRN ×3 (03:18→08:04)
[2017-11-24 07:07] LABS: ANION GAP 12.8
[2017-11-24] MEDS: Pantoprazole 40 MG Vial IVPUSH SCH ×2 (08:43→22:06)
[2017-11-24] MEDS ORDERED: QUEtiapine 100 MG Tab PO SCH ×2 (09:00→21:00)
--- NOTE | 2017-11-24 09:38 | PCM.HP ---
H&P History of Present Illness - General Date of Service: 11/24/17 Admit Problem/Dx: Admission Diagnosis/Problem Admission Diagnosis/Problem Pancreatitis due to biliary obstruction Source of Information: Patient History Limitations: Reports: No Limitations - History of Present Illness Initial Comments - Free Text/Narative: The patient is a 52-year-old female with medical history of gastroesophageal reflux disease, hypothyroidism, depression, asthma, congestive heart failure, and previous pancreatitis. The patient presented to the emergency room with complaint of epigastric pain that has been going on for the past 4 days. Initially the pain was mild but has significantly worsened over time. She described the pain as cramp-like in nature with intensity of 10 on a scale of 0- 10. She has associated nausea and has vomited multiple times. She vomited 3 times today prior to coming to the emergency room. She was given intravenous fentanyl but that was not helpful. She still rates intensity of her pain has pain at this point. Denies having fever chills and rigors. Denies headache or blurring of vision. No dysuria no frequency or micturition. Onset of Symptoms: Reports: Today Bilateral Upper Abdomen Pain Score (Numeric/FACES): 10 - Related Data Allergies/Adverse Reactions: Allergies Allergy/AdvReac Type Severity Reaction Status Date / Time cephalexin [Cephalexin] AdvReac Nausea and Verified 11/24/17 00:50 Vomiting prednisone AdvReac Vomiting Verified 11/24/17 00:50 cats Allergy Sneezing Uncoded 11/24/17 00:50 evergreen tree Allergy Rash Uncoded 11/24/17 00:50 Home Medications: Home Meds Carvedilol 6.25 mg PO BID 05/07/13 [History] Furosemide [Lasix] 20 mg PO .EVERYOTHERDAY PRN 05/07/13 [History] QUEtiapine Fumarate [Seroquel] 100 mg PO BID 05/07/13 [History] Sertraline [Zoloft] 100 mg PO BID 05/07/13 [History] Simvastatin 40 mg PO BEDTIME 05/07/13 [History] busPIRone [Buspar] 15 mg PO TID 05/07/13 [History] ALPRAZolam [Alprazolam ODT] 0.5 mg PO TID PRN 09/10/14 [History] Levothyroxine 150 mcg PO DAILY 10/17/14 [History] Cyanocobalamin (Vitamin B12) [Vitamin B12] 1,000 mcg IM .MONTHLY 12/27/14 [ History] Cyclobenzaprine [Flexeril] 10 mg PO TID PRN 07/21/16 [History] Ziprasidone HCl [Geodon] 80 mg PO QAM 08/25/16 [History] Acetaminophen [Tylenol Arthritis] 1,300 mg PO Q4HR PRN 11/13/17 [History] Albuterol Sulfate [Proair Respiclick] 90 mcg IH Q6HR PRN 11/13/17 [History] Ascorbate Calcium [Vitamin C] 1,000 mg PO DAILY 11/13/17 [History] Cholecalciferol (Vitamin D3) [Vitamin D3] 50,000 unit PO WEEKLY 11/13/17 [ History] Esomeprazole Magnesium [Nexium] 40 mg PO BID 11/13/17 [History] Ferrous Fumarate 324 mg PO BID 11/13/17 [History] Folic Acid 1 mg PO DAILY 11/13/17 [History] Loperamide [Imodium] 2 mg PO Q4H PRN 11/13/17 [History] Loratadine 10 mg PO DAILY 11/13/17 [History] Magnesium Oxide [Magnesium] 400 mg PO BID 11/13/17 [History] Multivitamin [Multivitamins] 1 each PO DAILY 11/13/17 [History] Nitroglycerin 0.4 mg SL .[id number] PRN 11/13/17 [History] Ondansetron [Zofran ODT] 4 mg PO Q8HR PRN 11/13/17 [History] Triamcinolone Acetonide [Triamcinolone Acetonide 0.1% Oint] 1 applic TOP BID [History] oxyCODONE HCl/Acetaminophen [Oxycodone-Acetaminophen 5-325] 1 each PO Q8HR PRN 11/13/17 [History] Potassium Chloride 60 meq PO DAILY 30 Days #180 tab.er.prt 11/15/17 [Rx] QUEtiapine Fumarate [Seroquel] 300 mg PO BEDTIME 11/24/17 [History] Past Medical History HEENT 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: Impaired Vision Other HEENT History: wears glasses Cardiovascular 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: Heart Failure Other Cardiovascular History: Impaired EF 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: Asthma, SOB Gastrointestinal 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: Chronic Constipation, Pancreatitis Genitourinary 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: None 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) Other OB/BYN History: hysterectomy Musculoskeletal 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: Back Pain, Chronic Neurological 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: None Psychiatric 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: Anxiety, Depression Endocrine/Metabolic 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: Hypothyroidism Hematologic 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: Anemia, B12 Deficiency Immunologic 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: None Oncologic (Cancer) 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: None Dermatologic 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: None - Infectious Disease History Infectious Disease 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: Chicken Pox - Past Surgical History Head Surgeries/Procedures: Reports: None GI Surgical 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: Appendectomy, Cholecystectomy Female Surgical 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: Hysterectomy, Tubal Ligation Social & Family History - Family History Family Medical History: Noncontributory - Tobacco Use Smoking Status *Q: Never Smoker Second Hand Smoke Exposure: No - Caffeine Use Caffeine Use: Reports: Coffee - Recreational Drug Use Recreational Drug Use: No H&P Review of Systems - Review of Systems: Review Of Systems: See Below General: Reports: Weakness HEENT: Reports: No Symptoms Pulmonary: Reports: No Symptoms Cardiovascular: Reports: No Symptoms Gastrointestinal: Reports: Abdominal Pain, Nausea, Vomiting Genitourinary: Reports: No Symptoms Skin: Reports: No Symptoms Exam - Exam Exam: See Below - Vital Signs Vital Signs: Last Vital Signs Temp 37.4 C 11/24/17 03:21 Pulse 106 H 11/24/17 03:21 Resp 16 11/24/17 03:21 BP 99/60 11/24/17 03:21 Pulse Ox 97 11/24/17 03:21 Weight: 99.427 kg - Exam General: Alert, Oriented, Cooperative Neck: Supple, Trachea Midline, 2 Lungs: Clear to Auscultation, Normal Respiratory Effort Cardiovascular: Regular Rate, Regular Rhythm GI/Abdominal Exam: Tender Back Exam: Normal Inspection, Full Range of Motion, NT Extremities: Normal Inspection, Normal Range of Motion, Non-Tender, No Pedal Edema, Normal Capillary Refill Psychiatric: Alert, Normal Affect, Normal Mood - Patient Data Lab Results Last 24 hrs: Laboratory Results - last 24 hr 11/23/17 11/23/17 11/23/17 Range/Units 20:14 20:14 20:14 WBC 12.1 H (5.0-10.0) 10^3/uL RBC 3.30 L (4.2-5.4) 10^6/uL Hgb 10.5 L (12.0-16.0) g/dL Hct 32.6 L (37.0-47.0) % MCV 98.8 (80-100) fL MCH 31.8 (27.0-34.0) pg MCHC 32.2 L (33.0-35.0) g/dL Plt Count 289 (150-450) 10^3/uL Neut % (Auto) 81.4 H (42.2-75.2) % Lymph % (Auto) 9.9 L (20.5-50.1) % Stevens % (Auto) 5.1 (2-8) % Eos % (Auto) 3.4 H (1.0-3.0) % Baso % (Auto) 0.2 (0.0-1.0) % Sodium 132 L (135-145) mmol/L Potassium 3.6 (3.6-5.0) mmol/L Chloride 94 L (101-111) mmol/L Carbon Dioxide 27.0 D (21.0-31.0) mmol/L Anion Gap 14.6 BUN 19 H (7-18) mg/dL Creatinine 1.2 (0.6-1.3) mg/dL Est Cr Clr Drug Dosing 53.94 mL/min Estimated GFR (MDRD) 47 BUN/Creatinine Ratio 15.83 Glucose 137 H (74-105) mg/dL Lactic Acid 2.2 (0.5-2.2) mmol/L Calcium 8.7 (8.4-10.2) mg/dl Total Bilirubin 0.4 (0.2-1.0) mg/dL AST 43 H (10-42) IU/L ALT 28 (10-60) IU/L Alkaline Phosphatase 81 (42-121) IU/L Troponin I < 0.02 (0.00-0.02) ng/ml B-Natriuretic Peptide 49 (0-100) pg/ml Total Protein 6.8 (6.7-8.2) g/dl Albumin 3.6 (3.2-5.5) g/dl Globulin 3.2 Albumin/Globulin Ratio 1.13 Amylase 169 H (28-100) U/L Lipase 250 H (22-51) U/L 09/26/18 09/26/18 Range/Units 06:37 06:37 WBC 12.0 H (5.0-10.0) 10^3/uL RBC 3.15 L (4.2-5.4) 10^6/uL Hgb 9.9 L (12.0-16.0) g/dL Hct 31.6 L (37.0-47.0) % MCV 100.3 H (80-100) fL MCH 31.4 (27.0-34.0) pg MCHC 31.3 L (33.0-35.0) g/dL Plt Count 274 (150-450) 10^3/uL Neut % (Auto) 77.8 H (42.2-75.2) % Lymph % (Auto) 12.3 L (20.5-50.1) % Stevens % (Auto) 6.3 (2-8) % Eos % (Auto) 3.5 H (1.0-3.0) % Baso % (Auto) 0.1 (0.0-1.0) % Sodium 134 L (135-145) mmol/L Potassium 3.8 (3.6-5.0) mmol/L Chloride 97 L (101-111) mmol/L Carbon Dioxide 28.0 (21.0-31.0) mmol/L Anion Gap 12.8 BUN 15 (7-18) mg/dL Creatinine 1.1 (0.6-1.3) mg/dL Est Cr Clr Drug Dosing 58.84 mL/min Estimated GFR (MDRD) 52 BUN/Creatinine Ratio 13.63 Glucose 127 H (74-105) mg/dL Lactic Acid (0.5-2.2) mmol/L Calcium 8.5 (8.4-10.2) mg/dl Total Bilirubin 0.4 (0.2-1.0) mg/dL AST 35 (10-42) IU/L ALT 28 (10-60) IU/L Alkaline Phosphatase 75 (42-121) IU/L Troponin I (0.00-0.02) ng/ml B-Natriuretic Peptide (0-100) pg/ml Total Protein 6.3 L (6.7-8.2) g/dl Albumin 3.3 (3.2-5.5) g/dl Globulin 3.0 Albumin/Globulin Ratio 1.10 Amylase (28-100) U/L Lipase 137 H (22-51) U/L Result Diagrams: 11/24/17 06:37 11/24/17 06:37 Problem List Initiated/Reviewed/Updated: Yes Orders Last 24hrs: Active Orders 24 hr Category Date Time Status Patient Status [ADT] Routine ADT 11/23/17 23:02 Active Intake and Output [RC] QSHIFT Care 11/23/17 23:05 Active Oxygen Therapy [RC] PRN Care 11/23/17 23:02 Active Oxygen Therapy [RC] PRN Care 11/23/17 23:04 Active Up ad Alisha [RC] ASDIRECTED Care 11/23/17 23:04 Active VTE/DVT Education [RC] PER UNIT ROUTINE Care 11/23/17 23:04 Active ALPRAZolam [Xanax] Med 11/23/17 23:23 Active 0.5 mg PO TID PRN Albuterol [Proventil HFA] Med 11/23/17 23:24 Active 0 - 1 gm INH Q6H PRN Carvedilol [Coreg] Med 11/24/17 09:00 Active 6.25 mg PO BID HYDROmorphone [Dilaudid] Med 11/24/17 02:56 Active 1 mg IVPUSH Q2H PRN Ketorolac [Toradol] Med 11/24/17 02:01 Active 30 mg IVPUSH Q6H PRN Ondansetron [Zofran] Med 11/23/17 23:04 Active 4 mg IVPUSH Q6H PRN Pantoprazole [ProTONIX IV] Med 11/24/17 09:00 Active 40 mg IVPUSH Q12HR QUEtiapine [SEROquel] Med 11/24/17 09:00 Active 100 mg PO DAILY Sertraline [Zoloft] Med 11/24/17 09:00 Active 100 mg PO BID Sodium Chloride 0.9% [Normal Saline] 1,000 ml Med 11/23/17 23:15 Active IV ASDIRECTED Ziprasidone HCl [Geodon] Med 11/24/17 09:00 Active 80 mg PO QAM busPIRone [Buspar] Med 11/24/17 09:00 Active 15 mg PO TID Resuscitation Status Routine Resus Stat 11/23/17 23:02 Ordered Medication Orders Albuterol (Proventil Hfa) 0 - 1 gm INH Q6H PRN PRN Reason: Shortness of Breath Alprazolam (Xanax) 0.5 mg PO TID PRN PRN Reason: Anxiety Last Admin: 11/24/17 01:18 Dose: 0.5 mg Buspirone HCl (Buspar) 15 mg PO TID [facility] Carvedilol (Coreg) 6.25 mg PO BID [facility] Hydromorphone HCl (Dilaudid) 1 mg IVPUSH Q2H PRN PRN Reason: Pain Last Admin: 11/24/17 08:04 Dose: 1 mg Admin: 11/24/17 05:46 Dose: 1 mg Admin: 11/24/17 03:18 Dose: 1 mg Sodium Chloride (Normal Saline) 1,000 mls @ 150 mls/hr IV ASDIRECTED [facility] Last Admin: 11/24/17 08:04 Dose: 150 mls/hr Infusion: 11/24/17 07:57 Dose: 150 mls/hr Admin: 11/24/17 01:16 Dose: 150 mls/hr Ketorolac Tromethamine (Toradol) 30 mg IVPUSH Q6H PRN PRN Reason: Pain Stop: 11/29/17 02:01 Last Admin: 11/24/17 02:19 Dose: 30 mg Non-Formulary Medication (Ziprasidone Hcl [Geodon]) 80 mg PO QAM [facility] Ondansetron HCl (Zofran) 4 mg IVPUSH Q6H PRN PRN Reason: Nausea/Vomiting Last Admin: 11/24/17 01:17 Dose: 4 mg Pantoprazole Sodium (Protonix Iv) 40 mg IVPUSH Q12HR [facility] Last Admin: 11/24/17 08:43 Dose: 40 mg Quetiapine Fumarate (Seroquel) 100 mg PO DAILY [facility] Sertraline HCl (Zoloft) 100 mg PO BID [facility] Assessment/Plan Comment:: #. Recurrent acute pancreatitis The patient has been treated previously for acute pancreatitis. Etiology of the pancreatitis is not obvious. She does not drink alcohol and has had her gallbladder removed. This is likely idiopathic pancreatitis. I will proceed to send sample for triglyceride level Aggressive intravenous fluid with normal saline intravenous Dilaudid for pain control Intravenous Toradol sample for repeat serum lipase #. Gastroesophageal reflux disease Patient has been on proton pump inhibitor X #. Hypothyroidism On hormone replacement therapy with levothyroxine Restart that medication #. Depression The patient is on multiple medications. I will continue with those #. Asthma Patient on albuterol #. History of congestive heart failure Not decompensated at this point Has been on furosemide. Continue this
[2017-11-24] MEDS ORDERED: Morphine 10 MG/ML Syringe IVPUSH PRN (10:32)
[2017-11-24] MEDS: Sertraline 50 MG Tab PO SCH ×2 (11:04→21:49)
[2017-11-24] MEDS: Carvedilol 6.25 MG Tab PO SCH ×2 (11:04→21:50)
[2017-11-24] MEDS: busPIRone 15 MG Tab PO SCH ×3 (11:05→21:48)
[2017-11-24] MEDS: ZIPRASIDONE HCL 80 MG PO SCH (11:06)
[2017-11-24] MEDS ORDERED: Cyclobenzaprine 10 MG Tab PO PRN (11:36)
[2017-11-24] MEDS: QUEtiapine 100 MG Tab PO SCH (14:02)
[2017-11-24] MEDS: Morphine 4 MG/ML Syringe IVPUSH PRN ×4 (14:02→21:47)
[2017-11-25] MEDS: Morphine 4 MG/ML Syringe IVPUSH PRN ×4 (01:18→14:12)
[2017-11-25] MEDS: ALPRAZolam 0.5 MG Tab PO PRN (01:43)
[2017-11-25] MEDS: Ketorolac 30 MG/ML SDV IVPUSH PRN ×2 (05:59→12:20)
[2017-11-25] MEDS ORDERED: Levothyroxine 75 MCG Tab PO SCH (06:00)
[2017-11-25] MEDS: Sodium Chloride 0.9% 1,000 ML IV SCH (06:08)
[2017-11-25 06:17] LABS: ANION GAP 11.4; CHLORIDE,CL 101 mmol/L (101-111); SODIUM,NA 135 mmol/L (135-145)
[2017-11-25] MEDS ORDERED: Morphine 10 MG/ML Syringe IVPUSH PRN (08:00)
[2017-11-25] MEDS ORDERED: Folic Acid 1 MG Tab PO SCH (09:00)
[2017-11-25] MEDS ORDERED: Polyethylene Glycol 3350 Powder 17 GM Packet PO SCH (09:45)
[2017-11-25] MEDS: Pantoprazole 40 MG Vial IVPUSH SCH (09:54)
[2017-11-25] MEDS: busPIRone 15 MG Tab PO SCH ×2 (09:58→14:11)
[2017-11-25] MEDS: Carvedilol 6.25 MG Tab PO SCH (09:58)
[2017-11-25] MEDS: QUEtiapine 100 MG Tab PO SCH ×2 (10:00→14:11)
[2017-11-25] MEDS: Sertraline 50 MG Tab PO SCH (10:01)
[2017-11-25] MEDS: ZIPRASIDONE HCL 80 MG PO SCH (10:02)
[2017-11-25] MEDS ORDERED: Potassium Chloride 10 MEQ Tab.ER PO ONE (10:10)
--- NOTE | 2017-11-25 10:16 | PCM.DCSUM1 ---
Discharge Summary - Hospital Course Free Text/Narrative:: 52 yo F with PMH of recurrent pancreatitis who presents with abdominal pain. Found to have elevated lipase and being managed for pancreatitis, unclear etiology. Also has constipation. She strongly requested a transfer to [facility] this morning during rounds due to intractable abdominal pain and request for a GI consult. Diagnosis: Stroke: No - Discharge Data Discharge Date: 11/25/17 Discharge Disposition: DC/Tfer to Acute Hospital 02 Condition: Stable - Discharge Diagnosis/Problem(s) (1) Pancreatitis SNOMED Code(s): 19154042 ICD Code: K85.90 - ACUTE PANCREATITIS WITHOUT NECROSIS OR INFECTION, UNSP Status: Acute Current Visit: Yes Qualifiers: Chronicity: acute Pancreatitis type: other Acute pancreatitis complication: unspecified Qualified Code(s): K85.80 - Other acute pancreatitis without necrosis or infection - Patient Instructions Diet: Regular Diet as Tolerated Showering/Bathing: June Shower - Discharge Plan Home Medications: Home Meds Carvedilol 6.25 mg PO BID 05/07/13 [History] Furosemide [Lasix] 20 mg PO .EVERYOTHERDAY PRN 05/07/13 [History] QUEtiapine Fumarate [Seroquel] 100 mg PO BID 05/07/13 [History] Sertraline [Zoloft] 100 mg PO BID 05/07/13 [History] Simvastatin 40 mg PO BEDTIME 05/07/13 [History] busPIRone [Buspar] 15 mg PO TID 05/07/13 [History] ALPRAZolam [Alprazolam ODT] 0.5 mg PO TID PRN 09/10/14 [History] Levothyroxine 150 mcg PO DAILY 10/17/14 [History] Cyanocobalamin (Vitamin B12) [Vitamin B12] 1,000 mcg IM .MONTHLY 12/27/14 [ History] Cyclobenzaprine [Flexeril] 10 mg PO TID PRN 07/21/16 [History] Ziprasidone HCl [Geodon] 80 mg PO QAM 08/25/16 [History] Acetaminophen [Tylenol Arthritis] 1,300 mg PO Q4HR PRN 11/13/17 [History] Albuterol Sulfate [Proair Respiclick] 90 mcg IH Q6HR PRN 11/13/17 [History] Ascorbate Calcium [Vitamin C] 1,000 mg PO DAILY 11/13/17 [History] Cholecalciferol (Vitamin D3) [Vitamin D3] 50,000 unit PO WEEKLY 11/13/17 [ History] Esomeprazole Magnesium [Nexium] 40 mg PO BID 11/13/17 [History] Ferrous Fumarate 324 mg PO BID 11/13/17 [History] Folic Acid 1 mg PO DAILY 11/13/17 [History] Loperamide [Imodium] 2 mg PO Q4H PRN 11/13/17 [History] Loratadine 10 mg PO DAILY 11/13/17 [History] Magnesium Oxide [Magnesium] 400 mg PO BID 11/13/17 [History] Multivitamin [Multivitamins] 1 each PO DAILY 11/13/17 [History] Nitroglycerin 0.4 mg SL .[id number] PRN 11/13/17 [History] Ondansetron [Zofran ODT] 4 mg PO Q8HR PRN 11/13/17 [History] Triamcinolone Acetonide [Triamcinolone Acetonide 0.1% Oint] 1 applic TOP BID [History] oxyCODONE HCl/Acetaminophen [Oxycodone-Acetaminophen 5-325] 1 each PO Q8HR PRN 11/13/17 [History] Potassium Chloride 60 meq PO DAILY 30 Days #180 tab.er.prt 11/15/17 [Rx] QUEtiapine Fumarate [Seroquel] 300 mg PO BEDTIME 11/24/17 [History] Forms: ED Department Discharge Referrals: PCP,Unobtain [Ordering Only Provider] - - General Info Date of Service: 11/25/17 Admission Dx/Problem (Free Text: Admission Diagnosis/Problem Admission Diagnosis/Problem Pancreatitis - Review of Systems General: Reports: No Symptoms. Denies: Fever HEENT: Reports: No Symptoms. Denies: Sore Throat Pulmonary: Reports: No Symptoms. Denies: Shortness of Breath Cardiovascular: Reports: No Symptoms. Denies: Chest Pain Gastrointestinal: Reports: Abdominal Pain Genitourinary: Reports: No Symptoms. Denies: Dysuria Musculoskeletal: Reports: No Symptoms. Denies: Neck Pain Skin: Reports: No Symptoms. Denies: Cyanosis Neurological: Reports: No Symptoms. Denies: Confusion - Patient Data Vitals - Most Recent: Last Vital Signs Temp 37.6 C 11/25/17 08:00 Pulse 87 11/25/17 09:58 Resp 12 11/25/17 08:00 BP 109/59 L 11/25/17 09:58 Pulse Ox 90 L 11/25/17 08:00 Weight - Most Recent: 99.427 kg I&O - Last 24 hours: Intake & Output 11/24/17 11/25/17 11/25/17 22:59 06:59 14:59 Intake Total 1562 1079 Output Total 2100 300 Balance -538 779 Lab Results - Last 24 hrs: Laboratory Results - last 24 hr 11/25/17 11/25/17 Range/Units 05:40 05:40 WBC 10.6 H (5.0-10.0) 10^3/uL RBC 2.74 L (4.2-5.4) 10^6/uL Hgb 8.7 L (12.0-16.0) g/dL Hct 28.3 L (37.0-47.0) % MCV 103.3 H D (80-100) fL MCH 31.8 (27.0-34.0) pg MCHC 30.7 L (33.0-35.0) g/dL Plt Count 237 (150-450) 10^3/uL Sodium 135 (135-145) mmol/L Potassium 3.4 L (3.6-5.0) mmol/L Chloride 101 (101-111) mmol/L Carbon Dioxide 26.0 (21.0-31.0) mmol/L Anion Gap 11.4 BUN 10 (7-18) mg/dL Creatinine 0.9 (0.6-1.3) mg/dL Est Cr Clr Drug Dosing 71.91 mL/min Estimated GFR (MDRD) > 60 Glucose 115 H (74-105) mg/dL Calcium 8.1 L (8.4-10.2) mg/dl Med Orders - Current: Current Medications Albuterol (Proventil Hfa) 0 - 1 gm INH Q6H PRN PRN Reason: Shortness of Breath Alprazolam (Xanax) 0.5 mg PO TID PRN PRN Reason: Anxiety Last Admin: 11/25/17 01:43 Dose: 0.5 mg Buspirone HCl (Buspar) 15 mg PO TID [facility] Last Admin: 11/25/17 09:58 Dose: 15 mg Carvedilol (Coreg) 6.25 mg PO BID [facility] Last Admin: 11/25/17 09:58 Dose: 6.25 mg Cyanocobalamin (Vitamin B12) 1,000 mcg IM Q30D@0900 [facility] Cyclobenzaprine HCl (Flexeril) 10 mg PO TID PRN PRN Reason: Spasms Folic Acid (Folic Acid) 1 mg PO DAILY [facility] Last Admin: 11/25/17 09:59 Dose: 1 mg Sodium Chloride (Normal Saline) 1,000 mls @ 125 mls/hr IV ASDIRECTED [facility] Last Admin: 11/25/17 06:08 Dose: 125 mls/hr Ketorolac Tromethamine (Toradol) 30 mg IVPUSH Q6H PRN PRN Reason: Pain Stop: 11/29/17 02:01 Last Admin: 11/25/17 05:59 Dose: 30 mg Levothyroxine Sodium (Levothyroxine) 150 mcg PO DAILY@0600 [facility] Last Admin: 11/25/17 05:57 Dose: 150 mcg Morphine Sulfate (Morphine) 5 mg IVPUSH Q4H PRN PRN Reason: Pain (severe 7-10) Last Admin: 11/25/17 09:53 Dose: 5 mg Non-Formulary Medication (Ziprasidone Hcl [Geodon]) 80 mg PO QAM [facility] Last Admin: 11/25/17 10:02 Dose: Not Given Ondansetron HCl (Zofran) 4 mg IVPUSH Q6H PRN PRN Reason: Nausea/Vomiting Last Admin: 11/24/17 01:17 Dose: 4 mg Pantoprazole Sodium (Protonix Iv) 40 mg IVPUSH Q12HR [facility] Last Admin: 11/25/17 09:54 Dose: 40 mg Polyethylene Glycol (Miralax) 17 gm PO DAILY [facility] Potassium Chloride (Klor-Con 10) 40 meq PO ONETIME ONE Stop: 11/25/17 10:11 Quetiapine Fumarate (Seroquel) 100 mg PO BID@0900,1400 [facility] Last Admin: 11/25/17 10:00 Dose: 100 mg Quetiapine Fumarate (Seroquel) 300 mg PO BEDTIME [facility] Last Admin: 11/24/17 21:49 Dose: 300 mg Senna/Docusate Sodium (Senna Plus) 1 tab PO BID [facility] Last Admin: 11/25/17 10:00 Dose: 1 tab Sertraline HCl (Zoloft) 100 mg PO BID [facility] Last Admin: 11/25/17 10:01 Dose: 100 mg Discontinued Medications Fentanyl (Sublimaze) 25 mcg IVPUSH ONETIME ONE Stop: 11/23/17 21:06 Last Admin: 11/23/17 21:21 Dose: 25 mcg Fentanyl (Sublimaze) 50 mcg IVPUSH ONETIME ONE Stop: 11/23/17 22:46 Last Admin: 11/23/17 22:54 Dose: 50 mcg Hydromorphone HCl (Dilaudid) 0.5 mg IVPUSH Q2H PRN PRN Reason: Pain (severe 7-10) Last Admin: 11/24/17 01:24 Dose: 0.5 mg Hydromorphone HCl (Dilaudid) 1 mg IVPUSH Q2H PRN PRN Reason: Pain Last Admin: 11/24/17 08:04 Dose: 1 mg Iopamidol (Isovue-300 (61%)) 100 ml IVPUSH ONETIME ONE Stop: 11/23/17 22:34 Last Admin: 11/23/17 23:26 Dose: 100 ml Morphine Sulfate (Morphine) 5 mg IVPUSH Q2H PRN PRN Reason: Abdominal Pain Last Admin: 11/24/17 11:21 Dose: 5 mg Morphine Sulfate (Morphine) 5 mg IVPUSH Q2H PRN PRN Reason: Abdominal Pain Last Admin: 11/25/17 03:59 Dose: 5 mg Morphine Sulfate (Morphine) 5 mg IVPUSH Q4H PRN PRN Reason: Pain (severe 7-10) Ondansetron HCl (Zofran) 4 mg IV ONETIME ONE Stop: 11/23/17 21:06 Last Admin: 11/23/17 21:22 Dose: 4 mg Quetiapine Fumarate (Seroquel) 100 mg PO DAILY [facility] Last Admin: 11/24/17 11:25 Dose: Not Given - Exam General: Reports: Alert, Oriented HEENT: Reports: Pupils Equal Neck: Reports: Supple Lungs: Reports: Clear to Auscultation, Normal Respiratory Effort Cardiovascular: Reports: Regular Rate, Regular Rhythm GI/Abdominal Exam: Normal Bowel Sounds Neurological: Reports: No New Focal Deficit Psy/Mental Status: Reports: Alert, Normal Affect, Normal Mood
[2017-11-25 14:13] VITALS: BP 107/58
[2017-12-13] MEDS ORDERED: Cyanocobalamin (Vitamin B12) 1,000 MCG/ML SDV IM SCH (09:00)
== END 2017-11-25 14:40 | DRG 440 ==
LOC: DL.ED 19:44 → DL.MS 23:02
PROVIDERS: ADMIT Hospitalist; ATTEND Hospitalist
DX: K85.90 Acute pancreatitis without necrosis or infection, unspecified (principal); K21.9 Gastro-esophageal reflux disease without esophagitis; E03.9 Hypothyroidism, unspecified; F32.9 Major depressive disorder, single episode, unspecified; F41.9 Anxiety disorder, unspecified; J45.909 Unspecified asthma, uncomplicated; I50.9 Heart failure, unspecified; H54.7 Unspecified visual loss; K59.09 Other constipation; G89.29 Other chronic pain; M54.9 Dorsalgia, unspecified; E53.8 Deficiency of other specified B group vitamins; D64.9 Anemia, unspecified; Z79.899 Other long term (current) drug therapy; Z88.8 Allergy status to other drugs, medicaments and biological substances; Z90.49 Acquired absence of other specified parts of digestive tract
CPT/HCPCS: 36415; 74019; 74177; 80048; 80053; 82150; 83605; 83690; 83880; 84484; 85025; 85027; 96374; 96375; 96376; 99285; A9270-GY; C9113; J1170; J1885; J2270; J2405; J3010; J7030; Q9967

== ENCOUNTER 2018-03-15 23:08 | Emergency (ER) | payer OTHER ==
[2018-03-16] MEDS ORDERED: Ondansetron 4 MG Tab.DIS PO ONE (00:09)
--- NOTE | 2018-03-16 00:39 | EDM.PDOC ---
ED HPI GENERAL MEDICAL PROBLEM - General Chief Complaint: General Stated Complaint: STAGE 3 KIDNEY DISEASE PAIN [id number] Time Seen by Provider: 03/15/18 23:55 Source of Information: Reports: Patient History Limitations: Reports: No Limitations - History of Present Illness INITIAL COMMENTS - FREE TEXT/NARRATIVE: ED with multiple c/o, Chronic pancreatitis, nausea, with vomiting x1, legs feel some weaker, mouth has felt dry past 2 weeks Left Upper Abdominal Pain Score (Numeric/FACES): 9 - Related Data Allergies Allergy/AdvReac Type Severity Reaction Status Date / Time ciprofloxacin Allergy Vomiting Verified 03/16/18 03:35 metaxalone Allergy Abdominal Verified 03/16/18 03:35 Pain cephalexin [Cephalexin] AdvReac Nausea and Verified 03/16/18 03:35 Vomiting prednisone AdvReac Vomiting Verified 03/16/18 03:35 cats Allergy Sneezing Uncoded 03/16/18 03:35 evergreen tree Allergy Rash Uncoded 03/16/18 03:35 Home Meds: Home Meds Carvedilol 3.125 mg PO DAILY 05/07/13 [History] QUEtiapine Fumarate [Seroquel] 100 mg PO BID 05/07/13 [History] Sertraline [Zoloft] 100 mg PO BID 05/07/13 [History] Simvastatin 40 mg PO BEDTIME 05/07/13 [History] busPIRone [Buspar] 15 mg PO TID 05/07/13 [History] ALPRAZolam [Alprazolam ODT] 0.5 mg PO TID PRN 09/10/14 [History] Levothyroxine 150 mcg PO 0600 10/17/14 [History] Cyanocobalamin (Vitamin B12) [Vitamin B12] 1,000 mcg IM .MONTHLY 12/27/14 [ History] Cyclobenzaprine [Flexeril] 10 mg PO TID PRN 07/21/16 [History] Ziprasidone HCl [Geodon] 80 mg PO QAM 08/25/16 [History] Acetaminophen [Tylenol Arthritis] 1,000 mg PO Q4HR PRN 11/13/17 [History] Albuterol Sulfate [Proair Respiclick] 90 mcg IH Q6HR PRN 11/13/17 [History] Ascorbate Calcium [Vitamin C] 1,000 mg PO DAILY 11/13/17 [History] Esomeprazole Magnesium [Nexium] 40 mg PO BID 11/13/17 [History] Ferrous Fumarate 324 mg PO DAILY 11/13/17 [History] Folic Acid 1 mg PO DAILY 11/13/17 [History] Magnesium Oxide [Magnesium] 400 mg PO BID 11/13/17 [History] Multivitamin [Multivitamins] 1 each PO BEDTIME 11/13/17 [History] Nitroglycerin 0.4 mg SL .[id number] PRN 11/13/17 [History] oxyCODONE HCl/Acetaminophen [Oxycodone-Acetaminophen 5-325] 1 each PO Q8HR PRN 11/13/17 [History] Potassium Chloride 60 meq PO DAILY 30 Days #180 tab.er.prt 11/15/17 [Rx] QUEtiapine Fumarate [Seroquel] 300 mg PO BEDTIME 11/24/17 [History] Spironolactone [Aldactone] 25 mg PO BID 02/15/18 [History] Past Medical History HEENT 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: Impaired Vision Other HEENT History: wears glasses Cardiovascular 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: Heart Failure Other Cardiovascular History: Impaired EF 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: Asthma, SOB Gastrointestinal 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: Chronic Constipation, Pancreatitis Genitourinary 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: Chronic Renal Insuffiency 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 Musculoskeletal 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: Back Pain, Chronic Neurological 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: None Psychiatric 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: Anxiety, Depression Endocrine/Metabolic 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: Hypothyroidism Hematologic 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: Anemia, B12 Deficiency Immunologic 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: None Oncologic (Cancer) 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: None Dermatologic 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: None - Infectious Disease History Infectious Disease 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: Chicken Pox - Past Surgical History Head Surgeries/Procedures: Reports: None GI Surgical 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: Appendectomy, Cholecystectomy Female Surgical 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: Hysterectomy, Tubal Ligation Social & Family History - Family History Family Medical History: Noncontributory - Tobacco Use Smoking Status *Q: Never Smoker Second Hand Smoke Exposure: No - Caffeine Use Caffeine Use: Reports: Soda Other Caffeine Use: 3 cans/day - Recreational Drug Use Recreational Drug Use: No ED ROS GENERAL - Review of Systems Review Of Systems: ROS reveals no pertinent complaints other than HPI. ED EXAM, GENERAL - Physical Exam Exam: See Below Exam Limited By: No Limitations General Appearance: Alert, No Apparent Distress (dressed up, newly applied makeup.), Obese Eye Exam: Bilateral Eye: EOMI Ears: Normal External Exam Nose: Normal Inspection Throat/Mouth: Normal Inspection, Normal Lips Head: Atraumatic, Normocephalic Neck: Normal Inspection Respiratory/Chest: No Respiratory Distress, Lungs Clear, Normal Breath Sounds Cardiovascular: Normal Peripheral Pulses, Regular Rate, Rhythm, No Edema GI/Abdominal: Normal Bowel Sounds, Soft, Tender (mid abdomen). No: Distended, Guarding Back Exam: Full Range of Motion Extremities: Normal Inspection Neurological: Alert, Oriented, Normal Cognition, Normal Gait Psychiatric: Normal Affect, Normal Mood Skin Exam: Warm, Dry, Intact, Pallor Course - Vital Signs Last Recorded V/S: Last Vital Signs Temp 98.6 F 03/16/18 02:47 Pulse 78 03/16/18 02:47 Resp 18 03/16/18 02:47 BP 118/71 03/16/18 02:47 Pulse Ox 97 03/16/18 02:47 - Orders/Labs/Meds Labs: Laboratory Tests 03/16/18 03/16/18 Range/Units 00:53 00:53 WBC 7.9 (5.0-10.0) 10^3/uL RBC 3.17 L (4.2-5.4) 10^6/uL Hgb 9.9 L (12.0-16.0) g/dL Hct 31.3 L (37.0-47.0) % MCV 98.7 (80-100) fL MCH 31.2 (27.0-34.0) pg MCHC 31.6 L (33.0-35.0) g/dL Plt Count 214 (150-450) 10^3/uL Neut % (Auto) 70.6 (42.2-75.2) % Lymph % (Auto) 20.7 (20.5-50.1) % [place] % (Auto) 5.0 (2-8) % Eos % (Auto) 3.6 H (1.0-3.0) % Baso % (Auto) 0.1 (0.0-1.0) % Sodium 139 (135-145) mmol/L Potassium 2.8 L (3.6-5.0) mmol/L Chloride 107 (101-111) mmol/L Carbon Dioxide 18.0 L (21.0-31.0) mmol/L Anion Gap 16.8 BUN 9 (7-18) mg/dL Creatinine 0.9 (0.6-1.3) mg/dL Est Cr Clr Drug Dosing 71.91 mL/min Estimated GFR (MDRD) > 60 BUN/Creatinine Ratio 10.00 Glucose 123 H (74-105) mg/dL Calcium 7.8 L (8.4-10.2) mg/dl Total Bilirubin 0.4 (0.2-1.0) mg/dL AST 24 (10-42) IU/L ALT 29 (10-60) IU/L Alkaline Phosphatase 131 H (42-121) IU/L Total Protein 5.7 L (6.7-8.2) g/dl Albumin 2.7 L (3.2-5.5) g/dl Globulin 3.0 Albumin/Globulin Ratio 0.90 Amylase 130 H (28-100) U/L Lipase 47 (22-51) U/L Meds: Medications Discontinued Medications Generic Name Dose Route Start Last Admin Trade Name Freq PRN Reason Stop Dose Admin Hydromorphone HCl 0.5 mg 03/16/18 02:11 03/16/18 02:14 Dilaudid IVPUSH 03/16/18 02:12 0.5 mg ONETIME ONE Administration Potassium Chloride 10 meq/ 100 mls @ 100 mls/hr 03/16/18 01:34 03/16/18 03:05 Premix IV 03/16/18 02:33 Infused ONETIME ONE Infusion Sodium Chloride 250 mls @ 999 mls/hr 03/16/18 01:45 03/16/18 05:48 Normal Saline IV Infused ASDIRECTED KP Infusion Potassium Chloride 20 meq/ 100 mls @ 50 mls/hr 03/16/18 03:11 03/16/18 05:47 Premix IV 03/16/18 05:10 Infused ONETIME ONE Infusion Ondansetron HCl 4 mg 03/16/18 00:09 03/16/18 00:14 Zofran Odt PO 03/16/18 00:10 4 mg ONETIME ONE Administration Potassium Chloride 20 meq 03/16/18 01:35 03/16/18 01:47 Klor-Con 10 PO 03/16/18 01:36 Not Given ONETIME ONE - Radiology Interpretation Free Text/Narrative:: Abdomen 2 view No acute findings Departure - Departure Time of Disposition: 05:49 Disposition: Home, Self-Care 01 Condition: Good Clinical Impression: Hypokalemia Abdominal pain Qualifiers: Abdominal location: generalized Qualified Code(s): R10.84 - Generalized abdominal pain Chronic pancreatitis Qualifiers: Pancreatitis type: unspecified pancreatitis type Qualified Code(s): K86.1 - Other chronic pancreatitis - Discharge Information *PRESCRIPTION DRUG MONITORING PROGRAM REVIEWED*: Yes *COPY OF PRESCRIPTION DRUG MONITORING REPORT IN PATIENT ANNABEL: No Instructions: Hypokalemia Referrals: PCP,None [Primary Care Provider] - Forms: ED Department Discharge Additional Instructions: follow up in clinic tomorrow to recheck potassium bland diet home medications per primary care
[2018-03-16 01:20] LABS: ANION GAP 16.8; CHLORIDE,CL 107 mmol/L (101-111); SODIUM,NA 139 mmol/L (135-145)
[2018-03-16] MEDS ORDERED: Potassium Chloride 10 MEQ in Premix Bag 1 BAG IV ONE (01:34)
[2018-03-16] MEDS: Potassium Chloride 10 MEQ Tab.ER PO ONE ×2 (01:44→01:47)
[2018-03-16] MEDS ORDERED: Sodium Chloride 0.9% 250 ML IV SCH (01:45)
[2018-03-16] MEDS ORDERED: HYDROmorphone 1 MG/ML Syringe IVPUSH ONE (02:11)
[2018-03-16 02:48] VITALS: BP 118/71
[2018-03-16] MEDS ORDERED: Potassium Chloride 20 MEQ in Premix Bag 1 BAG IV ONE (03:11)
== END 2018-03-16 06:05 | disposition home or self-care (01) ==
LOC: DL.ED 23:08
DX: K86.1 Other chronic pancreatitis (principal); I50.9 Heart failure, unspecified; F41.9 Anxiety disorder, unspecified; N18.9 Chronic kidney disease, unspecified; Z88.1 Allergy status to other antibiotic agents; Z91.048 Other nonmedicinal substance allergy status; Z79.899 Other long term (current) drug therapy
CPT/HCPCS: 36415; 74019; 80053; 82150; 83690; 85025; 96365; 96366; 96375; 99284; A9270; J1170; J3480; J7050

== ENCOUNTER 2018-03-24 18:47 | Emergency (ER) | payer OTHER ==
[2018-03-24 18:57] VITALS: BP 113/70
[2018-03-24] MEDS ORDERED: Sodium Chloride 0.9% 500 ML IV SCH (20:00)
--- NOTE | 2018-03-24 20:05 | EDM.PDOC ---
ED HPI GENERAL MEDICAL PROBLEM - General Chief Complaint: General Stated Complaint: CHRONIC PAIN [id number] Time Seen by Provider: 03/24/18 19:59 Source of Information: Reports: Patient History Limitations: Reports: No Limitations - History of Present Illness INITIAL COMMENTS - FREE TEXT/NARRATIVE: gives long h/o abd problems due to chronic pancreatitis. was here last week for same. Generalized Pain Score (Numeric/FACES): 9 - Related Data Allergies Allergy/AdvReac Type Severity Reaction Status Date / Time ciprofloxacin Allergy Vomiting Verified 03/24/18 19:08 metaxalone Allergy Abdominal Verified 03/24/18 19:08 Pain cephalexin [Cephalexin] AdvReac Nausea and Verified 03/24/18 19:08 Vomiting prednisone AdvReac Vomiting Verified 03/24/18 19:08 cats Allergy Sneezing Uncoded 03/24/18 19:08 evergreen tree Allergy Rash Uncoded 03/24/18 19:08 Home Meds: Home Meds Carvedilol 3.125 mg PO DAILY 05/07/13 [History] QUEtiapine Fumarate [Seroquel] 100 mg PO BID 05/07/13 [History] Sertraline [Zoloft] 100 mg PO BID 05/07/13 [History] Simvastatin 40 mg PO BEDTIME 05/07/13 [History] busPIRone [Buspar] 15 mg PO TID 05/07/13 [History] ALPRAZolam [Alprazolam ODT] 0.5 mg PO TID PRN 09/10/14 [History] Levothyroxine 150 mcg PO 0600 10/17/14 [History] Cyanocobalamin (Vitamin B12) [Vitamin B12] 1,000 mcg IM .MONTHLY 12/27/14 [ History] Cyclobenzaprine [Flexeril] 10 mg PO TID PRN 07/21/16 [History] Ziprasidone HCl [Geodon] 80 mg PO QAM 08/25/16 [History] Acetaminophen [Tylenol Arthritis] 1,000 mg PO Q4HR PRN 11/13/17 [History] Albuterol Sulfate [Proair Respiclick] 90 mcg IH Q6HR PRN 11/13/17 [History] Ascorbate Calcium [Vitamin C] 1,000 mg PO DAILY 11/13/17 [History] Esomeprazole Magnesium [Nexium] 40 mg PO BID 11/13/17 [History] Ferrous Fumarate 324 mg PO DAILY 11/13/17 [History] Folic Acid 1 mg PO DAILY 11/13/17 [History] Magnesium Oxide [Magnesium] 400 mg PO BID 11/13/17 [History] Multivitamin [Multivitamins] 1 each PO BEDTIME 11/13/17 [History] Nitroglycerin 0.4 mg SL .[id number] PRN 11/13/17 [History] oxyCODONE HCl/Acetaminophen [Oxycodone-Acetaminophen 5-325] 1 each PO Q8HR PRN 11/13/17 [History] Potassium Chloride 60 meq PO DAILY 30 Days #180 tab.er.prt 11/15/17 [Rx] QUEtiapine Fumarate [Seroquel] 300 mg PO BEDTIME 11/24/17 [History] Spironolactone [Aldactone] 25 mg PO BID 02/15/18 [History] Past Medical History HEENT 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: Impaired Vision Other HEENT History: wears glasses Cardiovascular 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: Heart Failure Other Cardiovascular History: Impaired EF 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: Asthma, SOB Gastrointestinal 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: Chronic Constipation, Pancreatitis Genitourinary History: Reports: Chronic Renal Insuffiency IRRIGATOR History: Reports: Other (See Below) Other IRRIGATOR History: hysterectomy Musculoskeletal History: Reports: Back Pain, Chronic Neurological History: Reports: None Psychiatric History: Reports: Anxiety, Depression Endocrine/Metabolic History: Reports: Hypothyroidism Hematologic History: Reports: Anemia, B12 Deficiency Immunologic History: Reports: None Oncologic (Cancer) History: Reports: None Dermatologic History: Reports: None - Infectious Disease History Infectious Disease History: Reports: Chicken Pox - Past Surgical History Head Surgeries/Procedures: Reports: None GI Surgical History: Reports: Appendectomy, Cholecystectomy Female Surgical History: Reports: Hysterectomy, Tubal Ligation Social & Family History - Family History Family Medical History: Noncontributory - Tobacco Use Smoking Status *Q: Unknown Ever Smoked - Caffeine Use Caffeine Use: Reports: None Other Caffeine Use: 3 cans/day - Recreational Drug Use Recreational Drug Use: No ED ROS GENERAL - Review of Systems Review Of Systems: ROS reveals no pertinent complaints other than HPI. ED EXAM, GENERAL - Physical Exam Exam: See Below Exam Limited By: No Limitations General Appearance: Alert, WD/WN, Anxious, Mild Distress Ears: Hearing Grossly Normal Throat/Mouth: Normal Voice, No Airway Compromise Head: Atraumatic Neck: Non-Tender, Full Range of Motion Respiratory/Chest: No Respiratory Distress Cardiovascular: Regular Rate, Rhythm GI/Abdominal: Soft, Non-Tender Neurological: Alert, Oriented, Normal Cognition, Normal Gait, No Motor/Sensory Deficits Psychiatric: Flat Affect Skin Exam: Warm, Dry, Normal Color Lymphatic: No Adenopathy Course - Vital Signs Last Recorded V/S: Last Vital Signs Temp 36.5 C 03/24/18 18:55 Pulse 86 03/24/18 18:55 Resp 18 03/24/18 18:55 BP 113/70 03/24/18 18:57 Pulse Ox 100 03/24/18 18:55 - Orders/Labs/Meds Orders: Active Orders 24 hr Category Date Time Status CULTURE URINE [RM] Urgent Lab 03/24/18 20:05 Received Potassium Chloride [Klor-Con 10] Med 03/24/18 21:25 Once 40 meq PO ONETIME ONE Sodium Chloride 0.9% [Normal Saline] 500 ml Med 03/24/18 20:00 Active IV ASDIRECTED Medication Orders Sodium Chloride (Normal Saline) 500 mls @ 100 mls/hr IV ASDIRECTED KP Last Admin: 03/24/18 20:36 Dose: 100 mls/hr Ketorolac Tromethamine (Toradol) 15 mg IVPUSH ONETIME ONE Stop: 03/24/18 21:26 Potassium Chloride (Klor-Con 10) 40 meq PO ONETIME ONE Stop: 03/24/18 21:26 Labs: Laboratory Tests 03/24/18 03/24/18 03/24/18 Range/Units 20:05 20:05 20:15 WBC 12.3 H (5.0-10.0) 10^3/uL RBC 3.29 L (4.2-5.4) 10^6/uL Hgb 10.5 L (12.0-16.0) g/dL Hct 33.0 L (37.0-47.0) % MCV 100.3 H (80-100) fL MCH 31.9 (27.0-34.0) pg MCHC 31.8 L (33.0-35.0) g/dL Plt Count 314 D (150-450) 10^3/uL Neut % (Auto) 77.2 H (42.2-75.2) % Lymph % (Auto) 15.5 L (20.5-50.1) % [place] % (Auto) 4.0 (2-8) % Eos % (Auto) 3.1 H (1.0-3.0) % Baso % (Auto) 0.2 (0.0-1.0) % Sodium (135-145) mmol/L Potassium (3.6-5.0) mmol/L Chloride (101-111) mmol/L Carbon Dioxide (21.0-31.0) mmol/L Anion Gap BUN (7-18) mg/dL Creatinine (0.6-1.3) mg/dL Est Cr Clr Drug Dosing mL/min Estimated GFR (MDRD) BUN/Creatinine Ratio Glucose (74-105) mg/dL Calcium (8.4-10.2) mg/dl Total Bilirubin (0.2-1.0) mg/dL AST (10-42) IU/L ALT (10-60) IU/L Alkaline Phosphatase (42-121) IU/L Total Protein (6.7-8.2) g/dl Albumin (3.2-5.5) g/dl Globulin Albumin/Globulin Ratio Amylase (28-100) U/L Urine Color Yellow (YELLOW) Urine Appearance Clear (CLEAR) Urine pH 6.0 (5.0-9.0) Ur Specific [place] 1.010 (1.005-1.030) Urine Protein Negative (NEGATIVE) Urine Glucose (UA) Negative (NEGATIVE) Urine Ketones Negative (NEGATIVE) Urine Occult Blood Negative (NEGATIVE) Urine Nitrite Negative (NEGATIVE) Urine Bilirubin Negative (NEGATIVE) Urine Urobilinogen 0.2 (0.2-1.0) mg/dL Ur Leukocyte Esterase Trace H (NEGATIVE) Urine RBC 0-5 /HPF Urine WBC 0-5 (0-5/HPF) /HPF Ur Epithelial Cells Few /HPF Urine Bacteria Few (0-FEW/HPF) /HPF Urine Opiates Screen Negative (NEGATIVE) Ur Oxycodone Screen Positive H (NEGATIVE) Urine Methadone Screen Negative (NEGATIVE) Ur Barbiturates Screen Negative (NEGATIVE) U Tricyclic Antidepress Positive H (NEGATIVE) Ur Phencyclidine Scrn Negative (NEGATIVE) Ur Amphetamine Screen Negative (NEGATIVE) U Methamphetamines Scrn Negative (NEGATIVE) Urine MDMA Screen Negative (NEGATIVE) U Benzodiazepines Scrn Positive H (NEGATIVE) Urine Cocaine Screen Negative (NEGATIVE) U Marijuana (THC) Screen Negative (NEGATIVE) 03/24/18 Range/Units 20:15 WBC (5.0-10.0) 10^3/uL RBC (4.2-5.4) 10^6/uL Hgb (12.0-16.0) g/dL Hct (37.0-47.0) % MCV (80-100) fL MCH (27.0-34.0) pg MCHC (33.0-35.0) g/dL Plt Count (150-450) 10^3/uL Neut % (Auto) (42.2-75.2) % Lymph % (Auto) (20.5-50.1) % [place] % (Auto) (2-8) % Eos % (Auto) (1.0-3.0) % Baso % (Auto) (0.0-1.0) % Sodium 135 (135-145) mmol/L Potassium 3.3 L (3.6-5.0) mmol/L Chloride 104 (101-111) mmol/L Carbon Dioxide 14.0 L (21.0-31.0) mmol/L Anion Gap 20.3 BUN 12 (7-18) mg/dL Creatinine 0.9 (0.6-1.3) mg/dL Est Cr Clr Drug Dosing 71.91 mL/min Estimated GFR (MDRD) > 60 BUN/Creatinine Ratio 13.33 Glucose 102 (74-105) mg/dL Calcium 8.2 L (8.4-10.2) mg/dl Total Bilirubin 0.5 (0.2-1.0) mg/dL AST 26 (10-42) IU/L ALT 29 (10-60) IU/L Alkaline Phosphatase 134 H (42-121) IU/L Total Protein 6.3 L (6.7-8.2) g/dl Albumin 2.9 L (3.2-5.5) g/dl Globulin 3.4 Albumin/Globulin Ratio 0.85 Amylase 84 (28-100) U/L Urine Color (YELLOW) Urine Appearance (CLEAR) Urine pH (5.0-9.0) Ur Specific [place] (1.005-1.030) Urine Protein (NEGATIVE) Urine Glucose (UA) (NEGATIVE) Urine Ketones (NEGATIVE) Urine Occult Blood (NEGATIVE) Urine Nitrite (NEGATIVE) Urine Bilirubin (NEGATIVE) Urine Urobilinogen (0.2-1.0) mg/dL Ur Leukocyte Esterase (NEGATIVE) Urine RBC /HPF Urine WBC (0-5/HPF) /HPF Ur Epithelial Cells /HPF Urine Bacteria (0-FEW/HPF) /HPF Urine Opiates Screen (NEGATIVE) Ur Oxycodone Screen (NEGATIVE) Urine Methadone Screen (NEGATIVE) Ur Barbiturates Screen (NEGATIVE) U Tricyclic Antidepress (NEGATIVE) Ur Phencyclidine Scrn (NEGATIVE) Ur Amphetamine Screen (NEGATIVE) U Methamphetamines Scrn (NEGATIVE) Urine MDMA Screen (NEGATIVE) U Benzodiazepines Scrn (NEGATIVE) Urine Cocaine Screen (NEGATIVE) U Marijuana (THC) Screen (NEGATIVE) Meds: Medications Generic Name Dose Route Start Last Admin Trade Name Freq PRN Reason Stop Dose Admin Sodium Chloride 500 mls @ 100 mls/hr 03/24/18 20:00 03/24/18 20:36 Normal Saline IV 100 mls/hr ASDIRECTED KP Administration Ketorolac Tromethamine 15 mg 03/24/18 21:25 Toradol IVPUSH 03/24/18 21:26 ONETIME ONE Potassium Chloride 40 meq 03/24/18 21:25 Klor-Con 10 PO 03/24/18 21:26 ONETIME ONE - Re-Assessments/Exams Free Text/Narrative Re-Assessment/Exam: 03/24/18 21:27 results discussed with pt. Departure - Departure Time of Disposition: 21:27 Disposition: Home, Self-Care 01 Condition: Good Clinical Impression: Hypokalemia, Abdominal pain - Discharge Information Instructions: Abdominal Pain, Adult, [id number] Forms: ED Department Discharge Additional Instructions: 1) follow up at clinic - My Orders Last 24 Hours: My Active Orders 03/24/18 20:00 Sodium Chloride 0.9% [Normal Saline] 500 ml IV ASDIRECTED 03/24/18 20:05 CULTURE URINE [RM] Urgent 03/24/18 21:25 Potassium Chloride [Klor-Con 10] 40 meq PO ONETIME ONE - Assessment/Plan Last 24 Hours: My Active Orders 03/24/18 20:00 Sodium Chloride 0.9% [Normal Saline] 500 ml IV ASDIRECTED 03/24/18 20:05 CULTURE URINE [RM] Urgent 03/24/18 21:25 Potassium Chloride [Klor-Con 10] 40 meq PO ONETIME ONE
[2018-03-24 20:41] LABS: ANION GAP 20.3; CHLORIDE,CL 104 mmol/L (101-111); SODIUM,NA 135 mmol/L (135-145)
[2018-03-24] MEDS ORDERED: Ketorolac 30 MG/ML SDV IVPUSH ONE (21:25)
[2018-03-24] MEDS ORDERED: Potassium Chloride 10 MEQ Tab.ER PO ONE (21:25)
== END 2018-03-24 21:40 | disposition home or self-care (01) ==
LOC: DL.ED 18:47
DX: E87.6 Hypokalemia (principal); R10.84 Generalized abdominal pain; K86.1 Other chronic pancreatitis; I50.9 Heart failure, unspecified; J45.909 Unspecified asthma, uncomplicated; N18.9 Chronic kidney disease, unspecified; E03.9 Hypothyroidism, unspecified; F41.9 Anxiety disorder, unspecified; F32.9 Major depressive disorder, single episode, unspecified; Z88.1 Allergy status to other antibiotic agents; Z88.8 Allergy status to other drugs, medicaments and biological substances; Z79.899 Other long term (current) drug therapy
CPT/HCPCS: 36415; 80053; 80305; 81001; 82150; 85025; 96361; 96374; 99283; A9270; J1885; J7040; 87086

== ENCOUNTER 2018-03-31 17:35 | Emergency (ER) | payer OTHER ==
[2018-03-31 21:13] VITALS: BP 106/63
[2018-03-31 22:06] LABS: ANION GAP 24.3; CHLORIDE,CL 104 mmol/L (101-111); SODIUM,NA 137 mmol/L (135-145)
[2018-03-31 22:55] LABS: BASE EXCESS ARTERIAL -12 mmol/L ((-2)-(+3)); BICARBONATE,ARTERIAL 12.6 mmol/L (22-26); O2 DELIVERY DEVICE ROOM AIR; O2 SATURATION ARTERIAL 98 % (95-100); PCO2 ARTERIAL 24 mmHg (35-45); PO2 ARTERIAL 95 mmHg (70-100)
[2018-03-31 23:00] LABS: ALLEN TEST pos; O2 FLOW RATE 0
[2018-03-31] MEDS ORDERED: Potassium Chloride 10 MEQ Tab.ER PO ONE (23:37)
[2018-03-31] MEDS ORDERED: HYDROmorphone 1 MG/ML Syringe IVPUSH ONE (23:38)
[2018-03-31] MEDS ORDERED: Ondansetron 4 MG/2 ML SDV IV ONE (23:45)
--- NOTE | 2018-03-31 23:53 | EDM.PDOC ---
ED HPI GENERAL MEDICAL PROBLEM - General Chief Complaint: General Stated Complaint: DIZZY,NAUSEA,SOB Time Seen by Provider: 03/31/18 21:30 Source of Information: Reports: Patient - History of Present Illness INITIAL COMMENTS - FREE TEXT/NARRATIVE: ED with c/o nausea and vomiting, dizzy and BP low at home, Report hx chronic pancreatitis. Patient well known to facility with presentation of same complaint. Vomited x one today. Generalized Pain Score (Numeric/FACES): 8 - Related Data Allergies Allergy/AdvReac Type Severity Reaction Status Date / Time ciprofloxacin Allergy Vomiting Verified 04/02/18 19:00 metaxalone Allergy Abdominal Verified 04/02/18 19:00 Pain cephalexin [Cephalexin] AdvReac Nausea and Verified 04/02/18 19:00 Vomiting prednisone AdvReac Vomiting Verified 04/02/18 19:00 cats Allergy Sneezing Uncoded 04/02/18 19:00 evergreen tree Allergy Rash Uncoded 04/02/18 19:00 Home Meds: Home Meds Carvedilol 3.125 mg PO DAILY 05/07/13 [History] QUEtiapine Fumarate [Seroquel] 100 mg PO BID 05/07/13 [History] Sertraline [Zoloft] 100 mg PO BID 05/07/13 [History] Simvastatin 40 mg PO BEDTIME 05/07/13 [History] busPIRone [Buspar] 15 mg PO TID 05/07/13 [History] ALPRAZolam [Alprazolam ODT] 0.5 mg PO TID PRN 09/10/14 [History] Levothyroxine 150 mcg PO 0600 10/17/14 [History] Cyanocobalamin (Vitamin B12) [Vitamin B12] 1,000 mcg IM .MONTHLY 12/27/14 [ History] Cyclobenzaprine [Flexeril] 10 mg PO TID PRN 07/21/16 [History] Ziprasidone HCl [Geodon] 80 mg PO QAM 08/25/16 [History] Acetaminophen [Tylenol Arthritis] 1,000 mg PO Q4HR PRN 11/13/17 [History] Albuterol Sulfate [Proair Respiclick] 90 mcg IH Q6HR PRN 11/13/17 [History] Ascorbate Calcium [Vitamin C] 1,000 mg PO DAILY 11/13/17 [History] Esomeprazole Magnesium [Nexium] 40 mg PO BID 11/13/17 [History] Ferrous Fumarate 324 mg PO DAILY 11/13/17 [History] Folic Acid 1 mg PO DAILY 11/13/17 [History] Magnesium Oxide [Magnesium] 400 mg PO BID 11/13/17 [History] Multivitamin [Multivitamins] 1 each PO BEDTIME 11/13/17 [History] Nitroglycerin 0.4 mg SL .[id number] PRN 11/13/17 [History] oxyCODONE HCl/Acetaminophen [Oxycodone-Acetaminophen 5-325] 1 each PO Q8HR PRN 11/13/17 [History] Potassium Chloride 60 meq PO DAILY 30 Days #180 tab.er.prt 11/15/17 [Rx] QUEtiapine Fumarate [Seroquel] 300 mg PO BEDTIME 11/24/17 [History] Spironolactone [Aldactone] 25 mg PO BID 02/15/18 [History] Past Medical History HEENT History: Reports: Impaired Vision Other HEENT History: wears glasses Cardiovascular History: Reports: Heart Failure Other Cardiovascular History: Impaired EF 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: Asthma, SOB Gastrointestinal History: Reports: Chronic Constipation, Pancreatitis Genitourinary History: Reports: Chronic Renal Insuffiency 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 COORDINATION ENGINEER History: Reports: 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 (See Below) Other INDUCTION COORDINATION ENGINEER History: hysterectomy Musculoskeletal History: Reports: Back Pain, Chronic Neurological History: Reports: None Psychiatric History: Reports: Anxiety, Depression Endocrine/Metabolic History: Reports: Hypothyroidism Hematologic History: Reports: Anemia, B12 Deficiency Immunologic History: Reports: None Oncologic (Cancer) History: Reports: None Dermatologic History: Reports: None - Infectious Disease History Infectious Disease History: Reports: Chicken Pox - Past Surgical History Head Surgeries/Procedures: Reports: None GI Surgical History: Reports: Appendectomy, Cholecystectomy Female Surgical History: Reports: Hysterectomy, Tubal Ligation Social & Family History - Family History Family Medical History: Noncontributory - Tobacco Use Smoking Status *Q: Never Smoker Second Hand Smoke Exposure: No - Caffeine Use Caffeine Use: Reports: Soda Other Caffeine Use: 3 cans/day - Recreational Drug Use Recreational Drug Use: No ED ROS GENERAL - Review of Systems Review Of Systems: ROS reveals no pertinent complaints other than HPI. ED EXAM, GENERAL - Physical Exam Exam: See Below Exam Limited By: No Limitations General Appearance: Alert, No Apparent Distress (appropriate dress, freshly applied makeup and lipstick) Eye Exam: Bilateral Eye: EOMI, PERRL Ears: Normal External Exam, Hearing Grossly Normal, Normal TMs Nose: Normal Inspection Throat/Mouth: Normal Inspection Head: Atraumatic, Normocephalic Neck: Normal Inspection Respiratory/Chest: No Respiratory Distress, Lungs Clear, Normal Breath Sounds Cardiovascular: Normal Peripheral Pulses, Regular Rate, Rhythm, No Edema GI/Abdominal: Normal Bowel Sounds, Tender (mild generalized with deep plapation) . No: Distended, Guarding Back Exam: Normal Inspection, Full Range of Motion Extremities: Normal Inspection, Normal Range of Motion Neurological: Alert, Oriented, Normal Cognition Psychiatric: Normal Affect, Anxious Skin Exam: Warm, Dry, Intact, Pallor Course - Vital Signs Last Recorded V/S: Last Vital Signs Temp 97.7 F 03/31/18 21:04 Pulse 85 03/31/18 21:04 Resp 16 03/31/18 21:04 BP 106/63 03/31/18 21:04 Pulse Ox 100 03/31/18 21:04 - Orders/Labs/Meds Labs: Laboratory Tests 03/31/18 03/31/18 03/31/18 Range/Units 21:32 21:32 21:32 WBC 10.3 H (5.0-10.0) 10^3/uL RBC 3.34 L (4.2-5.4) 10^6/uL Hgb 10.8 L (12.0-16.0) g/dL Hct 33.1 L (37.0-47.0) % MCV 99.1 (80-100) fL MCH 32.3 (27.0-34.0) pg MCHC 32.6 L (33.0-35.0) g/dL Plt Count 276 (150-450) 10^3/uL Neut % (Auto) 71.5 (42.2-75.2) % Lymph % (Auto) 19.7 L (20.5-50.1) % [place] % (Auto) 6.4 (2-8) % Eos % (Auto) 2.1 (1.0-3.0) % Baso % (Auto) 0.3 (0.0-1.0) % ABG pH (7.35-7.45) ABG pCO2 (35-45) mmHg ABG pO2 (70-100) mmHg ABG HCO3 (22-26) mmol/L ABG O2 Saturation (95-100) % ABG Base Excess ((-2)-(+3)) mmol/L Dayne Test O2 Delivery Device Oxygen Flow Rate Sodium 137 (135-145) mmol/L Potassium 3.3 L (3.6-5.0) mmol/L Chloride 104 (101-111) mmol/L Carbon Dioxide 12.0 L (21.0-31.0) mmol/L Anion Gap 24.3 BUN 6 L (7-18) mg/dL Creatinine 1.0 (0.6-1.3) mg/dL Est Cr Clr Drug Dosing 64.72 mL/min Estimated GFR (MDRD) 58 BUN/Creatinine Ratio 6.00 Glucose 127 H (74-105) mg/dL Lactic Acid 1.4 (0.5-2.2) mmol/L Calcium 8.4 (8.4-10.2) mg/dl Total Bilirubin 0.7 (0.2-1.0) mg/dL AST 22 (10-42) IU/L ALT 39 (10-60) IU/L Alkaline Phosphatase 144 H (42-121) IU/L Troponin I < 0.02 (0.00-0.02) ng/ml B-Natriuretic Peptide 7 (0-100) pg/ml Total Protein 6.1 L (6.7-8.2) g/dl Albumin 2.9 L (3.2-5.5) g/dl Globulin 3.2 Albumin/Globulin Ratio 0.91 Amylase 33 (28-100) U/L Lipase 34 (22-51) U/L 03/31/18 Range/Units 22:55 WBC (5.0-10.0) 10^3/uL RBC (4.2-5.4) 10^6/uL Hgb (12.0-16.0) g/dL Hct (37.0-47.0) % MCV (80-100) fL MCH (27.0-34.0) pg MCHC (33.0-35.0) g/dL Plt Count (150-450) 10^3/uL Neut % (Auto) (42.2-75.2) % Lymph % (Auto) (20.5-50.1) % [place] % (Auto) (2-8) % Eos % (Auto) (1.0-3.0) % Baso % (Auto) (0.0-1.0) % ABG pH 7.33 L (7.35-7.45) ABG pCO2 24 L (35-45) mmHg ABG pO2 95 (70-100) mmHg ABG HCO3 12.6 L (22-26) mmol/L ABG O2 Saturation 98 (95-100) % ABG Base Excess -12 L ((-2)-(+3)) mmol/L Dayne Test pos O2 Delivery Device Room air Oxygen Flow Rate 0 Sodium (135-145) mmol/L Potassium (3.6-5.0) mmol/L Chloride (101-111) mmol/L Carbon Dioxide (21.0-31.0) mmol/L Anion Gap BUN (7-18) mg/dL Creatinine (0.6-1.3) mg/dL Est Cr Clr Drug Dosing mL/min Estimated GFR (MDRD) BUN/Creatinine Ratio Glucose (74-105) mg/dL Lactic Acid (0.5-2.2) mmol/L Calcium (8.4-10.2) mg/dl Total Bilirubin (0.2-1.0) mg/dL AST (10-42) IU/L ALT (10-60) IU/L Alkaline Phosphatase (42-121) IU/L Troponin I (0.00-0.02) ng/ml B-Natriuretic Peptide (0-100) pg/ml Total Protein (6.7-8.2) g/dl Albumin (3.2-5.5) g/dl Globulin Albumin/Globulin Ratio Amylase (28-100) U/L Lipase (22-51) U/L Meds: Medications Discontinued Medications Generic Name Dose Route Start Last Admin Trade Name Freq PRN Reason Stop Dose Admin Hydromorphone HCl 0.5 mg 03/31/18 23:38 03/31/18 23:42 Dilaudid IVPUSH 03/31/18 23:39 0.5 mg ONETIME ONE Administration Ondansetron HCl 4 mg 03/31/18 23:45 03/31/18 23:50 Zofran IV 03/31/18 23:46 4 mg ONETIME ONE Administration Potassium Chloride 20 meq 03/31/18 23:37 03/31/18 23:42 Klor-Con 10 PO 03/31/18 23:38 20 meq ONETIME ONE Administration Departure - Departure Time of Disposition: 00:36 Disposition: Home, Self-Care 01 Condition: Good Clinical Impression: Weakness Chronic pain Qualifiers: Chronic pain type: other chronic pain Qualified Code(s): G89.29 - Other chronic pain - Discharge Information *PRESCRIPTION DRUG MONITORING PROGRAM REVIEWED*: Not Applicable *COPY OF PRESCRIPTION DRUG MONITORING REPORT IN PATIENT ANNABEL: Not Applicable Instructions: Chronic Pain, Adult, Weakness Referrals: Yuri Terrazas MD [Primary Care Provider] - Forms: ED Department Discharge Additional Instructions: Continue home medications clinic follow up next week
== END 2018-04-01 00:55 | disposition home or self-care (01) ==
LOC: DL.ED 17:35
DX: R53.1 Weakness (principal); G89.29 Other chronic pain; N18.9 Chronic kidney disease, unspecified; D63.1 Anemia in chronic kidney disease; I50.9 Heart failure, unspecified; Z88.1 Allergy status to other antibiotic agents; Z91.048 Other nonmedicinal substance allergy status; Z79.899 Other long term (current) drug therapy
CPT/HCPCS: 36415; 36600; 80053; 82150; 82803; 83605; 83690; 83880; 84484; 85025; 87040; 93005; 96374; 96375; 99284; A9270-GY; J1170; J2405

== ENCOUNTER 2018-04-02 18:41 | Emergency (ER) | payer OTHER ==
--- NOTE | 2018-04-02 19:24 | EDM.PDOC ---
ED HPI GENERAL MEDICAL PROBLEM - General Chief Complaint: Chest Pain Stated Complaint: HEADACHE Time Seen by Provider: 04/02/18 19:10 Source of Information: Reports: Patient History Limitations: Reports: No Limitations - History of Present Illness INITIAL COMMENTS - FREE TEXT/NARRATIVE: This 52 yo female patient reports to the ED with a 3 week history of chest pain , upper abdominal pain, nausea/vomiting, dizziness, weight loss, a headache and instability. The patient reports she has been seen in the ED for similar symptoms, but has not been able to get into her primary care facility since that last visit in the ED. The patient reports she has not been able to work in the past 2 months due to her current symptoms. The patient reports she has lost 50 pounds over the past 2 months. The patient reports her abdominal pain is currently a 9-10/10, but that is normal for her. The patient reports she has not been able to keep any food or liquids down. 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 The patient was able to converse without hesitation throughout the visit. Duration: Week(s):, Chronic, Constant Location: Reports: Head, Chest, Abdomen, Generalized Quality: Reports: Ache, Sharp Severity: Severe Improves with: Reports: None Worsens with: Reports: None Associated Symptoms: Reports: Headaches, Nausea/Vomiting, Weakness Chest Pain Score (Numeric/FACES): 9 Abdominal Pain Score (Numeric/FACES): 10 - Related Data Allergies Allergy/AdvReac Type Severity Reaction Status Date / Time ciprofloxacin Allergy Vomiting Verified 04/02/18 19:00 metaxalone Allergy Abdominal Verified 04/02/18 19:00 Pain cephalexin [Cephalexin] AdvReac Nausea and Verified 04/02/18 19:00 Vomiting prednisone AdvReac Vomiting Verified 04/02/18 19:00 cats Allergy Sneezing Uncoded 04/02/18 19:00 evergreen tree Allergy Rash Uncoded 04/02/18 19:00 Home Meds: Home Meds Carvedilol 3.125 mg PO DAILY 05/07/13 [History] QUEtiapine Fumarate [Seroquel] 100 mg PO BID 05/07/13 [History] Sertraline [Zoloft] 100 mg PO BID 05/07/13 [History] Simvastatin 40 mg PO BEDTIME 05/07/13 [History] busPIRone [Buspar] 15 mg PO TID 05/07/13 [History] ALPRAZolam [Alprazolam ODT] 0.5 mg PO TID PRN 09/10/14 [History] Levothyroxine 150 mcg PO 0600 10/17/14 [History] Cyanocobalamin (Vitamin B12) [Vitamin B12] 1,000 mcg IM .MONTHLY 12/27/14 [ History] Cyclobenzaprine [Flexeril] 10 mg PO TID PRN 07/21/16 [History] Ziprasidone HCl [Geodon] 80 mg PO QAM 08/25/16 [History] Acetaminophen [Tylenol Arthritis] 1,000 mg PO Q4HR PRN 11/13/17 [History] Albuterol Sulfate [Proair Respiclick] 90 mcg IH Q6HR PRN 11/13/17 [History] Ascorbate Calcium [Vitamin C] 1,000 mg PO DAILY 11/13/17 [History] Esomeprazole Magnesium [Nexium] 40 mg PO BID 11/13/17 [History] Ferrous Fumarate 324 mg PO DAILY 11/13/17 [History] Folic Acid 1 mg PO DAILY 11/13/17 [History] Magnesium Oxide [Magnesium] 400 mg PO BID 11/13/17 [History] Multivitamin [Multivitamins] 1 each PO BEDTIME 11/13/17 [History] Nitroglycerin 0.4 mg SL .[id number] PRN 11/13/17 [History] oxyCODONE HCl/Acetaminophen [Oxycodone-Acetaminophen 5-325] 1 each PO Q8HR PRN 11/13/17 [History] Potassium Chloride 60 meq PO DAILY 30 Days #180 tab.er.prt 11/15/17 [Rx] QUEtiapine Fumarate [Seroquel] 300 mg PO BEDTIME 11/24/17 [History] Spironolactone [Aldactone] 25 mg PO BID 02/15/18 [History] Past Medical History HEENT History: Reports: Impaired Vision Other HEENT History: wears glasses Cardiovascular History: Reports: Heart Failure Other Cardiovascular History: Impaired EF 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: Asthma, SOB Gastrointestinal History: Reports: Chronic Constipation, Pancreatitis Genitourinary History: Reports: Chronic Renal Insuffiency SLEEVE IRONER History: Reports: Other (See Below) Other SLEEVE IRONER History: hysterectomy Musculoskeletal History: Reports: Back Pain, Chronic Neurological History: Reports: None Psychiatric History: Reports: Anxiety, Depression Endocrine/Metabolic History: Reports: Hypothyroidism Hematologic History: Reports: Anemia, B12 Deficiency Immunologic History: Reports: None Oncologic (Cancer) History: Reports: None Dermatologic History: Reports: None - Infectious Disease History Infectious Disease History: Reports: Chicken Pox - Past Surgical History Head Surgeries/Procedures: Reports: None GI Surgical History: Reports: Appendectomy, Cholecystectomy Female Surgical History: Reports: Hysterectomy, Tubal Ligation Social & Family History - Family History Family Medical History: Noncontributory - Tobacco Use Smoking Status *Q: Never Smoker - Caffeine Use Caffeine Use: Reports: Soda Other Caffeine Use: 3 cans/day - Recreational Drug Use Recreational Drug Use: No ED ROS GENERAL - Review of Systems Review Of Systems: ROS reveals no pertinent complaints other than HPI. ED EXAM, GENERAL - Physical Exam Exam: See Below Exam Limited By: No Limitations General Appearance: Alert, WD/WN, Anxious, Mild Distress Eye Exam: Bilateral Eye: EOMI, Normal Inspection, PERRL Ears: Normal External Exam Nose: Normal Inspection, Normal Mucosa, No Blood Throat/Mouth: Normal Inspection, Normal Lips, Normal Teeth, Normal Gums, Normal Oropharynx, Normal Voice, No Airway Compromise Head: Atraumatic, Normocephalic Neck: Normal Inspection, Supple, Non-Tender, Full Range of Motion Respiratory/Chest: No Respiratory Distress, Lungs Clear, Normal Breath Sounds, No Accessory Muscle Use, Chest Non-Tender Cardiovascular: Normal Peripheral Pulses, Regular Rate, Rhythm, No Edema, No Gallop, No JVD, No Murmur, No Rub GI/Abdominal: Normal Bowel Sounds, Soft, No Organomegaly, No Distention, No Abnormal Bruit, No Mass, Pelvis Stable, Tender (diffuse upper abdominal tenderness) (Female) Exam: Deferred Rectal (Female) Exam: Deferred Back Exam: Normal Inspection, Full Range of Motion, NT Neurological: Alert, Oriented, CN II-XII Intact, Normal Cognition, Other (The patient came into the ED in a wheelchair due to intermittent dizziness) Psychiatric: Anxious, Depressed Mood Skin Exam: Warm, Dry, Intact, Normal Color, No Rash Lymphatic: No Adenopathy Course - Vital Signs Last Recorded V/S: Last Vital Signs Temp 36.5 C 04/02/18 18:57 Pulse 87 04/02/18 18:57 Resp 17 04/02/18 20:16 BP 99/67 04/02/18 20:16 Pulse Ox 100 04/02/18 20:16 - Orders/Labs/Meds Orders: Active Orders 24 hr Category Date Time Status EKG Documentation Completion [RC] URGENT Care 04/02/18 19:05 Active CULTURE BLOOD [BC] Stat Lab 04/02/18 19:17 Results ceFAZolin [Ancef] 1 gm Med 04/02/18 20:46 Ordered Premix Bag 1 bag IV ONETIME Medication Orders Cefazolin Sodium/Dextrose 1 gm (/ Premix) 50 mls @ 100 mls/hr IV ONETIME ONE Stop: 04/02/18 21:15 Labs: Laboratory Tests 04/02/18 04/02/18 04/02/18 Range/Units 19:17 19:17 19:17 WBC 10.7 H (5.0-10.0) 10^3/uL RBC 3.52 L (4.2-5.4) 10^6/uL Hgb 11.4 L (12.0-16.0) g/dL Hct 35.2 L (37.0-47.0) % MCV 100.0 (80-100) fL MCH 32.4 (27.0-34.0) pg MCHC 32.4 L (33.0-35.0) g/dL Plt Count 257 (150-450) 10^3/uL Neut % (Auto) 73.4 (42.2-75.2) % Lymph % (Auto) 16.2 L (20.5-50.1) % [place] % (Auto) 6.4 (2-8) % Eos % (Auto) 3.8 H (1.0-3.0) % Baso % (Auto) 0.2 (0.0-1.0) % Sodium (135-145) mmol/L Potassium (3.6-5.0) mmol/L Chloride (101-111) mmol/L Carbon Dioxide (21.0-31.0) mmol/L Anion Gap BUN (7-18) mg/dL Creatinine (0.6-1.3) mg/dL Est Cr Clr Drug Dosing mL/min Estimated GFR (MDRD) BUN/Creatinine Ratio Glucose (74-105) mg/dL Lactic Acid 2.3 H (0.5-2.2) mmol/L Calcium (8.4-10.2) mg/dl Total Bilirubin (0.2-1.0) mg/dL AST (10-42) IU/L ALT (10-60) IU/L Alkaline Phosphatase (42-121) IU/L Troponin I (0.00-0.02) ng/ml B-Natriuretic Peptide (0-100) pg/ml Total Protein (6.7-8.2) g/dl Albumin (3.2-5.5) g/dl Globulin Albumin/Globulin Ratio Amylase 37 (28-100) U/L Lipase 43 (22-51) U/L Urine Color (YELLOW) Urine Appearance (CLEAR) Urine pH (5.0-9.0) Ur Specific [place] (1.005-1.030) Urine Protein (NEGATIVE) Urine Glucose (UA) (NEGATIVE) Urine Ketones (NEGATIVE) Urine Occult Blood (NEGATIVE) Urine Nitrite (NEGATIVE) Urine Bilirubin (NEGATIVE) Urine Urobilinogen (0.2-1.0) mg/dL Ur Leukocyte Esterase (NEGATIVE) Urine Opiates Screen (NEGATIVE) Ur Oxycodone Screen (NEGATIVE) Urine Methadone Screen (NEGATIVE) Ur Barbiturates Screen (NEGATIVE) U Tricyclic Antidepress (NEGATIVE) Ur Phencyclidine Scrn (NEGATIVE) Ur Amphetamine Screen (NEGATIVE) U Methamphetamines Scrn (NEGATIVE) Urine MDMA Screen (NEGATIVE) U Benzodiazepines Scrn (NEGATIVE) Urine Cocaine Screen (NEGATIVE) U Marijuana (THC) Screen (NEGATIVE) 04/02/18 04/02/18 04/02/18 Range/Units 19:17 19:17 20:00 WBC (5.0-10.0) 10^3/uL RBC (4.2-5.4) 10^6/uL Hgb (12.0-16.0) g/dL Hct (37.0-47.0) % MCV (80-100) fL MCH (27.0-34.0) pg MCHC (33.0-35.0) g/dL Plt Count (150-450) 10^3/uL Neut % (Auto) (42.2-75.2) % Lymph % (Auto) (20.5-50.1) % [place] % (Auto) (2-8) % Eos % (Auto) (1.0-3.0) % Baso % (Auto) (0.0-1.0) % Sodium 137 (135-145) mmol/L Potassium 2.8 L (3.6-5.0) mmol/L Chloride 103 (101-111) mmol/L Carbon Dioxide 16.0 L (21.0-31.0) mmol/L Anion Gap 20.8 BUN 5 L (7-18) mg/dL Creatinine 0.9 (0.6-1.3) mg/dL Est Cr Clr Drug Dosing 71.91 mL/min Estimated GFR (MDRD) > 60 BUN/Creatinine Ratio 5.55 Glucose 158 H (74-105) mg/dL Lactic Acid (0.5-2.2) mmol/L Calcium 8.3 L (8.4-10.2) mg/dl Total Bilirubin 0.7 (0.2-1.0) mg/dL AST 26 (10-42) IU/L ALT 40 (10-60) IU/L Alkaline Phosphatase 149 H (42-121) IU/L Troponin I < 0.02 (0.00-0.02) ng/ml B-Natriuretic Peptide 5 (0-100) pg/ml Total Protein 6.4 L (6.7-8.2) g/dl Albumin 2.8 L (3.2-5.5) g/dl Globulin 3.6 Albumin/Globulin Ratio 0.78 Amylase (28-100) U/L Lipase (22-51) U/L Urine Color Yellow (YELLOW) Urine Appearance Clear (CLEAR) Urine pH 6.0 (5.0-9.0) Ur Specific [place] 1.015 (1.005-1.030) Urine Protein Negative (NEGATIVE) Urine Glucose (UA) Negative (NEGATIVE) Urine Ketones Negative (NEGATIVE) Urine Occult Blood Negative (NEGATIVE) Urine Nitrite Negative (NEGATIVE) Urine Bilirubin Negative (NEGATIVE) Urine Urobilinogen 0.2 (0.2-1.0) mg/dL Ur Leukocyte Esterase Negative (NEGATIVE) Urine Opiates Screen (NEGATIVE) Ur Oxycodone Screen (NEGATIVE) Urine Methadone Screen (NEGATIVE) Ur Barbiturates Screen (NEGATIVE) U Tricyclic Antidepress (NEGATIVE) Ur Phencyclidine Scrn (NEGATIVE) Ur Amphetamine Screen (NEGATIVE) U Methamphetamines Scrn (NEGATIVE) Urine MDMA Screen (NEGATIVE) U Benzodiazepines Scrn (NEGATIVE) Urine Cocaine Screen (NEGATIVE) U Marijuana (THC) Screen (NEGATIVE) 04/02/18 Range/Units 20:00 WBC (5.0-10.0) 10^3/uL RBC (4.2-5.4) 10^6/uL Hgb (12.0-16.0) g/dL Hct (37.0-47.0) % MCV (80-100) fL MCH (27.0-34.0) pg MCHC (33.0-35.0) g/dL Plt Count (150-450) 10^3/uL Neut % (Auto) (42.2-75.2) % Lymph % (Auto) (20.5-50.1) % [place] % (Auto) (2-8) % Eos % (Auto) (1.0-3.0) % Baso % (Auto) (0.0-1.0) % Sodium (135-145) mmol/L Potassium (3.6-5.0) mmol/L Chloride (101-111) mmol/L Carbon Dioxide (21.0-31.0) mmol/L Anion Gap BUN (7-18) mg/dL Creatinine (0.6-1.3) mg/dL Est Cr Clr Drug Dosing mL/min Estimated GFR (MDRD) BUN/Creatinine Ratio Glucose (74-105) mg/dL Lactic Acid (0.5-2.2) mmol/L Calcium (8.4-10.2) mg/dl Total Bilirubin (0.2-1.0) mg/dL AST (10-42) IU/L ALT (10-60) IU/L Alkaline Phosphatase (42-121) IU/L Troponin I (0.00-0.02) ng/ml B-Natriuretic Peptide (0-100) pg/ml Total Protein (6.7-8.2) g/dl Albumin (3.2-5.5) g/dl Globulin Albumin/Globulin Ratio Amylase (28-100) U/L Lipase (22-51) U/L Urine Color (YELLOW) Urine Appearance (CLEAR) Urine pH (5.0-9.0) Ur Specific [place] (1.005-1.030) Urine Protein (NEGATIVE) Urine Glucose (UA) (NEGATIVE) Urine Ketones (NEGATIVE) Urine Occult Blood (NEGATIVE) Urine Nitrite (NEGATIVE) Urine Bilirubin (NEGATIVE) Urine Urobilinogen (0.2-1.0) mg/dL Ur Leukocyte Esterase (NEGATIVE) Urine Opiates Screen Negative (NEGATIVE) Ur Oxycodone Screen Positive H (NEGATIVE) Urine Methadone Screen Negative (NEGATIVE) Ur Barbiturates Screen Negative (NEGATIVE) U Tricyclic Antidepress Positive H (NEGATIVE) Ur Phencyclidine Scrn Negative (NEGATIVE) Ur Amphetamine Screen Negative (NEGATIVE) U Methamphetamines Scrn Negative (NEGATIVE) Urine MDMA Screen Negative (NEGATIVE) U Benzodiazepines Scrn Positive H (NEGATIVE) Urine Cocaine Screen Negative (NEGATIVE) U Marijuana (THC) Screen Negative (NEGATIVE) Meds: Medications Generic Name Dose Route Start Last Admin Trade Name Freq PRN Reason Stop Dose Admin Cefazolin Sodium/Dextrose 1 gm 50 mls @ 100 mls/hr 04/02/18 20:46 / Premix IV 04/02/18 21:15 ONETIME ONE Discontinued Medications Generic Name Dose Route Start Last Admin Trade Name Freq PRN Reason Stop Dose Admin Potassium Chloride 10 meq/ 100 mls @ 100 mls/hr 04/02/18 19:51 04/02/18 20:14 Premix IV 04/02/18 20:50 100 mls/hr ONETIME ONE Administration Departure - Departure Time of Disposition: 20:50 Disposition: DC/[facility]fer to [facility] 02 Reason for Transfer *Q: Other Condition: Poor Clinical Impression: Acute bilateral mastoiditis, Hypokalemia Forms: ED Department Discharge Care Plan Goals: Discussed the patient's history, examination, lab and CT results with Dr. Munguia (Hospitalist with [facility] in [place]). Dr. Munguia accepted the patient for continued evaluation and further management as an inpatient at [facility]. The patient will be transported by [facility]. - My Orders Last 24 Hours: My Active Orders 04/02/18 19:05 EKG Documentation Completion [RC] URGENT 04/02/18 19:17 CULTURE BLOOD [BC] Stat 04/02/18 20:46 ceFAZolin [Ancef] 1 gm Premix Bag 1 bag IV ONETIME - Assessment/Plan Last 24 Hours: My Active Orders 04/02/18 19:05 EKG Documentation Completion [RC] URGENT 04/02/18 19:17 CULTURE BLOOD [BC] Stat 04/02/18 20:46 ceFAZolin [Ancef] 1 gm Premix Bag 1 bag IV ONETIME
[2018-04-02 19:46] LABS: ANION GAP 20.8; CHLORIDE,CL 103 mmol/L (101-111); SODIUM,NA 137 mmol/L (135-145)
[2018-04-02] MEDS ORDERED: Potassium Chloride 10 MEQ in Premix Bag 1 BAG IV ONE (19:51)
[2018-04-02] MEDS ORDERED: ceFAZolin 1 GM in Premix Bag 1 BAG IV ONE (20:46)
[2018-04-03 00:44] VITALS: BP 102/62
== END 2018-04-03 01:39 ==
LOC: DL.ED 18:41
DX: H70.003 Acute mastoiditis without complications, bilateral (principal); E87.6 Hypokalemia; N18.9 Chronic kidney disease, unspecified; I50.9 Heart failure, unspecified; F32.9 Major depressive disorder, single episode, unspecified; Z88.1 Allergy status to other antibiotic agents; Z88.8 Allergy status to other drugs, medicaments and biological substances; Z91.048 Other nonmedicinal substance allergy status; Z79.899 Other long term (current) drug therapy
CPT/HCPCS: 36415; 70450; 71045; 80053; 80305; 81003; 82150; 83605; 83690; 83880; 84484; 85025; 87040; 93005; 96365; 96368; 99285; J0690; J3480

== ENCOUNTER 2018-04-08 08:42 | Observation (INO) | payer OTHER ==
[2018-04-08] MEDS ORDERED: Sodium Chloride 0.9% 10 ML Syringe FLUSH PRN (09:04)
--- NOTE | 2018-04-08 09:22 | EDM.PDOC ---
ED HPI GENERAL MEDICAL PROBLEM - General Chief Complaint: Back Pain or Injury Stated Complaint: BACK, NECK AND HIP PAIN Time Seen by Provider: 04/08/18 09:00 Source of Information: Reports: Patient, Family (), Old Records, RN, RN Notes Reviewed History Limitations: Reports: No Limitations - History of Present Illness INITIAL COMMENTS - FREE TEXT/NARRATIVE: Pt presents to ER from home by POV with c/o generalized weakness, dizziness, and lightheadedness this morning. Pt fell flat onto her back when she tried to walk to the bathroom in her house. She was able to get up with the assistance of her . She c/o pain to the entire back. Denies radiating pain, loss of bowel or bladder control, neck pain, saddle area numbness, or motor weakness. Pt states she was seen here on 04/02/18 and transferred to [facility] for low potassium and mastoiditis. Onset: Today Duration: Constant Location: Reports: Back Quality: Reports: Ache Severity: Severe Improves with: Reports: None Worsens with: Reports: None Associated Symptoms: Reports: No Other Symptoms Generalized Pain Score (Numeric/FACES): 10 - Related Data Allergies Allergy/AdvReac Type Severity Reaction Status Date / Time ciprofloxacin Allergy Vomiting Verified 04/08/18 08:53 metaxalone Allergy Abdominal Verified 04/08/18 08:53 Pain cephalexin [Cephalexin] AdvReac Nausea and Verified 04/08/18 08:53 Vomiting prednisone AdvReac Vomiting Verified 04/08/18 08:53 cats Allergy Sneezing Uncoded 04/08/18 08:53 evergreen tree Allergy Rash Uncoded 04/08/18 08:53 Home Meds: Home Meds Carvedilol 3.125 mg PO DAILY 05/07/13 [History] QUEtiapine Fumarate [Seroquel] 100 mg PO BID 05/07/13 [History] Sertraline [Zoloft] 100 mg PO BID 05/07/13 [History] Simvastatin 40 mg PO BEDTIME 05/07/13 [History] busPIRone [Buspar] 15 mg PO TID 05/07/13 [History] ALPRAZolam [Alprazolam ODT] 0.5 mg PO TID PRN 09/10/14 [History] Levothyroxine 150 mcg PO 0600 10/17/14 [History] Cyanocobalamin (Vitamin B12) [Vitamin B12] 1,000 mcg IM .MONTHLY 12/27/14 [ History] Cyclobenzaprine [Flexeril] 10 mg PO TID PRN 07/21/16 [History] Ziprasidone HCl [Geodon] 80 mg PO QAM 08/25/16 [History] Acetaminophen [Tylenol Arthritis] 1,000 mg PO Q4HR PRN 11/13/17 [History] Albuterol Sulfate [Proair Respiclick] 90 mcg IH Q6HR PRN 11/13/17 [History] Ascorbate Calcium [Vitamin C] 1,000 mg PO DAILY 11/13/17 [History] Esomeprazole Magnesium [Nexium] 40 mg PO BID 11/13/17 [History] Ferrous Fumarate 324 mg PO DAILY 11/13/17 [History] Folic Acid 1 mg PO DAILY 11/13/17 [History] Magnesium Oxide [Magnesium] 400 mg PO BID 11/13/17 [History] Multivitamin [Multivitamins] 1 each PO BEDTIME 11/13/17 [History] Nitroglycerin 0.4 mg SL .[id number] PRN 11/13/17 [History] oxyCODONE HCl/Acetaminophen [Oxycodone-Acetaminophen 5-325] 1 each PO Q8HR PRN 11/13/17 [History] Potassium Chloride 60 meq PO DAILY 30 Days #180 tab.er.prt 11/15/17 [Rx] QUEtiapine Fumarate [Seroquel] 300 mg PO BEDTIME 11/24/17 [History] Spironolactone [Aldactone] 25 mg PO BID 02/15/18 [History] Past Medical History HEENT History: Reports: Impaired Vision, Other (See Below) Other HEENT History: wears glasses, bilateral mastoiditis Cardiovascular History: Reports: Heart Failure Other Cardiovascular History: Impaired EF 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: Asthma, SOB Gastrointestinal History: Reports: Chronic Constipation, Pancreatitis Genitourinary History: Reports: Chronic Renal Insuffiency 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 (See Below) 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[employer] MEDIA PLANNER History: hysterectomy Musculoskeletal History: Reports: Back Pain, Chronic Neurological History: Reports: None Psychiatric History: Reports: Anxiety, Depression Endocrine/Metabolic History: Reports: Hypothyroidism Hematologic History: Reports: Anemia, B12 Deficiency Immunologic History: Reports: None Oncologic (Cancer) History: Reports: None Dermatologic History: Reports: None - Infectious Disease History Infectious Disease History: Reports: Chicken Pox - Past Surgical History Head Surgeries/Procedures: Reports: None GI Surgical History: Reports: Appendectomy, Cholecystectomy Female Surgical History: Reports: Hysterectomy, Tubal Ligation Social & Family History - Family History Family Medical History: Noncontributory - Tobacco Use Smoking Status *Q: Never Smoker Second Hand Smoke Exposure: No - Caffeine Use Caffeine Use: Reports: Soda Other Caffeine Use: 3 cans/day - Recreational Drug Use Recreational Drug Use: No - Living Situation & Occupation Living situation: Reports: , with Spouse Occupation: Disabled ED ROS GENERAL - Review of Systems Review Of Systems: ROS reveals no pertinent complaints other than HPI. ED EXAM, GENERAL - Physical Exam Exam: See Below Exam Limited By: No Limitations General Appearance: Alert, Obese, Other (chronically ill but non-toxic appearing ) Eye Exam: Bilateral Eye: EOMI, Normal Inspection (no nystamus, or vision changes ), PERRL Ear Exam: Right Ear: TM normal, Left Ear: Tenderness, TM Dull, TM Bulging Nose: Normal Inspection, Normal Mucosa, No Blood Throat/Mouth: Normal Inspection, Normal Lips, Normal Teeth, Normal Gums, Normal Oropharynx, Normal Voice, No Airway Compromise Head: Atraumatic, Normocephalic, Sinus Tenderness Neck: Limited Range of Motion, Tender Lateral Respiratory/Chest: No Respiratory Distress, Lungs Clear, Normal Breath Sounds, No Accessory Muscle Use, Chest Non-Tender Cardiovascular: Normal Peripheral Pulses, Regular Rate, Rhythm, No Edema, No Gallop, No JVD, No Murmur, No Rub Peripheral Pulses: 2+: Posterior Tibial (L), Posterior Tibial (R) GI/Abdominal: Normal Bowel Sounds, Soft, Non-Tender, No Organomegaly, No Distention, No Abnormal Bruit, No Mass Back Exam: Decreased Range of Motion, Vertebral Tenderness, Other (chronic back pain) Extremities: Normal Inspection, Normal Range of Motion, Non-Tender, Normal Capillary Refill, No Pedal Edema Neurological: Alert, Oriented, Other (weak and unsteady gait) Psychiatric: Other (behavior constistant with psychiatric history) Skin Exam: Warm, Dry, Intact, Normal Color, No Rash, Other (scattered bruise to arms she states are from previous admission) Lymphatic: No Adenopathy EKG INTERPRETATION EKG Date: 04/08/18 Time: 09:31 Rhythm: Other (SR) Rate (Beats/Min): 82 [place]: LAD-Left [place] Deviation P-Wave: Present QRS: Normal (with extensive motion artifact) ST-T: Other (nonspecific T wave abnormalities) QT: Prolonged Comparison: No Change Course - Vital Signs Last Recorded V/S: Last Vital Signs Temp 36.3 C 04/08/18 08:45 Pulse 88 04/08/18 08:45 Resp 18 04/08/18 08:45 BP 79/56 L 04/08/18 08:45 Pulse Ox 100 04/08/18 08:45 Orthostatic Blood Pressure [ 74/49 Standing] Orthostatic Blood Pressure [ 92/64 Sitting] Orthostatic Blood Pressure [ 91/57 Supine] - Orders/Labs/Meds Orders: Active Orders 24 hr Category Date Time Status EKG 12 Lead [EKG Documentation Completion] [RC] STAT Care 04/08/18 09:03 Active Orthostatic Vital Signs [RC] ASDIRECTED Care 04/08/18 09:22 Active Peripheral IV Care [RC] . DIRECTED Care 04/08/18 09:04 Active Magnesium Sulfate/Water [Magnesium Sulfate 2 GM in Med 04/08/18 10:37 Active Water 50 ML] 2 gm Premix Bag 1 bag IV ONETIME Sodium Chloride 0.9% [Normal Saline] 1,000 ml Med 04/08/18 09:41 Active IV .BOLUS Sodium Chloride 0.9% [Saline Flush] Med 04/08/18 09:04 Active 10 ml FLUSH ASDIRECTED PRN Peripheral IV Insertion Adult [OM.PC] Stat Oth 04/08/18 09:03 Ordered Medication Orders Sodium Chloride (Normal Saline) 1,000 mls @ 250 mls/hr IV .BOLUS ONE Stop: 04/08/18 13:40 Last Admin: 04/08/18 09:47 Dose: 250 mls/hr Magnesium Sulfate 2 gm/ Premix 50 mls @ 25 mls/hr IV ONETIME ONE Stop: 04/08/18 12:36 Sodium Chloride (Saline Flush) 10 ml FLUSH ASDIRECTED PRN PRN Reason: Keep Vein Open Last Admin: 04/08/18 09:19 Dose: 10 ml Labs: Laboratory Tests 02/08/19 02/08/19 02/08/19 Range/Units 09:16 09:16 09:40 WBC 8.2 (5.0-10.0) 10^3/uL RBC 3.24 L (4.2-5.4) 10^6/uL Hgb 10.6 L (12.0-16.0) g/dL Hct 33.1 L (37.0-47.0) % MCV 102.2 H (80-100) fL MCH 32.7 (27.0-34.0) pg MCHC 32.0 L (33.0-35.0) g/dL Plt Count 248 (150-450) 10^3/uL Neut % (Auto) 74.5 (42.2-75.2) % Lymph % (Auto) 14.4 L (20.5-50.1) % [place] % (Auto) 7.6 (2-8) % Eos % (Auto) 3.1 H (1.0-3.0) % Baso % (Auto) 0.4 (0.0-1.0) % Sodium 135 (135-145) mmol/L Potassium 4.0 (3.6-5.0) mmol/L Chloride 98 L (101-111) mmol/L Carbon Dioxide 18.0 L (21.0-31.0) mmol/L Anion Gap 23.0 BUN 8 (7-18) mg/dL Creatinine 0.9 (0.6-1.3) mg/dL Est Cr Clr Drug Dosing 71.91 mL/min Estimated GFR (MDRD) > 60 BUN/Creatinine Ratio 8.88 Glucose 137 H (74-105) mg/dL Calcium 7.5 L (8.4-10.2) mg/dl Magnesium 1.2 L (1.8-2.5) mg/dL Total Bilirubin 1.2 H (0.2-1.0) mg/dL AST 50 H (10-42) IU/L ALT 31 (10-60) IU/L Alkaline Phosphatase 136 H (42-121) IU/L Total Protein 5.7 L (6.7-8.2) g/dl Albumin 2.5 L (3.2-5.5) g/dl Globulin 3.2 Albumin/Globulin Ratio 0.78 Urine Color Yellow (YELLOW) Urine Appearance Clear (CLEAR) Urine pH 5.5 (5.0-9.0) Ur Specific [place] 1.015 (1.005-1.030) Urine Protein Negative (NEGATIVE) Urine Glucose (UA) Negative (NEGATIVE) Urine Ketones Negative (NEGATIVE) Urine Occult Blood Negative (NEGATIVE) Urine Nitrite Negative (NEGATIVE) Urine Bilirubin Negative (NEGATIVE) Urine Urobilinogen 0.2 (0.2-1.0) mg/dL Ur Leukocyte Esterase Negative (NEGATIVE) Ethyl Alcohol < 5 mg/dL Meds: Medications Generic Name Dose Route Start Last Admin Trade Name Freq PRN Reason Stop Dose Admin Sodium Chloride 1,000 mls @ 250 mls/hr 04/08/18 09:41 04/08/18 09:47 Normal Saline IV 04/08/18 13:40 250 mls/hr .BOLUS ONE Administration Magnesium Sulfate 2 gm/ Premix 50 mls @ 25 mls/hr 04/08/18 10:37 IV 04/08/18 12:36 ONETIME ONE Sodium Chloride 10 ml 04/08/18 09:04 04/08/18 09:19 Saline Flush FLUSH 10 ml ASDIRECTED PRN Administration Keep Vein Open - Re-Assessments/Exams Free Text/Narrative Re-Assessment/Exam: 04/08/18 10:46 Pt with multiple comorbidities presenting with hypotension and weakness with low magnesium. Plan to admit her to obs. status for hydration and magnesium replacement due to falls risk and need for monitoring of her condition/symptoms prior to sending her home. Departure - Departure Time of Disposition: 10:45 (admitted to Dr. Klein) Disposition: Refer to Observation Condition: Fair Clinical Impression: Orthostatic hypotension, Hypomagnesemia - Discharge Information *PRESCRIPTION DRUG MONITORING PROGRAM REVIEWED*: Not Applicable *COPY OF PRESCRIPTION DRUG MONITORING REPORT IN PATIENT ANNABEL: Not Applicable Forms: ED Department Discharge - My Orders Last 24 Hours: My Active Orders 04/08/18 09:03 EKG 12 Lead [EKG Documentation Completion] [RC] STAT Peripheral IV Insertion Adult [OM.PC] Stat 04/08/18 09:04 Peripheral IV Care [RC] . DIRECTED Sodium Chloride 0.9% [Saline Flush] 10 ml FLUSH ASDIRECTED PRN 04/08/18 09:22 Orthostatic Vital Signs [RC] ASDIRECTED 04/08/18 09:41 Sodium Chloride 0.9% [Normal Saline] 1,000 ml IV .BOLUS 04/08/18 10:37 Magnesium Sulfate/Water [Magnesium Sulfate 2 GM in Water 50 ML] 2 gm Premix Bag 1 bag IV ONETIME - Assessment/Plan Last 24 Hours: My Active Orders 04/08/18 09:03 EKG 12 Lead [EKG Documentation Completion] [RC] STAT Peripheral IV Insertion Adult [OM.PC] Stat 04/08/18 09:04 Peripheral IV Care [RC] . DIRECTED Sodium Chloride 0.9% [Saline Flush] 10 ml FLUSH ASDIRECTED PRN 04/08/18 09:22 Orthostatic Vital Signs [RC] ASDIRECTED 04/08/18 09:41 Sodium Chloride 0.9% [Normal Saline] 1,000 ml IV .BOLUS 04/08/18 10:37 Magnesium Sulfate/Water [Magnesium Sulfate 2 GM in Water 50 ML] 2 gm Premix Bag 1 bag IV ONETIME
[2018-04-08] MEDS ORDERED: Sodium Chloride 0.9% 1,000 ML IV ONE (09:41)
[2018-04-08 09:59] LABS: CHLORIDE,CL 98 mmol/L (101-111); SODIUM,NA 135 mmol/L (135-145)
[2018-04-08] MEDS ORDERED: Magnesium Sulfate/Water 2 GM in Premix Bag 1 BAG IV ONE (10:37)
[2018-04-08] MEDS ORDERED: Cyclobenzaprine 10 MG Tab PO PRN (13:01)
[2018-04-08] MEDS ORDERED: Nitroglycerin 0.4 MG Tab.SL SL PRN (13:01)
[2018-04-08] MEDS ORDERED: Albuterol 6.7 GM Inhaler INH PRN (13:01)
[2018-04-08] MEDS ORDERED: Acetaminophen 500 MG Tab PO PRN ×2 (13:01→16:45)
--- NOTE | 2018-04-08 13:18 | PCM.HP ---
H&P History of Present Illness - General Date of Service: 04/08/18 Admit Problem/Dx: Admission Diagnosis/Problem Admission Diagnosis/Problem Near syncope Source of Information: Patient History Limitations: Reports: No Limitations - History of Present Illness Initial Comments - Free Text/Narative: Kailyn dias 52 y.o.woman with PMH of Hypertension, Hyperlipidemia, Hypothyroidism, Viral Myocarditis and Recurrent Pancreatitis, h/o low blood pressure, recurrent falls, psych disorder. She was discharge from [facility] on 04/06 for questioning bilateral mastoiditis on CT. She was evaluated by ENT, Dr. Bray - did not feel mastoiditis is present. Recommended Suggested conservative management with Flonase. She was discharge on POAugmentin. She resents to ER from home today with c/o generalized weakness, dizziness, and lightheadedness this morning. Patient said she got out of bed this morning. She fell dizzy and light headed and fell flat onto her back. She did not hit her head. No LOC. She was able to get up with the assistance of her . She c/ o pain to the entire back. Denies loss of bowel or bladder control, neck pain, or motor weakness. In the ER she was positive for orthostatic hypotension. Hospital in consultative follow-up admission for further management. At the time of this evaluation patient was lying comfortably in bed. Denies any chest pain, shortness of breath fever, chills, headaches. Improves with: Reports: None Worsens with: Reports: None Associated Symptoms: Reports: No Other Symptoms Generalized Pain Score (Numeric/FACES): 9 - Related Data Allergies/Adverse Reactions: Allergies Allergy/AdvReac Type Severity Reaction Status Date / Time ciprofloxacin Allergy Vomiting Verified 04/08/18 12:17 metaxalone Allergy Abdominal Verified 04/08/18 12:17 Pain cephalexin [Cephalexin] AdvReac Nausea and Verified 04/08/18 12:17 Vomiting prednisone AdvReac Vomiting Verified 04/08/18 12:17 cats Allergy Sneezing Uncoded 04/08/18 12:17 evergreen tree Allergy Rash Uncoded 04/08/18 12:17 Home Medications: Home Meds QUEtiapine Fumarate [Seroquel] 100 mg PO BID 05/07/13 [History] Sertraline [Zoloft] 100 mg PO BID 05/07/13 [History] Simvastatin 40 mg PO BEDTIME 05/07/13 [History] busPIRone [Buspar] 15 mg PO TID 05/07/13 [History] ALPRAZolam [Alprazolam ODT] 0.5 mg PO TID PRN 09/10/14 [History] Levothyroxine 150 mcg PO 0600 10/17/14 [History] Cyanocobalamin (Vitamin B12) [Vitamin B12] 1,000 mcg IM .MONTHLY 12/27/14 [ History] Cyclobenzaprine [Flexeril] 10 mg PO TID PRN 07/21/16 [History] Ziprasidone HCl [Geodon] 80 mg PO QAM 08/25/16 [History] Acetaminophen [Tylenol Arthritis] 1,000 mg PO Q4HR PRN 11/13/17 [History] Albuterol Sulfate [Proair Respiclick] 90 mcg IH Q6HR PRN 11/13/17 [History] Ascorbate Calcium [Vitamin C] 1,000 mg PO DAILY 11/13/17 [History] Esomeprazole Magnesium [Nexium] 40 mg PO BID 11/13/17 [History] Ferrous Fumarate 324 mg PO DAILY 11/13/17 [History] Folic Acid 1 mg PO DAILY 11/13/17 [History] Magnesium Oxide [Magnesium] 400 mg PO BID 11/13/17 [History] Multivitamin [Multivitamins] 1 each PO BEDTIME 11/13/17 [History] Nitroglycerin 0.4 mg SL .[id number] PRN 11/13/17 [History] oxyCODONE HCl/Acetaminophen [Oxycodone-Acetaminophen 5-325] 1 each PO Q8HR PRN 11/13/17 [History] Potassium Chloride 60 meq PO DAILY 30 Days #180 tab.er.prt 11/15/17 [Rx] QUEtiapine Fumarate [Seroquel] 300 mg PO BEDTIME 11/24/17 [History] Spironolactone [Aldactone] 25 mg PO BID 02/15/18 [History] Amoxicillin/Potassium Clav [Augmentin 875-125 Tablet] 1 each PO BID 04/08/18 [ History] Past Medical History HEENT History: Reports: Impaired Vision, Other (See Below) Other HEENT History: wears glasses, bilateral mastoiditis Cardiovascular History: Reports: Heart Failure, Other (See Below) Other Cardiovascular History: Impaired EF. 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 (See Below) Other OB/BYN History: hysterectomy Musculoskeletal History: Reports: Back Pain, Chronic Neurological History: Reports: None Psychiatric History: Reports: Anxiety, Depression Endocrine/Metabolic History: Reports: Hypothyroidism, Obesity/BMI 30+ Hematologic History: Reports: Anemia, B12 Deficiency Immunologic History: Reports: None Oncologic (Cancer) History: Reports: None Dermatologic History: Reports: None - Infectious Disease History Infectious Disease History: Reports: Chicken Pox, Measles - Past Surgical History Head Surgeries/Procedures: Reports: None HEENT Surgical History: Reports: None Cardiovascular Surgical History: Reports: None Respiratory Surgical History: Reports: None GI Surgical History: Reports: Appendectomy, Cholecystectomy, Colonoscopy, EGD Female Surgical History: Reports: Hysterectomy, Tubal Ligation Endocrine Surgical History: Reports: None Musculoskeletal Surgical History: Reports: None Social & Family History - Family History Family Medical History: Noncontributory - Tobacco Use Smoking Status *Q: Never Smoker Second Hand Smoke Exposure: No - Caffeine Use Caffeine Use: Reports: Soda Other Caffeine Use: 4 cans/day [employer] OR [employer] - Recreational Drug Use Recreational Drug Use: No - Living Situation & Occupation Living situation: Reports: , with Spouse Occupation: Disabled H&P Review of Systems - Review of Systems: Review Of Systems: See Below General: Reports: No Symptoms HEENT: Reports: Vertigo Pulmonary: Reports: No Symptoms Cardiovascular: Reports: Lightheadedness Gastrointestinal: Reports: No Symptoms Genitourinary: Reports: No Symptoms Musculoskeletal: Reports: Back Pain, Muscle Pain Skin: Reports: No Symptoms Psychiatric: Reports: No Symptoms Neurological: Reports: No Symptoms Hematologic/Lymphatic: Reports: No Symptoms Immunologic: Reports: No Symptoms Exam - Exam Exam: See Below - Vital Signs Vital Signs: Last Vital Signs Temp 98.1 F 04/08/18 11:22 Pulse 87 04/08/18 11:22 Resp 14 04/08/18 11:22 BP 97/48 L 04/08/18 11:22 Pulse Ox 100 04/08/18 11:22 Orthostatic Blood Pressure [ 89/48 Standing] Orthostatic Blood Pressure [ 84/58 Sitting] Orthostatic Blood Pressure [ 98/64 Supine] Weight: 193 lb 6.4 oz - Exam Quality Assessment: DVT Prophylaxis General: Alert, Oriented, 4 HEENT: PERRLA, Hearing Intact, Mucosa Moist & [place], Nares Patent, Normal Nasal Septum, Posterior Pharynx Clear, Conjunctiva Clear, EOMI, EACs Clear, TMs Clear Neck: Supple, Trachea Midline, 2 Lungs: Clear to Auscultation, Normal Respiratory Effort Cardiovascular: Regular Rate, Regular Rhythm GI/Abdominal Exam: Normal Bowel Sounds, Soft, Non-Tender, No Organomegaly, No Distention, No Abnormal Bruit, No Mass, Pelvis Stable (Female) Exam: Normal External Exam, Normal Speculum Exam, Normal Bimanual Exam Rectal (Female) Exam: Normal Exam, Normal Rectal Tone Back Exam: Normal Inspection, Full Range of Motion, NT Extremities: Normal Inspection, Normal Range of Motion, Non-Tender, No Pedal Edema, Normal Capillary Refill Skin: Warm, Dry, Intact Neurological: Cranial Nerves Intact, Reflexes Equal Bilateral Neuro Extensive - Mental Status: Alert, Oriented x3, Normal Mood/Affect, Normal Cognition Neuro Extensive - Motor, Sensory, Reflexes: CN II-XII Intact, Normal Gait, Normal Reflexes Psychiatric: Alert, Normal Affect, Normal Mood - Patient Data Lab Results Last 24 hrs: Laboratory Results - last 24 hr 04/08/18 04/08/18 04/08/18 Range/Units 09:16 09:16 09:40 WBC 8.2 (5.0-10.0) 10^3/uL RBC 3.24 L (4.2-5.4) 10^6/uL Hgb 10.6 L (12.0-16.0) g/dL Hct 33.1 L (37.0-47.0) % MCV 102.2 H (80-100) fL MCH 32.7 (27.0-34.0) pg MCHC 32.0 L (33.0-35.0) g/dL Plt Count 248 (150-450) 10^3/uL Neut % (Auto) 74.5 (42.2-75.2) % Lymph % (Auto) 14.4 L (20.5-50.1) % [place] % (Auto) 7.6 (2-8) % Eos % (Auto) 3.1 H (1.0-3.0) % Baso % (Auto) 0.4 (0.0-1.0) % Sodium 135 (135-145) mmol/L Potassium 4.0 (3.6-5.0) mmol/L Chloride 98 L (101-111) mmol/L Carbon Dioxide 18.0 L (21.0-31.0) mmol/L Anion Gap 23.0 BUN 8 (7-18) mg/dL Creatinine 0.9 (0.6-1.3) mg/dL Est Cr Clr Drug Dosing 71.91 mL/min Estimated GFR (MDRD) > 60 BUN/Creatinine Ratio 8.88 Glucose 137 H (74-105) mg/dL Calcium 7.5 L (8.4-10.2) mg/dl Magnesium 1.2 L (1.8-2.5) mg/dL Total Bilirubin 1.2 H (0.2-1.0) mg/dL AST 50 H (10-42) IU/L ALT 31 (10-60) IU/L Alkaline Phosphatase 136 H (42-121) IU/L Total Protein 5.7 L (6.7-8.2) g/dl Albumin 2.5 L (3.2-5.5) g/dl Globulin 3.2 Albumin/Globulin Ratio 0.78 Urine Color Yellow (YELLOW) Urine Appearance Clear (CLEAR) Urine pH 5.5 (5.0-9.0) Ur Specific [place] 1.015 (1.005-1.030) Urine Protein Negative (NEGATIVE) Urine Glucose (UA) Negative (NEGATIVE) Urine Ketones Negative (NEGATIVE) Urine Occult Blood Negative (NEGATIVE) Urine Nitrite Negative (NEGATIVE) Urine Bilirubin Negative (NEGATIVE) Urine Urobilinogen 0.2 (0.2-1.0) mg/dL Ur Leukocyte Esterase Negative (NEGATIVE) Ethyl Alcohol < 5 mg/dL Result Diagrams: 04/08/18 09:16 04/08/18 09:16 - Problem List (1) Near syncope SNOMED Code(s): 732954668 ICD Code: R55 - SYNCOPE AND COLLAPSE Status: Acute Current Visit: Yes (2) Orthostatic hypotension SNOMED Code(s): 50651945 ICD Code: I95.1 - ORTHOSTATIC HYPOTENSION Status: Acute Current Visit: Yes (3) Vertigo SNOMED Code(s): 752043710 ICD Code: R42 - DIZZINESS AND GIDDINESS Status: Acute Current Visit: Yes (4) Obesity SNOMED Code(s): 090130981, 887027524 ICD Code: E66.9 - OBESITY, UNSPECIFIED Status: Acute Current Visit: No (5) Weakness SNOMED Code(s): 77139164 ICD Code: R53.1 - WEAKNESS Status: Acute Current Visit: No (6) MDD (major depressive disorder), recurrent, in full remission SNOMED Code(s): 33111431 ICD Code: F33.42 - MAJOR DEPRESSIVE DISORDER, RECURRENT, IN FULL REMISSION Status: Chronic Current Visit: No Problem List Initiated/Reviewed/Updated: Yes Orders Last 24hrs: Active Orders 24 hr Category Date Time Status Patient Status [ADT] Routine ADT 04/08/18 12:57 Ordered Antiembolic Devices [RC] .Routine Care 04/08/18 13:00 Ordered EKG 12 Lead [EKG Documentation Completion] [RC] STAT Care 04/08/18 09:03 Active Notify Provider Vital Signs [RC] ASDIRECTED Care 04/08/18 12:59 Ordered Orthostatic Vital Signs [RC] ASDIRECTED Care 04/08/18 09:22 Active Peripheral IV Care [RC] . DIRECTED Care 04/08/18 09:04 Active Up With Assistance [RC] ASDIRECTED Care 04/08/18 12:57 Ordered VTE/DVT Education [RC] PER UNIT ROUTINE Care 04/08/18 13:00 Ordered Vital Signs [RC] Q4H Care 04/08/18 12:57 Ordered Regular Diet [DIET] Diet 04/08/18 Lunch Ordered Acetaminophen [Tylenol Arthritis] Med 04/08/18 13:01 Ordered 1,000 mg PO Q4HR PRN Acetaminophen/oxyCODONE [Percocet 325-5 MG] Med 04/08/18 13:01 Ordered 1 each PO Q8HR PRN Albuterol Sulfate [Proair Respiclick] Med 04/08/18 13:01 Ordered 90 mcg IH Q6HR PRN Amoxicillin/Clavulanate K [Augmentin 875 MG/125 MG] Med 04/08/18 21:00 Ordered 1 each PO BID Ascorbate Calcium [Vitamin C] Med 04/09/18 09:00 Ordered 1,000 mg PO DAILY Cyanocobalamin (Vitamin B12) [Vitamin B12] Med 04/08/18 13:15 Ordered 1,000 mcg IM .MONTHLY Cyclobenzaprine [Flexeril] Med 04/08/18 13:01 Ordered 10 mg PO TID PRN Esomeprazole Magnesium [Nexium] Med 04/08/18 21:00 Ordered 40 mg PO BID Ferrous Fumarate [Ferrous Fumarate] Med 04/09/18 09:00 Ordered 324 mg PO DAILY Folic Acid Med 04/09/18 09:00 Ordered 1 mg PO DAILY Heparin Sodium Med 04/08/18 13:00 Ordered 5,000 units SUBCUT Q12H Levothyroxine [Levothyroxine] Med 04/09/18 06:00 Ordered 150 mcg PO 0600 Magnesium Oxide [Magnesium] Med 04/08/18 21:00 Ordered 400 mg PO BID Midodrine Med 04/08/18 17:00 Ordered 5 mg PO TIDAC Multivitamin [Multivitamins] Med 04/08/18 21:00 Ordered 1 each PO BEDTIME Nitroglycerin [Nitrostat] Med 04/08/18 13:01 Ordered 0.4 mg SL .[id number] PRN Potassium Chloride [Potassium Chloride] Med 04/09/18 09:00 Ordered 60 meq PO DAILY QUEtiapine Fumarate [Seroquel] Med 04/08/18 21:00 Ordered 100 mg PO BID QUEtiapine Fumarate [Seroquel] Med 04/08/18 21:00 Ordered 300 mg PO BEDTIME Sertraline [Zoloft] Med 04/08/18 21:00 Ordered 100 mg PO BID Simvastatin [Zocor] Med 04/08/18 21:00 Ordered 40 mg PO BEDTIME Sodium Chloride 0.9% [Normal Saline] 1,000 ml Med 04/08/18 09:41 Active IV .BOLUS Sodium Chloride 0.9% [Saline Flush] Med 04/08/18 09:04 Active 10 ml FLUSH ASDIRECTED PRN Spironolactone [Aldactone] Med 04/08/18 21:00 Ordered 25 mg PO BID Ziprasidone HCl [Geodon] Med 04/09/18 09:00 Ordered 80 mg PO QAM busPIRone [Buspar] Med 04/08/18 14:00 Ordered 15 mg PO TID DVT/VTE Prophylaxis Reflex [OM.PC] Routine Oth 04/08/18 12:57 Ordered Peripheral IV Insertion Adult [OM.PC] Stat Oth 02/08/19 09:03 Ordered Resuscitation Status Routine Resus Stat 04/08/18 12:57 Ordered Medication Orders Amoxicillin/Clavulanate Potassium (Augmentin 875 Mg/125 Mg) tab PO BID [facility] Buspirone HCl (Buspar) 15 mg PO TID [facility] Cyanocobalamin (Vitamin B12) 1,000 mcg IM .MONTHLY [facility] Cyclobenzaprine HCl (Flexeril) 10 mg PO TID PRN PRN Reason: Spasms Folic Acid (Folic Acid) 1 mg PO DAILY [facility] Heparin Sodium (Porcine) (Heparin Sodium) 5,000 units SUBCUT Q12H [facility] Sodium Chloride (Normal Saline) 1,000 mls @ 250 mls/hr IV .BOLUS ONE Stop: 04/08/18 13:40 Last Admin: 04/08/18 09:47 Dose: 250 mls/hr Midodrine (Midodrine) 5 mg PO TIDAC [facility] Nitroglycerin (Nitrostat) 0.4 mg SL .[id number] PRN PRN Reason: Chest Pain Non-Formulary Medication (Acetaminophen [Tylenol Arthritis]) 1,000 mg PO Q4HR PRN PRN Reason: Pain Non-Formulary Medication (Albuterol Sulfate [Proair Respiclick]) 90 mcg IH Q6HR PRN PRN Reason: Shortness of Breath Non-Formulary Medication (Ascorbate Calcium [Vitamin C]) 1,000 mg PO DAILY KP Non-Formulary Medication (Esomeprazole Magnesium [Nexium]) 40 mg PO BID KP Non-Formulary Medication (Ferrous Fumarate [Ferrous Fumarate]) 324 mg PO DAILY KP Non-Formulary Medication (Levothyroxine [Levothyroxine]) 150 mcg PO 0600 KP Non-Formulary Medication (Magnesium Oxide [Magnesium]) 400 mg PO BID KP Non-Formulary Medication (Multivitamin [Multivitamins]) 1 each PO BEDTIME KP Non-Formulary Medication (Potassium Chloride [Potassium Chloride]) 60 meq PO DAILY KP Non-Formulary Medication (Quetiapine Fumarate [Seroquel]) 100 mg PO BID KP Non-Formulary Medication (Quetiapine Fumarate [Seroquel]) 300 mg PO BEDTIME KP Non-Formulary Medication (Sertraline [Zoloft]) 100 mg PO BID KP Non-Formulary Medication (Ziprasidone Hcl [Geodon]) 80 mg PO QAM KP Oxycodone/Acetaminophen (Percocet 325-5 Mg) tab PO Q8HR PRN PRN Reason: Pain Simvastatin (Zocor) 40 mg PO BEDTIME KP Sodium Chloride (Saline Flush) 10 ml FLUSH ASDIRECTED PRN PRN Reason: Keep Vein Open Last Admin: 04/08/18 09:19 Dose: 10 ml Spironolactone (Aldactone) 25 mg PO BID [facility] Assessment/Plan Comment:: Near syncope due to orthostatic hypotension Patient presented with following a near syncopal episode Orthostatic vitals in the ER were positive Admit to general medical Monitor vitals closely Fall precautions Start midodrine h/o low BP Monitor BP closely Will start midodrine Hypomagnesemia IV replacement Hypertension BP currently low Continue to hold all antihypertensive monitor BP and restart prn Hyperlipidemia Continue Zocor 40 mg daily Hypothyroidism Continue Synthroid on 50 mcg daily Depression/other pscyiatry conditions Continue home medication
[2018-04-08] MEDS: Acetaminophen/oxyCODONE 325-5 MG Tab PO PRN (14:39)
[2018-04-08] MEDS: Midodrine 2.5 MG Tab PO SCH (16:03)
[2018-04-08] MEDS: busPIRone 15 MG Tab PO SCH ×2 (16:03→21:48)
[2018-04-08] MEDS: Pantoprazole 40 MG Tab.CR PO SCH (16:49)
[2018-04-08] MEDS ORDERED: Multivitamins,Therapeutic Tab PO SCH (21:00)
[2018-04-08] MEDS ORDERED: QUEtiapine 100 MG Tab PO SCH (21:00)
[2018-04-08] MEDS ORDERED: Simvastatin 40 MG Tab PO SCH (21:00)
[2018-04-08] MEDS: Heparin Sodium 5,000 Units/ML Vial SUBCUT SCH (21:47)
[2018-04-08] MEDS: Sertraline 50 MG Tab PO SCH (21:48)
[2018-04-08] MEDS: Spironolactone 25 MG Tab PO SCH (21:48)
[2018-04-08] MEDS: Amoxicillin/Clavulanate K 875-125 MG Tab PO SCH (21:49)
[2018-04-09] MEDS: Acetaminophen/oxyCODONE 325-5 MG Tab PO PRN ×2 (00:07→08:46)
[2018-04-09] MEDS ORDERED: Levothyroxine 150 MCG Tab PO SCH (06:00)
[2018-04-09] MEDS: Pantoprazole 40 MG Tab.CR PO SCH (06:50)
[2018-04-09] MEDS ORDERED: Potassium Chloride 10 MEQ Tab.ER PO SCH (08:00)
[2018-04-09] MEDS: Amoxicillin/Clavulanate K 875-125 MG Tab PO SCH (08:43)
[2018-04-09] MEDS: Midodrine 2.5 MG Tab PO SCH ×2 (08:44→11:28)
[2018-04-09] MEDS: busPIRone 15 MG Tab PO SCH (08:45)
[2018-04-09] MEDS: Sertraline 50 MG Tab PO SCH (08:45)
[2018-04-09] MEDS: Ferrous Sulfate 325 MG Tab PO SCH ×2 (08:45→11:28)
[2018-04-09] MEDS: QUEtiapine 100 MG Tab PO SCH ×2 (08:45→11:28)
[2018-04-09] MEDS: Heparin Sodium 5,000 Units/ML Vial SUBCUT SCH (08:46)
[2018-04-09] MEDS: Spironolactone 25 MG Tab PO SCH (08:46)
[2018-04-09] MEDS ORDERED: Folic Acid 1 MG Tab PO SCH (09:00)
[2018-04-09] MEDS ORDERED: Ascorbic Acid 500 MG Tab PO SCH (09:00)
[2018-04-09] MEDS ORDERED: ZIPRASIDONE HCL 80 MG PO SCH (09:00)
--- NOTE | 2018-04-09 10:21 | PCM.DCSUM1 ---
Discharge Summary - Hospital Course Free Text/Narrative:: Kailyn dias 52 y.o.woman with PMH of Hypertension, Hyperlipidemia, Hypothyroidism, Viral Myocarditis and Recurrent Pancreatitis, h/o low blood pressure, recurrent falls, psych disorder. She was discharge from [facility] on 04/06 for questionable bilateral mastoiditis on CT. She was evaluated by ENT, Dr. Bray - did not feel mastoiditis is present. Recommended conservative management with Flonase. She was discharge on POAugmentin. She resents to ER from home yesterday with c/o generalized weakness, dizziness, and lightheadedness. In the ER she was positive for orthostatic hypotension. She was admitted for further management. Patient was started on midodrine. Her vitals has been stable since admission and dizziness/vertigo has improved. Patient is being discharged in stable condition. She will follow up with her PCP next week. In the time of discharge vitals were unremarkable. Diagnosis: Stroke: No - Discharge Data Discharge Date: 04/09/18 Discharge Disposition: Home, Self-Care 01 Condition: Stable - Discharge Diagnosis/Problem(s) (1) Near syncope SNOMED Code(s): 397362085 ICD Code: R55 - SYNCOPE AND COLLAPSE Status: Acute Current Visit: Yes (2) Orthostatic hypotension SNOMED Code(s): 86672248 ICD Code: I95.1 - ORTHOSTATIC HYPOTENSION Status: Acute Current Visit: Yes (3) Vertigo SNOMED Code(s): 833715186 ICD Code: R42 - DIZZINESS AND GIDDINESS Status: Acute Current Visit: Yes (4) Obesity SNOMED Code(s): 126899188, 242474752 ICD Code: E66.9 - OBESITY, UNSPECIFIED Status: Acute Current Visit: No (5) Weakness SNOMED Code(s): 35178522 ICD Code: R53.1 - WEAKNESS Status: Acute Current Visit: No (6) MDD (major depressive disorder), recurrent, in full remission SNOMED Code(s): 55974111 ICD Code: F33.42 - MAJOR DEPRESSIVE DISORDER, RECURRENT, IN FULL REMISSION Status: Chronic Current Visit: No - Patient Instructions Diet: Heart Healthy Diet Fluid Restriction: 1500 mL Activity: As Tolerated Driving: May Drive Today Showering/Bathing: May Shower Notify Provider of: Fever, Increased Pain, Swelling and Redness, Nausea and/or Vomiting - Discharge Plan *PRESCRIPTION DRUG MONITORING PROGRAM REVIEWED*: Not Applicable *COPY OF PRESCRIPTION DRUG MONITORING REPORT IN PATIENT ANNABEL: Not Applicable Prescriptions/Med Rec: Midodrine 5 mg PO TIDAC 30 Days #180 tablet Home Medications: Home Meds QUEtiapine Fumarate [Seroquel] 100 mg PO BID 05/07/13 [History] Sertraline [Zoloft] 100 mg PO BID 05/07/13 [History] Simvastatin 40 mg PO BEDTIME 05/07/13 [History] busPIRone [Buspar] 15 mg PO TID 05/07/13 [History] ALPRAZolam [Alprazolam ODT] 0.5 mg PO TID PRN 09/10/14 [History] Levothyroxine 150 mcg PO 0600 10/17/14 [History] Cyanocobalamin (Vitamin B12) [Vitamin B12] 1,000 mcg IM .MONTHLY 12/27/14 [ History] Cyclobenzaprine [Flexeril] 10 mg PO TID PRN 07/21/16 [History] Ziprasidone HCl [Geodon] 80 mg PO QAM 08/25/16 [History] Acetaminophen [Tylenol Arthritis] 1,000 mg PO Q4HR PRN 11/13/17 [History] Albuterol Sulfate [Proair Respiclick] 90 mcg IH Q6HR PRN 11/13/17 [History] Ascorbate Calcium [Vitamin C] 1,000 mg PO DAILY 11/13/17 [History] Esomeprazole Magnesium [Nexium] 40 mg PO BID 11/13/17 [History] Ferrous Fumarate 324 mg PO DAILY 11/13/17 [History] Folic Acid 1 mg PO DAILY 11/13/17 [History] Magnesium Oxide [Magnesium] 400 mg PO BID 11/13/17 [History] Multivitamin [Multivitamins] 1 each PO BEDTIME 11/13/17 [History] Nitroglycerin 0.4 mg SL .[id number] PRN 11/13/17 [History] oxyCODONE HCl/Acetaminophen [Oxycodone-Acetaminophen 5-325] 1 each PO Q8HR PRN 11/13/17 [History] Potassium Chloride 60 meq PO DAILY 30 Days #180 tab.er.prt 11/15/17 [Rx] QUEtiapine Fumarate [Seroquel] 300 mg PO BEDTIME 11/24/17 [History] Spironolactone [Aldactone] 25 mg PO BID 02/15/18 [History] Amoxicillin/Potassium Clav [Augmentin 875-125 Tablet] 1 each PO BID 04/08/18 [ History] Midodrine 5 mg PO TIDAC 30 Days #180 tablet 04/09/18 [Rx] Patient Handouts: Orthostatic Hypotension, Near-Syncope, [id number], Midodrine tablets Referrals: PCP,None [Primary Care Provider] - - Discharge Summary/Plan Comment DC Time >30 min.: Yes - General Info Admission Dx/Problem (Free Text: Admission Diagnosis/Problem Admission Diagnosis/Problem Near syncope Functional Status: Reports: Pain Controlled - Review of Systems General: Reports: No Symptoms HEENT: Reports: No Symptoms Pulmonary: Reports: No Symptoms Cardiovascular: Reports: No Symptoms Gastrointestinal: Reports: No Symptoms Genitourinary: Reports: No Symptoms Musculoskeletal: Reports: No Symptoms Skin: Reports: No Symptoms Neurological: Reports: No Symptoms Psychiatric: Reports: No Symptoms - Patient Data Vitals - Most Recent: Last Vital Signs Temp 98.5 F 04/09/18 07:57 Pulse 78 04/09/18 07:57 Resp 18 04/09/18 07:57 BP 94/60 04/09/18 07:57 Pulse Ox 97 04/09/18 07:57 Orthostatic Blood Pressure [ 89/48 Standing] Orthostatic Blood Pressure [ 84/58 Sitting] Orthostatic Blood Pressure [ 98/64 Supine] Weight - Most Recent: 193 lb 6.4 oz I&O - Last 24 hours: Intake & Output 04/08/18 04/09/18 04/09/18 22:59 06:59 14:59 Intake Total 50 480 Balance 50 480 Lab Results - Last 24 hrs: Laboratory Results - last 24 hr 04/08/18 04/09/18 Range/Units 09:16 09:30 Sodium 135 (135-145) mmol/L Potassium 4.0 (3.6-5.0) mmol/L Chloride 98 L (101-111) mmol/L Carbon Dioxide 18.0 L (21.0-31.0) mmol/L Anion Gap 23.0 BUN 8 (7-18) mg/dL Creatinine 0.9 (0.6-1.3) mg/dL Est Cr Clr Drug Dosing 71.91 mL/min Estimated GFR (MDRD) > 60 BUN/Creatinine Ratio 8.88 Glucose 137 H (74-105) mg/dL Calcium 7.5 L (8.4-10.2) mg/dl Magnesium 1.2 L 1.7 L (1.8-2.5) mg/dL Total Bilirubin 1.2 H (0.2-1.0) mg/dL AST 50 H (10-42) IU/L ALT 31 (10-60) IU/L Alkaline Phosphatase 136 H (42-121) IU/L Total Protein 5.7 L (6.7-8.2) g/dl Albumin 2.5 L (3.2-5.5) g/dl Globulin 3.2 Albumin/Globulin Ratio 0.78 Ethyl Alcohol < 5 mg/dL Med Orders - Current: Current Medications Acetaminophen (Tylenol Extra Strength) 1,000 mg PO Q6HR PRN PRN Reason: Pain Albuterol (Proventil Hfa) 0 gm INH Q6HR PRN PRN Reason: Shortness of Breath Amoxicillin/Clavulanate Potassium (Augmentin 875 Mg/125 Mg) 1 tab PO BID [facility] Last Admin: 04/09/18 08:43 Dose: 1 tab Ascorbic Acid (Vitamin C) 1,000 mg PO DAILY [facility] Last Admin: 04/09/18 08:45 Dose: 1,000 mg Buspirone HCl (Buspar) 15 mg PO TID [facility] Last Admin: 04/09/18 08:45 Dose: 15 mg Cyanocobalamin (Vitamin B12) 1,000 mcg IM Q30D@0900 [facility] Cyclobenzaprine HCl (Flexeril) 10 mg PO TID PRN PRN Reason: Spasms Ferrous Sulfate (Ferrous Sulfate) 325 mg PO DAILY@1200 [facility] Last Admin: 04/09/18 08:45 Dose: 325 mg Folic Acid (Folic Acid) 1 mg PO DAILY [facility] Last Admin: 04/09/18 08:45 Dose: 1 mg Heparin Sodium (Porcine) (Heparin Sodium) 5,000 units SUBCUT Q12H [facility] Last Admin: 04/09/18 08:46 Dose: 5,000 units Levothyroxine Sodium (Levothyroxine) 150 mcg PO 0600 [facility] Last Admin: 04/09/18 06:50 Dose: 150 mcg Magnesium Oxide (Magnesium Oxide) 500 mg PO BIDMEALS [facility] Last Admin: 04/09/18 08:44 Dose: 500 mg Midodrine (Midodrine) 5 mg PO TIDAC [facility] Last Admin: 04/09/18 08:44 Dose: 5 mg Multivitamins (Thera) 1 each PO BEDTIME [facility] Last Admin: 04/08/18 21:48 Dose: 1 each Nitroglycerin (Nitrostat) 0.4 mg SL .[id number] PRN PRN Reason: Chest Pain Non-Formulary Medication (Ziprasidone Hcl [Geodon]) 80 mg PO QAM [facility] Oxycodone/Acetaminophen (Percocet 325-5 Mg) 1 tab PO Q8HR PRN PRN Reason: Pain (moderate 4-6) Last Admin: 04/09/18 08:46 Dose: 1 tab Pantoprazole Sodium (Protonix) 40 mg PO BIDAC [facility] Last Admin: 04/09/18 06:50 Dose: 40 mg Potassium Chloride (Klor-Con 10) 60 meq PO DAILY@0800 [facility] Last Admin: 04/09/18 08:44 Dose: 60 meq Quetiapine Fumarate (Seroquel) 100 mg PO BID@0800,1200 [facility] Last Admin: 04/09/18 08:45 Dose: 100 mg Quetiapine Fumarate (Seroquel) 300 mg PO BEDTIME [facility] Last Admin: 04/08/18 21:49 Dose: 300 mg Sertraline HCl (Zoloft) 100 mg PO BID [facility] Last Admin: 04/09/18 08:45 Dose: 100 mg Simvastatin (Zocor) 40 mg PO BEDTIME [facility] Last Admin: 04/08/18 21:48 Dose: 40 mg Sodium Chloride (Saline Flush) 10 ml FLUSH ASDIRECTED PRN PRN Reason: Keep Vein Open Last Admin: 04/08/18 09:19 Dose: 10 ml Spironolactone (Aldactone) 25 mg PO BID [facility] Last Admin: 04/09/18 08:46 Dose: 25 mg Discontinued Medications Acetaminophen (Tylenol Extra Strength) 1,000 mg PO Q4HR PRN PRN Reason: Pain Sodium Chloride (Normal Saline) 1,000 mls @ 250 mls/hr IV .BOLUS ONE Stop: 04/08/18 13:40 Last Infusion: 04/08/18 16:04 Dose: Infused Magnesium Sulfate 2 gm/ Premix 50 mls @ 25 mls/hr IV ONETIME ONE Stop: 04/08/18 12:36 Last Admin: 04/08/18 11:42 Dose: 25 mls/hr - Exam General: Reports: Alert, Oriented HEENT: Reports: Pupils Equal, Pupils Reactive, EOMI, Mucous Membr. Moist/[place]ler Neck: Reports: Supple Lungs: Reports: Clear to Auscultation, Normal Respiratory Effort Cardiovascular: Reports: Regular Rate, Regular Rhythm GI/Abdominal Exam: Normal Bowel Sounds, Soft, Non-Tender, No Organomegaly, No Distention, No Abnormal Bruit, No Mass, Pelvis Stable (Female) Exam: Normal External Exam, Normal Speculum Exam, Normal Bimanual Exam Rectal (Female) Exam: Normal Exam, Normal Rectal Tone Back Exam: Reports: Normal Inspection, Full Range of Motion Extremities: Normal Inspection, Normal Range of Motion, Non-Tender, No Pedal Edema, Normal Capillary Refill Skin: Reports: Warm, Dry, Intact Wound/Incisions: Reports: Healing Well Neurological: Reports: No New Focal Deficit Psy/Mental Status: Reports: Alert, Normal Affect, Normal Mood
[2018-04-09 11:27] VITALS: BP 88/54
[2018-04-29] MEDS ORDERED: Cyanocobalamin (Vitamin B12) 1,000 MCG/ML SDV IM SCH (09:00)
== END 2018-04-09 13:30 | disposition home or self-care (01) ==
LOC: DL.ED 08:42 → DL.MS 11:25 → UNDOADMOB 11:25 → DL.MS 12:57
PROVIDERS: ADMIT Student in an Organized Health Care Education/Training Program; ATTEND Student in an Organized Health Care Education/Training Program
DX: I95.1 Orthostatic hypotension (principal); I10 Essential (primary) hypertension; E78.5 Hyperlipidemia, unspecified; E03.9 Hypothyroidism, unspecified; E66.9 Obesity, unspecified; J45.909 Unspecified asthma, uncomplicated; R53.1 Weakness; F33.42 Major depressive disorder, recurrent, in full remission; Z79.899 Other long term (current) drug therapy; Z88.1 Allergy status to other antibiotic agents; Z88.8 Allergy status to other drugs, medicaments and biological substances
CPT/HCPCS: 36415; 80053; 81003; 83735; 85025; 93005; 96360; 99284; A9270; G0480; J1644; J3475; J7030; 96361; 96365; 96366; 96372; G0378

== ENCOUNTER 2018-04-14 17:29 | Observation (INO) | payer OTHER ==
[2018-04-14] MEDS ORDERED: Sodium Chloride 0.9% 10 ML Syringe FLUSH PRN (19:24)
[2018-04-14 20:39] LABS: ANION GAP 20.1; CHLORIDE,CL 103 mmol/L (101-111); SODIUM,NA 138 mmol/L (135-145)
[2018-04-14] MEDS ORDERED: HYDROmorphone 1 MG/ML Syringe IVPUSH ONE (20:58)
--- NOTE | 2018-04-14 21:27 | EDM.PDOC ---
ED HPI GENERAL MEDICAL PROBLEM - General Chief Complaint: Gastrointestinal Problem Stated Complaint: FALLS AT HOME Time Seen by Provider: 04/14/18 19:12 Source of Information: Reports: Patient, Family History Limitations: Reports: No Limitations - History of Present Illness INITIAL COMMENTS - FREE TEXT/NARRATIVE: Pt to ER with c/o falling at home several times. She states she has pain in the back, down to the hips. She saw Dr. Sheppard today. She was recently discharged from with Mastoiditis. She states she has nausea and is unable to keep her medications down. She is to be taking antibiotics, oral potassium and magnesium. Onset: Gradual Back Pain Score (Numeric/FACES): 10 - Related Data Allergies Allergy/AdvReac Type Severity Reaction Status Date / Time ciprofloxacin Allergy Vomiting Verified 04/14/18 18:04 metaxalone Allergy Abdominal Verified 04/14/18 18:04 Pain cephalexin [Cephalexin] AdvReac Nausea and Verified 04/14/18 18:04 Vomiting prednisone AdvReac Vomiting Verified 04/14/18 18:04 cats Allergy Sneezing Uncoded 04/14/18 18:04 evergreen tree Allergy Rash Uncoded 04/14/18 18:04 Home Meds: Home Meds QUEtiapine Fumarate [Seroquel] 100 mg PO BID 05/07/13 [History] Sertraline [Zoloft] 100 mg PO BID 05/07/13 [History] Simvastatin 40 mg PO BEDTIME 05/07/13 [History] busPIRone [Buspar] 15 mg PO TID 05/07/13 [History] ALPRAZolam [Alprazolam ODT] 0.5 mg PO TID PRN 09/10/14 [History] Levothyroxine 150 mcg PO 0600 10/17/14 [History] Cyanocobalamin (Vitamin B12) [Vitamin B12] 1,000 mcg IM .MONTHLY 12/27/14 [ History] Cyclobenzaprine [Flexeril] 10 mg PO TID PRN 07/21/16 [History] Acetaminophen [Tylenol Arthritis] 1,000 mg PO Q4HR PRN 11/13/17 [History] Albuterol Sulfate [Proair Respiclick] 90 mcg IH Q6HR PRN 11/13/17 [History] Ascorbate Calcium [Vitamin C] 1,000 mg PO DAILY 11/13/17 [History] Esomeprazole Magnesium [Nexium] 40 mg PO BID 11/13/17 [History] Ferrous Fumarate 324 mg PO DAILY 11/13/17 [History] Folic Acid 1 mg PO DAILY 11/13/17 [History] Magnesium Oxide [Magnesium] 400 mg PO BID 11/13/17 [History] Multivitamin [Multivitamins] 1 each PO BEDTIME 11/13/17 [History] Nitroglycerin 0.4 mg SL .[id number] PRN 11/13/17 [History] oxyCODONE HCl/Acetaminophen [Oxycodone-Acetaminophen 5-325] 1 each PO Q8HR PRN 11/13/17 [History] Potassium Chloride 60 meq PO DAILY 30 Days #180 tab.er.prt 11/15/17 [Rx] QUEtiapine Fumarate [Seroquel] 300 mg PO BEDTIME 11/24/17 [History] Spironolactone [Aldactone] 25 mg PO BID 02/15/18 [History] Amoxicillin/Potassium Clav [Augmentin 875-125 Tablet] 1 each PO BID 04/08/18 [ History] Midodrine 5 mg PO TIDAC 30 Days #180 tablet 04/09/18 [Rx] Past Medical History HEENT History: Reports: Impaired Vision, Other (See Below) Other HEENT History: wears glasses, bilateral mastoiditis Cardiovascular History: Reports: Heart Failure, Other (See Below) Other Cardiovascular History: Impaired EF. 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 Musculoskeletal History: Reports: Back Pain, Chronic Neurological History: Reports: None Psychiatric History: Reports: Anxiety, Depression Endocrine/Metabolic History: Reports: Hypothyroidism, Obesity/BMI 30+ Hematologic History: Reports: Anemia, B12 Deficiency Immunologic History: Reports: None Oncologic (Cancer) History: Reports: None Dermatologic History: Reports: None - Infectious Disease History Infectious Disease History: Reports: Chicken Pox, Measles - Past Surgical History Head Surgeries/Procedures: Reports: None HEENT Surgical History: Reports: None Cardiovascular Surgical History: Reports: None Respiratory Surgical History: Reports: None GI Surgical History: Reports: Appendectomy, Cholecystectomy, Colonoscopy, EGD Female Surgical History: Reports: Hysterectomy, Tubal Ligation Endocrine Surgical History: Reports: None Musculoskeletal Surgical History: Reports: None Social & Family History - Family History Family Medical History: Noncontributory - Tobacco Use Smoking Status *Q: Never Smoker Second Hand Smoke Exposure: No - Caffeine Use Caffeine Use: Reports: None Other Caffeine Use: 4 cans/day [employer] - Recreational Drug Use Recreational Drug Use: No - Living Situation & Occupation Living situation: Reports: , with Spouse Occupation: Disabled ED ROS GENERAL - Review of Systems Review Of Systems: ROS reveals no pertinent complaints other than HPI. ED EXAM, GI/ABD - Physical Exam Exam: See Below Exam Limited By: No Limitations General Appearance: Alert, Mild Distress, Other (disheveled) Eyes: Bilateral: Normal Appearance, EOMI Ears: Normal External Exam, Hearing Grossly Normal Nose: Normal Inspection Throat/Mouth: Normal Voice, No Airway Compromise, Other (oral mucous membranes dry) Head: Atraumatic, Normocephalic Neck: Normal Inspection, Supple, Non-Tender, Full Range of Motion Respiratory/Chest: No Respiratory Distress, Lungs Clear, No Accessory Muscle Use , Decreased Breath Sounds Cardiovascular: Normal Peripheral Pulses, Regular Rate, Rhythm, No Edema, No Gallop, No JVD, No Murmur, No Rub GI/Abdominal Exam: Normal Bowel Sounds, Soft, Non-Tender (Female) Exam: Deferred Rectal (Female) Exam: Deferred Back Exam: Normal Inspection, Full Range of Motion, Paraspinal Tenderness, Vertebral Tenderness Extremities: Normal Inspection, Non-Tender, No Pedal Edema, Normal Capillary Refill, Limited Range of Motion Neurological: Alert, Oriented, CN II-XII Intact, Normal Cognition, Normal Reflexes, No Motor/Sensory Deficits Psychiatric: Anxious, Tearful Skin Exam: Warm, Dry, Pallor Lymphatic: No Adenopathy Course - Vital Signs Last Recorded V/S: Last Vital Signs Temp 99.2 F 04/14/18 17:56 Pulse 103 H 04/14/18 17:56 Resp 16 04/14/18 17:56 BP 96/59 L 04/14/18 17:56 Pulse Ox 95 04/14/18 17:56 - Orders/Labs/Meds Orders: Active Orders 24 hr Category Date Time Status Peripheral IV Care [RC] 09,21 Care 04/14/18 19:29 Active DRUG SCREEN URINE BIORAD [URCHEM] Stat Lab 04/14/18 19:26 Ordered UA RFX KIANA AND CULT IF INDIC [URIN] Stat Lab 04/14/18 19:25 Ordered Dextrose 5%-Lact Ringers w/KCl [D5 LR with 20 mEq KCl] Med 04/14/18 21:00 Active 1,000 ml IV ASDIRECTED Sodium Chloride 0.9% [Saline Flush] Med 04/14/18 19:24 Active 10 ml FLUSH ASDIRECTED PRN Peripheral IV Insertion Adult [OM.PC] Stat Oth 04/14/18 19:24 Ordered Medication Orders Potassium Cl/Dextrose/Lact Ringer's (D5 Lr With 20 Meq Kcl) 1,000 mls @ 125 mls /hr IV ASDIRECTED KP Sodium Chloride (Saline Flush) 10 ml FLUSH ASDIRECTED PRN PRN Reason: Keep Vein Open Last Admin: 04/14/18 19:46 Dose: 10 ml Labs: Laboratory Tests 04/14/18 04/14/18 Range/Units 20:10 20:10 WBC 9.1 (5.0-10.0) 10^3/uL RBC 3.11 L (4.2-5.4) 10^6/uL Hgb 10.1 L (12.0-16.0) g/dL Hct 31.2 L (37.0-47.0) % MCV 100.3 H (80-100) fL MCH 32.5 (27.0-34.0) pg MCHC 32.4 L (33.0-35.0) g/dL Plt Count 351 D (150-450) 10^3/uL Neut % (Auto) 72.9 (42.2-75.2) % Lymph % (Auto) 17.4 L (20.5-50.1) % [place] % (Auto) 8.4 H (2-8) % Eos % (Auto) 1.2 (1.0-3.0) % Baso % (Auto) 0.1 (0.0-1.0) % Sodium 138 (135-145) mmol/L Potassium 3.1 L (3.6-5.0) mmol/L Chloride 103 (101-111) mmol/L Carbon Dioxide 18.0 L (21.0-31.0) mmol/L Anion Gap 20.1 BUN 3 L (7-18) mg/dL Creatinine 0.8 (0.6-1.3) mg/dL Est Cr Clr Drug Dosing 80.90 mL/min Estimated GFR (MDRD) > 60 BUN/Creatinine Ratio 3.75 Glucose 146 H (74-105) mg/dL Calcium 8.0 L (8.4-10.2) mg/dl Magnesium 1.5 L (1.8-2.5) mg/dL Total Bilirubin 0.8 (0.2-1.0) mg/dL AST 47 H (10-42) IU/L ALT 45 (10-60) IU/L Alkaline Phosphatase 221 H (42-121) IU/L Total Protein 5.6 L (6.7-8.2) g/dl Albumin 2.3 L (3.2-5.5) g/dl Globulin 3.3 Albumin/Globulin Ratio 0.70 Meds: Medications Generic Name Dose Route Start Last Admin Trade Name Freq PRN Reason Stop Dose Admin Potassium Cl/Dextrose/Lact Ringer's 1,000 mls @ 125 mls/hr 04/14/18 21:00 D5 Lr With 20 Meq Kcl IV ASDIRECTED KP Sodium Chloride 10 ml 04/14/18 19:24 04/14/18 19:46 Saline Flush FLUSH 10 ml ASDIRECTED PRN Administration Keep Vein Open Discontinued Medications Generic Name Dose Route Start Last Admin Trade Name Freq PRN Reason Stop Dose Admin Hydromorphone HCl 1 mg 04/14/18 20:58 04/14/18 21:03 Dilaudid IVPUSH 04/14/18 20:59 1 mg ONETIME ONE Administration - Radiology Interpretation Free Text/Narrative:: Thoracic xray: FINDINGS: Vertebrae: Normal. No acute fracture. Normal alignment. Soft tissues: Normal. Other findings: None IMPRESSION: No acute process Thank you for allowing us to participate in the care of your patient. Dictated and Authenticated by: Quique Arteaga MD 04/14/2018 8:05 PM Central Time ([place] & [place]) Lumbar xray: FINDINGS: Vertebrae: There age-indeterminate possibly acute mild compression fracture deformity of the L1 vertebral body. No bony retropulsion. Soft tissues: Normal. IMPRESSION: Possibly acute mild L1 compression fracture Thank you for allowing us to participate in the care of your patient. Dictated and Authenticated by: Quique Arteaga MD 04/14/2018 8:09 PM Central Time ([place] & [place]) See rad report Departure - Departure Time of Disposition: 21:06 Disposition: Refer to Observation Condition: Fair Clinical Impression: Hypokalemia, Hypomagnesemia Fall at home Qualifiers: Encounter type: initial encounter Qualified Code(s): W19.XXXA - Unspecified fall, initial encounter; Y92.009 - Unspecified place in unspecified non- institutional (private) residence as the place of occurrence of the external cause Back pain Qualifiers: Back pain location: thoracic back pain Chronicity: acute Back pain laterality: midline Qualified Code(s): M54.6 - Pain in thoracic spine Compression fracture of L1 lumbar vertebra Qualifiers: Encounter type: initial encounter Fracture type: closed Qualified Code(s): S32.010A - Wedge compression fracture of first lumbar vertebra, initial encounter for closed fracture - Discharge Information *PRESCRIPTION DRUG MONITORING PROGRAM REVIEWED*: No *COPY OF PRESCRIPTION DRUG MONITORING REPORT IN PATIENT ANNABEL: No - My Orders Last 24 Hours: My Active Orders 04/14/18 19:24 Sodium Chloride 0.9% [Saline Flush] 10 ml FLUSH ASDIRECTED PRN Peripheral IV Insertion Adult [OM.PC] Stat 04/14/18 19:25 UA RFX KIANA AND CULT IF INDIC [URIN] Stat 04/14/18 19:26 DRUG SCREEN URINE BIORAD [URCHEM] Stat 04/14/18 19:29 Peripheral IV Care [RC] 04/14/18 21:00 Dextrose 5%-Lact Ringers w/KCl [D5 LR with 20 mEq KCl] 1,000 ml IV ASDIRECTED - Assessment/Plan Last 24 Hours: My Active Orders 04/14/18 19:24 Sodium Chloride 0.9% [Saline Flush] 10 ml FLUSH ASDIRECTED PRN Peripheral IV Insertion Adult [OM.PC] Stat 04/14/18 19:25 UA RFX KIANA AND CULT IF INDIC [URIN] Stat 04/14/18 19:26 DRUG SCREEN URINE BIORAD [URCHEM] Stat 04/14/18 19:29 Peripheral IV Care [RC] 04/14/18 21:00 Dextrose 5%-Lact Ringers w/KCl [D5 LR with 20 mEq KCl] 1,000 ml IV ASDIRECTED
[2018-04-14] MEDS ORDERED: Acetaminophen 500 MG Tab PO PRN (21:46)
--- NOTE | 2018-04-14 22:03 | PCM.HP ---
H&P History of Present Illness - General Date of Service: 04/14/18 Source of Information: Patient, Family () - History of Present Illness Initial Comments - Free Text/Narative: The patient is a 52-year-old lady with a history of anxiety, chronic pain, chronic continuous narcotic use. The patient was recently hospitalized and noted to have middle ear infection. The patient has been living with . According to the the patient is not reliable with her medications suspects that she is not taking them regularly, probably mixing up pills. She is not eating regularly, when eating she is eating large amounts. She is taking pills she takes a bunch together She has been falling multiple times daily According to the the falls are related to suddenly getting up from a laying position. The patient is laying on the couch most of the day. Minimally active but when she wants to get up she gets up quickly that results in the fall. The patient is managing her pills on her own. The cannot exactly follow what she is taking. Back Pain Score (Numeric/FACES): 10 - Related Data Allergies/Adverse Reactions: Allergies Allergy/AdvReac Type Severity Reaction Status Date / Time ciprofloxacin Allergy Vomiting Verified 04/14/18 18:04 metaxalone Allergy Abdominal Verified 04/14/18 18:04 Pain cephalexin [Cephalexin] AdvReac Nausea and Verified 04/14/18 18:04 Vomiting prednisone AdvReac Vomiting Verified 04/14/18 18:04 cats Allergy Sneezing Uncoded 04/14/18 18:04 evergreen tree Allergy Rash Uncoded 04/14/18 18:04 Home Medications: Home Meds QUEtiapine Fumarate [Seroquel] 100 mg PO BID 05/07/13 [History] Sertraline [Zoloft] 100 mg PO BID 05/07/13 [History] Simvastatin 40 mg PO BEDTIME 05/07/13 [History] busPIRone [Buspar] 15 mg PO TID 05/07/13 [History] ALPRAZolam [Alprazolam ODT] 0.5 mg PO TID PRN 09/10/14 [History] Levothyroxine 150 mcg PO 0600 10/17/14 [History] Cyanocobalamin (Vitamin B12) [Vitamin B12] 1,000 mcg IM .MONTHLY 12/27/14 [ History] Cyclobenzaprine [Flexeril] 10 mg PO TID PRN 07/21/16 [History] Acetaminophen [Tylenol Arthritis] 1,000 mg PO Q4HR PRN 11/13/17 [History] Albuterol Sulfate [Proair Respiclick] 90 mcg IH Q6HR PRN 11/13/17 [History] Ascorbate Calcium [Vitamin C] 1,000 mg PO DAILY 11/13/17 [History] Esomeprazole Magnesium [Nexium] 40 mg PO BID 11/13/17 [History] Ferrous Fumarate 324 mg PO DAILY 11/13/17 [History] Folic Acid 1 mg PO DAILY 11/13/17 [History] Magnesium Oxide [Magnesium] 400 mg PO BID 11/13/17 [History] Multivitamin [Multivitamins] 1 each PO BEDTIME 11/13/17 [History] Nitroglycerin 0.4 mg SL .[id number] PRN 11/13/17 [History] oxyCODONE HCl/Acetaminophen [Oxycodone-Acetaminophen 5-325] 1 each PO Q8HR PRN 11/13/17 [History] Potassium Chloride 60 meq PO DAILY 30 Days #180 tab.er.prt 11/15/17 [Rx] QUEtiapine Fumarate [Seroquel] 300 mg PO BEDTIME 11/24/17 [History] Spironolactone [Aldactone] 25 mg PO BID 02/15/18 [History] Amoxicillin/Potassium Clav [Augmentin 875-125 Tablet] 1 each PO BID 04/08/18 [ History] Midodrine 5 mg PO TIDAC 30 Days #180 tablet 04/09/18 [Rx] Past Medical History HEENT History: Reports: Impaired Vision, Other (See Below) Other HEENT History: wears glasses, bilateral mastoiditis Cardiovascular History: Reports: Heart Failure, Other (See Below) Other Cardiovascular History: Impaired EF. HYPOTENSION 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: Asthma, SOB Gastrointestinal History: Reports: Chronic Constipation, GERD, Pancreatitis Genitourinary History: Reports: Chronic Renal Insuffiency SOCIAL MEDIA SPECIALIST History: Reports: , Other (See Below) Other OB/BYN History: hysterectomy Musculoskeletal History: Reports: Back Pain, Chronic Neurological History: Reports: None Psychiatric History: Reports: Anxiety, Depression Endocrine/Metabolic History: Reports: Hypothyroidism, Obesity/BMI 30+ Hematologic History: Reports: Anemia, B12 Deficiency Immunologic History: Reports: None Oncologic (Cancer) History: Reports: None Dermatologic History: Reports: None - Infectious Disease History Infectious Disease History: Reports: Chicken Pox, Measles - Past Surgical History Head Surgeries/Procedures: Reports: None HEENT Surgical History: Reports: None Cardiovascular Surgical History: Reports: None Respiratory Surgical History: Reports: None GI Surgical History: Reports: Appendectomy, Cholecystectomy, Colonoscopy, EGD Female Surgical History: Reports: Hysterectomy, Tubal Ligation Endocrine Surgical History: Reports: None Musculoskeletal Surgical History: Reports: None Social & Family History - Family History Family Medical History: Noncontributory - Tobacco Use Smoking Status *Q: Never Smoker Second Hand Smoke Exposure: No - Caffeine Use Caffeine Use: Reports: None Other Caffeine Use: 4 cans/day 7UP OR SPRITE - Recreational Drug Use Recreational Drug Use: No - Living Situation & Occupation Living situation: Reports: , with Spouse Occupation: Disabled H&P Review of Systems - Review of Systems: Review Of Systems: See Below General: Reports: Weakness. Denies: Fever Pulmonary: Denies: Shortness of Breath Cardiovascular: Denies: Chest Pain Gastrointestinal: Reports: Abdominal Pain (Chronic) Genitourinary: Denies: Burning Musculoskeletal: Reports: Arm Pain, Back Pain, Leg Pain, Joint Pain, Muscle Pain Psychiatric: Reports: Confusion ( reports confusion), Anxiety (Patient reports anxiety) Neurological: Reports: Dizziness, Difficulty Walking, Gait Disturbance Exam - Exam Exam: See Below - Vital Signs Vital Signs: Last Vital Signs Temp 37.3 C 04/14/18 17:56 Pulse 103 H 04/14/18 17:56 Resp 16 04/14/18 17:56 BP 96/59 L 04/14/18 17:56 Pulse Ox 95 04/14/18 17:56 Weight: 94.801 kg - Exam General: Alert Neck: Supple Lungs: Clear to Auscultation, Normal Respiratory Effort Cardiovascular: Regular Rate, Regular Rhythm GI/Abdominal Exam: Normal Bowel Sounds, Soft, Non-Tender Back Exam: No: Vertebral Tenderness Extremities: Pedal Edema (Bilateral) Skin: Warm, Ecchymosis (Multiple on all extremities) Neurological: Strength Equal Bilateral, Normal Speech, Sensation Intact Neuro Extensive - Mental Status: Alert, Other (Disorientation 2 pills) Psychiatric: Alert, Depressed - Patient Data Lab Results Last 24 hrs: Laboratory Results - last 24 hr 04/14/18 04/14/18 Range/Units 20:10 20:10 WBC 9.1 (5.0-10.0) 10^3/uL RBC 3.11 L (4.2-5.4) 10^6/uL Hgb 10.1 L (12.0-16.0) g/dL Hct 31.2 L (37.0-47.0) % MCV 100.3 H (80-100) fL MCH 32.5 (27.0-34.0) pg MCHC 32.4 L (33.0-35.0) g/dL Plt Count 351 D (150-450) 10^3/uL Neut % (Auto) 72.9 (42.2-75.2) % Lymph % (Auto) 17.4 L (20.5-50.1) % Noble % (Auto) 8.4 H (2-8) % Eos % (Auto) 1.2 (1.0-3.0) % Baso % (Auto) 0.1 (0.0-1.0) % Sodium 138 (135-145) mmol/L Potassium 3.1 L (3.6-5.0) mmol/L Chloride 103 (101-111) mmol/L Carbon Dioxide 18.0 L (21.0-31.0) mmol/L Anion Gap 20.1 BUN 3 L (7-18) mg/dL Creatinine 0.8 (0.6-1.3) mg/dL Est Cr Clr Drug Dosing 80.90 mL/min Estimated GFR (MDRD) > 60 BUN/Creatinine Ratio 3.75 Glucose 146 H (74-105) mg/dL Calcium 8.0 L (8.4-10.2) mg/dl Magnesium 1.5 L (1.8-2.5) mg/dL Total Bilirubin 0.8 (0.2-1.0) mg/dL AST 47 H (10-42) IU/L ALT 45 (10-60) IU/L Alkaline Phosphatase 221 H (42-121) IU/L Total Protein 5.6 L (6.7-8.2) g/dl Albumin 2.3 L (3.2-5.5) g/dl Globulin 3.3 Albumin/Globulin Ratio 0.70 Result Diagrams: 04/14/18 20:10 04/14/18 20:10 - Problem List (1) Back pain SNOMED Code(s): 805312745 ICD Code: M54.9 - DORSALGIA, UNSPECIFIED Status: Acute Current Visit: Yes Qualifiers: Back pain location: thoracic back pain Chronicity: acute Back pain laterality: midline Qualified Code(s): M54.6 - Pain in thoracic spine (2) Compression fracture of L1 lumbar vertebra SNOMED Code(s): 826136763 ICD Code: S32.010A - WEDGE COMPRESSION FRACTURE OF FIRST LUMBAR VERTEBRA, INIT Status: Acute Current Visit: Yes Qualifiers: Encounter type: initial encounter Fracture type: closed Qualified Code(s) : S32.010A - Wedge compression fracture of first lumbar vertebra, initial encounter for closed fracture (3) Fall at home SNOMED Code(s): 05342745 ICD Code: W19.XXXA - UNSPECIFIED FALL, INITIAL ENCOUNTER; Y92.009 - UNSP PLACE IN UNSP NON-INSTITUT (PRIVATE) RESIDENCE PLACE Status: Acute Current Visit: Yes Qualifiers: Encounter type: initial encounter Qualified Code(s): W19.XXXA - Unspecified fall, initial encounter; Y92.009 - Unspecified place in unspecified non-institutional (private) residence as the place of occurrence of the external cause (4) Hypokalemia SNOMED Code(s): 13810318 ICD Code: E87.6 - HYPOKALEMIA Status: Acute Current Visit: Yes (5) Hypomagnesemia SNOMED Code(s): 321241940 ICD Code: E83.42 - HYPOMAGNESEMIA Status: Acute Current Visit: Yes (6) Abdominal pain SNOMED Code(s): 75123726 ICD Code: R10.9 - UNSPECIFIED ABDOMINAL PAIN Status: Acute Current Visit : No (7) Chronic pancreatitis SNOMED Code(s): 530775705 ICD Code: K86.1 - OTHER CHRONIC PANCREATITIS Status: Acute Current Visit : No Qualifiers: Pancreatitis type: unspecified pancreatitis type Qualified Code(s): K86.1 - Other chronic pancreatitis (8) Orthostatic hypotension SNOMED Code(s): 17555308 ICD Code: I95.1 - ORTHOSTATIC HYPOTENSION Status: Acute Current Visit: No (9) Vomiting SNOMED Code(s): 417695726 ICD Code: R11.10 - VOMITING, UNSPECIFIED Status: Acute Current Visit: No Qualifiers: Vomiting type: unspecified Vomiting Intractability: non-intractable Nausea presence: with nausea Qualified Code(s): R11.2 - Nausea with vomiting, unspecified Problem List Initiated/Reviewed/Updated: Yes Orders Last 24hrs: Active Orders 24 hr Category Date Time Status Peripheral IV Care [RC] 09,21 Care 04/14/18 19:29 Active DRUG SCREEN URINE BIORAD [URCHEM] Stat Lab 04/14/18 19:26 Ordered UA RFX KIANA AND CULT IF INDIC [URIN] Stat Lab 04/14/18 19:25 Ordered ALPRAZolam [Alprazolam ODT] Med 04/14/18 21:46 Ordered 0.25 mg PO TID PRN Acetaminophen [Tylenol Arthritis] Med 04/14/18 21:46 Ordered 1,000 mg PO Q4HR PRN Acetaminophen/oxyCODONE [Percocet 325-5 MG] Med 04/14/18 21:46 Ordered 1 each PO Q8HR PRN Albuterol Sulfate [Proair Respiclick] Med 04/14/18 21:46 Ordered 90 mcg IH Q6HR PRN Amoxicillin/Clavulanate K [Augmentin 875 MG/125 MG] Med 04/15/18 09:00 Ordered 1 each PO BID Dextrose 5%-Lact Ringers w/KCl [D5 LR with 20 mEq KCl] Med 04/14/18 21:00 Active 1,000 ml IV ASDIRECTED Folic Acid Med 04/15/18 09:00 Ordered 1 mg PO DAILY Iron Polysaccharides Complex [Ferrex 150] Med 04/15/18 09:00 Ordered 150 mg PO DAILY Levothyroxine Med 04/15/18 06:00 Ordered 150 mcg PO ACBREAKFAST Magnesium Oxide [Magnesium] Med 04/14/18 22:00 Ordered 400 mg PO TID Midodrine Med 04/15/18 08:00 Ordered 5 mg PO TIDAC Multivitamin [Multivitamins] Med 04/15/18 21:00 Ordered 1 each PO BEDTIME Pantoprazole [ProTONIX] Med 04/15/18 21:00 Ordered 40 mg PO BEDTIME Potassium Chloride [KCl 10 MEQ in Water 100 ML] 10 meq Med 04/14/18 22:00 Ordered Premix Bag 1 bag IV .Q2H Potassium Chloride [Potassium Chloride] Med 04/15/18 09:00 Ordered 20 meq PO TID QUEtiapine Fumarate [Seroquel] Med 04/15/18 09:00 Ordered 100 mg PO BID QUEtiapine Fumarate [Seroquel] Med 04/15/18 21:00 Ordered 300 mg PO BEDTIME Sertraline [Zoloft] Med 04/15/18 09:00 Ordered 100 mg PO BID Simvastatin [Zocor] Med 04/15/18 21:00 Ordered 40 mg PO BEDTIME Sodium Chloride 0.9% [Saline Flush] Med 04/14/18 19:24 Active 10 ml FLUSH ASDIRECTED PRN Spironolactone [Aldactone] Med 04/15/18 09:00 Ordered 25 mg PO BID busPIRone [Buspar] Med 04/15/18 09:00 Ordered 15 mg PO TID Peripheral IV Insertion Adult [OM.PC] Stat Oth 04/14/18 19:24 Ordered Medication Orders Amoxicillin/Clavulanate Potassium (Augmentin 875 Mg/125 Mg) tab PO BID KP Buspirone HCl (Buspar) 15 mg PO TID KP Folic Acid (Folic Acid) 1 mg PO DAILY KP Potassium Cl/Dextrose/Lact Ringer's (D5 Lr With 20 Meq Kcl) 1,000 mls @ 125 mls /hr IV ASDIRECTED KP Potassium Chloride 10 meq/ (Premix) 100 mls @ 50 mls/hr IV .Q2H KP Levothyroxine Sodium (Levothyroxine) 150 mcg PO ACBREAKFAST KP Midodrine (Midodrine) 5 mg PO TIDAC KP Non-Formulary Medication (Acetaminophen [Tylenol Arthritis]) 1,000 mg PO Q4HR PRN PRN Reason: Pain Non-Formulary Medication (Albuterol Sulfate [Proair Respiclick]) 90 mcg IH Q6HR PRN PRN Reason: Shortness of Breath Non-Formulary Medication (Alprazolam [Alprazolam Odt]) 0.25 mg PO TID PRN PRN Reason: Anxiety Non-Formulary Medication (Multivitamin [Multivitamins]) 1 each PO BEDTIME KP Non-Formulary Medication (Potassium Chloride [Potassium Chloride]) 20 meq PO TID KP Non-Formulary Medication (Quetiapine Fumarate [Seroquel]) 100 mg PO BID KP Non-Formulary Medication (Quetiapine Fumarate [Seroquel]) 300 mg PO BEDTIME KP Non-Formulary Medication (Sertraline [Zoloft]) 100 mg PO BID KP Non-Formulary Medication (Magnesium Oxide [Magnesium]) 400 mg PO TID KP Oxycodone/Acetaminophen (Percocet 325-5 Mg) tab PO Q8HR PRN PRN Reason: Pain Pantoprazole Sodium (Protonix) 40 mg PO BEDTIME KP Polysaccharide Iron Complex (Ferrex 150) 150 mg PO DAILY KP Simvastatin (Zocor) 40 mg PO BEDTIME KP Sodium Chloride (Saline Flush) 10 ml FLUSH ASDIRECTED PRN PRN Reason: Keep Vein Open Last Admin: 04/14/18 19:46 Dose: 10 ml Spironolactone (Aldactone) 25 mg PO BID KP Assessment/Plan Comment:: 52-year-old lady with multiple medical problems. The patient is on numerous medications. It appears that there is concern for the patient not taking medications regularly and as prescribed. Frequent falling, confusion This is likely secondary to a combination of multiple issues Component can be a orthostatic hypotension. Will treat with midodrine I suspect significant component is centrally acting medications including Xanax , Flexeril, seroquel, Percocet, Zoloft, BuSpar I will try to decrease the Xanax, stop the Flexeril Component might be middle ear infection, continue antibiotic with Augmentin Hypomagnesemia, hypokalemia We'll replace Recheck Nausea We'll use Protonix, antiemetics Dyslipidemia Continue Zocor Chronic pain Carries diagnosis of chronic pancreatitis, anxiety, now with possible T1 compression fracture We will try to minimize narcotics DVT prophylaxis with subcutaneous heparin
[2018-04-14] MEDS ORDERED: Albuterol 6.7 GM Inhaler INH PRN (22:05)
[2018-04-14] MEDS ORDERED: Ondansetron 4 MG/2 ML SDV IVPUSH PRN (22:09)
[2018-04-14] MEDS ORDERED: Ondansetron 4 MG Tab.DIS PO PRN (22:09)
[2018-04-14] MEDS ORDERED: ALPRAZolam 0.25 MG Tab PO PRN (22:10)
[2018-04-14] MEDS: Potassium Chloride 10 MEQ in Premix Bag 1 BAG IV SCH (22:11)
[2018-04-14] MEDS: Dextrose 5%-Lact Ringers w/KCl 1,000 ML IV SCH (22:11)
[2018-04-14] MEDS ORDERED: QUEtiapine 100 MG Tab PO SCH (22:15)
[2018-04-14] MEDS: QUEtiapine 100 MG Tab PO SCH (22:37)
[2018-04-14] MEDS: Multivitamins,Therapeutic Tab PO SCH (22:38)
[2018-04-14] MEDS: Sertraline 50 MG Tab PO SCH (22:38)
[2018-04-15] MEDS: Potassium Chloride 10 MEQ in Premix Bag 1 BAG IV SCH ×3 (00:20→04:30)
[2018-04-15] MEDS: Heparin Sodium 5,000 Units/ML Vial SUBCUT SCH ×3 (06:05→21:37)
[2018-04-15] MEDS: Dextrose 5%-Lact Ringers w/KCl 1,000 ML IV SCH ×2 (06:05→16:00)
[2018-04-15] MEDS: Levothyroxine 150 MCG Tab PO SCH (06:05)
[2018-04-15] MEDS ORDERED: Non-Formulary Medication 1 Each (Magnesium Oxide [Magnesium] 400 MG) PO SCH (09:00)
[2018-04-15] MEDS: Amoxicillin/Clavulanate K 875-125 MG Tab PO SCH ×2 (09:26→21:03)
[2018-04-15] MEDS: Spironolactone 25 MG Tab PO SCH ×2 (09:27→21:05)
[2018-04-15] MEDS: Iron Polysaccharides Complex 150 MG Cap PO SCH (09:27)
[2018-04-15] MEDS: QUEtiapine 100 MG Tab PO SCH ×3 (09:27→21:04)
[2018-04-15] MEDS: Folic Acid 1 MG Tab PO SCH (09:27)
[2018-04-15] MEDS: Midodrine 2.5 MG Tab PO SCH ×3 (09:27→17:15)
[2018-04-15] MEDS: Potassium Chloride 10 MEQ Tab.ER PO SCH ×3 (09:28→17:16)
[2018-04-15] MEDS: busPIRone 15 MG Tab PO SCH ×3 (09:28→21:06)
[2018-04-15] MEDS: Sertraline 50 MG Tab PO SCH ×2 (09:28→21:01)
[2018-04-15] MEDS: Acetaminophen/oxyCODONE 325-5 MG Tab PO PRN ×2 (10:49→20:24)
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
[2018-04-15 12:03] LABS: ANION GAP 18.8; CHLORIDE,CL 102 mmol/L (101-111); SODIUM,NA 135 mmol/L (135-145)
[2018-04-15] MEDS ORDERED: guaiFENesin 100 MG/5 ML Soln 5 ML UD Cup PO PRN (18:39)
[2018-04-15] MEDS ORDERED: Pantoprazole 40 MG Tab.CR PO SCH (21:00)
[2018-04-15] MEDS ORDERED: Simvastatin 40 MG Tab PO SCH (21:00)
[2018-04-15] MEDS: Multivitamins,Therapeutic Tab PO SCH (21:02)
[2018-04-16] MEDS: Dextrose 5%-Lact Ringers w/KCl 1,000 ML IV SCH (00:04)
[2018-04-16] MEDS: Acetaminophen/oxyCODONE 325-5 MG Tab PO PRN (04:55)
[2018-04-16] MEDS: Heparin Sodium 5,000 Units/ML Vial SUBCUT SCH ×2 (05:05→14:18)
[2018-04-16] MEDS: Levothyroxine 150 MCG Tab PO SCH (05:06)
[2018-04-16 06:40] LABS: ANION GAP 17.9; CHLORIDE,CL 104 mmol/L (101-111); SODIUM,NA 136 mmol/L (135-145)
[2018-04-16 08:08] VITALS: BP 106/64
[2018-04-16] MEDS: Iron Polysaccharides Complex 150 MG Cap PO SCH (09:19)
[2018-04-16] MEDS: Midodrine 2.5 MG Tab PO SCH ×2 (09:19→11:27)
[2018-04-16] MEDS: Potassium Chloride 10 MEQ Tab.ER PO SCH ×2 (09:19→11:26)
[2018-04-16] MEDS: Sertraline 50 MG Tab PO SCH (09:20)
[2018-04-16] MEDS: Spironolactone 25 MG Tab PO SCH (09:20)
[2018-04-16] MEDS: Amoxicillin/Clavulanate K 875-125 MG Tab PO SCH (09:20)
[2018-04-16] MEDS: QUEtiapine 100 MG Tab PO SCH (09:21)
[2018-04-16] MEDS: Folic Acid 1 MG Tab PO SCH (09:21)
[2018-04-16] MEDS: busPIRone 15 MG Tab PO SCH ×2 (09:41→14:18)
--- NOTE | 2018-04-16 11:43 | PCM.DCSUM1 ---
Discharge Summary - Hospital Course Free Text/Narrative:: This is a 52-year-old lady with a history of anxiety, chronic pain syndrome, chronic continuous narcotic use, the patient was recently hospitalized and noted to have middle ear infection. The patient has been living with . According to the the patient is not reliable with her medications suspects that she is not taking them regularly, probably mixing up pills. She is not eating regularly, when eating she is eating large amounts. She is taking pills she takes a bunch together She has been falling multiple times daily According to the the falls are related to suddenly getting up from a laying position. The patient is laying on the couch most of the day. Minimally active but when she wants to get up she gets up quickly that results in the fall. The patient is managing her pills on her own. The cannot exactly follow what she is taking. - Discharge Data Discharge Disposition: Home, Self-Care 01 Condition: Stable - Patient Summary/Data Consults: Consultations 04/15/18 10:42 OT Evaluation and Treatment [CONS] Routine PT Evaluation and Treatment [CONS] Routine - Discharge Plan *PRESCRIPTION DRUG MONITORING PROGRAM REVIEWED*: No *COPY OF PRESCRIPTION DRUG MONITORING REPORT IN PATIENT ANNABEL: No Home Medications: Home Meds QUEtiapine Fumarate [Seroquel] 100 mg PO BID 05/07/13 [History] Sertraline [Zoloft] 100 mg PO BID 05/07/13 [History] Simvastatin 40 mg PO BEDTIME 05/07/13 [History] busPIRone [Buspar] 15 mg PO TID 05/07/13 [History] ALPRAZolam [Alprazolam ODT] 1 mg PO TID PRN 09/10/14 [History] Levothyroxine 150 mcg PO 0600 10/17/14 [History] Cyanocobalamin (Vitamin B12) [Vitamin B12] 1,000 mcg IM .MONTHLY 12/27/14 [ History] Cyclobenzaprine [Flexeril] 10 mg PO Q8HR PRN 07/21/16 [History] Acetaminophen [Tylenol Arthritis] 1,000 mg PO Q4HR PRN 11/13/17 [History] Albuterol Sulfate [Proair Respiclick] 90 mcg IH Q6HR PRN 11/13/17 [History] Ascorbate Calcium [Vitamin C] 1,000 mg PO DAILY 11/13/17 [History] Esomeprazole Magnesium [Nexium] 40 mg PO BID 11/13/17 [History] Ferrous Fumarate 324 mg PO BID 11/13/17 [History] Folic Acid 1 mg PO DAILY 11/13/17 [History] Magnesium Oxide [Magnesium] 400 mg PO TID 11/13/17 [History] Multivitamin [Multivitamins] 1 each PO BEDTIME 11/13/17 [History] Nitroglycerin 0.4 mg SL .[id number] PRN 11/13/17 [History] oxyCODONE HCl/Acetaminophen [Oxycodone-Acetaminophen 5-325] 1 each PO Q8HR PRN 11/13/17 [History] Potassium Chloride 60 meq PO DAILY 30 Days #180 tab.er.prt 11/15/17 [Rx] QUEtiapine Fumarate [Seroquel] 300 mg PO BEDTIME 11/24/17 [History] Spironolactone [Aldactone] 25 mg PO BID 02/15/18 [History] Amoxicillin/Potassium Clav [Augmentin 875-125 Tablet] 1 each PO BID 04/08/18 [ History] Midodrine 5 mg PO TIDAC 30 Days #180 tablet 04/09/18 [Rx] Patient Handouts: Acetaminophen; Oxycodone tablets, Chronic Pain, Adult, Spinal Compression Fracture Forms: ED Department Discharge - Patient Data Vitals - Most Recent: Last Vital Signs Temp 37.7 C 04/16/18 08:07 Pulse 93 04/16/18 08:07 Resp 20 04/16/18 08:07 BP 106/64 04/16/18 08:07 Pulse Ox 94 L 04/16/18 08:07 Weight - Most Recent: 94.801 kg I&O - Last 24 hours: Intake & Output 04/15/18 04/16/18 04/16/18 22:59 06:59 14:59 Intake Total 2190 1005 Output Total 1425 300 300 Balance 765 705 -300 Lab Results - Last 24 hrs: Laboratory Results - last 24 hr 04/15/18 04/16/18 04/16/18 Range/Units 07:45 05:50 05:50 WBC 6.5 (5.0-10.0) 10^3/uL RBC 2.71 L (4.2-5.4) 10^6/uL Hgb 8.9 L (12.0-16.0) g/dL Hct 27.8 L (37.0-47.0) % MCV 102.6 H (80-100) fL MCH 32.8 (27.0-34.0) pg MCHC 32.0 L (33.0-35.0) g/dL Plt Count 287 (150-450) 10^3/uL Neut % (Auto) 55.2 (42.2-75.2) % Lymph % (Auto) 32.2 (20.5-50.1) % [place] % (Auto) 8.6 H (2-8) % Eos % (Auto) 3.7 H (1.0-3.0) % Baso % (Auto) 0.3 (0.0-1.0) % Sodium 135 136 (135-145) mmol/L Potassium 3.8 4.9 (3.6-5.0) mmol/L Chloride 102 104 (101-111) mmol/L Carbon Dioxide 18.0 L 19.0 L (21.0-31.0) mmol/L Anion Gap 18.8 17.9 BUN 3 L 2 L (7-18) mg/dL Creatinine 0.7 0.7 (0.6-1.3) mg/dL Est Cr Clr Drug Dosing 106.27 106.27 mL/min Estimated GFR (MDRD) > 60 > 60 Glucose 189 H 124 H (74-105) mg/dL Calcium 7.9 L 7.9 L (8.4-10.2) mg/dl Med Orders - Current: Current Medications Acetaminophen (Tylenol Extra Strength) 1,000 mg PO Q4HR PRN PRN Reason: Pain Last Admin: 04/16/18 09:40 Dose: 1,000 mg Albuterol (Proventil Hfa) 1 - 2 gm INH Q6H PRN PRN Reason: Shortness of Breath Alprazolam (Xanax) 0.25 mg PO TID PRN PRN Reason: Anxiety Amoxicillin/Clavulanate Potassium (Augmentin 875 Mg/125 Mg) 1 tab PO BID [facility] Last Admin: 04/16/18 09:20 Dose: 1 tab Buspirone HCl (Buspar) 15 mg PO TID [facility] Last Admin: 04/16/18 09:41 Dose: Not Given Folic Acid (Folic Acid) 1 mg PO DAILY [facility] Last Admin: 04/16/18 09:21 Dose: 1 mg Guaifenesin (Robitussin) 100 mg PO Q6H PRN PRN Reason: Cough Heparin Sodium (Porcine) (Heparin Sodium) 5,000 units SUBCUT Q8HR [facility] Last Admin: 04/16/18 05:05 Dose: 5,000 units Potassium Cl/Dextrose/Lact Ringer's (D5 Lr With 20 Meq Kcl) 1,000 mls @ 125 mls /hr IV ASDIRECTED [facility] Last Admin: 04/16/18 00:04 Dose: 125 mls/hr Levothyroxine Sodium (Levothyroxine) 150 mcg PO ACBREAKFAST [facility] Last Admin: 04/16/18 05:06 Dose: 150 mcg Magnesium Oxide (Magnesium Oxide) 500 mg PO TID [facility] Last Admin: 04/16/18 09:19 Dose: 500 mg Midodrine (Midodrine) 5 mg PO TIDAC [facility] Last Admin: 04/16/18 11:27 Dose: 5 mg Multivitamins (Thera) 1 each PO BEDTIME [facility] Last Admin: 04/15/18 21:02 Dose: 1 each Ondansetron HCl (Zofran Odt) 4 mg PO Q6H PRN PRN Reason: nausea, able to take PO Ondansetron HCl (Zofran) 4 mg IVPUSH Q4H PRN PRN Reason: Nausea/Vomiting Oxycodone/Acetaminophen (Percocet 325-5 Mg) 1 tab PO Q8HR PRN PRN Reason: Pain Last Admin: 04/16/18 04:55 Dose: 1 tab Pantoprazole Sodium (Protonix) 40 mg PO BEDTIME [facility] Last Admin: 04/15/18 21:05 Dose: 40 mg Polysaccharide Iron Complex (Ferrex 150) 150 mg PO DAILY [facility] Last Admin: 04/16/18 09:19 Dose: 150 mg Potassium Chloride (Klor-Con 10) 20 meq PO TIDMEALS [facility] Last Admin: 04/16/18 11:26 Dose: 20 meq Quetiapine Fumarate (Seroquel) 300 mg PO BEDTIME [facility] Last Admin: 04/15/18 21:04 Dose: 300 mg Quetiapine Fumarate (Seroquel) 100 mg PO 0900,1600 [facility] Last Admin: 04/16/18 09:21 Dose: 100 mg Sertraline HCl (Zoloft) 100 mg PO BID [facility] Last Admin: 04/16/18 09:20 Dose: 100 mg Simvastatin (Zocor) 40 mg PO BEDTIME [facility] Last Admin: 04/15/18 21:05 Dose: 40 mg Sodium Chloride (Saline Flush) 10 ml FLUSH ASDIRECTED PRN PRN Reason: Keep Vein Open Last Admin: 04/14/18 19:46 Dose: 10 ml Spironolactone (Aldactone) 25 mg PO BID [facility] Last Admin: 04/16/18 09:20 Dose: 25 mg Discontinued Medications Hydromorphone HCl (Dilaudid) 1 mg IVPUSH ONETIME ONE Stop: 04/14/18 20:59 Last Admin: 04/14/18 21:03 Dose: 1 mg Potassium Chloride 10 meq/ (Premix) 100 mls @ 50 mls/hr IV Q2H [facility] Stop: 04/15/18 05:59 Last Admin: 04/15/18 04:30 Dose: 50 mls/hr Non-Formulary Medication (Magnesium Oxide [Magnesium]) 400 mg PO BID [facility] Quetiapine Fumarate (Seroquel) 100 mg PO BID [facility] Last Admin: 04/14/18 22:18 Dose: Not Given
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
== END 2018-04-16 14:00 | disposition home or self-care (01) ==
LOC: DL.ED 17:29 → DL.MS 21:10 → UNDOADMOB 21:10 → DL.MS 22:09
PROVIDERS: ADMIT Internal Medicine; ATTEND Internal Medicine
DX: M54.6 Pain in thoracic spine (principal); G89.29 Other chronic pain; E83.42 Hypomagnesemia; E87.6 Hypokalemia; E78.5 Hyperlipidemia, unspecified; F41.9 Anxiety disorder, unspecified; F32.9 Major depressive disorder, single episode, unspecified; J45.909 Unspecified asthma, uncomplicated; I95.1 Orthostatic hypotension; R11.2 Nausea with vomiting, unspecified; K59.09 Other constipation; K21.9 Gastro-esophageal reflux disease without esophagitis; K86.1 Other chronic pancreatitis; N18.9 Chronic kidney disease, unspecified; E03.9 Hypothyroidism, unspecified; E66.9 Obesity, unspecified; Z68.29 Body mass index [BMI] 29.0-29.9, adult; D64.9 Anemia, unspecified; E53.8 Deficiency of other specified B group vitamins; Z79.899 Other long term (current) drug therapy; Z88.1 Allergy status to other antibiotic agents; Z88.8 Allergy status to other drugs, medicaments and biological substances; Z91.048 Other nonmedicinal substance allergy status; W19.XXXA Unspecified fall, initial encounter; Y92.009 Unspecified place in unspecified non-institutional (private) residence as the place of occurrence of the external cause
CPT/HCPCS: 36415; 72072; 72100; 80048; 80053; 80305-QW; 81003; 83735; 85025; 96365; 96366; 96372; 96374; 96375; 97162-GP; 97165-GO; 99285; A9270-GY; G0378; J1170; J1644; J3480

== ENCOUNTER 2018-04-23 13:32 | Observation (INO) | payer OTHER ==
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
[2018-04-23 14:24] LABS: ACETAMINOPHEN 19.5 ug/mL
[2018-04-23 14:25] LABS: ANION GAP 22.6; CHLORIDE,CL 93 mmol/L (101-111); SODIUM,NA 132 mmol/L (135-145)
[2018-04-23] MEDS ORDERED: Sodium Chloride 0.9% 10 ML Syringe FLUSH PRN ×3 (16:39)
[2018-04-23] MEDS ORDERED: Acetaminophen/oxyCODONE 325-5 MG Tab PO PRN (16:41)
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
[2018-04-23] MEDS: Enoxaparin 40 MG/0.4 ML Syringe SUBCUT SCH (17:52)
[2018-04-23] MEDS ORDERED: QUEtiapine 100 MG Tab PO SCH (21:00)
[2018-04-23] MEDS: ALPRAZolam 0.5 MG Tab PO PRN (21:00)
[2018-04-23] MEDS: QUEtiapine 100 MG Tab PO SCH (21:14)
[2018-04-23] MEDS: Omeprazole 20 MG Cap.CR PO SCH (21:15)
[2018-04-23] MEDS: Multivitamins,Therapeutic Tab PO SCH (21:15)
[2018-04-23] MEDS: Simvastatin 40 MG Tab PO SCH (21:16)
[2018-04-23] MEDS: Spironolactone 25 MG Tab PO SCH (21:16)
[2018-04-23] MEDS: Acetaminophen/oxyCODONE 325-5 MG Tab PO PRN (21:16)
[2018-04-23] MEDS: Sertraline 50 MG Tab PO SCH (21:18)
[2018-04-23] MEDS: busPIRone 15 MG Tab PO SCH (21:22)
[2018-04-24] MEDS: Cyclobenzaprine 10 MG Tab PO PRN ×3 (02:13→18:40)
[2018-04-24] MEDS: Omeprazole 20 MG Cap.CR PO SCH ×2 (06:15→17:48)
[2018-04-24] MEDS: Acetaminophen/oxyCODONE 325-5 MG Tab PO PRN ×2 (06:15→16:27)
[2018-04-24] MEDS: Levothyroxine 150 MCG Tab PO SCH (06:15)
[2018-04-24] MEDS: Midodrine 2.5 MG Tab PO SCH ×3 (08:22→17:48)
[2018-04-24] MEDS: Folic Acid 1 MG Tab PO SCH (08:22)
[2018-04-24] MEDS: Ascorbic Acid 500 MG Tab PO SCH (08:22)
[2018-04-24] MEDS: QUEtiapine 100 MG Tab PO SCH ×3 (08:23→21:10)
[2018-04-24] MEDS: Enoxaparin 40 MG/0.4 ML Syringe SUBCUT SCH (08:23)
[2018-04-24] MEDS: Sertraline 50 MG Tab PO SCH ×2 (08:23→21:11)
[2018-04-24] MEDS: Spironolactone 25 MG Tab PO SCH ×2 (08:23→21:10)
[2018-04-24] MEDS: busPIRone 15 MG Tab PO SCH ×3 (08:59→21:11)
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
[2018-04-24] MEDS: ALPRAZolam 0.5 MG Tab PO PRN ×2 (13:30→21:07)
[2018-04-24] MEDS: Simvastatin 40 MG Tab PO SCH (21:10)
[2018-04-24] MEDS: Multivitamins,Therapeutic Tab PO SCH (21:10)
[2018-04-24] MEDS: Acetaminophen 325 MG Tab PO PRN (21:18)
[2018-04-25] MEDS: Acetaminophen/oxyCODONE 325-5 MG Tab PO PRN ×3 (01:22→19:15)
[2018-04-25] MEDS: Cyclobenzaprine 10 MG Tab PO PRN ×3 (03:34→22:36)
[2018-04-25] MEDS: Levothyroxine 150 MCG Tab PO SCH (05:26)
[2018-04-25] MEDS: Omeprazole 20 MG Cap.CR PO SCH ×2 (05:26→17:26)
[2018-04-25] MEDS: Acetaminophen 325 MG Tab PO PRN ×3 (05:29→20:48)
[2018-04-25] MEDS: ALPRAZolam 0.5 MG Tab PO PRN ×2 (08:09→19:08)
[2018-04-25] MEDS: Enoxaparin 40 MG/0.4 ML Syringe SUBCUT SCH (08:10)
[2018-04-25] MEDS: Sertraline 50 MG Tab PO SCH ×2 (08:16→20:48)
[2018-04-25] MEDS: Spironolactone 25 MG Tab PO SCH ×2 (08:16→20:48)
[2018-04-25] MEDS: Midodrine 2.5 MG Tab PO SCH ×3 (08:17→17:26)
[2018-04-25] MEDS: Folic Acid 1 MG Tab PO SCH (08:17)
[2018-04-25] MEDS: Ascorbic Acid 500 MG Tab PO SCH (08:18)
[2018-04-25] MEDS: QUEtiapine 100 MG Tab PO SCH ×3 (08:18→20:48)
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
[2018-04-25] MEDS: FERROUS FUMARATE 324 MG PO SCH ×2 (11:06→11:07)
[2018-04-25] MEDS: busPIRone 15 MG Tab PO SCH (11:39)
[2018-04-25] MEDS: Multivitamins,Therapeutic Tab PO SCH (20:48)
[2018-04-25] MEDS: Simvastatin 40 MG Tab PO SCH (20:48)
[2018-04-26] MEDS: Acetaminophen/oxyCODONE 325-5 MG Tab PO PRN ×2 (04:34→14:17)
[2018-04-26] MEDS: ALPRAZolam 0.5 MG Tab PO PRN (04:37)
[2018-04-26] MEDS: Levothyroxine 150 MCG Tab PO SCH (05:58)
[2018-04-26] MEDS: Omeprazole 20 MG Cap.CR PO SCH ×2 (05:59→17:28)
[2018-04-26] MEDS: Cyclobenzaprine 10 MG Tab PO PRN (06:37)
[2018-04-26] MEDS: Midodrine 2.5 MG Tab PO SCH ×3 (09:08→17:28)
[2018-04-26] MEDS: Ascorbic Acid 500 MG Tab PO SCH (09:08)
[2018-04-26] MEDS: Folic Acid 1 MG Tab PO SCH (09:09)
[2018-04-26] MEDS: Spironolactone 25 MG Tab PO SCH (09:09)
[2018-04-26] MEDS: Sertraline 50 MG Tab PO SCH (09:09)
[2018-04-26] MEDS: Enoxaparin 40 MG/0.4 ML Syringe SUBCUT SCH (09:11)
[2018-04-26 15:34] VITALS: BP 111/73
[2018-04-29] MEDS ORDERED: Cyanocobalamin (Vitamin B12) 1,000 MCG/ML SDV IM SCH (09:00)
== END 2018-04-26 17:55 | disposition home health service (06) ==
LOC: DL.ED 13:32 → DL.MS 15:27 → UNDOADMOB 15:27 → DL.MS 16:39
PROVIDERS: ADMIT Hospitalist; ATTEND Hospitalist
DX: R26.89 Other abnormalities of gait and mobility (principal); E03.9 Hypothyroidism, unspecified; E78.5 Hyperlipidemia, unspecified; K21.9 Gastro-esophageal reflux disease without esophagitis; G89.4 Chronic pain syndrome; N18.9 Chronic kidney disease, unspecified; E66.9 Obesity, unspecified; Z68.31 Body mass index [BMI] 31.0-31.9, adult; F41.9 Anxiety disorder, unspecified; F32.9 Major depressive disorder, single episode, unspecified; K86.1 Other chronic pancreatitis; Z79.890 Hormone replacement therapy; Z79.899 Other long term (current) drug therapy; Z91.81 History of falling; Z88.1 Allergy status to other antibiotic agents; Z88.8 Allergy status to other drugs, medicaments and biological substances; Z91.048 Other nonmedicinal substance allergy status
CPT/HCPCS: 36415; 80053; 82140; 82150; 83605; 83690; 83735; 84484; 85025; 93005; 96372; 97162; 97165; 99285; A9270; G0378; G0480; J1650

== ENCOUNTER 2018-05-18 20:59 | Emergency (ER) | payer OTHER ==
[2018-05-18 21:11] VITALS: BP 98/53
[2018-05-18] MEDS ORDERED: Sodium Chloride 0.9% 10 ML Syringe FLUSH PRN (21:29)
[2018-05-18] MEDS: Lactated Ringers 1,000 ML IV ONE (21:53)
[2018-05-18 22:02] LABS: ANION GAP 25.5
[2018-05-18] MEDS: Ampicillin/Sulbactam Na 3 GM in Sodium Chloride 0.9% 100 ML IV ONE (22:31)
--- NOTE | 2018-05-18 22:40 | EDM.PDOC ---
ED HPI GENERAL MEDICAL PROBLEM - General Chief Complaint: General Stated Complaint: SOB, DIZZINESS Time Seen by Provider: 05/18/18 21:15 Source of Information: Reports: Patient History Limitations: Reports: No Limitations - History of Present Illness INITIAL COMMENTS - FREE TEXT/NARRATIVE: Stephanie is a 52-year-old woman who has in recent past and admitted multiple times for hypotension, as well as hypokalemia and hypomagnesemia. She has a notable for failure to thrive type picture, with her last hospitalization here, the hospitalist try to talk her into a [facility] stay, but she refused. She presents this evening via ambulance, after stating that she was very dizzy and weak at home, and now has had 2-3 hour history of chest pain. She also is complaining of a cough at this time. She does not report any fevers or chills, has had no vomiting. She reports no diarrhea or constipation, no hematochezia or melena Neck Pain Score (Numeric/FACES): 4 - Related Data Allergies Allergy/AdvReac Type Severity Reaction Status Date / Time ciprofloxacin Allergy Vomiting Verified 04/23/18 13:47 metaxalone Allergy Abdominal Verified 04/23/18 13:47 Pain cephalexin [Cephalexin] AdvReac Nausea and Verified 04/23/18 13:47 Vomiting prednisone AdvReac Vomiting Verified 04/23/18 13:47 cats Allergy Sneezing Uncoded 04/23/18 13:47 evergreen tree Allergy Rash Uncoded 04/23/18 13:47 Home Meds: Home Meds Sertraline [Zoloft] 100 mg PO BID 05/07/13 [History] Simvastatin 40 mg PO BEDTIME 05/07/13 [History] busPIRone [Buspar] 15 mg PO TID 05/07/13 [History] ALPRAZolam [Alprazolam ODT] 0.5 mg PO BID PRN 09/10/14 [History] Levothyroxine 150 mcg PO 0600 10/17/14 [History] Cyanocobalamin (Vitamin B12) [Vitamin B12] 1,000 mcg IM .MONTHLY 12/27/14 [ History] Cyclobenzaprine [Flexeril] 10 mg PO Q8HR PRN 07/21/16 [History] Acetaminophen [Tylenol Arthritis] 1,000 mg PO Q4HR PRN 11/13/17 [History] Albuterol Sulfate [Proair Respiclick] 90 mcg IH Q6HR PRN 11/13/17 [History] Ascorbate Calcium [Vitamin C] 1,000 mg PO DAILY 11/13/17 [History] Esomeprazole Magnesium [Nexium] 40 mg PO BID 11/13/17 [History] Ferrous Fumarate 324 mg PO BID 11/13/17 [History] Folic Acid 1 mg PO DAILY 11/13/17 [History] Magnesium Oxide [Magnesium] 400 mg PO TID 11/13/17 [History] Multivitamin [Multivitamins] 1 each PO BEDTIME 11/13/17 [History] Nitroglycerin 0.4 mg SL .[id number] PRN 11/13/17 [History] oxyCODONE HCl/Acetaminophen [Oxycodone-Acetaminophen 5-325] 1 each PO Q8HR PRN 11/13/17 [History] Potassium Chloride 60 meq PO DAILY 30 Days #180 tab.er.prt 11/15/17 [Rx] QUEtiapine Fumarate [Seroquel] 300 mg PO BEDTIME 11/24/17 [History] Spironolactone [Aldactone] 25 mg PO BID 02/15/18 [History] Midodrine 5 mg PO TIDAC 30 Days #180 tablet 04/09/18 [Rx] Iron Polysaccharides Complex [Ferrex 150] 150 mg PO DAILY cap 04/16/18 [Rx] Ondansetron [Zofran ODT] 4 mg PO Q12H PRN #16 tab.dis 04/16/18 [Rx] Pantoprazole [ProTONIX] 40 mg PO BEDTIME tab.cr 04/16/18 [Rx] Past Medical History HEENT History: Reports: Impaired Vision, Other (See Below) Other HEENT History: wears glasses, bilateral mastoiditis Cardiovascular History: Reports: Heart Failure, Other (See Below) Other Cardiovascular History: Impaired EF. 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 (See Below) Other SIGNALING DESIGN ENGINEER History: hysterectomy Musculoskeletal History: Reports: Back Pain, Chronic Neurological History: Reports: None Psychiatric History: Reports: Anxiety, Depression Endocrine/Metabolic History: Reports: Hypothyroidism, Obesity/BMI 30+ Hematologic History: Reports: Anemia, B12 Deficiency Immunologic History: Reports: None Oncologic (Cancer) History: Reports: None Dermatologic History: Reports: None - Infectious Disease History Infectious Disease History: Reports: Chicken Pox, Measles - Past Surgical History Head Surgeries/Procedures: Reports: None HEENT Surgical History: Reports: None Cardiovascular Surgical History: Reports: None Respiratory Surgical History: Reports: None GI Surgical History: Reports: Appendectomy, Cholecystectomy, Colonoscopy, EGD Female Surgical History: Reports: Hysterectomy, Tubal Ligation Endocrine Surgical History: Reports: None Musculoskeletal Surgical History: Reports: None Social & Family History - Family History Family Medical History: Noncontributory - Tobacco Use Smoking Status *Q: Never Smoker - Caffeine Use Caffeine Use: Reports: None Other Caffeine Use: 4 cans/day 7UP OR SPRITE - Recreational Drug Use Recreational Drug Use: No - Living Situation & Occupation Living situation: Reports: , with Spouse Occupation: Disabled ED ROS GENERAL - Review of Systems Review Of Systems: ROS reveals no pertinent complaints other than HPI. ED EXAM, GENERAL - Physical Exam Exam: See Below Free Text/Narrative:: General: Stephanie is a 52-year-old woman in no acute distress. She is showing no signs of respiratory distress, no tachypnea or accessory muscle use Ears: Canals are patent, tympanic membranes appear normal Oropharynx is clear, mucous membranes are dry Neck: Supple, no lymphadenopathy Heart: Slightly tachycardic at 100-110 Lungs: Fairly good air movement heard throughout, no wheezes or rhonchi noted Abdomen: Soft, nontender to palpation, normal bowel sounds heard throughout Peripheral IV was started immediately, and she was given a 1 L lactated ringer bolus. This significantly improved her blood pressures from 80s over 50s, up to 100s over 60s. Urinalysis was positive for UTI, so she was given 3 g of IV Unasyn. Course - Vital Signs Last Recorded V/S: Last Vital Signs Temp 37.3 C 05/18/18 21:07 Pulse 102 H 05/18/18 21:07 Resp 18 05/18/18 21:07 BP 98/53 L 05/18/18 21:07 Pulse Ox 94 L 05/18/18 21:07 - Orders/Labs/Meds Orders: Active Orders 24 hr Category Date Time Status Cardiac Monitoring [RC] . DIRECTED Care 05/18/18 21:27 Active EKG Documentation Completion [RC] STAT Care 05/18/18 21:28 Active Peripheral IV Care [RC] . DIRECTED Care 05/18/18 21:29 Active Chest 2V [CR] Stat Exams 05/18/18 21:28 Taken CULTURE URINE [RM] Routine Lab 05/18/18 21:38 Received Ampicillin/Sulbactam Na [Unasyn] 3 gm Med 05/18/18 22:09 Ordered Sodium Chloride 0.9% [Normal Saline] 100 ml IV ONETIME Sodium Chloride 0.9% [Saline Flush] Med 05/18/18 21:29 Active 10 ml FLUSH ASDIRECTED PRN Peripheral IV Insertion Adult [OM.PC] Routine Oth 05/18/18 21:29 Ordered Medication Orders Ampicillin Sodium/Sulbactam (Sodium 3 gm/ Sodium Chloride) 100 mls @ 100 mls/ hr IV ONETIME ONE Stop: 05/18/18 23:08 Last Admin: 05/18/18 22:31 Dose: 100 mls/hr Sodium Chloride (Saline Flush) 10 ml FLUSH ASDIRECTED PRN PRN Reason: Keep Vein Open Labs: Laboratory Tests 05/18/18 05/18/18 05/18/18 Range/Units 21:34 21:34 21:38 WBC 12.1 H (5.0-10.0) 10^3/uL RBC 3.34 L (4.2-5.4) 10^6/uL Hgb 11.6 L (12.0-16.0) g/dL Hct 35.7 L (37.0-47.0) % MCV 106.9 H (80-100) fL MCH 34.7 H (27.0-34.0) pg MCHC 32.5 L (33.0-35.0) g/dL Plt Count 330 (150-450) 10^3/uL Neut % (Auto) 84.0 H (42.2-75.2) % Lymph % (Auto) 7.0 L (20.5-50.1) % [place] % (Auto) 5.1 (2-8) % Eos % (Auto) 3.6 H (1.0-3.0) % Baso % (Auto) 0.3 (0.0-1.0) % Sodium 140 (135-145) mmol/L Potassium 2.5 L D (3.6-5.0) mmol/L Chloride 104 (101-111) mmol/L Carbon Dioxide 13.0 L (21.0-31.0) mmol/L Anion Gap 25.5 BUN 9 (7-18) mg/dL Creatinine 1.0 (0.6-1.3) mg/dL Est Cr Clr Drug Dosing 64.72 mL/min Estimated GFR (MDRD) 58 BUN/Creatinine Ratio 9.00 Glucose 172 H (74-105) mg/dL Calcium 8.0 L (8.4-10.2) mg/dl Magnesium 1.3 L (1.8-2.5) mg/dL Total Bilirubin 0.8 (0.2-1.0) mg/dL AST 28 (10-42) IU/L ALT 23 (10-60) IU/L Alkaline Phosphatase 141 H (42-121) IU/L Troponin I 0.03 H* (0.00-0.02) ng/ml Total Protein 5.5 L (6.7-8.2) g/dl Albumin 2.2 L (3.2-5.5) g/dl Globulin 3.3 Albumin/Globulin Ratio 0.67 Urine Color Yellow (YELLOW) Urine Appearance Turbid (CLEAR) Urine pH 5.5 (5.0-9.0) Ur Specific [place] 1.020 (1.005-1.030) Urine Protein Negative (NEGATIVE) Urine Glucose (UA) Negative (NEGATIVE) Urine Ketones Trace H (NEGATIVE) Urine Occult Blood Trace-intact H (NEGATIVE) Urine Nitrite Negative (NEGATIVE) Urine Bilirubin Negative (NEGATIVE) Urine Urobilinogen 0.2 (0.2-1.0) mg/dL Ur Leukocyte Esterase Small H (NEGATIVE) Urine RBC 5-10 H /HPF Urine WBC 75-100 H (0-5/HPF) /HPF Ur Epithelial Cells Few /HPF Amorphous Sediment Few (0/HPF) /HPF Urine Bacteria Many H (0-FEW/HPF) /HPF Urine Mucus Few H /LPF Meds: Medications Generic Name Dose Route Start Last Admin Trade Name Freq PRN Reason Stop Dose Admin Ampicillin Sodium/Sulbactam 100 mls @ 100 mls/hr 05/18/18 22:09 05/18/18 22: 31 Sodium 3 gm/ Sodium Chloride IV 05/18/18 23:08 100 mls/hr ONETIME ONE Administration Sodium Chloride 10 ml 05/18/18 21:29 Saline Flush FLUSH ASDIRECTED PRN Keep Vein Open Discontinued Medications Generic Name Dose Route Start Last Admin Trade Name Freq PRN Reason Stop Dose Admin Lactated Ringer's 1,000 mls @ 999 mls/hr 05/18/18 21:29 05/18/18 21:53 Ringers, Lactated IV 05/18/18 22:29 999 mls/hr .BOLUS ONE Administration Departure - Departure Time of Disposition: 22:44 Disposition: DC/Tfer to [facility] 02 Condition: Fair Clinical Impression: Elevated troponin I level, Hypokalemia, Hypomagnesemia, Near syncope, Dehydration - Discharge Information *PRESCRIPTION DRUG MONITORING PROGRAM REVIEWED*: Not Applicable *COPY OF PRESCRIPTION DRUG MONITORING REPORT IN PATIENT ANNABEL: Not Applicable - Problem List & Annotations (1) Hypokalemia SNOMED Code(s): 72177716 Code(s): E87.6 - HYPOKALEMIA Status: Acute (2) Weakness SNOMED Code(s): 12073685 Code(s): R53.1 - WEAKNESS Status: Acute (3) Hypomagnesemia SNOMED Code(s): 914179523 Code(s): E83.42 - HYPOMAGNESEMIA Status: Acute (4) Dehydration SNOMED Code(s): 59333941 Code(s): E86.0 - DEHYDRATION Status: Acute (5) Elevated troponin I level SNOMED Code(s): 146457543 Code(s): R74.8 - ABNORMAL LEVELS OF OTHER SERUM ENZYMES Status: Acute - Problem List Review Problem List Initiated/Reviewed/Updated: Yes - My Orders Last 24 Hours: My Active Orders 05/18/18 21:27 Cardiac Monitoring [RC] . DIRECTED 05/18/18 21:28 EKG Documentation Completion [RC] STAT Chest 2V [CR] Stat 05/18/18 21:29 Peripheral IV Care [RC] . DIRECTED Sodium Chloride 0.9% [Saline Flush] 10 ml FLUSH ASDIRECTED PRN Peripheral IV Insertion Adult [OM.PC] Routine 05/18/18 21:38 CULTURE URINE [RM] Routine 05/18/18 22:09 Ampicillin/Sulbactam Na [Unasyn] 3 gm Sodium Chloride 0.9% [Normal Saline] 100 ml IV ONETIME - Assessment/Plan Last 24 Hours: My Active Orders 05/18/18 21:27 Cardiac Monitoring [RC] . DIRECTED 05/18/18 21:28 EKG Documentation Completion [RC] STAT Chest 2V [CR] Stat 05/18/18 21:29 Peripheral IV Care [RC] . DIRECTED Sodium Chloride 0.9% [Saline Flush] 10 ml FLUSH ASDIRECTED PRN Peripheral IV Insertion Adult [OM.PC] Routine 05/18/18 21:38 CULTURE URINE [RM] Routine 05/18/18 22:09 Ampicillin/Sulbactam Na [Unasyn] 3 gm Sodium Chloride 0.9% [Normal Saline] 100 ml IV ONETIME Plan: 1. She has received Unasyn, 3 g IV here in the ED 2. We will start potassium replacement, 20 mEq IV, that will run in during ambulance transport 3. As stated above, blood pressures have significantly improved with fluid rehydration 4. I initially discussed her case with our hospitalist television specialist in [place], due to the fact that she has ongoing chest pain, and a slight elevation in troponin, they did not think her suitable for our facility. I therefore discussed her case with Dr. Mobley, hospitalist on-call at [facility] in [place], who agreed to accept the patient in transfer for further evaluation and treatment.
[2018-05-18] MEDS: Potassium Chloride 20 MEQ in Premix Bag 1 BAG IV ONE (22:52)
== END 2018-05-18 23:00 ==
LOC: DL.ED 20:59
DX: R55 Syncope and collapse (principal); E86.0 Dehydration; R79.1 Abnormal coagulation profile; E87.6 Hypokalemia; E83.42 Hypomagnesemia; N18.9 Chronic kidney disease, unspecified; I50.9 Heart failure, unspecified; E66.9 Obesity, unspecified; F41.9 Anxiety disorder, unspecified; F32.9 Major depressive disorder, single episode, unspecified; Z88.8 Allergy status to other drugs, medicaments and biological substances; Z91.048 Other nonmedicinal substance allergy status; Z79.899 Other long term (current) drug therapy
CPT/HCPCS: 36415; 71046; 80053; 81001; 83735; 84484; 85025; 87086; 93005; 96365; 96368; 96375; 99285; J0295; J3480; J7050; J7120; 87088; 87186

== ENCOUNTER 2018-08-11 16:08 | Inpatient (IN) | payer OTHER ==
--- NOTE | 2018-08-11 16:09 | EDM.PDOC ---
ED HPI GENERAL MEDICAL PROBLEM - General Stated Complaint: SKIN COMPLAINTS--INCOMING FROM [facility] Time Seen by Provider: 08/11/18 15:50 Source of Information: Reports: Patient History Limitations: Reports: No Limitations - History of Present Illness INITIAL COMMENTS - FREE TEXT/NARRATIVE: This 53 yo female patient was brought to the ED from [facility] due to a spreading rash on the patient's arms, legs and neck. The patient reports she started to notice the redness about 1 week ago. The patient reports the symptoms have been getting "much" worse over the past week. The retirement staff report they have been using a steroid cream on the patient's arms, legs and neck over the past week. The patient was also given an antibiotic ointment for the redness to her right forearm. The patient also reports she has been coughing up with some sputum production. The patient reports she did see Dr. Terrazas last week, but has not seen her since that time. Duration: Week(s):, Constant, Getting Worse Location: Reports: Neck, Upper Extremity, Left, Upper Extremity, Right, Lower Extremity, Left, Lower Extremity, Right Quality: Reports: Other Severity: Moderate Improves with: Reports: None Worsens with: Reports: None Context: Reports: Other Associated Symptoms: Reports: No Other Symptoms - Related Data Allergies Allergy/AdvReac Type Severity Reaction Status Date / Time metaxalone AdvReac Unknown Abdominal Verified 08/11/18 17:39 Pain cephalexin [Cephalexin] AdvReac Nausea and Verified 08/11/18 15:47 Vomiting ciprofloxacin AdvReac Vomiting Verified 08/11/18 17:39 prednisone AdvReac Vomiting Verified 08/11/18 15:47 cats Allergy Sneezing Uncoded 08/11/18 15:47 evergreen tree Allergy Rash Uncoded 08/11/18 15:47 Home Meds: Home Meds ALPRAZolam [Alprazolam] 0.5 mg PO DAILY 08/11/18 [History] Albuterol Sulfate [Proair Respiclick] 1 puff INH Q6HR PRN 08/11/18 [History] Ascorbate Calcium [Vitamin C] 500 mg PO DAILY 08/11/18 [History] Cyanocobalamin (Vitamin B-12) [Cyanocobalamin Injection] 1 mg IM .MONTHLY [History] Docusate Sodium [Colace] 200 mg PO DAILY 08/11/18 [History] Ferrous Fumarate [Hemocyte] 324 mg PO BID 08/11/18 [History] Folic Acid 1 mg PO DAILY 08/11/18 [History] Formoterol Fumarate [Perforomist] 2 ml INH BID 08/11/18 [History] Levothyroxine 125 mcg PO DAILY 08/11/18 [History] Loperamide [Imodium] 2 mg pe PO Q8HR PRN 08/11/18 [History] Loratadine [Alavert] 10 mg PO DAILY 08/11/18 [History] Magnesium Oxide 1,000 mg PO BEDTIME 08/11/18 [History] Meclizine HCl 25 mg PO DAILY 08/11/18 [History] Midodrine 5 mg PO TID 08/11/18 [History] Mirtazapine 15 mg PO BEDTIME 08/11/18 [History] Multivitamin [Multivitamins] 1 tab PO DAILY 08/11/18 [History] Mupirocin Oint [Bactroban Oint] 1 applic TOP BID 08/11/18 [History] Nitroglycerin [Nitrostat] 0.4 mg SL .Q5MIN PRN 08/11/18 [History] Pantoprazole Sodium 40 mg PO DAILY 08/11/18 [History] Potassium Chloride 20 meq PO BID 08/11/18 [History] QUEtiapine [SEROquel] 250 mg PO DAILY 08/11/18 [History] Sertraline HCl 200 mg PO DAILY 08/11/18 [History] Simvastatin [Zocor] 40 mg PO DAILY 08/11/18 [History] Spironolactone [Aldactone] 12.5 mg PO DAILY 08/11/18 [History] Torsemide 30 mg PO DAILY 08/11/18 [History] busPIRone [Buspar] 20 mg PO TID 08/11/18 [History] oxyCODONE HCl/Acetaminophen [Oxycodone-Acetaminophen 5-325] 1 tab PO Q12HR PRN 08/11/18 [History] Past Medical History HEENT History: Reports: Impaired Vision, Other (See Below) Other HEENT History: wears glasses, bilateral mastoiditis Cardiovascular History: Reports: Heart Failure, Other (See Below) Other Cardiovascular History: Impaired EF. 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 ECONOMIST History: hysterectomy Musculoskeletal History: Reports: Back Pain, Chronic Neurological History: Reports: None Psychiatric History: Reports: Anxiety, Depression Endocrine/Metabolic History: Reports: Hypothyroidism, Obesity/BMI 30+ Hematologic History: Reports: Anemia, B12 Deficiency Immunologic History: Reports: None Oncologic (Cancer) History: Reports: None Dermatologic History: Reports: None - Infectious Disease History Infectious Disease History: Reports: Chicken Pox, Measles - Past Surgical History Head Surgeries/Procedures: Reports: None HEENT Surgical History: Reports: None Cardiovascular Surgical History: Reports: None Respiratory Surgical History: Reports: None GI Surgical History: Reports: Appendectomy, Cholecystectomy, Colonoscopy, EGD Female Surgical History: Reports: Hysterectomy, Tubal Ligation Endocrine Surgical History: Reports: None Musculoskeletal Surgical History: Reports: None Social & Family History - Family History Family Medical History: Noncontributory - Caffeine Use Caffeine Use: Reports: None Other Caffeine Use: 4 cans/day 7UP OR SPRITE - Living Situation & Occupation Living situation: Reports: , with Spouse Occupation: Disabled ED ROS GENERAL - Review of Systems Review Of Systems: ROS reveals no pertinent complaints other than HPI. ED EXAM, SKIN/RASH Exam: See Below Exam Limited By: No Limitations General Appearance: Alert, WD/WN, Mild Distress Eye Exam: Bilateral Eye: EOMI, Normal Inspection, PERRL Nose: Normal Inspection, Normal Mucosa, No Blood Throat/Mouth: Normal Inspection, Normal Lips, Normal Teeth, Normal Gums, Normal Oropharynx, Normal Voice, No Airway Compromise Head: Atraumatic, Normocephalic Neck: Other (The patient has an area of erythema to her left chin to the left mid neck.) Respiratory/Chest: No Respiratory Distress, Lungs Clear, Normal Breath Sounds, No Accessory Muscle Use, Chest Non-Tender Cardiovascular: Normal Peripheral Pulses, Regular Rate, Rhythm, No Edema, No Gallop, No JVD, No Murmur, No Rub GI/Abdominal: Normal Bowel Sounds, Soft, Non-Tender, No Organomegaly, No Distention, No Abnormal Bruit, No Mass (Female) Exam: Deferred Rectal (Female) Exam: Deferred Back Exam: Normal Inspection, Full Range of Motion, NT Extremities: Other (The patient has erythema of both arms (mid upper arm to hands). The patient also has erythema of her lower extremities with increased swelling and dry drainage noted between her toes. ) Neurological: Alert, Oriented, CN II-XII Intact, Normal Cognition, Normal Gait, Normal Reflexes, No Motor/Sensory Deficits Psychiatric: Normal Affect, Normal Mood Skin: Erythema, Excoriations Location, Skin: Neck, Upper Extremity, Right, Upper Extremity, Left, Lower Extremity, Right, Lower Extremity, Left Characteristics: Erythematous Associated features: Warmth, Swelling, Inflammation, Crusting. No: Induration Lymphatic: No Adenopathy Course - Vital Signs Last Recorded V/S: Last Vital Signs Temp 36.1 C 08/11/18 17:33 Pulse 87 08/11/18 17:33 Resp 16 08/11/18 17:33 BP 118/72 08/11/18 17:33 Pulse Ox 100 08/11/18 15:48 - Orders/Labs/Meds Orders: Active Orders 24 hr Category Date Time Status CULTURE BLOOD [BC] Stat Lab 08/11/18 16:07 Received CULTURE BLOOD [BC] Stat Lab 08/11/18 16:14 Received CULTURE URINE [RM] Urgent Lab 08/11/18 16:34 Received Vancomycin 1 gm Med 08/11/18 17:39 Ordered Sodium Chloride 0.9% [Normal Saline] 250 ml IV ONETIME Blood Culture x2 Reflex Set [OM.PC] Stat Oth 08/11/18 15:53 Ordered Labs: Laboratory Tests 08/11/18 08/11/18 08/11/18 Range/Units 16:07 16:07 16:07 WBC 21.0 H (5.0-10.0) 10^3/uL RBC 3.60 L (4.2-5.4) 10^6/uL Hgb 11.7 L (12.0-16.0) g/dL Hct 34.7 L (37.0-47.0) % MCV 96.4 D (80-100) fL MCH 32.5 (27.0-34.0) pg MCHC 33.7 (33.0-35.0) g/dL Plt Count 561 H D (150-450) 10^3/uL Neut % (Auto) 76.0 H (42.2-75.2) % Lymph % (Auto) 11.5 L (20.5-50.1) % [place] % (Auto) 5.7 (2-8) % Eos % (Auto) 6.4 H (1.0-3.0) % Baso % (Auto) 0.4 (0.0-1.0) % Sodium 135 (135-145) mmol/L Potassium 3.1 L (3.6-5.0) mmol/L Chloride 93 L (101-111) mmol/L Carbon Dioxide 22.0 (21.0-31.0) mmol/L Anion Gap 23.1 BUN 14 (7-18) mg/dL Creatinine 0.8 (0.6-1.3) mg/dL Est Cr Clr Drug Dosing TNP Estimated GFR (MDRD) > 60 BUN/Creatinine Ratio 17.50 Glucose 111 H (74-105) mg/dL Lactic Acid 1.8 (0.5-2.2) mmol/L Calcium 7.4 L (8.4-10.2) mg/dl Total Bilirubin 1.2 H (0.2-1.0) mg/dL AST 27 (10-42) IU/L ALT 28 (10-60) IU/L Alkaline Phosphatase 123 H (42-121) IU/L Total Protein 5.0 L (6.7-8.2) g/dl Albumin 1.7 L (3.2-5.5) g/dl Globulin 3.3 Albumin/Globulin Ratio 0.52 Urine Color (YELLOW) Urine Appearance (CLEAR) Urine pH (5.0-9.0) Ur Specific [place] (1.005-1.030) Urine Protein (NEGATIVE) Urine Glucose (UA) (NEGATIVE) Urine Ketones (NEGATIVE) Urine Occult Blood (NEGATIVE) Urine Nitrite (NEGATIVE) Urine Bilirubin (NEGATIVE) Urine Urobilinogen (0.2-1.0) mg/dL Ur Leukocyte Esterase (NEGATIVE) Urine RBC /HPF Urine WBC (0-5/HPF) /HPF Ur Epithelial Cells (NOT SEEN) /HPF Urine Bacteria (0-FEW/HPF) /HPF Hyaline Casts (NOT SEEN) /LPF 08/11/18 Range/Units 16:34 WBC (5.0-10.0) 10^3/uL RBC (4.2-5.4) 10^6/uL Hgb (12.0-16.0) g/dL Hct (37.0-47.0) % MCV (80-100) fL MCH (27.0-34.0) pg MCHC (33.0-35.0) g/dL Plt Count (150-450) 10^3/uL Neut % (Auto) (42.2-75.2) % Lymph % (Auto) (20.5-50.1) % [place] % (Auto) (2-8) % Eos % (Auto) (1.0-3.0) % Baso % (Auto) (0.0-1.0) % Sodium (135-145) mmol/L Potassium (3.6-5.0) mmol/L Chloride (101-111) mmol/L Carbon Dioxide (21.0-31.0) mmol/L Anion Gap BUN (7-18) mg/dL Creatinine (0.6-1.3) mg/dL Est Cr Clr Drug Dosing Estimated GFR (MDRD) BUN/Creatinine Ratio Glucose (74-105) mg/dL Lactic Acid (0.5-2.2) mmol/L Calcium (8.4-10.2) mg/dl Total Bilirubin (0.2-1.0) mg/dL AST (10-42) IU/L ALT (10-60) IU/L Alkaline Phosphatase (42-121) IU/L Total Protein (6.7-8.2) g/dl Albumin (3.2-5.5) g/dl Globulin Albumin/Globulin Ratio Urine Color Yellow (YELLOW) Urine Appearance Cloudy (CLEAR) Urine pH 5.5 (5.0-9.0) Ur Specific [place] 1.010 (1.005-1.030) Urine Protein Negative (NEGATIVE) Urine Glucose (UA) Negative (NEGATIVE) Urine Ketones Negative (NEGATIVE) Urine Occult Blood Trace-intact H (NEGATIVE) Urine Nitrite Negative (NEGATIVE) Urine Bilirubin Negative (NEGATIVE) Urine Urobilinogen 0.2 (0.2-1.0) mg/dL Ur Leukocyte Esterase Large H (NEGATIVE) Urine RBC 0-5 /HPF Urine WBC 50-75 H (0-5/HPF) /HPF Ur Epithelial Cells Few (NOT SEEN) /HPF Urine Bacteria Many H (0-FEW/HPF) /HPF Hyaline Casts Moderate H (NOT SEEN) /LPF Departure - Departure Time of Disposition: 17:41 Disposition: Admitted As Inpatient 66 Condition: Fair Clinical Impression: Cellulitis Qualifiers: Site of cellulitis: unspecified site Qualified Code(s): L03.90 - Cellulitis, unspecified - Discharge Information *PRESCRIPTION DRUG MONITORING PROGRAM REVIEWED*: Not Applicable *COPY OF PRESCRIPTION DRUG MONITORING REPORT IN PATIENT ANNABEL: Not Applicable Care Plan Goals: Discussed the patient's history, examination and lab results with Dr. Pepe. Dr. Boyle accepted the patient for continued evaluation and management as an inpatient at [facility]. - My Orders Last 24 Hours: My Active Orders 08/11/18 15:53 Blood Culture x2 Reflex Set [OM.PC] Stat 08/11/18 16:07 CULTURE BLOOD [BC] Stat 08/11/18 16:14 CULTURE BLOOD [BC] Stat 08/11/18 16:34 CULTURE URINE [RM] Urgent 08/11/18 17:39 Vancomycin 1 gm Sodium Chloride 0.9% [Normal Saline] 250 ml IV ONETIME - Assessment/Plan Last 24 Hours: My Active Orders 08/11/18 15:53 Blood Culture x2 Reflex Set [OM.PC] Stat 08/11/18 16:07 CULTURE BLOOD [BC] Stat 08/11/18 16:14 CULTURE BLOOD [BC] Stat 08/11/18 16:34 CULTURE URINE [RM] Urgent 08/11/18 17:39 Vancomycin 1 gm Sodium Chloride 0.9% [Normal Saline] 250 ml IV ONETIME
[2018-08-11 17:04] LABS: ANION GAP 23.1; CHLORIDE,CL 93 mmol/L (101-111); SODIUM,NA 135 mmol/L (135-145)
[2018-08-11] MEDS ORDERED: Bisacodyl 10 MG Supp RECTAL PRN (20:28)
[2018-08-11] MEDS ORDERED: Magnesium Hydroxide 400 MG/5 ML Susp 30 ML Cup PO PRN (20:28)
[2018-08-11] MEDS: Potassium Chloride 10 MEQ Tab.ER PO SCH (21:51)
[2018-08-11] MEDS: Sertraline 50 MG Tab PO SCH (21:52)
[2018-08-11] MEDS: busPIRone 5 MG Tab PO SCH (21:52)
[2018-08-11] MEDS: Mirtazapine 15 MG Tab PO SCH (21:52)
[2018-08-11] MEDS: methylPREDNISolone Sodium Succinate 40 MG/1 ML SDV IVPUSH SCH (21:52)
[2018-08-11] MEDS: Acetaminophen/oxyCODONE 325-5 MG Tab PO PRN (21:52)
--- NOTE | 2018-08-12 02:33 | HP ---
REASON FOR ADMISSION: Extensive cellulitis of the upper and lower extremities with significant desquamation. HISTORY OF PRESENT ILLNESS: Stephanie Morales is a 53-year-old lady who currently resides at [facility] in [facility]. She has been there for about 2 months. Prior to that, she lived at home with her . She states at about 1 week ago, she developed a rash on her right arm, which spread to her legs and then all 4 limbs. It was itchy. She stated this started peeling yesterday. She whirlpooled this morning, which took off a lot of skin. She has had itching and peeling as well in her feet and edema. I spoke to 1 of the nurses at the detention and she stated that the rash began about 2 weeks ago, began at her groins and spread to her back. Cortisone cream was ordered. The rash then spread to the arms, the face, and the feet, which blistered. Today, she presented to the emergency room and was found to have a white count of 21,000. Lactic acid was normal at 1.8. She had extensive cellulitis and desquamation, and was admitted for further management. PAST MEDICAL HISTORY: She has multiple medical problems including chronic kidney disease, B12 deficiency, depression with anxiety. Psychiatric illness, NOS. General lower extremity edema, which is being markedly reduced in the last few months. She has lost probably about 100 pounds. Electrolyte abnormalities, hypothyroidism, idiopathic pancreatitis, insomnia, severe hypoalbuminemia. Chart states "substance abuse" without any further information, generalized weakness, multiple falls, history of drug overdose in 2011, again without any further associated history. PAST SURGICAL HISTORY: Colonoscopy 2014, tubal ligation 1989, appendectomy 1984, cholecystectomy, hysterectomy, and dental extractions. SOCIAL HISTORY: She has never smoked, although she is exposed to secondhand smoke. She denies alcohol use. She is . Lives in [place] with her . 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 Currently is disabled. REVIEW OF SYSTEMS: As above. Otherwise, no cough or fever. No vomiting or diarrhea. Denies any new medications or lotions. Denies any other precipitating event for the rash. Has never had a previous rash like this. DISCHARGE MEDICATIONS: Medications are reviewed and reconciled in [place]. She has an extensive medication list. Meds are reconciled and only her necessary medications were continued. ALLERGIES: She lists many allergies, but most of them actually appear to be intolerance and include metaxalone, cephalexin, ciprofloxacin, and prednisone. Allergies to cats, which causes a sneeze. Allergies to evergreen trees, which causes a rash. PHYSICAL EXAMINATION: General: She is lying comfortably in bed. She is in no acute distress. Exam is remarkable for the extensive bright red rash on her extremities with notable desquamation. Vital Signs: Blood pressure 118/72, pulse 87, respiratory rate 16, oxygen saturation 100% on 2 L in the ER, temperature 96.9, weight 150 pounds 9.6 ounces, and height 5 feet 8 inches. HEENT: Unremarkable. ENT was clear. Chest: Showed clear with diminished bilateral breath sounds. Heart: Showed regular rate and rhythm. Abdomen: Obese, soft, and benign. Skin: Remarkable for a bright red cellulitis of the lower extremities as well as the upper extremities and on the left side of the neck. There is significant desquamation of all the skin, and that the soles of her feet have obviously been blistered and skin has peeled off. There does not appear to be any pustular areas. Neurological: She was grossly intact without any deficits. LABORATORY DATA: CBC showed a white count of 21,000 with 76% neutrophils. Hemoglobin and hematocrit were 11.7 and 34.7. Chemistry showed potassium of 3.1, sodium 135, BUN and creatinine 14 and 0.8 with a GFR of more than 60. Lactic acid was normal at 118. Glucose was 111. Albumin is markedly decreased at 1.7. Urinalysis showed a cloudy yellow urine with a specific gravity of 1.010 with a large amount of leukocyte esterase, 50 to 75 wbc's per high-power field and many bacteria as well as moderate hyaline casts. Two sets of blood cultures were drawn in the ER and a urine culture was ordered as well. Results are pending. Labs were ordered for tomorrow morning including white count with little diff, potassium and magnesium levels. Pharmacy will follow her vancomycin levels and adjust her dosing. Her 1st vancomycin trough will be on 08/13/2018 at 9 a.m. IMPRESSION: Extensive cellulitis of the extremities and left side of the neck with significant desquamation. Etiology unclear. PLAN: 1. Stephanie was admitted as an acute inpatient. She was started on vancomycin 1 g IV every 8 hours, as adjusted by Pharmacy. 2. She was also started on IV steroids with Solu-Medrol 40 mg IV every 8 hours. 3. Her usual medications were carefully reviewed and only the most significant medications were continued. We tried to eliminate as many unnecessary medications as possible due to the polypharmacy and the unknown cause for this rash. 4. Enoxaparin will be used for VTE prophylaxis. We will have to avoid KELLEY parker because of her skin issues. 5. Code status: Full code. Stephanie was admitted as an acute inpatient. With improvement, she should be able to return to the detention, and if IV antibiotics are required, it is possible they can be continued at [facility]. We will pass this along to the nursing staff. CONDITION AT TIME OF ADMISSION: Hemodynamically and neurologically stable. [facility] /[id number]
[2018-08-12] MEDS: methylPREDNISolone Sodium Succinate 40 MG/1 ML SDV IVPUSH SCH ×3 (04:24→20:40)
[2018-08-12] MEDS: Docusate Sodium 100 MG Cap PO SCH (08:27)
[2018-08-12] MEDS: busPIRone 5 MG Tab PO SCH ×3 (08:28→20:44)
[2018-08-12] MEDS: Levothyroxine 125 MCG Tab PO SCH (08:29)
[2018-08-12] MEDS: Spironolactone 25 MG Tab PO SCH (08:29)
[2018-08-12] MEDS: Pantoprazole 40 MG Tab.CR PO SCH (08:29)
[2018-08-12] MEDS: Torsemide 20 MG Tab PO SCH (08:30)
[2018-08-12] MEDS: Potassium Chloride 10 MEQ Tab.ER PO SCH ×2 (08:31→20:46)
[2018-08-12] MEDS: Loratadine 10 MG Tab PO SCH (08:31)
[2018-08-12] MEDS: Folic Acid 1 MG Tab PO SCH (08:31)
[2018-08-12] MEDS: Enoxaparin 40 MG/0.4 ML Syringe SUBCUT SCH (08:32)
[2018-08-12] MEDS ORDERED: QUEtiapine 25 MG Tab PO SCH (09:00)
[2018-08-12] MEDS ORDERED: QUETIAPINE PO SCH (09:00)
[2018-08-12] MEDS ORDERED: QUEtiapine 100 MG Tab PO SCH (09:00)
[2018-08-12] MEDS: hydrOXYzine HCl 25 MG Tab PO PRN (09:01)
--- NOTE | 2018-08-12 10:40 | PN ---
DATE: 08/12/2018 SUBJECTIVE: The patient is a 53-year-old female, who was admitted with cellulitis of the legs and arms. The patient started yesterday on vancomycin and also on Solu-Medrol. The patient this morning is still complaining of the redness and itching on the arms, but the redness on the lower extremity is slowly improving. She is also complaining of having difficulty sleeping, but otherwise, no chest pain, shortness of breath, abdominal pain, or any other complaints. LABORATORY DATA: Lab workup this morning: CBC; WBC 17.2, 94.7 neutrophils. Potassium level this morning is 3.5 and magnesium is 1.3. OBJECTIVE: Vital Signs: Saturation is 97% on 2 L. Heart: Regular rate and rhythm. Normal S1 and S2. No gallops. No rubs. Lungs: Equal bilaterally. No crackles and wheezing. Abdomen: Soft, nontender. Bowel sounds positive. Extremities: Remarkable for the desquamation and redness on both upper arms. Lower extremity is remarkable for some faint redness. MEDICATIONS: Reviewed. PLAN: I am going to start her on magnesium oxide as her magnesium is low and we will recheck magnesium level and basic metabolic panel and CBC in the morning. With regard to her cellulitis, we will continue with her vancomycin and we will also continue with Solu-Medrol. We will also start her on hydroxyzine for itching and hopefully this would also help her sleep. [facility] /[id number]
[2018-08-12] MEDS: FORMOTEROL 20 MCG/2 ML INH SCH ×2 (11:49→18:07)
[2018-08-12] MEDS: Acetaminophen/oxyCODONE 325-5 MG Tab PO PRN (13:04)
[2018-08-12] MEDS: Nitrofurantoin Monohydrate/Macrocrystalline 100 MG Cap PO SCH (20:45)
[2018-08-12] MEDS: Mirtazapine 15 MG Tab PO SCH (20:46)
[2018-08-12] MEDS: Sertraline 50 MG Tab PO SCH (20:47)
[2018-08-13] MEDS: Acetaminophen/oxyCODONE 325-5 MG Tab PO PRN ×2 (01:50→15:30)
[2018-08-13] MEDS: methylPREDNISolone Sodium Succinate 40 MG/1 ML SDV IVPUSH SCH ×2 (05:12→15:48)
[2018-08-13 09:47] LABS: CHLORIDE,CL 101 mmol/L (101-111); SODIUM,NA 140 mmol/L (135-145)
[2018-08-13] MEDS: busPIRone 5 MG Tab PO SCH ×3 (10:19→20:40)
[2018-08-13] MEDS: FORMOTEROL 20 MCG/2 ML INH SCH ×2 (10:19→19:26)
[2018-08-13] MEDS: Spironolactone 25 MG Tab PO SCH (10:20)
[2018-08-13] MEDS: Levothyroxine 125 MCG Tab PO SCH (10:21)
[2018-08-13] MEDS: Potassium Chloride 10 MEQ Tab.ER PO SCH ×2 (10:21→20:43)
[2018-08-13] MEDS: Torsemide 20 MG Tab PO SCH (10:21)
[2018-08-13] MEDS: Docusate Sodium 100 MG Cap PO SCH (10:21)
[2018-08-13] MEDS: Pantoprazole 40 MG Tab.CR PO SCH (10:21)
[2018-08-13] MEDS: Folic Acid 1 MG Tab PO SCH (10:22)
[2018-08-13] MEDS: Loratadine 10 MG Tab PO SCH (10:22)
[2018-08-13] MEDS: Nitrofurantoin Monohydrate/Macrocrystalline 100 MG Cap PO SCH ×2 (10:22→20:44)
[2018-08-13] MEDS: Enoxaparin 40 MG/0.4 ML Syringe SUBCUT SCH (10:23)
--- NOTE | 2018-08-13 10:52 | PN ---
DATE: 08/13/2018 SUBJECTIVE: The patient's aerobic blood culture is growing gram-positive cocci in clusters, and urine culture showed gram-negative rods. This came back Klebsiella pneumoniae, and this is susceptible to most antibiotics. The patient was started on Macrobid yesterday and this was susceptible. The patient this morning is feeling slightly better and the itching on her arms has responded well to hydroxyzine. She denies any chest pain, shortness of breath, abdominal pain, nausea, vomiting, or any other complaints. LABORATORY DATA: Lab workup this morning is pending. OBJECTIVE: Vital Signs: Blood pressure is 90/54, pulse of 96, respiration of 18, and saturation is 98% on 2 L. Heart: Regular rate and rhythm. Normal S1 and S2. No gallops. No rubs. Lungs: Equal bilaterally. No crackles. No wheezing. Abdomen: Soft and nontender. Bowel sounds positive. Extremities: Remarkable for trace to 1+ bilateral pedal edema, and there is still some redness on both upper arms, but this is slowly improving. MEDICATIONS: Reviewed. PLAN: We will continue with her present management. [facility] /[id number]
[2018-08-13] MEDS ORDERED: Magnesium Sulfate/Water 100 ML IV ONE (13:19)
[2018-08-13] MEDS ORDERED: Potassium Chloride 10 MEQ Tab.ER PO ONE (13:21)
[2018-08-13] MEDS: hydrOXYzine HCl 25 MG Tab PO PRN ×2 (16:57→22:31)
[2018-08-13] MEDS: QUEtiapine 25 MG Tab PO SCH (20:42)
[2018-08-13] MEDS: Sertraline 50 MG Tab PO SCH (20:42)
[2018-08-13] MEDS: Mirtazapine 15 MG Tab PO SCH (20:44)
[2018-08-13] MEDS: QUEtiapine 100 MG Tab PO SCH (20:44)
[2018-08-14] MEDS: Acetaminophen/oxyCODONE 325-5 MG Tab PO PRN (03:36)
[2018-08-14] MEDS: Loratadine 10 MG Tab PO SCH (09:38)
[2018-08-14] MEDS: busPIRone 5 MG Tab PO SCH ×3 (09:38→20:28)
[2018-08-14] MEDS: Torsemide 20 MG Tab PO SCH (09:38)
[2018-08-14] MEDS: Pantoprazole 40 MG Tab.CR PO SCH (09:38)
[2018-08-14] MEDS: Potassium Chloride 10 MEQ Tab.ER PO SCH ×2 (09:41→20:23)
[2018-08-14] MEDS: predniSONE 20 MG Tab PO SCH (09:42)
[2018-08-14] MEDS: Nitrofurantoin Monohydrate/Macrocrystalline 100 MG Cap PO SCH (09:42)
[2018-08-14] MEDS: Levothyroxine 125 MCG Tab PO SCH (09:43)
[2018-08-14] MEDS: Folic Acid 1 MG Tab PO SCH (09:43)
[2018-08-14] MEDS: Spironolactone 25 MG Tab PO SCH (09:43)
[2018-08-14] MEDS: Docusate Sodium 100 MG Cap PO SCH (09:44)
[2018-08-14] MEDS: Enoxaparin 40 MG/0.4 ML Syringe SUBCUT SCH (09:44)
[2018-08-14 10:30] LABS: CHLORIDE,CL 103 mmol/L (101-111); SODIUM,NA 139 mmol/L (135-145)
[2018-08-14] MEDS: Levofloxacin/Dextrose 5%-Water 500 MG in Premix Bag 1 BAG IV SCH (10:42)
[2018-08-14] MEDS: FORMOTEROL 20 MCG/2 ML INH SCH ×2 (10:42→18:24)
--- NOTE | 2018-08-14 10:42 | PN ---
DATE: 08/14/2018 SUBJECTIVE: The patient still had some low-grade temperature and still complaining of some itching and scaling of her skin. But overall, she is slowly improving and slowly getting better. She still has a very good appetite and seems to be passing a lot of undigested food with her bowel movement. The patient denies though any chest pain, shortness of breath, abdominal pain, or any other complaints. Lab workup this morning is still pending. OBJECTIVE: Vital Signs: Blood pressure is 83/46, pulse of 98, respirations 20, and temperature of 99.7. Heart: Regular rate and rhythm. Normal S1 and S2. No gallops. No rubs. Lungs: Clear. No crackles. No wheezing. Abdomen: Soft and nontender. Bowel sounds positive. Extremities: Remarkable for the scaling and still some redness on both arms, but the redness on both lower extremities has improved. LABORATORY DATA: Aerobic blood culture showed Staphylococcus epidermidis x2, and this was susceptible to vancomycin, which has borderline susceptibility, but susceptible to linezolid and levofloxacin. PLAN: I am going to discontinue the vancomycin. We will change this to linezolid because of better sensitivity. [facility] /[id number]
[2018-08-14] MEDS ORDERED: Potassium Chloride 10 MEQ Tab.ER PO ONE (12:29)
[2018-08-14] MEDS: Doxycycline 100 MG Cap PO SCH (20:24)
[2018-08-14] MEDS: Mirtazapine 15 MG Tab PO SCH (20:24)
[2018-08-14] MEDS: hydrOXYzine HCl 25 MG Tab PO PRN (20:25)
[2018-08-14] MEDS: QUEtiapine 25 MG Tab PO SCH (20:28)
[2018-08-14] MEDS: QUEtiapine 100 MG Tab PO SCH (20:29)
[2018-08-14] MEDS: Sertraline 50 MG Tab PO SCH (20:30)
[2018-08-14] MEDS ORDERED: ALPRAZolam 0.5 MG Tab PO SCH (21:00)
[2018-08-14] MEDS: Acetaminophen 325 MG Tab PO PRN (23:29)
[2018-08-15 06:24] LABS: ANION GAP 15.3; CHLORIDE,CL 105 mmol/L (101-111); SODIUM,NA 140 mmol/L (135-145)
[2018-08-15] MEDS: hydrOXYzine HCl 25 MG Tab PO PRN (06:49)
[2018-08-15] MEDS: FORMOTEROL 20 MCG/2 ML INH SCH (07:37)
[2018-08-15] MEDS: Loratadine 10 MG Tab PO SCH (08:17)
[2018-08-15] MEDS: Potassium Chloride 10 MEQ Tab.ER PO SCH (08:17)
[2018-08-15] MEDS: Doxycycline 100 MG Cap PO SCH (08:17)
[2018-08-15] MEDS: Pantoprazole 40 MG Tab.CR PO SCH (08:17)
[2018-08-15] MEDS: Acetaminophen 325 MG Tab PO PRN (08:18)
[2018-08-15] MEDS: Levothyroxine 125 MCG Tab PO SCH (08:18)
[2018-08-15] MEDS: busPIRone 5 MG Tab PO SCH (08:18)
[2018-08-15] MEDS: predniSONE 20 MG Tab PO SCH (08:19)
[2018-08-15] MEDS: Enoxaparin 40 MG/0.4 ML Syringe SUBCUT SCH (08:20)
[2018-08-15] MEDS: Spironolactone 25 MG Tab PO SCH (08:20)
[2018-08-15] MEDS: Folic Acid 1 MG Tab PO SCH (08:20)
[2018-08-15] MEDS: Torsemide 20 MG Tab PO SCH (08:21)
--- NOTE | 2018-08-15 08:57 | PN ---
DATE: 08/14/2018 CONTINUATION/ADDENDUM: I will discontinue the Macrobid and change it to doxycycline as this covers both the Klebsiella on the urine as well as the staphylococcus epidermidis on her blood. We will discontinue the vancomycin because of the borderline susceptibility of the staphylococcus epidermidis, and since the linezolid is not available, we will put her on levofloxacin 500 mg IV daily. Otherwise, we will continue with the rest of her management. Lab workup this morning is still pending. [facility] /[id number]
[2018-08-15] MEDS ORDERED: ALPRAZolam 0.5 MG Tab PO SCH (09:45)
[2018-08-15] MEDS ORDERED: Mineral Oil/White Petrolatum Crm 113 GM Jar TOP SCH (10:00)
[2018-08-15] MEDS: Docusate Sodium 100 MG Cap PO SCH (10:27)
[2018-08-15] MEDS: Levofloxacin/Dextrose 5%-Water 500 MG in Premix Bag 1 BAG IV SCH (11:04)
[2018-08-15] MEDS ORDERED: Sodium Chloride 0.9% 1,000 ML IV SCH (11:20)
[2018-08-15] MEDS ORDERED: Albuterol/Ipratropium 3.0-0.5 MG/3 ML Neb Soln NEB ONE (11:38)
[2018-08-15 11:42] LABS: BASE EXCESS ARTERIAL -1 mmol/L ((-2)-(+3)); BICARBONATE,ARTERIAL 24.6 mmol/L (22-26); O2 DELIVERY DEVICE NON REBR MASK; O2 SATURATION ARTERIAL 84 % (95-100); PCO2 ARTERIAL 49 mmHg (35-45); PO2 ARTERIAL 56 mmHg (70-100)
[2018-08-15 11:43] LABS: ALLEN TEST PERFORMED
[2018-08-15] MEDS ORDERED: Furosemide 40 MG/4 ML VIAL IVPUSH ONE (11:55)
[2018-08-15 12:02] LABS: ANION GAP 19.3; CHLORIDE,CL 103 mmol/L (101-111); SODIUM,NA 140 mmol/L (135-145)
[2018-08-15 16:48] VITALS: BP 87/44
== END 2018-08-15 13:05 | DRG 603 ==
LOC: DL.ED 16:08 → UNDOADMIN 18:12 → DL.MS 18:12
PROVIDERS: ADMIT Internal Medicine; ATTEND Internal Medicine
DX: L03.116 Cellulitis of left lower limb (principal); L03.114 Cellulitis of left upper limb; L03.113 Cellulitis of right upper limb; L03.115 Cellulitis of right lower limb; N18.9 Chronic kidney disease, unspecified; F41.8 Other specified anxiety disorders; E03.9 Hypothyroidism, unspecified; I50.9 Heart failure, unspecified; J45.909 Unspecified asthma, uncomplicated; K59.09 Other constipation; B96.1 Klebsiella pneumoniae [K. pneumoniae] as the cause of diseases classified elsewhere; K21.9 Gastro-esophageal reflux disease without esophagitis; M54.9 Dorsalgia, unspecified; G89.29 Other chronic pain; E66.9 Obesity, unspecified; R23.4 Changes in skin texture; Z90.49 Acquired absence of other specified parts of digestive tract; Z90.710 Acquired absence of both cervix and uterus; Z88.1 Allergy status to other antibiotic agents; Z88.8 Allergy status to other drugs, medicaments and biological substances; Z91.09 Other allergy status, other than to drugs and biological substances; Z79.899 Other long term (current) drug therapy; Z68.22 Body mass index [BMI] 22.0-22.9, adult
CPT/HCPCS: 36415; 36600; 51702; 71045; 71046; 80048; 80053; 80202; 81001; 82803; 83605; 83735; 83880; 84132; 84443; 84484; 85004; 85025; 87040; 87086; 87088; 87186; 94640; 94660; 99284-25; A4217; A9270-GY; J1650; J1940; J1956; J2920; J3370; J3475; J7030; J7050; J7620-GY

== ENCOUNTER 2018-08-15 14:13 | Emergency (ER) | payer OTHER ==
--- NOTE | 2018-08-15 14:02 | EDM.PDOC ---
ED HPI GENERAL MEDICAL PROBLEM - General Stated Complaint: UNKNOWN Time Seen by Provider: 08/15/18 13:05 Source of Information: Reports: EMS Notes Reviewed History Limitations: Reports: Altered Mental Status - History of Present Illness INITIAL COMMENTS - FREE TEXT/NARRATIVE: This 53 yo female patient was brought to the ED by [facility] due to respiratory failure. The patient was in the process of being transferred to [facility] in [place] due to possible ARDS when EMS noted respiratory failure. The EMS crew brought the patient to the ED due to respiratory failure. Upon arrival in the ED , the patient reported increased abdominal pain, but was having increased difficulties breathing and was fighting the CPAP machine. The patient's oxygen sat was near 60% on CPAP. Onset: Today Duration: Constant Location: Reports: Chest, Abdomen, Generalized Quality: Reports: Other Severity: Severe Improves with: Reports: None Worsens with: Reports: None Context: Reports: Other Associated Symptoms: Reports: Shortness of Breath - Related Data Allergies Allergy/AdvReac Type Severity Reaction Status Date / Time metaxalone AdvReac Unknown Abdominal Verified 08/11/18 17:39 Pain cephalexin [Cephalexin] AdvReac Nausea and Verified 08/11/18 15:47 Vomiting ciprofloxacin AdvReac Vomiting Verified 08/11/18 17:39 prednisone AdvReac Vomiting Verified 08/11/18 15:47 cats Allergy Sneezing Uncoded 08/11/18 15:47 evergreen tree Allergy Rash Uncoded 08/11/18 15:47 Home Meds: Home Meds ALPRAZolam [Alprazolam] 0.5 mg PO DAILY 08/11/18 [History] Albuterol Sulfate [Proair Respiclick] 1 puff INH Q6HR PRN 08/11/18 [History] Ascorbate Calcium [Vitamin C] 500 mg PO DAILY 08/11/18 [History] Cyanocobalamin (Vitamin B-12) [Cyanocobalamin Injection] 1 mg IM .MONTHLY [History] Docusate Sodium [Colace] 200 mg PO DAILY 08/11/18 [History] Ferrous Fumarate [Hemocyte] 324 mg PO BID 08/11/18 [History] Folic Acid 1 mg PO DAILY 08/11/18 [History] Formoterol Fumarate [Perforomist] 2 ml INH BID 08/11/18 [History] Levothyroxine 125 mcg PO DAILY 08/11/18 [History] Loperamide [Imodium] 2 mg pe PO Q8HR PRN 08/11/18 [History] Loratadine [Alavert] 10 mg PO DAILY 08/11/18 [History] Magnesium Oxide 1,000 mg PO BEDTIME 08/11/18 [History] Meclizine HCl 25 mg PO DAILY 08/11/18 [History] Midodrine 5 mg PO TID 08/11/18 [History] Mirtazapine 15 mg PO BEDTIME 08/11/18 [History] Multivitamin [Multivitamins] 1 tab PO DAILY 08/11/18 [History] Mupirocin Oint [Bactroban Oint] 1 applic TOP BID 08/11/18 [History] Nitroglycerin [Nitrostat] 0.4 mg SL .Q5MIN PRN 08/11/18 [History] Pantoprazole Sodium 40 mg PO DAILY 08/11/18 [History] Potassium Chloride 20 meq PO BID 08/11/18 [History] QUEtiapine [SEROquel] 250 mg PO DAILY 08/11/18 [History] Sertraline HCl 200 mg PO DAILY 08/11/18 [History] Simvastatin [Zocor] 40 mg PO DAILY 08/11/18 [History] Spironolactone [Aldactone] 12.5 mg PO DAILY 08/11/18 [History] Torsemide 30 mg PO DAILY 08/11/18 [History] busPIRone [Buspar] 20 mg PO TID 08/11/18 [History] oxyCODONE HCl/Acetaminophen [Oxycodone-Acetaminophen 5-325] 1 tab PO Q12HR PRN 08/11/18 [History] Past Medical History HEENT History: Reports: Impaired Vision, Other (See Below) Other HEENT History: wears glasses, bilateral mastoiditis Cardiovascular History: Reports: Heart Failure, Other (See Below) Other Cardiovascular History: Impaired EF. HYPOTENSION 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: Asthma, SOB Gastrointestinal History: Reports: Chronic Constipation, GERD, Pancreatitis Genitourinary History: Reports: Chronic Renal Insuffiency TRACK SERVICE PERSON History: Reports: , Other (See Below) Other TRACK SERVICE PERSON History: hysterectomy Musculoskeletal History: Reports: Back Pain, Chronic Neurological History: Reports: None Psychiatric History: Reports: Anxiety, Depression Endocrine/Metabolic History: Reports: Hypothyroidism, Obesity/BMI 30+ Hematologic History: Reports: Anemia, B12 Deficiency Immunologic History: Reports: None Oncologic (Cancer) History: Reports: None Dermatologic History: Reports: None - Infectious Disease History Infectious Disease History: Reports: Chicken Pox, Measles - Past Surgical History Head Surgeries/Procedures: Reports: None HEENT Surgical History: Reports: None Cardiovascular Surgical History: Reports: None Respiratory Surgical History: Reports: None GI Surgical History: Reports: Appendectomy, Cholecystectomy, Colonoscopy, EGD Female Surgical History: Reports: Hysterectomy, Tubal Ligation Endocrine Surgical History: Reports: None Musculoskeletal Surgical History: Reports: None Social & Family History - Family History Family Medical History: Noncontributory - Caffeine Use Caffeine Use: Reports: Soda Other Caffeine Use: 4 cans/day 7UP OR SPRITE - Living Situation & Occupation Living situation: Reports: , with Spouse Occupation: Disabled ED ROS GENERAL - Review of Systems Review Of Systems: ROS reveals no pertinent complaints other than HPI. ED EXAM, GENERAL - Physical Exam Exam: See Below Exam Limited By: Other General Appearance: Alert, Severe Distress Eye Exam: Bilateral Eye: EOMI, Normal Inspection, PERRL Ears: Normal External Exam, Normal Canal, Hearing Grossly Normal, Normal TMs Nose: Normal Inspection, Normal Mucosa, No Blood Throat/Mouth: Normal Inspection, Normal Lips, Normal Teeth, Normal Gums, Normal Oropharynx, Normal Voice, No Airway Compromise Head: Atraumatic, Normocephalic Neck: Normal Inspection, Supple, Non-Tender, Full Range of Motion Respiratory/Chest: Decreased Breath Sounds, Rhonchi (throughout) Cardiovascular: Normal Peripheral Pulses, Tachycardia GI/Abdominal: Normal Bowel Sounds, Soft, Non-Tender, No Organomegaly, No Distention, No Abnormal Bruit, No Mass (Female) Exam: Deferred Rectal (Female) Exam: Deferred Back Exam: Normal Inspection, Full Range of Motion, NT Extremities: Redness (generalized) Neurological: Alert Psychiatric: Normal Affect, Normal Mood Lymphatic: No Adenopathy Course - Orders/Labs/Meds Orders: Active Orders 24 hr Category Date Time Status Chest 1V Frontal [CR] Urgent Exams 08/15/18 13:39 Ordered Norepinephrine [Levophed] 4 mg Med 08/15/18 13:30 Active Dextrose 5% in Water 246 ml IV TITRATE Medication Orders Norepinephrine Bitartrate 4 mg (/ Dextrose/Water) 250 mls @ 7.5 mls/hr IV TITRATE KP; Protocol Meds: Medications Generic Name Dose Route Start Last Admin Trade Name Traci PRN Reason Stop Dose Admin Norepinephrine Bitartrate 4 mg 250 mls @ 7.5 mls/hr 08/15/18 13:30 / Dextrose/Water IV TITRATE KP Protocol 2 MCG/MIN Departure - Departure Time of Disposition: 14:15 Disposition: DC/Tfer to Acute Hospital 02 Condition: Critical Clinical Impression: Acute respiratory failure Qualifiers: Respiratory failure complication: hypoxia Qualified Code(s): J96.01 - Acute respiratory failure with hypoxia - Discharge Information *PRESCRIPTION DRUG MONITORING PROGRAM REVIEWED*: Not Applicable *COPY OF PRESCRIPTION DRUG MONITORING REPORT IN PATIENT ANNABEL: Not Applicable Forms: Interfacility Transfer EMTALA Care Plan Goals: Dr. Terrazas contacted [facility] in [place] to relay the patient progression. Dr. Terrazas spoke with Dr. Cordon (ICU). Dr. Cordon accepted the patient for continued evaluation and further management as an inpatient at [facility] in [place]. The patient was transferred by [facility]. - My Orders Last 24 Hours: My Active Orders 08/15/18 13:30 Norepinephrine [Levophed] 4 mg Dextrose 5% in Water 246 ml IV TITRATE 08/15/18 13:39 Chest 1V Frontal [CR] Urgent - Assessment/Plan Last 24 Hours: My Active Orders 08/15/18 13:30 Norepinephrine [Levophed] 4 mg Dextrose 5% in Water 246 ml IV TITRATE 08/15/18 13:39 Chest 1V Frontal [CR] Urgent
[~2018-08-15 14:13] MED LIST: Albuterol 0.083% 2.5 MG/3 ML Neb Soln ONE; Norepinephrine 4 MG in Dextrose 5% in Water 246 ML IV SCH
[2018-08-15] MEDS ORDERED: Succinylcholine 200 MG/10 ML MDV IV ONE (14:14)
[2018-08-15] MEDS ORDERED: Etomidate 2 MG/ML 20 ML SDV IVPUSH ONE (14:14)
[2018-08-15] MEDS ORDERED: Rocuronium 50 MG/5 ML Vial IV ONE (14:14)
[2018-08-15] MEDS ORDERED: Midazolam 1 MG/ML 2 ML SDV IV ONE (14:14)
[2018-08-15] MEDS ORDERED: fentaNYL 100 MCG/2 ML SDV IV ONE (14:14)
== END 2018-08-15 14:18 ==
LOC: DL.ED 14:13
DX: J96.01 Acute respiratory failure with hypoxia (principal); I50.9 Heart failure, unspecified; N18.9 Chronic kidney disease, unspecified; K21.9 Gastro-esophageal reflux disease without esophagitis; F41.9 Anxiety disorder, unspecified; F32.9 Major depressive disorder, single episode, unspecified; E03.9 Hypothyroidism, unspecified; E66.9 Obesity, unspecified; Z79.899 Other long term (current) drug therapy; Z88.1 Allergy status to other antibiotic agents
CPT/HCPCS: 31500; 71045; 99285; J0330; J2250; J3010; J3490; J7060; J7613-GY